=== PATIENT | male | born 1945 | race Caucasian/White ===

== ENCOUNTER → 2016-07-15 | Outpatient (CLI) | payer MEDICARE, OTHER ==
[~2016-07-15] MED LIST: ASCO500T9 PO; ATEN-36 PO; CYCL-375; DOXY100C2; HYDR4TAB84; IOHEXOL 300 MG/ML 100ml INJECTION ONE; LORA1TAB3; NITR0.4T; NORMAL SALINE 100 ML ONE; OMEP1CAP2 PO; ONDA8TAB12 SL; OPIU10TI PO; PROM25TA7; SALINE FLUSH 10ml SYRINGE ONE
--- NOTE | 2016-07-15 14:21 | DI ---
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 Coronal and sagittal two-dimensional reformats. Automated Exposure Control and Iterative Reconstruction dose reducing techniques were utilized. Contrast: Omnipaque 300 89 mL Findings: Chest: New groundglass opacity in the left upper lobe some atelectasis in the lingula. This measures up to 3 cm in diameter on axial image #25. There is also some new consolidation with fine nodules in the left lower lobe with a small left pleural effusion. Right lung remains clear. No pneumothorax. The central airways are patent. No axillary or mediastinal adenopathy. Prior CABG. Heart and great vessels are stable. No pericardial effusion. Abdomen/pelvis: The liver is normal. Gallbladder is surgically absent. The spleen, pancreas and adrenal glands are normal. Kidneys are normal. No abdominal or pelvic adenopathy. Left lower quadrant colostomy. 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 The size and extent of this rim-enhancing multiloculated collection is essentially identical to the comparison. Distal colectomy. No evidence of a small bowel obstruction. Bone windows show multiple compression fractures including T11, T12, L1, L2, L3 and L4 superior endplates. Impression: 1. 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 2. Multiple thoracolumbar compression fractures, several of which appeared subacute on the prior MRI study although the T11, L2 and L4 compression fractures could be new. 3. New pneumonia or aspiration in the left lung. 4. No definite evidence of metastatic disease in the chest, abdomen or pelvis. .
== END ==
LOC: IMA 11:08
PROVIDERS: ATTEND Internal Medicine Hematology & Oncology
DX: C18.4 Malignant neoplasm of transverse colon (principal); C18.7 Malignant neoplasm of sigmoid colon; K65.1 Peritoneal abscess; M48.55XA Collapsed vertebra, not elsewhere classified, thoracolumbar region, initial encounter for fracture; R91.8 Other nonspecific abnormal finding of lung field
CPT/HCPCS: 71260; 74177; J7050; Q9967

== ENCOUNTER 2016-08-23 17:40 | Emergency (ER) | payer MEDICARE, OTHER ==
[~2016-08-23] VITALS: Ht 175.3 cm; Wt 68.1 kg
[2016-08-23 17:40] VITALS: Ht 175.3 cm; Wt 68.1 kg
[~2016-08-23 17:40] MED LIST changes: -IOHEXOL 300 MG/ML 100ml INJECTION ONE; -NITR0.4T; +NITR0.4T PO; -NORMAL SALINE 100 ML ONE; -SALINE FLUSH 10ml SYRINGE ONE
--- OUTSIDE RECORDS SUMMARY | 2016-08-23 17:46 | XMS REPORT | Continuity of Care Document ---
Author Author [facility] Organization [facility] Address Unknown Phone Unavailable Support Name Relationship Address Phone BRADY PHAM Caregiver [facility] [address] [place] [address] KAYLEE SOLO MD Caregiver [address] [place] [address] [place] [phone] LOREE COLUNGA Next Of Kin [address] [place] [address] Insurance Providers Payer Name Policy Number Subscriber Name Relationship Medicare [id number] Jonh Colunga 19 Self Blue Cross Other [id number] Jonh Colunga Self Advance Directives Directive Response Recorded Date/Time Advanced Directives Type None 10/18/13 10:54am Resuscitation Documents on File No 10/18/13 10:54am Problems Medical Problems Problem Onset Date Status Diarrhea Unknown Active C-DIFFICILE COLITIS Unknown Active Diarrhea Unknown Active mild dehydration Unknown Active Medications Medication Dose Route Sig Days/Qty Instructions Order Date Discontinued Date Status Pantoprazole Sodium 40 Mg PO DAILY 08/05/12 10/16/12 Discontinued Atenolol 25 Mg PO DAILY 08/05/12 Active Lipase/Protease/Amylase 3 Each PO THREE TIMES A DAY 08/05/12 Discontinued Famotidine 20 Mg PO DAILY 10/16/12 04/24/13 Discontinued Metronidazole 500 Mg PO DAILY 11/12/12 04/24/13 Discontinued [Equate Acid Machining Department Supervisor] 1 Tab DAILY 08/10/13 Active Vancomycin Hcl 250 Mg PO EVERY SIX HOURS 40 Qty 08/10/13 10/13/13 Discontinued Colestipol Hcl 500 Gm PO 10/23/13 Active [Opium Tincture 10 Mg/Ml] 10/23/13 Active Social History Social History Problem Response Recorded Date/Time Smoking Status Former smoker 10/18/2013 10:30am Chewing Tobacco Status No 10/13/2013 7:12pm Hx Substance Use No 10/23/2013 10:19am Hx Alcohol Use No 10/23/2013 10:19am Has the pt used tobacco in the last 12 months No 10/18/2013 10:30am Query Response Start Date Stop Date Smoking Status Former smoker Hospital Discharge Instructions No hospital discharge instructions. Plan of Care No plan of care. Functional Status Query Response Date Recorded Physical Hygiene Self October 23, 2013 10:19am Disabilities None October 23, 2013 10:19am Devices Used Glasses October 23, 2013 10:19am Dressing Self October 23, 2013 10:19am Ambulation Self October 13, 2013 7:12pm Diet Self October 23, 2013 10:19am Mental Status Alert October 13, 2013 10:06pm Disabilities None October 23, 2013 10:19am Devices Used Glasses October 23, 2013 10:19am Physical Hygiene Self October 23, 2013 10:19am Dressing Self October 23, 2013 10:19am Ambulation Self October 13, 2013 7:12pm Diet Self October 23, 2013 10:19am Allergies, Adverse Reactions, Alerts Allergen Type Severity Reaction Status Last Updated Codeine Adverse Reaction Unknown NAUSEA Active 10/23/13 Immunizations Name Given Type Hx Influenza Vaccination Y 01/17 Historical Hx Pneumococcal Vaccination Y JAN 2012 Historical Hx Influenza Vaccination Y 01/17 Historical Vital Signs Acute Vital Signs Vital Response Date/Time Temperature (Fahrenheit) 96.4 deg F (96.8 - 99.1) Temperature (Calculated Celsius) 35.83750 degrees C (36.0 - 37.3) Pulse Rate (adult) 75 bpm (60 - 100) Respiratory Rate 20 breaths/min (10 - 20) O2 Sat by Pulse Oximetry 99 % (90 - 100) Blood Pressure 111/58 mm Hg Height 6 ft 0 in Weight 132 lb Body Mass Index 17.0 kg/m^2 Results Test Source Date Result Interp. Ref. Range Comments Alanine Aminotransferase (ALT/SGPT) October 23, 2013 11:02am 29 U/L N 21- 72 Albumin October 23, 2013 11:02am 4.1 G/DL N 3.5-5.0 Albumin/Globulin Ratio October 23, 2013 11:02am 1.0 RATIO L 1.1-2.2 Alkaline Phosphatase October 23, 2013 11:02am 124 U/L N 38-126 Amylase Level August 10, 2013 2:00pm 133 U/L H 30-110 Anion Gap October 23, 2013 11:02am 13 MEQ/L N 5-15 Aspartate Amino Transf (AST/SGOT) October 23, 2013 11:02am 23 U/L N 17-59 BUN/Creatinine Ratio October 23, 2013 11:02am 24 RATIO N 6-26 Band Neutrophils # October 18, 2013 10:43am 0.2 T/MM3 - COMMENT DRAW NOW Band Neutrophils % October 18, 2013 10:43am 4.0 % N 0-6 COMMENT DRAW NOW Basophils # (Auto) October 23, 2013 11:02am 0.0 T/MM3 N 0-0.2 Basophils (%) (Auto) October 23, 2013 11:02am 0.4 % N 0-2 Blood Urea Nitrogen October 23, 2013 11:02am 44.0 MG/DL H 9-20 Calcium Level October 23, 2013 11:02am 9.7 MG/DL N 8.4-10.2 Calculated Osmolality October 23, 2013 11:02am 265 MOSM/KG N 261-280 Carbon Dioxide Level October 23, 2013 11:02am 26 MEQ/L N 22-30 Chloride Level October 23, 2013 11:02am 92 MEQ/L L 98-107 Creatinine October 23, 2013 11:02am 1.8 MG/DL H 0.8-1.5 Eosinophils # (Auto) October 23, 2013 11:02am 0.1 T/MM3 N 0-0.5 Eosinophils (%) (Auto) October 23, 2013 11:02am 1.0 % N 0-4 Erythrocyte Sedimentation Rate February 22, 2013 2:30pm 64 MM/HR H 0-15 Globulin October 23, 2013 11:02am 4.1 G/DL H 2.4-3.6 Glucose Level October 23, 2013 11:02am 111 MG/DL H 75-110 Hematocrit October 23, 2013 11:02am 38.5 % L 41-53 Hemoglobin October 23, 2013 11:02am 13.3 GM/DL L 13.5-17.5 Lipase October 23, 2013 11:02am 63 U/L N 23-300 Lymphocytes # (Auto) October 23, 2013 11:02am 1.5 T/MM3 N 1-4.8 Lymphocytes # (Manual) October 18, 2013 10:43am 2.7 T/MM3 N 1-4.8 COMMENT DRAW NOW Lymphocytes % (Manual) October 18, 2013 10:43am 47.0 % H 23-45 COMMENT DRAW NOW Lymphocytes (%) (Auto) October 23, 2013 11:02am 21.5 % L 23-45 Magnesium Level August 06, 2012 4:20am 1.6 MG/DL N 1.6-2.3 Mean Corpuscular Hemoglobin October 23, 2013 11:02am 30.4 UUG N 26-34 Mean Corpuscular Hemoglobin Concent October 23, 2013 11:02am 34.5 GM/DL N 31-37 Mean Corpuscular Volume October 23, 2013 11:02am 88.1 UM3 N 80-100 Mean Platelet Volume October 23, 2013 11:02am 8.2 UM3 L 9.4-12.4 Monocytes # (Auto) October 23, 2013 11:02am 0.7 T/MM3 N 0-0.8 Monocytes (%) (Auto) October 23, 2013 11:02am 10.2 % H 0-9.0 Neutrophils # (Auto) October 23, 2013 11:02am 4.6 T/MM3 N 1.8-7.7 Neutrophils # (Manual) October 18, 2013 10:43am 2.8 T/MM3 N 1.8-7.7 COMMENT DRAW NOW Neutrophils % (Manual) October 18, 2013 10:43am 49.0 % N 33-66 COMMENT DRAW NOW Neutrophils (%) (Auto) October 23, 2013 11:02am 66.6 % H 33-66 Platelet Count October 23, 2013 11:02am 235 T/MM3 N 130-400 Potassium Level October 23, 2013 11:02am 4.8 MEQ/L N 3.6-5 Prealbumin August 05, 2012 2:20pm 16.1 MG/DL L 17.6-36.0 COMMENT may use blood in lab RDW Standard Deviation October 23, 2013 11:02am 42.4 FL N 36.9-50.2 Red Blood Count October 23, 2013 11:02am 4.37 M/MM3 L 4.50-5.90 Sodium Level October 23, 2013 11:02am 131 MEQ/L L 134-144 Stool Occult Blood May 05, 2013 12:23pm Negative - Stool for White Cells October 13, 2013 7:23pm Positive - Has specimen been collected/obtained? Y Thyroid Stimulating Hormone (TSH) August 05, 2012 2:20pm 0.87 MIU/L N 0.47- 4.68 COMMENT may use blood in lab Total Bilirubin October 23, 2013 11:02am 0.70 MG/DL N 0.20-1.30 Total Protein October 23, 2013 11:02am 8.2 G/DL N 6.3-8.2 Urine Bacteria August 10, 2013 2:00pm Trace H - Has specimen been collected/obtained? Y Urine Bilirubin August 10, 2013 2:00pm 1+ H - Has specimen been collected/ obtained? Y Urine Blood August 10, 2013 2:00pm Negative - Has specimen been collected/obtained? Y Urine Collection Type August 10, 2013 2:00pm Cleancatch-midstream - Has specimen been collected/obtained? Y Urine Color August 10, 2013 2:00pm Sulma - Has specimen been collected/ obtained? Y Urine Culture Indicated August 10, 2013 2:00pm Cult not indicated - Has specimen been collected/obtained? Y Urine Fine Granular Casts May 05, 2013 12:20pm 3-5 /LPF - Has specimen been collected/obtained? Y Urine Glucose (UA) August 10, 2013 2:00pm Negative - Has specimen been collected/obtained? Y Urine Hyaline Casts May 05, 2013 12:20pm 5-10 /LPF - Has specimen been collected/obtained? Y Urine Ketones August 10, 2013 2:00pm 1+ H - Has specimen been collected/ obtained? Y Urine Leukocyte Esterase August 10, 2013 2:00pm Negative - Has specimen been collected/obtained? Y Urine Mucus May 05, 2013 12:20pm Present - Has specimen been collected/obtained? Y Urine Nitrite August 10, 2013 2:00pm Negative - Has specimen been collected/obtained? Y Urine Protein August 10, 2013 2:00pm 2+ H - Has specimen been collected/ obtained? Y Urine RBC August 10, 2013 2:00pm 3-5 /HPF H - Has specimen been collected/ obtained? Y Urine Specific [place] August 10, 2013 2:00pm >=1.030 H - Has specimen been collected/obtained? Y Urine Turbidity August 10, 2013 2:00pm Clear - Has specimen been collected/obtained? Y Urine Urobilinogen August 10, 2013 2:00pm 0.2 EU/DL - Has specimen been collected/obtained? Y Urine WBC August 10, 2013 2:00pm 0-1 /HPF - Has specimen been collected/ obtained? Y Urine pH August 10, 2013 2:00pm 6.0 - Has specimen been collected/ obtained? Y Vitamin B12 Level August 05, 2012 2:20pm 192 PG/ML L 239-931 COMMENT may use blood in lab White Blood Count October 23, 2013 11:02am 6.9 T/MM3 N 4.5-11.0 Chemistry Specimen Hemolysis October 23, 2013 11:02am < 15 0-25 0-25: No Hemolysis.26-70: Slight Hemolysis - can falsely elevate K and Urine Protein. 71-285: Moderate Hemolysis - can falsely elevate K, Troponin I, CA 19-9, PTH, CSF GLucose, and Urine Protein, and can falsely decrease Phenytoin. 286-999: Gross Hemolysis - can falsely elevate K, Troponin I, CA 19-9, PTH, CSF Glucose, and Urine Protine, and can falsely decrease Phenytoin. Recommend specimen recollection. Urinalysis Comment October 16, 2012 9:23pm Microscopic not ind. - Has specimen been collected/obtained? Y Lab Scanned Report September 29, 2013 8:51pm LAB TEST FORM REQUEST [id number] - Turbidity October 23, 2013 11:02am < 20 0-20 Glomerular Filtration Rate Calc October 23, 2013 11:02am 38 - Immature Granulocyte # (Auto) October 23, 2013 11:02am 0.02 T/MM3 N 0.00- 0.03 Immature Granulocyte % (Auto) October 23, 2013 11:02am 0.3 % N 0.0-0.5 Icterus Index October 23, 2013 11:02am < 2 0-7 C. difficile Toxin B Gene (PCR) October 13, 2013 7:23pm Negative - If Toxin A is clinically indicated, treat accordingly. Stool Culture Stool October 13, 2013 7:23pm Giardia Antigen (KAN) Stool May 05, 2013 12:23pm Procedures Procedure Status Date Provider(s) THER/PROPH/DIAG INJ IV PUSH completed 08/10/13 HYDRATE IV INFUSION ADD-ON completed 08/10/13 HYDRATION IV INFUSION INIT completed 10/13/13 Encounters Encounter Location Date/Time Departed Emergency Room [facility] 10/23/13 9:46am Registered Clinic [facility] 10/18/13 10:21am Departed Emergency Room [facility] 10/13/13 6:45pm Departed Emergency Room [facility] 08/10/13 1:17pm Recent Diagnosis
--- OUTSIDE RECORDS SUMMARY | 2016-08-23 17:47 | XMS REPORT ---
Author Author BRUCE LOPEZ [facility] Address Unknown Phone Unavailable Care Team Providers Care Retail Stock Clerk Name Role Phone SUITER, Dr. WILSON Primary Care Physician Unavailable Allergies Allergy Description Allergy Type CODEINE Drug allergy (disorder) Procedures Procedure Type Procedure Description Date Physicians No codified procedures found for this patient. Results No Procedures Performed Observation Test Name Observation Test Result Observation Test Units Observation Test Date Observation Test Time No result observations. History of Immunizations Immunization Date no immunization entries Plan of Care Item Text No plan of care items. Procedure Date/Time/Initials Critical? Status No plan of care procedures. Medication List Medication Dose Units Frequency Start Date/Time Status none Problem List Problem Entered Date Resolved Date No known problems
--- OUTSIDE RECORDS SUMMARY | 2016-08-23 17:47 | XMS REPORT | Continuity of Care Document ---
Author Author Zhang [facility] Organization [facility] Address Unknown Phone Unavailable Support Name Relationship Address Phone KAYLEE SOLO MD Caregiver [address] [place] [address] [place] [address] [phone] LOREE COLUNGA Next Of Kin [address] [place] [address] Insurance Providers Payer Name Policy Number Subscriber Name Relationship Medicare [id number] Jonh Colunga Self Blue Cross Other [id number] Jonh Colunga Self Advance Directives Directive Response [...] PO DAILY 11/12/12 04/24/13 Discontinued [Equate Acid Child Caregiver Private Home] 1 Tab DAILY 08/10/13 Active Vancomycin Hcl 250 Mg PO EVERY SIX HOURS 40 Qty 08/10/13 10/13/13 Discontinued Social History Social History Problem Response Recorded Date/Time Smoking Status Former smoker 10/18/2013 10:30am Chewing Tobacco Status No 10/13/2013 7:12pm Hx Substance Use No 10/13/2013 7:12pm Hx Alcohol Use No 10/13/2013 7:12pm Has the pt used tobacco in the last 12 months No 10/18/2013 10:30am Query Response Start Date Stop Date Smoking Status Former smoker Hospital Discharge Instructions No hospital discharge instructions. Plan of Care No plan of care. Functional Status Query Response Date Recorded Physical Hygiene Self October 13, 2013 7:12pm Ambulation Self October 13, 2013 7:12pm Mental Status Alert October 13, 2013 10:06pm Physical Hygiene Self October 13, 2013 7:12pm Ambulation Self October 13, 2013 7:12pm Allergies, Adverse Reactions, Alerts Allergen Type Severity Reaction Status Last Updated Codeine Adverse Reaction Unknown NAUSEA Active 10/13/13 Immunizations Name Given Type Hx Influenza Vaccination Y 01/17 Historical Hx Pneumococcal Vaccination Y JAN 2012 Historical Hx Influenza Vaccination Y 01/17 Historical Vital Signs Acute Vital Signs Vital Response Date/Time Temperature (Fahrenheit) 97.1 deg F (96.8 - 99.1) Temperature (Calculated Celsius) 36.63048 degrees C (36.0 - 37.3) Temperature Source Temporal Pulse Rate (adult) 67 bpm (60 - 100) Respiratory Rate 16 breaths/min (10 - 20) O2 Sat by Pulse Oximetry 99 % (90 - 100) Blood Pressure 120/72 mm Hg Blood Pressure Source Automatic Cuff Results Test Source Date Result Interp. Ref. Range Comments Lymphocytes # (Manual) October 18, 2013 10:43am 2.7 T/MM3 N 1-4.8 COMMENT DRAW NOW Neutrophils # (Manual) October 18, 2013 10:43am 2.8 T/MM3 N 1.8-7.7 COMMENT DRAW NOW Band Neutrophils # October 18, 2013 10:43am 0.2 T/MM3 - COMMENT DRAW NOW Lymphocytes % (Manual) October 18, 2013 10:43am 47.0 % H 23-45 COMMENT DRAW NOW Band Neutrophils % October 18, 2013 10:43am 4.0 % N 0-6 COMMENT DRAW NOW Neutrophils % (Manual) October 18, 2013 10:43am 49.0 % N 33-66 COMMENT DRAW NOW Alanine Aminotransferase (ALT/SGPT) October 18, 2013 10:43am 21 U/L N 21- 72 COMMENT DRAW NOW Albumin October 18, 2013 10:43am 4.1 G/DL N 3.5-5.0 COMMENT DRAW NOW Albumin/Globulin Ratio October 18, 2013 10:43am 0.9 RATIO L 1.1-2.2 COMMENT DRAW NOW Alkaline Phosphatase October 18, 2013 10:43am 106 U/L N 38-126 COMMENT DRAW NOW Amylase Level August 10, 2013 2:00pm 133 U/L H 30-110 Anion Gap October 18, 2013 10:43am 15 MEQ/L N 5-15 COMMENT DRAW NOW Aspartate Amino Transf (AST/SGOT) October 18, 2013 10:43am 21 U/L N 17-59 COMMENT DRAW NOW BUN/Creatinine Ratio October 18, 2013 10:43am 18 RATIO N 6-26 COMMENT DRAW NOW Basophils # (Auto) October 13, 2013 7:18pm 0.1 T/MM3 N 0-0.2 Basophils (%) (Auto) October 13, 2013 7:18pm 0.6 % N 0-2 Blood Urea Nitrogen October 18, 2013 10:43am 28.0 MG/DL H 9-20 COMMENT DRAW NOW C. difficile Toxin B Gene (PCR) October 13, 2013 7:23pm Negative - If Toxin A is clinically indicated, treat accordingly. Calcium Level October 18, 2013 10:43am 10.0 MG/DL N 8.4-10.2 COMMENT DRAW NOW Calculated Osmolality October 18, 2013 10:43am 274 MOSM/KG N 261-280 COMMENT DRAW NOW Carbon Dioxide Level October 18, 2013 10:43am 22 MEQ/L N 22-30 COMMENT DRAW NOW Chemistry Specimen Hemolysis October 18, 2013 10:43am 22 N 0-25 0-25: No Hemolysis.26-70: Slight Hemolysis - can falsely elevate K and Urine Protein. 71-285: Moderate Hemolysis - can falsely elevate K, Troponin I, CA 19-9, PTH, CSF GLucose, and Urine Protein, and can falsely decrease Phenytoin. 286-999: Gross Hemolysis - can falsely elevate K, Troponin I, CA 19-9, PTH, CSF Glucose, and Urine Protine, and can falsely decrease Phenytoin. Recommend specimen recollection. Chloride Level October 18, 2013 10:43am 102 MEQ/L N 98-107 COMMENT DRAW NOW Creatinine October 18, 2013 10:43am 1.6 MG/DL H 0.8-1.5 COMMENT DRAW NOW Eosinophils # (Auto) October 13, 2013 7:18pm 0.2 T/MM3 N 0-0.5 Eosinophils (%) (Auto) October 13, 2013 7:18pm 2.5 % N 0-4 Erythrocyte Sedimentation Rate February 22, 2013 2:30pm 64 MM/HR H 0-15 Globulin October 18, 2013 10:43am 4.4 G/DL H 2.4-3.6 COMMENT DRAW NOW Glomerular Filtration Rate Calc October 18, 2013 10:43am 43 - COMMENT DRAW NOW Glucose Level October 18, 2013 10:43am 92 MG/DL N 75-110 COMMENT DRAW NOW Hematocrit October 18, 2013 10:43am 39.3 % L 41-53 COMMENT DRAW NOW Hemoglobin October 18, 2013 10:43am 13.1 GM/DL L 13.5-17.5 COMMENT DRAW NOW Icterus Index October 18, 2013 10:43am < 2 0-7 COMMENT DRAW NOW Immature Granulocyte # (Auto) October 13, 2013 7:18pm 0.02 T/MM3 N 0.00- 0.03 Immature Granulocyte % (Auto) October 13, 2013 7:18pm 0.2 % N 0.0-0.5 Lab Scanned Report September 29, 2013 8:51pm LAB TEST FORM REQUEST [id number] - Lipase October 13, 2013 7:18pm 65 U/L N 23-300 Lymphocytes # (Auto) October 13, 2013 7:18pm 2.3 T/MM3 N 1-4.8 Lymphocytes (%) (Auto) October 13, 2013 7:18pm 26.9 % N 23-45 Magnesium Level August 06, 2012 4:20am 1.6 MG/DL N 1.6-2.3 Mean Corpuscular Hemoglobin October 18, 2013 10:43am 29.8 UUG N 26-34 COMMENT DRAW NOW Mean Corpuscular Hemoglobin Concent October 18, 2013 10:43am 33.3 GM/DL N 31-37 COMMENT DRAW NOW Mean Corpuscular Volume October 18, 2013 10:43am 89.5 UM3 N 80-100 COMMENT DRAW NOW Mean Platelet Volume October 18, 2013 10:43am 8.2 UM3 L 9.4-12.4 COMMENT DRAW NOW Monocytes # (Auto) October 13, 2013 7:18pm 1.1 T/MM3 H 0-0.8 Monocytes (%) (Auto) October 13, 2013 7:18pm 12.6 % H 0-9.0 Neutrophils # (Auto) October 13, 2013 7:18pm 4.9 T/MM3 N 1.8-7.7 Neutrophils (%) (Auto) October 13, 2013 7:18pm 57.2 % N 33-66 Platelet Count October 18, 2013 10:43am 289 T/MM3 N 130-400 COMMENT DRAW NOW Potassium Level October 18, 2013 10:43am 4.4 MEQ/L N 3.6-5 COMMENT DRAW NOW Prealbumin August 05, 2012 2:20pm 16.1 MG/DL L 17.6-36.0 COMMENT may use blood in lab RDW Standard Deviation October 18, 2013 10:43am 45.0 FL N 36.9-50.2 COMMENT DRAW NOW Red Blood Count October 18, 2013 10:43am 4.39 M/MM3 L 4.50-5.90 COMMENT DRAW NOW Sodium Level October 18, 2013 10:43am 139 MEQ/L N 134-144 COMMENT DRAW NOW Stool Occult Blood May 05, 2013 12:23pm Negative - Stool for White Cells October 13, 2013 7:23pm Positive - Has specimen been collected/obtained? Y Thyroid Stimulating Hormone (TSH) August 05, 2012 2:20pm 0.87 MIU/L N 0.47- 4.68 COMMENT may use blood in lab Total Bilirubin October 18, 2013 10:43am 0.60 MG/DL N 0.20-1.30 COMMENT DRAW NOW Total Protein October 18, 2013 10:43am 8.5 G/DL H 6.3-8.2 COMMENT DRAW NOW Turbidity October 18, 2013 10:43am < 20 0-20 COMMENT DRAW NOW Urinalysis Comment October 16, 2012 9:23pm Microscopic not ind. - Has specimen been collected/obtained? Y Urine Bacteria August 10, 2013 2:00pm Trace [...] specimen been collected/ obtained? Y Urine Specific [place] August 10, 2013 2:00pm >=1.030 H - [...] blood in lab White Blood Count October 18, 2013 10:43am 5.8 T/MM3 N 4.5-11.0 COMMENT DRAW NOW Stool Culture Stool October 13, 2013 7:23pm Giardia Antigen (KAN) Stool May 05, 2013 12:23pm Procedures Procedure Status Date Provider(s) THER/PROPH/DIAG INJ IV PUSH completed 08/10/13 HYDRATE IV INFUSION ADD-ON completed 08/10/13 HYDRATION IV INFUSION INIT completed 10/13/13 Encounters Encounter Location Date/Time Registered Clinic [facility] 10/18/13 10:21am Departed Emergency Room [facility] 10/13/13 6:45pm Departed Emergency Room [facility] 08/10/13 1:17pm
--- OUTSIDE RECORDS SUMMARY | 2016-08-23 17:47 | XMS REPORT ---
Author Author DANYEL PANIAGUA [facility] Address Unknown Phone Unavailable Care Team Providers Care Police Booking Officer Name Role Phone SUITER, Dr. WILSON Primary Care Physician Unavailable Allergies Allergy Description Allergy Type CODEINE Drug allergy (disorder) Procedures Procedure Type Procedure Description Date Physicians No codified procedures found for this patient. Results CLOTEST (HELICOBACTER) Observation Test Name Observation Test Result Observation Test Units Observation Test Date Observation Test Time CLOTEST (HELICOBACTE NEGATIVE 01/26/2013 10:09 PATHOLOGY ORDER Observation Test Name Observation Test Result Observation Test Units Observation Test Date Observation Test Time Results Transcriptions Result Description Result Date Result Time ENDOSCOPY PRE-PROCEDURE H&P 01/25/13 12: 31 ENDOSCOPY REPORT 01/25/13 12:31 ENDOSCOPY REPORT 01/25/13 12:31 ENDOSCOPY LETTER 01/25/13 12:31 ENDOSCOPY DISCHARGE NOTE 01/25/13 12:31 ENDOSCOPY LETTER 01/26/13 14:31 ENDOSCOPY LETTER 01/27/13 12:31 History of Immunizations Immunization Date no immunization entries Plan of Care Item Text No plan of care items. Procedure Date/Time/Initials Critical? Status No plan of care procedures. Medication List Medication Dose Units Frequency Start Date/Time Status none Problem List Problem Entered Date Resolved Date No known problems
--- OUTSIDE RECORDS SUMMARY | 2016-08-23 17:47 | XMS REPORT | Referral Summary ---
Author Author [facility] Organization [facility] Address Unknown Phone Unavailable Care Team Providers Care Supply Chain Generalist Name Role Phone SamariaNaomi Primary Care Physician [phone] Encounter [facility] [id number] Date(s): 05/06/16 - 05/09/16 [facility] [address] [place] [address] Discharge Disposition: 01-Home or Self Care Attending Physician: Blanca Corona MD Admitting Physician: Cynthia Riggs MD Vital Signs Most recent to 1 oldest [Reference Range]: Temperature Oral 36.2 degC [35.8-37.3 degC] (05/09/16 8:57 AM) Peripheral Pulse 108 bpm Rate [60-100 bpm] *HI* (05/09/16 8:57 AM) Heart Rate Monitored 76 bpm [60-100 bpm] (05/09/16 6:00 AM) Respiratory Rate 16 br/min [14-20 br/min] (05/09/16 8:57 AM) Blood Pressure 138/78 mmHg [90-140/60-90 mmHg] (05/09/16 8:57 AM) SpO2 100 % (05/09/16 8:57 AM) Remote Telemetry Ongoing (05/09/16 8:00 AM) Problem List Condition Effective Dates Status Health Status Informant Acute Active pain(Confirmed) At risk of pressure Active sore(Confirmed) Fluid Active imbalance(Confirmed) 1 Impaired skin Active integrity(Confirmed) 2 Rectal 2016 Active cancer(Confirmed) Tissue perfusion Active alteration(Confirmed )3 1Problem added automatically by system based on initiation of Fluid Volume Imbalance Plan of Care 2Problem added automatically by system based on initiation of Impaired Skin Integrity Plan of Care 3Problem added automatically by system based on initiation of Tissue Perfusion Cerebral Plan of Care Allergies, Adverse Reactions, Alerts Substance Reaction Severity Status codeine Active Medications atenolol 25 mg, Oral, Daily, 0 Refill(s) Start Date: 05/06/16 Status: Ordered cyclobenzaprine 10 mg oral tablet 10 mg 1 tabs, Oral, TID, Muscle Spasm, 0 Refill(s) Start Date: 05/09/16 Status: Ordered doxycycline 100 mg, Oral, BID, for chemo rash, 0 Refill(s) Start Date: 05/06/16 Status: Ordered HYDROmorphone 8 mg, Oral, q6hr, Pain Severe (7-10), 0 Refill(s) Start Date: 05/06/16 Status: Ordered Imodium A-D 2 mg, Oral, Once, Diarrhea/Loose Stools, 0 Refill(s) Start Date: 05/06/16 Status: Ordered magnesium oxide 400 mg, Oral, BID, 0 Refill(s) Start Date: 05/06/16 Status: Ordered opium 10% (equivalent to morphine 10 mg/mL) (Opium Tincture) oral tincture 0.6 mL, Oral, BID, 0 Refill(s) Start Date: 05/06/16 Status: Ordered Zegerid 20 mg, Oral, Daily, 0 Refill(s) Start Date: 05/06/16 Status: Ordered Zofran 8 mg, Oral, BID, Nausea, 0 Refill(s) Start Date: 05/06/16 Status: Ordered Results Hematology Most recent to 1 oldest [Reference Range]: WBC [4.8-10.8 4.8 10*3/uL 10*3/uL] (05/09/16 4:17 AM) RBC [4.60-6.20] 2.52 *LOW* (05/09/16 4:17 AM) Hgb [14.0-18.0 8.3 gm/dL gm/dL] *LOW* (05/09/16 4:17 AM) Hct [42.0-52.0 %] 26.0 % *LOW* (05/09/16 4:17 AM) MCV [82.0-99.0 fL] 103.2 fL *HI* (05/09/16 4:17 AM) MCH [27.0-32.0 pg] 32.9 pg *HI* (05/09/16 4:17 AM) MCHC [32.0-36.0 31.9 gm/dL gm/dL] *LOW* (05/09/16 4:17 AM) RDW [11.5-14.5 %] 15.1 % *HI* (05/09/16 4:17 AM) Platelet [150-400 220 10*3/uL 10*3/uL] (05/09/16 4:17 AM) MPV [9.4-12.3 fL] 8.3 fL *LOW* (05/09/16 4:17 AM) Immature 0.4 % Granulocytes (05/09/16:17 AM) [0.0-1.0 %] Neutrophils [51-75 51 % %] (05/09/16 4:17 AM) Lymphocytes [20-46 25 % %] (05/09/16:17 AM) Monocytes [4-11 %] 19 % *HI* (05/09/16 4:17 AM) Eosinophils [0-4 %] 3 % (05/09/16:17 AM) Basophils [0-2 %] 1 % (05/09/16 4:17 AM) Neutro Absolute 2.44 [1.90-7.00] (05/09/16 4:17 AM) Lymph Absolute 1.21 [0.80-3.30] (05/09/16 4:17 AM) [place] Absolute 0.89 [0.30-1.00] (05/09/16 4:17 AM) Eos Absolute 0.16 [0.00-0.50] (05/09/16 4:17 AM) Baso Absolute 0.06 [0.00-0.20] (05/09/16 4:17 AM) Nucleated RBC 0.0 /100 WBC Automated [0 /100 (05/09/16 4:17 AM) WBC] Chemistry Most recent to 1 oldest [Reference Range]: Sodium Lvl [136-144 137 mEq/L mEq/L] (05/09/16 4:17 AM) Potassium Lvl 4.7 mEq/L [3.6-5.1 mEq/L] (05/09/16 4:17 AM) Chloride [99-109 108 mEq/L mEq/L] (05/09/16 4:17 AM) CO2 [22-32 mEq/L] 26 mEq/L (05/09/16 4:17 AM) AGAP [3-20] 3 (05/09/16 4:17 AM) BUN [4-20 mg/dL] 25 mg/dL *HI* (05/09/16 4:17 AM) Glucose Lvl [70-100 100 mg/dL mg/dL] (05/09/16 4:17 AM) Creatinine Lvl 2.03 mg/dL [0.64-1.27 mg/dL] *HI* (05/09/16 4:17 AM) eGFR [>60] 33 1 *ABN* (05/09/16 4:17 AM) Calcium Lvl 8.6 mg/dL [8.6-10.0 mg/dL] (05/09/16 4:17 AM) Albumin Lvl [3.5-4.8 2.3 gm/dL gm/dL] *LOW* (05/09/16 4:17 AM) Magnesium Lvl 1.6 mg/dL [1.8-2.5 mg/dL] *LOW* (05/09/16 4:17 AM) Uric Acid [4.8-8.7 10.0 mg/dL mg/dL] *HI* (05/06/16 2:02 PM) Phosphorus [2.4-4.7 2.7 mg/dL 2 mg/dL] (05/09/16 4:17 AM) Calcium Ionized 1.30 mmol/L [1.19-1.41 mmol/L] (05/09/16 4:17 AM) Total CK [49-397 42 U/L U/L] *LOW* (05/06/16 2:02 PM) BNP [0-99 pg/mL] 41 pg/mL (05/06/16 2:02 PM) Homocyst Tot 22.6 mcmol/L [5.5-16.2 mcmol/L] *HI* (05/08/16 3:13 PM) Vitamin B12 Lvl 273 pg/mL [213-816 pg/mL] (05/07/16 4:01 AM) Folate Lvl [7.0-31.4 15.7 ng/mL ng/mL] (05/07/16 4:01 AM) 1Result Comment: Multiply eGFR results by 1.21 for race. 2Result Comment: High dosages of liposomal Amphotericin B (AmBisome) therapy or other drug preparations that use a liposomal envelope to facilitate drug delivery may cause falsely elevated results for phosphorus. Urinalysis Most recent to 1 oldest [Reference Range]: UA Color Yellow (05/06/16 3:03 PM) UA Appear Sl Cloudy (05/06/16 3:03 PM) UA pH [5.0-8.0] 5.0 (05/06/16 3:03 PM) UA Leuk Est Negative [Negative] (05/06/16 3:03 PM) UA Nitrite Negative [Negative] (05/06/16 3:03 PM) UA Protein Negative [Negative] (05/06/16 3:03 PM) UA Glucose Negative [Negative] (05/06/16 3:03 PM) UA Ketones Negative [Negative] (05/06/16 3:03 PM) UA Urobilinogen Negative [<1.0] (05/06/16 3:03 PM) UA Bili [Negative] Negative (05/06/16 3:03 PM) UA Blood [Negative] Pos 1+ *ABN* (05/06/16 3:03 PM) UA Spec Grav 1.020 [1.003-1.030] (05/06/16 3:03 PM) Type Not Specified (05/06/16 3:03 PM) UA WBC [0-4] 0-2 (05/06/16 3:03 PM) UA RBC [0-2] 2-5 (05/06/16 3:03 PM) Epithelial Cells 0-2 (05/06/16 3:03 PM) UA Bacteria Rare (05/06/16 3:03 PM) UA Hyal Cast [0-3 >12 [LPF] [LPF]] *ABN* (05/06/16 3:03 PM) UA Mucous Present (05/06/16 3:03 PM) Immunizations No data available for this section Procedures Procedure Date Related Diagnosis Body Site Creation of ileostomy1 09/20/15 Exploratory laparotomy2 09/20/15 Biopsy Bone Marrow3 03/22/15 Procedure with Anesthesia4 03/22/15 Coronary artery bypass graft 1EXPLORATORY LAPAROTOMY, EXTENSIVE ADHESIOLYSIS, TAKEDOWN OF PERFORATED ILEOANAL J-POUCH WITH CREATION OF END ILEOSTOMY. 2PERFORMED FOR ISCHIORECTAL ABSCESS SECONDARY TO A RECURRENT MALIGNANCY INVOLVING PRIOR ILEORECTAL ANASTOMOSIS WITH ASSOCIATED PERFORATION. 3auto-populated from documented surgical case 4auto-populated from documented surgical case Social History Social History Type Response Smoking Status Former smoker Assessment and Plan No data available for this section
--- OUTSIDE RECORDS SUMMARY | 2016-08-23 17:47 | XMS REPORT | Referral Summary ---
Author Author [facility] Organization [facility] Address Unknown Phone Unavailable Care Team Providers Care Fisher Name Role Phone SamariaNaomi Primary Care Physician [phone] Encounter [facility] [id number] Date(s): 03/06/16 - 03/06/16 [facility] [address] [place] [address] [place] [id number] Discharge Diagnosis: Rectal bleeding Discharge Disposition: 01-Home or Self Care Attending Physician: Huber Pinto MD Admitting Physician: Huber Pinto MD Vital Signs Most recent to 1 oldest [Reference Range]: Temperature Tympanic 36.8 degC [36.6-38.1 degC] (03/06/16 8:09 AM) Peripheral Pulse 97 bpm Rate [60-100 bpm] (03/06/16 8:09 AM) Blood Pressure 122/60 mmHg [90-140/60-90 mmHg] (03/06/16 8:09 AM) SpO2 99 % (03/06/16 8:09 AM) Problem List Condition Effective Dates Status Health Status Informant At risk of pressure Active sore(Confirmed) Impaired skin Active integrity(Confirmed) 1 Rectal 2016 Active cancer(Confirmed) 1Problem added automatically by system based on initiation of Impaired Skin Integrity Plan of Care Allergies, Adverse Reactions, Alerts Substance Reaction Severity Status codeine Active Medications acetaminophen 325 mg oral tablet 650 mg 2 tabs, Oral, q4hr, Other (See Comment), 0 Refill(s) Start Date: 11/09/15 Status: Ordered atenolol 25 mg oral tablet 25 mg 1 tabs, Oral, Daily, 0 Refill(s) Start Date: 11/07/15 Status: Ordered calcium carbonate 500 mg (200 mg elemental calcium) oral tablet, chewable 500 mg 1 tabs, Oral, TID, 0 Refill(s) Start Date: 11/09/15 Status: Ordered ergocalciferol 50,000 intl units (1.25 mg) oral capsule 50,000 Intl_Units 1 caps, Oral, qWeek, 0 Refill(s) Start Date: 11/09/15 Status: Ordered Lomotil See Instructions, TAKES NEEDED FOR DIARREA, 0 Refill(s) Start Date: 03/06/16 Status: Ordered magnesium oxide 400 mg (241.3 mg elemental magnesium) oral tablet 800 mg 2 tabs, Oral, BID, 0 Refill(s) Start Date: 11/09/15 Status: Ordered Percocet 7.5/325 oral tablet 2 tabs, Oral, q6hr, Pain Moderate (4-6), 1-2 tabs, 0 Refill(s) Start Date: 11/07/15 Status: Ordered Vitamin C 500 mg, Oral, BID, 0 Refill(s) Start Date: 11/07/15 Status: Ordered Zegerid OTC 1 caps, Oral, Daily, 0 Refill(s) Start Date: 11/07/15 Status: Ordered Zinc 140 mg, Oral, Daily, 0 Refill(s) Start Date: 11/07/15 Status: Ordered Zofran ODT 8 mg oral tablet, disintegrating 8 mg 1 tabs, Oral, q6hr, Nausea, 0 Refill(s) Start Date: 03/06/16 Status: Ordered Results No data available for this section Immunizations No data available for this section Procedures Procedure Date Related Diagnosis Body Site Creation of ileostomy1 09/20/15 Exploratory laparotomy2 09/20/15 Biopsy Bone Marrow3 03/22/15 Procedure with Anesthesia4 03/22/15 1EXPLORATORY LAPAROTOMY, EXTENSIVE ADHESIOLYSIS, TAKEDOWN OF PERFORATED ILEOANAL J-POUCH WITH CREATION OF END ILEOSTOMY. 2PERFORMED FOR ISCHIORECTAL ABSCESS SECONDARY TO A RECURRENT MALIGNANCY INVOLVING PRIOR ILEORECTAL ANASTOMOSIS WITH ASSOCIATED PERFORATION. 3auto-populated from documented surgical case 4auto-populated from documented surgical case Social History Social History Type Response Smoking Status Former smoker Assessment and Plan Extracted from: Title: Ambulatory Patient Education Author: Huber Pinto MD Date: Family Medicine Gastrointestinal Bleeding Gastrointestinal (GI) bleeding means there is bleeding somewhere along the digestive tract, between the mouth and anus. CAUSES There are many different problems that can cause GI bleeding. Possible causes include: Esophagitis. This is inflammation, irritation, or swelling of the esophagus. Hemorrhoids.These are veins that are full of blood (engorged) in the rectum. They cause pain, inflammation, and may bleed. Anal fissures.These are areas of painful tearing which may bleed. They are often caused by passing hard stool. Diverticulosis.These are pouches that form on the colon over time, with age, and may bleed significantly. Diverticulitis.This is inflammation in areas with diverticulosis. It can cause pain, fever, and bloody stools, although bleeding is rare. Polyps and cancer. Colon cancer often starts out as precancerous polyps. Gastritis and ulcers.Bleeding from the upper gastrointestinal tract ( near the stomach) may travel through the intestines and produce black, sometimes tarry, often bad smelling stools. In certain cases, if the bleeding is fast enough, the stools may not be black, but red. This condition may be life -threatening. SYMPTOMS Vomiting bright red blood or material that looks like coffee grounds. Bloody, black, or tarry stools. DIAGNOSIS Your caregiver may diagnose your condition by taking your history and performing a physical exam. More tests may be needed, including: X-rays and other imaging tests. Esophagogastroduodenoscopy (EGD). This test uses a flexible, lighted tube to look at your esophagus, stomach, and small intestine. Colonoscopy. This test uses a flexible, lighted tube to look at your colon. TREATMENT Treatment depends on the cause of your bleeding. For bleeding from the esophagus, stomach, small intestine, or colon, the caregiver doing your EGD or colonoscopy may be able to stop the bleeding as part of the procedure. Inflammation or infection of the colon can be treated with medicines. Many rectal problems can be treated with creams, suppositories, or warm baths. Surgery is sometimes needed. Blood transfusions are sometimes needed if you have lost a lot of blood. If bleeding is slow, you may be allowed to go home. If there is a lot of bleeding, you will need to stay in the hospital for observation. HOME CARE INSTRUCTIONS Take any medicines exactly as prescribed. Keep your stools soft by eating foods that are high in fiber. These foods include whole grains, legumes, fruits, and vegetables. Prunes (1 to 3 a day) work well for many people. Drink enough fluids to keep your urine clear or pale yellow. SEEK IMMEDIATE MEDICAL CARE IF: Your bleeding increases. You feel lightheaded, weak, or you faint. You have severe cramps in your back or abdomen. You pass large blood clots in your stool. Your problems are getting worse. MAKE SURE YOU: Understand these instructions. Will watch your condition. Will get help right away if you are not doing well or get worse. This information is not intended to replace advice given to you by your health care provider. Make sure you discuss any questions you have with your health care provider. Document Released: 03/21/2001 Document Revised: 03/10/2013 Document Reviewed: [employer] Patient Education 2016 [employer] No follow up information was provided. Extracted from: Title: Office Visit Note Author: Huber Pinto MD Date: 03/06/16 Assessment/Plan 1.Rectal bleeding Ordered: Office Visit Level 3 Est 26445 Plan: I did review the patient's CT scan that was obtained yesterdayof his chest abdomen and pelvis. Fortunately there is no evidence for metastatic diseaseinvolving the chest, abdomen or pelvis. Postoperative changes were notedwithin the bowel and there was a persistent complex fluid collection noted anterior to the sacrumsuggesting of an ingested a possible abscess. This fluid collection however has been present forseveral months and the patienthas been doing quite well from a clinical standpoint. I therefore feel that it unlikely that this fluid collection is truly that of an abscess. Would recommend that we continue with current care. I informed the patient that I'm not too concerned with this intermittent rectal bleeding. He did have cancer present that his priorileorectal anastomosisin the currently is undergoing chemotherapy. I informed patient however that if his rectal bleeding began to increase in natureor if he began to develop increasing abdominal/rectal painthat he should repeat present to the office at that time for further evaluation. Patient was to continue with current wound carein regards to the wound involving his right buttocks.
--- OUTSIDE RECORDS SUMMARY | 2016-08-23 17:47 | XMS REPORT | Continuity of Care Document ---
Author Author [facility] Organization [facility] Address Unknown Phone Unavailable Support Name Relationship Address Phone LOREE COLUNGA Next Of Kin [address] [place] [address] Unavailable Insurance Providers Payer Name Policy Number Subscriber Name Relationship [employer] Other [id number] Jonh Colunga 19 Self Medicare [id number] Jonh Colunga 19 Self Problems No Known Problems or Medical conditions. Family History History Response Recorded Date/Time HX of Orthopedic Surgeries Y R ANKLE AND HEEL FX 1992 PER H&P 11/13/12 9:15am Hx Abdominal Surgery Y LAP ABHI 2001,HEMICOLECTOMY 2002,TOTAL COLECTOMY, ILEOSTOMY REVERSAL 201111/13/12 9:15am HX Cerebrovascular Accident N 11/12/12 2:36pm Hx Seizures N 11/12/12 2:36pm Hx Angina N 11/12/12 2:36pm Hx Congestive Heart Failure N 11/12/12 2:36pm Hx Heart Attack Y CABG 2002 PER H&P 11/13/12 9:15am Hx Hypertension Y TAKES ATENOLOL PER H&P 11/13/12 9:15am Hx Chronic Obstructive Pulmonary Disease (COPD) N 11/12/12 2:36pm Hx Diabetes N 11/12/12 2:36pm Hx Clotting Problems N 11/12/12 2:36pm Hx Cancer Y colon ca 1995 2002, pre-cancerous 2012,SKIN 11/13/12 9:15am Hx MRSA N 11/12/12 2:36pm HX of Cardiac Surgeries Y CABG 200211/13/12 9:15am HX of Reproductive Surgeries N 11/12/12 2:36pm HX of Endocrine Surgeries N 11/12/12 2:36pm HX of Throat Surgery N 11/12/12 2:36pm HX of Neurological Surgeries N 11/12/12 2:36pm HX of Genitourinary Surgeries N 11/12/12 2:36pm Cardiac CAD CO 08/05/12 3:32pm Respiratory pneumonia 08/05/12 3:32pm Social History History Response Recorded Date/Time Smoking Status Former smoker 11/13/12 9:15am Chewing Tobacco Status N 11/12/12 2:36pm Hx Substance Use Y 11/12/12 2:36pm Hx Alcohol Use N 11/12/12 2:36pm Has the pt used tobacco in the last 12 months N 11/13/12 9:15am Allergies, Adverse Reactions, Alerts Allergen Type Severity Reaction Last Updated codeine Adverse Reaction Unknown NAUSEA 10/16/12 Medications Medication Dose Units Route Sig Qty Days Metronidazole (Flagyl) 500 Mg PO DAILY Famotidine (Pepcid) 20 Mg PO DAILY Atenolol 25 Mg PO DAILY Lipase/Protease/Amylase (Creon Dr 12,000 Units Capsule) 3 Each PO TID Pantoprazole Sodium 40 Mg PO DAILY Immunizations Name Given Type Hx Influenza Vaccination Y JAN 2012 H Hx Pneumococcal Vaccination Y JAN 2012 H Response Recorded Date/Time Status not known Unknown Results Test Date Result Interp. Ref. Range Amylase Level August 06, 2012 4:20am 122 U/L DH 30-110 C. difficile Toxin B Gene (PCR) October 16, 2012 8:55pm Positive H - Lipase October 16, 2012 9:00pm 41 U/L N 23-300 Magnesium Level August 06, 2012 4:20am 1.6 MG/DL N 1.6-2.3 Prealbumin August 05, 2012 2:20pm 16.1 MG/DL L 17.6-36.0 Stool for White Cells August 05, 2012 2:15pm Positive - Thyroid Stimulating Hormone (TSH) August 05, 2012 2:20pm 0.87 MIU/L N 0.47- 4.68 Urinalysis Comment October 16, 2012 9:23pm Microscopic not ind. - Urine Bilirubin October 16, 2012 9:23pm Negative - Urine Blood October 16, 2012 9:23pm Negative - Urine Collection Type October 16, 2012 9:23pm Voided-not cc-midstr - Urine Color October 16, 2012 9:23pm Yellow - Urine Glucose (UA) October 16, 2012 9:23pm Negative - Urine Ketones October 16, 2012 9:23pm Negative - Urine Leukocyte Esterase October 16, 2012 9:23pm Negative - Urine Nitrite October 16, 2012 9:23pm Negative - Urine Protein October 16, 2012 9:23pm Negative - Urine Specific [place] October 16, 2012 9:23pm 1.015 - Urine Turbidity October 16, 2012 9:23pm Clear - Urine Urobilinogen October 16, 2012 9:23pm Normal EU/DL - Urine pH October 16, 2012 9:23pm 9.0 H - Vitamin B12 Level August 05, 2012 2:20pm 192 PG/ML L [id number] Procedures Procedure Code Date THER/PROPH/DIAG IV INF INIT 42216 10/16/12 HYDRATE IV INFUSION ADD-ON 24248 10/16/12 TX/PRO/DX INJ NEW DRUG ADDON 21582 10/16/12 Stool Culture 10/16/12 Ova and Parasites 08/05/12 Encounters Encounter Location Date/Time Departed Emergency Room [facility] 10/16/12 7:50pm Discharged Inpatient [facility] 08/05/12 3:46pm
--- OUTSIDE RECORDS SUMMARY | 2016-08-23 17:47 | XMS REPORT | Continuity of Care Document ---
Author Author [facility] Organization [facility] Address Unknown Phone Unavailable Support Name Relationship Address Phone KAYLEE SLOO MD Caregiver [address] [place] [address] [address] [place] [phone] LOREE COLUNGA Next Of Kin [address] [place] [address] CP Insurance Providers Payer Name Policy Number Subscriber Name Relationship Medicare [id number] Jonh Colunga Self Blue Cross Other [id number] Jonh Colunga Self Advance Directives Directive Response [...] 500 Mg PO DAILY 11/12/12 04/24/13 Discontinued Vancomycin Hcl 250 Mg PO EVERY SIX HOURS 40 Qty 08/10/13 10/13/13 Discontinued Colestipol Hcl 500 Gm PO 10/23/13 04/08/14 Discontinued Opium Tincture 0.6 Ml PO TWICE A DAY 06/03/14 Active Ranitidine HCl 1 Tab PO DAILY 06/03/14 Active Social History Social History Problem Response Recorded Date/Time Chewing Tobacco Status No 10/13/2013 7:12pm Hx Substance Use No 06/03/2014 2:47pm Hx Alcohol Use No 06/03/2014 2:47pm Has the pt used tobacco in the last 12 months No 06/17/2014 2:16pm Tobacco Usage none 08/16/2013 7:55am Query Response Start Date Stop Date Smoking Status Former smoker Hospital Discharge Instructions No hospital discharge instructions. Plan of Care No plan of care. Functional Status Query Response Date Recorded Physical Hygiene Self October 23, 2013 10:19am Ambulation Self October 13, 2013 7:12pm Mental Status Alert October 13, 2013 10:06pm Physical Hygiene Self October 23, 2013 10:19am Ambulation Self October 13, 2013 7:12pm Allergies, Adverse Reactions, Alerts Allergen Type Severity Reaction Status Last Updated Codeine Adverse Reaction Unknown NAUSEA Active 10/23/13 Immunizations Name Given Type Hx Influenza Vaccination Y FALL 2013 Historical Hx Pneumococcal Vaccination Y JAN 2012 Historical Hx Influenza Vaccination Y FALL 2013 Historical Vital Signs Acute Vital Signs Vital Response Date/Time Temperature (Fahrenheit) 97.7 deg F (96.8 - 99.1) Temperature (Calculated Celsius) 36.32896 degrees C (36.0 - 37.3) Pulse Rate (adult) 72 bpm (60 - 100) Respiratory Rate 16 breaths/min (10 - 20) O2 Sat by Pulse Oximetry 98 % (90 - 100) Oxygen Delivery Method Room Air Blood Pressure 116/67 mm Hg Blood Pressure Source Automatic Cuff Height 6 ft 0 in Weight 120 lb Body Mass Index 16.0 kg/m^2 Results Test Source Date Result Interp. Ref. Range Comments Alanine Aminotransferase (ALT/SGPT) June 16, 2014 10:02am 19 U/L L 21- 72 Albumin June 16, 2014 10:02am 3.4 G/DL L 3.5-5.0 Albumin/Globulin Ratio June 16, 2014 10:02am 0.9 RATIO L 1.1-2.2 Alkaline Phosphatase June 16, 2014 10:02am 77 U/L N 38-126 Amylase Level August 10, 2013 2:00pm 133 U/L H 30-110 Anion Gap June 16, 2014 10:02am 15 MEQ/L N 5-15 Aspartate Amino Transf (AST/SGOT) June 16, 2014 10:02am 21 U/L N 17-59 BUN/Creatinine Ratio June 16, 2014 10:02am 14 RATIO N 6-26 Band Neutrophils # October 18, 2013 10:43am 0.2 T/MM3 - COMMENT DRAW NOW Band Neutrophils % October 18, 2013 10:43am 4.0 % N 0-6 COMMENT DRAW NOW Basophils # (Auto) June 16, 2014 10:02am 0.1 T/MM3 N 0-0.2 Basophils (%) (Auto) June 16, 2014 10:02am 0.9 % N 0-2 Blood Urea Nitrogen June 16, 2014 10:02am 27.0 MG/DL H 9-20 C. difficile Toxin B Gene (PCR) October 13, 2013 7:23pm Negative - If Toxin A is clinically indicated, treat accordingly. Calcium Level June 16, 2014 10:02am 9.1 MG/DL N 8.4-10.2 Calculated Osmolality June 16, 2014 10:02am 277 MOSM/KG N 261-280 Carbon Dioxide Level June 16, 2014 10:02am 28 MEQ/L N 22-30 Chemistry Specimen Hemolysis June 16, 2014 10:02am < 15 0-25 0-25: No Hemolysis.26-70: Slight [...] decrease Phenytoin. Recommend specimen recollection. Chloride Level June 16, 2014 10:02am 97 MEQ/L L 98-107 Creatinine June 16, 2014 10:02am 1.9 MG/DL H 0.8-1.5 Eosinophils # (Auto) June 16, 2014 10:02am 0.1 T/MM3 N 0-0.5 Eosinophils (%) (Auto) June 16, 2014 10:02am 2.0 % N 0-4 Erythrocyte Sedimentation Rate February 22, 2013 2:30pm 64 MM/HR H 0-15 Globulin June 16, 2014 10:02am 3.9 G/DL H 2.4-3.6 Glomerular Filtration Rate Calc June 16, 2014 10:02am 36 - Glucose Level June 16, 2014 10:02am 144 MG/DL H 75-110 Hematocrit June 16, 2014 10:02am 27.8 % L 41-53 Hemoglobin June 16, 2014 10:02am 8.9 GM/DL L 13.5-17.5 Icterus Index June 16, 2014 10:02am < 2 0-7 Immature Granulocyte # (Auto) June 16, 2014 10:02am 0.02 T/MM3 N 0.00- 0.03 Immature Granulocyte % (Auto) June 16, 2014 10:02am 0.3 % N 0.0-0.5 Lab Scanned Report September 29, 2013 8:51pm LAB TEST FORM REQUEST [id number] - Lipase October 23, 2013 11:02am 63 U/L N 23-300 Lymphocytes # (Auto) June 16, 2014 10:02am 1.4 T/MM3 N 1-4.8 Lymphocytes # (Manual) October 18, 2013 10:43am 2.7 T/MM3 N 1-4.8 COMMENT DRAW NOW Lymphocytes % (Manual) October 18, 2013 10:43am 47.0 % H 23-45 COMMENT DRAW NOW Lymphocytes (%) (Auto) June 16, 2014 10:02am 21.4 % L 23-45 Magnesium Level August 06, 2012 4:20am 1.6 MG/DL N 1.6-2.3 Mean Corpuscular Hemoglobin June 16, 2014 10:02am 30.6 UUG N 26-34 Mean Corpuscular Hemoglobin Concent June 16, 2014 10:02am 32.0 GM/DL N 31-37 Mean Corpuscular Volume June 16, 2014 10:02am 95.5 UM3 N 80-100 Mean Platelet Volume June 16, 2014 10:02am 8.0 UM3 L 9.4-12.4 Monocytes # (Auto) June 16, 2014 10:02am 0.7 T/MM3 N 0-0.8 Monocytes (%) (Auto) June 16, 2014 10:02am 11.5 % H 0-9.0 Neutrophils # (Auto) June 16, 2014 10:02am 4.1 T/MM3 N 1.8-7.7 Neutrophils # (Manual) October 18, 2013 10:43am 2.8 T/MM3 N 1.8-7.7 COMMENT DRAW NOW Neutrophils % (Manual) October 18, 2013 10:43am 49.0 % N 33-66 COMMENT DRAW NOW Neutrophils (%) (Auto) June 16, 2014 10:02am 63.9 % N 33-66 Platelet Count June 16, 2014 10:02am 400 T/MM3 N 130-400 Potassium Level June 16, 2014 10:02am 4.2 MEQ/L N 3.6-5 Prealbumin August 05, 2012 2:20pm 16.1 MG/DL L 17.6-36.0 COMMENT may use blood in lab RDW Standard Deviation June 16, 2014 10:02am 45.9 FL N 36.9-50.2 Red Blood Count June 16, 2014 10:02am 2.91 M/MM3 L 4.50-5.90 Sodium Level June 16, 2014 10:02am 140 MEQ/L N 134-144 Stool Occult Blood May 05, 2013 12:23pm Negative - Stool for White Cells October 13, 2013 7:23pm Positive - Has specimen been collected/obtained? Y Thyroid Stimulating Hormone (TSH) August 05, 2012 2:20pm 0.87 MIU/L N 0.47- 4.68 COMMENT may use blood in lab Total Bilirubin June 16, 2014 10:02am 0.70 MG/DL N 0.20-1.30 Total Protein June 16, 2014 10:02am 7.3 G/DL N 6.3-8.2 Turbidity June 16, 2014 10:02am < 20 0-20 Urinalysis Comment October 16, 2012 9:23pm Microscopic [...] specimen been collected/ obtained? Y Urine Specific [place] August 10, 2013 2:00pm >=1.030 H - [...] use blood in lab White Blood Count June 16, 2014 10:02am 6.4 T/MM3 N 4.5-11.0 Stool Culture Stool October 13, 2013 7:23pm Giardia Antigen (KAN) Stool May 05, 2013 12:23pm Name: JONH COLUNGA Unit #: [id number] : 1945 Sex: M Loc / Svc: [facility] DOS: 06/07/14 Signed Report #: [id number] DIAGNOSTIC IMAGING REPORT TYPE OF EXAM: PORTACATH W FLUORO W 1V CXR Dictated By: SPRING PORTER MD Indication: ITS.REASON: POWER PORT INSERTION PORTACATH W FLUORO W 1V CXR: Comparison: Compared to the prior study dated 10/16/2012 Findings: Heart size is normal. Postsurgical changes median sternotomy. Interval placement of right chest port with the tip overlying the lower SVC. Lungs are clear. No consolidation opacities or pleural effusions. No pneumothorax. Impression: No acute cardiopulmonary abnormalities. Placement of right-sided chest port with the tip overlying the lower SVC. . Procedures Procedure Status Date Provider(s) ROUTINE VENIPUNCTURE completed 06/07/14 INSERT TUNNELED CV CATH completed 06/07/14 HUMZA HUNT MD FLUOROGUIDE FOR VEIN DEVICE completed 06/07/14 COMPREHEN METABOLIC PANEL completed 06/07/14 COMPLETE CBC W/AUTO DIFF WBC completed 06/07/14240687"PORT, INDWELLING (IMPLANTABLE)" completed 06/07/14157969"INJECTION, CEFAZOLIN SODIUM, 500 MG" completed 06/07/14854925"INJECTION, HEPARIN SODIUM, (HEPARIN LOCK FLUSH), PER completed 003"INJECTION, MIDAZOLAM HYDROCHLORIDE, PER 1 MG" completed 06/07/14942779"INJECTION, PHENYLEPHRINE HCL, UP TO 1 ML" completed 06/07/14 PROPOFOL INJ 500 MG/50ML completed 06/07/14203817"INJECTION, FENTANYL CITRATE, 0.1 MG" completed 06/07/14 Encounters Encounter Location Date/Time Registered [facility] 06/17/14 1:15pm Registered [facility] 06/16/14 10:00am Discharged [facility] 11/29/13 10:23am
--- OUTSIDE RECORDS SUMMARY | 2016-08-23 17:47 | XMS REPORT | Continuity of Care Document ---
Author Author [facility] Organization [facility] Address Unknown Phone Unavailable Support Name Relationship Address Phone LOREE COLUNGA Next Of Kin [address] [place] [address] Unavailable Insurance Providers Payer Name Policy Number Subscriber Name Relationship Blue Cross Other [id number] Jonh Colunga 19 Self Medicare [id number] Jonh Colunga 19 Self Problems No Known Problems or Medical conditions. Family History History Response Recorded Date/Time HX of Orthopedic Surgeries Y R ANKLE AND HEEL FX 1992 PER H&P 11/12/12 2:36pm Hx Abdominal Surgery Y LAP ABHI 2001,HEMICOLECTOMY 2002,TOTAL COLECTOMY, ILEOSTOMY REVERSAL 201111/12/12 2:36pm HX Cerebrovascular Accident N 11/12/12 2:36pm Hx Seizures N 11/12/12 2:36pm Hx Angina N 11/12/12 2:36pm Hx Congestive Heart Failure N 11/12/12 2:36pm Hx Heart Attack Y CABG 2002 PER H&P 11/12/12 2:36pm Hx Hypertension Y TAKES ATENOLOL PER H&P 11/12/12 2:36pm Hx Chronic Obstructive Pulmonary Disease (COPD) N 11/12/12 2:36pm Hx Diabetes N 11/12/12 2:36pm Hx Clotting Problems N 11/12/12 2:36pm Hx Cancer Y colon ca 1995 2002, pre-cancerous 2012,SKIN 11/12/12 2:36pm Hx MRSA N 11/12/12 2:36pm HX of Cardiac Surgeries Y CABG 200211/12/12 2:36pm HX of Reproductive Surgeries N 11/12/12 2:36pm HX of Endocrine Surgeries N 11/12/12 2:36pm HX of Throat Surgery N 11/12/12 2:36pm HX of Neurological Surgeries N 11/12/12 2:36pm HX of Genitourinary Surgeries N 11/12/12 2:36pm Cardiac CAD SD 08/05/12 3:32pm Respiratory pneumonia 08/05/12 3:32pm Social History History Response Recorded Date/Time Smoking Status Former smoker 11/12/12 2:36pm Chewing Tobacco Status N 11/12/12 2:36pm Hx Substance Use Y 11/12/12 2:36pm Hx Alcohol Use N 11/12/12 2:36pm Has the pt used tobacco in the last 12 months N 11/12/12 2:36pm Allergies, Adverse Reactions, Alerts Allergen Type Severity [...] Results Test Date Result Interp. Ref. Range Alanine Aminotransferase (ALT/SGPT) October 16, 2012 9:00pm 23 U/L N 21-72 Albumin October 16, 2012 9:00pm 4.3 G/DL N 3.5-5.0 Albumin/Globulin Ratio October 16, 2012 9:00pm 1.1 RATIO N 1.1-2.2 Alkaline Phosphatase October 16, 2012 9:00pm 78 U/L N 38-126 Amylase Level August 06, 2012 4:20am 122 U/L DH 30-110 Anion Gap October 16, 2012 9:00pm 17 MEQ/L H 5-15 Aspartate Amino Transf (AST/SGOT) October 16, 2012 9:00pm 24 U/L N 17-59 BUN/Creatinine Ratio October 16, 2012 9:00pm 16 RATIO N 6-26 Basophils # (Auto) October 16, 2012 9:00pm 0.0 T/MM3 N 0-0.2 Basophils (%) (Auto) October 16, 2012 9:00pm 0.4 % N 0-2 Blood Urea Nitrogen October 16, 2012 9:00pm 19.0 MG/DL N 9-20 Calcium Level October 16, 2012 9:00pm 9.9 MG/DL N 8.4-10.2 Calculated Osmolality October 16, 2012 9:00pm 282 MOSM/KG H 261-280 Carbon Dioxide Level October 16, 2012 9:00pm 29 MEQ/L N 22-30 Chloride Level October 16, 2012 9:00pm 99 MEQ/L N 98-107 Creatinine October 16, 2012 9:00pm 1.2 MG/DL N 0.8-1.5 Eosinophils # (Auto) October 16, 2012 9:00pm 0.1 T/MM3 N 0-0.5 Eosinophils (%) (Auto) October 16, 2012 9:00pm 1.5 % N 0-4 Globulin October 16, 2012 9:00pm 4.0 G/DL H 2.4-3.6 Glucose Level October 16, 2012 9:00pm 116 MG/DL H 75-110 Hematocrit October 16, 2012 9:00pm 35.7 % L 41-53 Hemoglobin October 16, 2012 9:00pm 11.7 GM/DL L 13.5-17.5 Lipase October 16, 2012 9:00pm 41 U/L N 23-300 Lymphocytes # (Auto) October 16, 2012 9:00pm 1.3 T/MM3 N 1-4.8 Lymphocytes (%) (Auto) October 16, 2012 9:00pm 13.6 % L 23-45 Magnesium Level August 06, 2012 4:20am 1.6 MG/DL N 1.6-2.3 Mean Corpuscular Hemoglobin October 16, 2012 9:00pm 30.4 UUG N 26-34 Mean Corpuscular Hemoglobin Concent October 16, 2012 9:00pm 32.8 GM/DL N 31- 37 Mean Corpuscular Volume October 16, 2012 9:00pm 92.7 UM3 N 80-100 Mean Platelet Volume October 16, 2012 9:00pm 8.4 UM3 L 9.4-12.4 Monocytes # (Auto) October 16, 2012 9:00pm 0.8 T/MM3 N 0-0.8 Monocytes (%) (Auto) October 16, 2012 9:00pm 8.1 % N 0-9.0 Neutrophils # (Auto) October 16, 2012 9:00pm 7.1 T/MM3 N 1.8-7.7 Neutrophils (%) (Auto) October 16, 2012 9:00pm 76.3 % H 33-66 Platelet Count October 16, 2012 9:00pm 259 T/MM3 N 130-400 Potassium Level October 16, 2012 9:00pm 4.1 MEQ/L N 3.6-5 Prealbumin August 05, 2012 2:20pm 16.1 MG/DL L 17.6-36.0 RDW Standard Deviation October 16, 2012 9:00pm 46.9 FL N 36.9-50.2 Red Blood Count October 16, 2012 9:00pm 3.85 M/MM3 L 4.50-5.90 Sodium Level October 16, 2012 9:00pm 145 MEQ/L H 134-144 Stool for White Cells August 05, 2012 2:15pm Positive - Thyroid Stimulating Hormone (TSH) August 05, 2012 2:20pm 0.87 MIU/L N 0.47- 4.68 Total Bilirubin October 16, 2012 9:00pm 1.00 MG/DL N 0.20-1.30 Total Protein October 16, 2012 9:00pm 8.3 G/DL H 6.3-8.2 Urine Bilirubin October 16, 2012 9:23pm Negative [...] 16, 2012 9:23pm Negative - Urine Specific [place] October 16, 2012 9:23pm 1.015 - Urine Turbidity October 16, 2012 9:23pm Clear - Urine Urobilinogen October 16, 2012 9:23pm Normal EU/DL - Urine pH October 16, 2012 9:23pm 9.0 H - Vitamin B12 Level August 05, 2012 2:20pm 192 PG/ML L 239-931 White Blood Count October 16, 2012 9:00pm 9.3 T/MM3 N 4.5-11.0 Urinalysis Comment October 16, 2012 9:23pm Microscopic not ind. - Glomerular Filtration Rate Calc October 16, 2012 9:00pm 61 - Immature Granulocyte # (Auto) October 16, 2012 9:00pm 0.01 T/MM3 N 0.00-0.03 Immature Granulocyte % (Auto) October 16, 2012 9:00pm 0.1 % N 0.0-0.5 C. difficile Toxin B Gene (PCR) October 16, 2012 8:55pm Positive H - Procedures Procedure Code Date THER/PROPH/DIAG IV INF INIT 99276 10/16/12 HYDRATE IV INFUSION ADD-ON 81476 10/16/12 TX/PRO/DX INJ NEW DRUG ADDON 04655 10/16/12 Stool Culture 10/16/12 Ova and Parasites 08/05/12 Encounters Encounter Location Date/Time Departed Emergency Room [facility] 10/16/12 7:50pm Discharged Inpatient [facility] 08/05/12 3:46pm
--- OUTSIDE RECORDS SUMMARY | 2016-08-23 17:47 | XMS REPORT | Continuity of Care Document ---
Author Author [facility] Organization [facility] Address Unknown Phone Unavailable Support Name Relationship Address Phone BRADY PHAM Caregiver [facility] [address] [place] [address] KAYLEE SOLO MD Caregiver [address] [place] [address] [place] [phone] LOREE COLUNGA Next Of Kin [address] [place] [address] Insurance Providers Payer Name Policy Number Subscriber Name Relationship Medicare [id number] Jonh Colunga 19 Self Blue Cross Other [id number] Jonh Colunga 19 Self Problems Medical Problems Problem Onset Date Status [...] PO DAILY 11/12/12 04/24/13 Discontinued [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 Plan of Care No plan of care. Functional Status Query Response Date Recorded Physical Hygiene Self October 13, 2013 7:12pm Dressing Self October 13, 2013 7:12pm Ambulation Self October 13, 2013 7:12pm Diet Self October 13, 2013 7:12pm Mental Status Alert October 13, 2013 10:06pm Physical Hygiene Self October 13, 2013 7:12pm Dressing Self October 13, 2013 7:12pm Ambulation Self October 13, 2013 7:12pm Diet Self October 13, 2013 7:12pm Allergies, Adverse Reactions, Alerts Allergen Type Severity Reaction Status Last Updated Codeine Adverse Reaction Unknown NAUSEA Active 10/13/13 Immunizations Name Given Type Hx Influenza Vaccination Y 01/17 Historical Hx Pneumococcal Vaccination Y JAN 2012 Historical Hx Influenza Vaccination Y 01/17 Historical Vital Signs Acute Vital Signs Vital Response Date/Time Temperature (Fahrenheit) 98.9 deg F (96.8 - 99.1) Temperature (Calculated Celsius) 37.17199 degrees C (36.0 - 37.3) Pulse Rate (adult) 86 bpm (60 - 100) Respiratory Rate 16 breaths/min (10 - 20) O2 Sat by Pulse Oximetry 98 % (90 - 100) Blood Pressure 90/58 mm Hg Height 6 ft 0 in Weight 128 lb Body Mass Index 17.0 kg/m^2 Results Test Source Date Result Interp. Ref. Range Comments Alanine Aminotransferase (ALT/SGPT) October 13, 2013 7:18pm 30 U/L N 21-72 Albumin October 13, 2013 7:18pm 4.1 G/DL N 3.5-5.0 Albumin/Globulin Ratio October 13, 2013 7:18pm 1.0 RATIO L 1.1-2.2 Alkaline Phosphatase October 13, 2013 7:18pm 92 U/L N 38-126 Amylase Level August 10, 2013 2:00pm 133 U/L H 30-110 Anion Gap October 13, 2013 7:18pm 14 MEQ/L N 5-15 Aspartate Amino Transf (AST/SGOT) October 13, 2013 7:18pm 21 U/L N 17-59 BUN/Creatinine Ratio October 13, 2013 7:18pm 17 RATIO N 6-26 Basophils # (Auto) October 13, 2013 7:18pm 0.1 T/MM3 N 0-0.2 Basophils (%) (Auto) October 13, 2013 7:18pm 0.6 % N 0-2 Blood Urea Nitrogen October 13, 2013 7:18pm 25.0 MG/DL H 9-20 Calcium Level October 13, 2013 7:18pm 9.6 MG/DL N 8.4-10.2 Calculated Osmolality October 13, 2013 7:18pm 271 MOSM/KG N 261-280 Carbon Dioxide Level October 13, 2013 7:18pm 25 MEQ/L N 22-30 Chloride Level October 13, 2013 7:18pm 99 MEQ/L N 98-107 Creatinine October 13, 2013 7:18pm 1.5 MG/DL N 0.8-1.5 Eosinophils # (Auto) October 13, 2013 7:18pm 0.2 T/MM3 N 0-0.5 Eosinophils (%) (Auto) October 13, 2013 7:18pm 2.5 % N 0-4 Erythrocyte Sedimentation Rate February 22, 2013 2:30pm 64 MM/HR H 0-15 Globulin October 13, 2013 7:18pm 4.1 G/DL H 2.4-3.6 Glucose Level October 13, 2013 7:18pm 114 MG/DL H 75-110 Hematocrit October 13, 2013 7:18pm 37.5 % L 41-53 Hemoglobin October 13, 2013 7:18pm 12.5 GM/DL L 13.5-17.5 Lipase October 13, 2013 7:18pm 65 U/L N 23-300 Lymphocytes # (Auto) October 13, 2013 7:18pm 2.3 T/MM3 N 1-4.8 Lymphocytes (%) (Auto) October 13, 2013 7:18pm 26.9 % N 23-45 Magnesium Level August 06, 2012 4:20am 1.6 MG/DL N 1.6-2.3 Mean Corpuscular Hemoglobin October 13, 2013 7:18pm 30.3 UUG N 26-34 Mean Corpuscular Hemoglobin Concent October 13, 2013 7:18pm 33.3 GM/DL N 31 -37 Mean Corpuscular Volume October 13, 2013 7:18pm 91.0 UM3 N 80-100 Mean Platelet Volume October 13, 2013 7:18pm 8.3 UM3 L 9.4-12.4 Monocytes # (Auto) October 13, 2013 7:18pm 1.1 T/MM3 H 0-0.8 Monocytes (%) (Auto) October 13, 2013 7:18pm 12.6 % H 0-9.0 Neutrophils # (Auto) October 13, 2013 7:18pm 4.9 T/MM3 N 1.8-7.7 Neutrophils (%) (Auto) October 13, 2013 7:18pm 57.2 % N 33-66 Platelet Count October 13, 2013 7:18pm 310 T/MM3 N 130-400 Potassium Level October 13, 2013 7:18pm 4.3 MEQ/L N 3.6-5 Prealbumin August 05, 2012 2:20pm 16.1 MG/DL L 17.6-36.0 COMMENT may use blood in lab RDW Standard Deviation October 13, 2013 7:18pm 45.5 FL N 36.9-50.2 Red Blood Count October 13, 2013 7:18pm 4.12 M/MM3 L 4.50-5.90 Sodium Level October 13, 2013 7:18pm 138 MEQ/L N 134-144 Stool Occult Blood May 05, 2013 12:23pm Negative - Stool for White Cells October 13, 2013 7:23pm Positive - Has specimen been collected/obtained? Y Thyroid Stimulating Hormone (TSH) August 05, 2012 2:20pm 0.87 MIU/L N 0.47- 4.68 COMMENT may use blood in lab Total Bilirubin October 13, 2013 7:18pm 0.60 MG/DL N 0.20-1.30 Total Protein October 13, 2013 7:18pm 8.2 G/DL N 6.3-8.2 Urine Bacteria August [...] specimen been collected/ obtained? Y Urine Specific [place] August 10, 2013 2:00pm >=1.030 H - [...] blood in lab White Blood Count October 13, 2013 7:18pm 8.6 T/MM3 N 4.5-11.0 Chemistry Specimen Hemolysis October 13, 2013 7:18pm < 15 0-25 0-25: No Hemolysis.26-70: Slight [...] 29, 2013 8:51pm LAB TEST FORM REQUEST [id number] - Turbidity October 13, 2013 7:18pm < 20 0-20 Glomerular Filtration Rate Calc October 13, 2013 7:18pm 47 - Immature Granulocyte # (Auto) October 13, 2013 7:18pm 0.02 T/MM3 N 0.00- 0.03 Immature Granulocyte % (Auto) October 13, 2013 7:18pm 0.2 % N 0.0-0.5 Icterus Index October 13, 2013 7:18pm < 2 0-7 C. difficile Toxin B Gene (PCR) October 13, 2013 7:23pm Negative - If Toxin A is clinically indicated, treat accordingly. Stool Culture Stool August 10, 2013 2:20pm Giardia Antigen (KAN) Stool May 05, 2013 12:23pm Procedures Procedure Status Date Provider(s) THER/PROPH/DIAG INJ IV PUSH completed 08/10/13 HYDRATE IV INFUSION ADD-ON completed 08/10/13 Encounters Encounter Location Date/Time Departed Emergency Room [facility] 10/13/13 6:45pm Departed Emergency Room [facility] 08/10/13 1:17pm Recent Diagnosis
--- OUTSIDE RECORDS SUMMARY | 2016-08-23 17:48 | XMS REPORT | Continuity of Care Document ---
Author Author [facility] Organization [facility] Address Unknown Phone Unavailable Support Name Relationship Address Phone HUMZA HUNT MD Caregiver [facility] [address] [facility] [address] [place] [phone] KAYLEE SOLO MD Caregiver [address] [place] [address] [address] [place] [phone] LOREE COLUNGA Next Of Kin [address] [place] [address] CP Insurance Providers Payer Name Policy Number Subscriber Name Relationship Medicare [id number] Jonh Colunga 19 Self Blue Cross Other [id number] Jonh Colunga Self Advance Directives Directive Response Recorded Date/Time Advanced Directives Type None 10/18/13 10:54am Ordered Resuscitation Status Full Code 06/06/14 1:11pm Resuscitation Documents on File No 10/18/13 10:54am [...] tobacco in the last 12 months No 06/03/2014 2:47pm Tobacco Usage none 08/16/2013 7:55am Query Response [...] F (96.8 - 99.1) Temperature (Calculated Celsius) 36.05313 degrees C (36.0 - 37.3) Temperature Source Temporal Pulse Rate (adult) 94 bpm (60 - 100) Respiratory Rate 16 breaths/min (10 - 20) O2 Sat by Pulse Oximetry 95 % (90 - 100) Oxygen Delivery Method Room Air Blood Pressure 114/68 mm Hg Blood Pressure Source Automatic Cuff Height 6 ft 0 in Weight 125 lb Body Mass Index 16.0 kg/m^2 Results Test Source Date Result Interp. Ref. Range Comments Alanine Aminotransferase (ALT/SGPT) June 07, 2014 7:55am 27 U/L N 21- 72 Albumin June 07, 2014 7:55am 3.3 G/DL L 3.5-5.0 Albumin/Globulin Ratio June 07, 2014 7:55am 0.9 RATIO L 1.1-2.2 Alkaline Phosphatase June 07, 2014 7:55am 88 U/L N 38-126 Amylase Level August 10, 2013 2:00pm 133 U/L H 30-110 Anion Gap June 07, 2014 7:55am 13 MEQ/L N 5-15 Aspartate Amino Transf (AST/SGOT) June 07, 2014 7:55am 18 U/L N 17-59 BUN/Creatinine Ratio June 07, 2014 7:55am 15 RATIO N 6-26 Band Neutrophils # October 18, 2013 10:43am 0.2 T/MM3 - COMMENT DRAW NOW Band Neutrophils % October 18, 2013 10:43am 4.0 % N 0-6 COMMENT DRAW NOW Basophils # (Auto) June 07, 2014 7:55am 0.1 T/MM3 N 0-0.2 Basophils (%) (Auto) June 07, 2014 7:55am 0.8 % N 0-2 Blood Urea Nitrogen June 07, 2014 7:55am 21.0 MG/DL H 9-20 C. difficile Toxin B Gene (PCR) October 13, 2013 7:23pm Negative - If Toxin A is clinically indicated, treat accordingly. Calcium Level June 07, 2014 7:55am 9.0 MG/DL N 8.4-10.2 Calculated Osmolality June 07, 2014 7:55am 280 MOSM/KG N 261-280 Carbon Dioxide Level June 07, 2014 7:55am 27 MEQ/L N 22-30 Chemistry Specimen Hemolysis June 07, 2014 7:55am < 15 0-25 0-25: No Hemolysis.26-70: Slight [...] Phenytoin. Recommend specimen recollection. Chloride Level June 07, 2014 7:55am 104 MEQ/L N 98-107 Creatinine June 07, 2014 7:55am 1.4 MG/DL N 0.8-1.5 Eosinophils # (Auto) June 07, 2014 7:55am 0.1 T/MM3 N 0-0.5 Eosinophils (%) (Auto) June 07, 2014 7:55am 2.1 % N 0-4 Erythrocyte Sedimentation Rate February 22, 2013 2:30pm 64 MM/HR H 0-15 Globulin June 07, 2014 7:55am 3.7 G/DL H 2.4-3.6 Glomerular Filtration Rate Calc June 07, 2014 7:55am 51 - Glucose Level June 07, 2014 7:55am 106 MG/DL N 75-110 Hematocrit June 07, 2014 7:55am 28.6 % L 41-53 Hemoglobin June 07, 2014 7:55am 9.1 GM/DL L 13.5-17.5 Icterus Index June 07, 2014 7:55am < 2 0-7 Immature Granulocyte # (Auto) June 07, 2014 7:55am 0.01 T/MM3 N 0.00- 0.03 Immature Granulocyte % (Auto) June 07, 2014 7:55am 0.2 % N 0.0-0.5 Lab Scanned Report September 29, 2013 8:51pm LAB TEST FORM REQUEST [id number] - Lipase October 23, 2013 11:02am 63 U/L N 23-300 Lymphocytes # (Auto) June 07, 2014 7:55am 1.3 T/MM3 N 1-4.8 Lymphocytes # (Manual) October 18, 2013 10:43am 2.7 T/MM3 N 1-4.8 COMMENT DRAW NOW Lymphocytes % (Manual) October 18, 2013 10:43am 47.0 % H 23-45 COMMENT DRAW NOW Lymphocytes (%) (Auto) June 07, 2014 7:55am 21.2 % L 23-45 Magnesium Level August 06, 2012 4:20am 1.6 MG/DL N 1.6-2.3 Mean Corpuscular Hemoglobin June 07, 2014 7:55am 30.7 UUG N 26-34 Mean Corpuscular Hemoglobin Concent June 07, 2014 7:55am 31.8 GM/DL N 31-37 Mean Corpuscular Volume June 07, 2014 7:55am 96.6 UM3 N 80-100 Mean Platelet Volume June 07, 2014 7:55am 7.7 UM3 L 9.4-12.4 Monocytes # (Auto) June 07, 2014 7:55am 0.9 T/MM3 H 0-0.8 Monocytes (%) (Auto) June 07, 2014 7:55am 13.6 % H 0-9.0 Neutrophils # (Auto) June 07, 2014 7:55am 3.9 T/MM3 N 1.8-7.7 Neutrophils # (Manual) October 18, 2013 10:43am 2.8 T/MM3 N 1.8-7.7 COMMENT DRAW NOW Neutrophils % (Manual) October 18, 2013 10:43am 49.0 % N 33-66 COMMENT DRAW NOW Neutrophils (%) (Auto) June 07, 2014 7:55am 62.1 % N 33-66 Platelet Count June 07, 2014 7:55am 322 T/MM3 N 130-400 Potassium Level June 07, 2014 7:55am 3.9 MEQ/L N 3.6-5 Prealbumin August 05, 2012 2:20pm 16.1 MG/DL L 17.6-36.0 COMMENT may use blood in lab RDW Standard Deviation June 07, 2014 7:55am 48.7 FL N 36.9-50.2 Red Blood Count June 07, 2014 7:55am 2.96 M/MM3 L 4.50-5.90 Sodium Level June 07, 2014 7:55am 144 MEQ/L N 134-144 Stool Occult Blood May 05, 2013 12:23pm Negative - Stool for White Cells October 13, 2013 7:23pm Positive - Has specimen been collected/obtained? Y Thyroid Stimulating Hormone (TSH) August 05, 2012 2:20pm 0.87 MIU/L N 0.47- 4.68 COMMENT may use blood in lab Total Bilirubin June 07, 2014 7:55am 0.50 MG/DL N 0.20-1.30 Total Protein June 07, 2014 7:55am 7.0 G/DL N 6.3-8.2 Turbidity June 07, 2014 7:55am < 20 0-20 Urinalysis Comment October 16, [...] specimen been collected/ obtained? Y Urine Specific [place] August 10, 2013 2:00pm >=1.030 H - [...] blood in lab White Blood Count June 07, 2014 7:55am 6.3 T/MM3 N 4.5-11.0 Stool Culture Stool October 13, 2013 7:23pm Giardia Antigen (KAN) Stool May 05, 2013 12:23pm Name: JONH COLUNGA Unit #: [id number] : 1945 Sex: M Loc / Svc: [place] DOS: 06/07/14 Signed Report #: [id number] DIAGNOSTIC IMAGING REPORT TYPE OF EXAM: PORTACATH [...] SVC. . Procedures Procedure Status Date Provider(s) Insertion of vascular catheter completed 06/07/14 HUMZA HUNT MD Encounters Encounter Location Date/Time Registered [facility] 05/13/14 9:00am Discharged [facility] 11/29/13 10:23am
--- OUTSIDE RECORDS SUMMARY | 2016-08-23 17:48 | XMS REPORT | Continuity of Care Document ---
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 Ref. Range Comments Alanine Aminotransferase (ALT/SGPT) March 23, 2014 8:53am 35 U/L N 21 -72 Albumin March 23, 2014 8:53am 4.0 G/DL N 3.5-5.0 Albumin/Globulin Ratio March 23, 2014 8:53am 1.0 RATIO L 1.1-2.2 Alkaline Phosphatase March 23, 2014 8:53am 96 U/L N 38-126 Amylase Level August 10, 2013 2:00pm 133 U/L H 30-110 Anion Gap March 23, 2014 8:53am 19 MEQ/L H 5-15 Aspartate Amino Transf (AST/SGOT) March 23, 2014 8:53am 31 U/L N 17- 59 BUN/Creatinine Ratio March 23, 2014 8:53am 16 RATIO N 6-26 Band Neutrophils # October 18, 2013 10:43am 0.2 T/MM3 - COMMENT DRAW NOW Band Neutrophils % October 18, 2013 10:43am 4.0 % N 0-6 COMMENT DRAW NOW Basophils # (Auto) March 23, 2014 8:53am 0.1 T/MM3 N 0-0.2 Basophils (%) (Auto) March 23, 2014 8:53am 1.0 % N 0-2 Blood Urea Nitrogen March 23, 2014 8:53am 22.0 MG/DL H 9-20 C. difficile Toxin B Gene (PCR) October 13, 2013 7:23pm Negative - If Toxin A is clinically indicated, treat accordingly. Calcium Level March 23, 2014 8:53am 9.8 MG/DL N 8.4-10.2 Calculated Osmolality March 23, 2014 8:53am 278 MOSM/KG N 261-280 Carbon Dioxide Level March 23, 2014 8:53am 30 MEQ/L N 22-30 Chemistry Specimen Hemolysis March 23, 2014 8:53am 24 N 0-25 0-25: No Hemolysis.26-70: Slight Hemolysis [...] decrease Phenytoin. Recommend specimen recollection. Chloride Level March 23, 2014 8:53am 93 MEQ/L L 98-107 Creatinine March 23, 2014 8:53am 1.4 MG/DL N 0.8-1.5 Eosinophils # (Auto) March 23, 2014 8:53am 0.1 T/MM3 N 0-0.5 Eosinophils (%) (Auto) March 23, 2014 8:53am 1.3 % N 0-4 Erythrocyte Sedimentation Rate February 22, 2013 2:30pm 64 MM/HR H 0-15 Globulin March 23, 2014 8:53am 4.2 G/DL H 2.4-3.6 Glomerular Filtration Rate Calc March 23, 2014 8:53am 51 - Glucose Level March 23, 2014 8:53am 134 MG/DL H 75-110 Hematocrit March 23, 2014 8:53am 35.4 % L 41-53 Hemoglobin March 23, 2014 8:53am 11.6 GM/DL L 13.5-17.5 Icterus Index March 23, 2014 8:53am < 2 0-7 Immature Granulocyte # (Auto) March 23, 2014 8:53am 0.01 T/MM3 N 0.00 -0.03 Immature Granulocyte % (Auto) March 23, 2014 8:53am 0.2 % N 0.0-0.5 Lab Scanned Report September 29, 2013 8:51pm LAB TEST FORM REQUEST [id number] - Lipase October 23, 2013 11:02am 63 U/L N 23-300 Lymphocytes # (Auto) March 23, 2014 8:53am 1.6 T/MM3 N 1-4.8 Lymphocytes # (Manual) October 18, 2013 10:43am 2.7 T/MM3 N 1-4.8 COMMENT DRAW NOW Lymphocytes % (Manual) October 18, 2013 10:43am 47.0 % H 23-45 COMMENT DRAW NOW Lymphocytes (%) (Auto) March 23, 2014 8:53am 26.8 % N 23-45 Magnesium Level August 06, 2012 4:20am 1.6 MG/DL N 1.6-2.3 Mean Corpuscular Hemoglobin March 23, 2014 8:53am 30.8 UUG N 26-34 Mean Corpuscular Hemoglobin Concent March 23, 2014 8:53am 32.8 GM/DL N 31-37 Mean Corpuscular Volume March 23, 2014 8:53am 93.9 UM3 N 80-100 Mean Platelet Volume March 23, 2014 8:53am 8.2 UM3 L 9.4-12.4 Monocytes # (Auto) March 23, 2014 8:53am 0.8 T/MM3 N 0-0.8 Monocytes (%) (Auto) March 23, 2014 8:53am 13.6 % H 0-9.0 Neutrophils # (Auto) March 23, 2014 8:53am 3.5 T/MM3 N 1.8-7.7 Neutrophils # (Manual) October 18, 2013 10:43am 2.8 T/MM3 N 1.8-7.7 COMMENT DRAW NOW Neutrophils % (Manual) October 18, 2013 10:43am 49.0 % N 33-66 COMMENT DRAW NOW Neutrophils (%) (Auto) March 23, 2014 8:53am 57.1 % N 33-66 Platelet Count March 23, 2014 8:53am 274 T/MM3 N 130-400 Potassium Level March 23, 2014 8:53am 4.5 MEQ/L N 3.6-5 Prealbumin August 05, 2012 2:20pm 16.1 MG/DL L 17.6-36.0 COMMENT may use blood in lab RDW Standard Deviation March 23, 2014 8:53am 42.2 FL N 36.9-50.2 Red Blood Count March 23, 2014 8:53am 3.77 M/MM3 L 4.50-5.90 Sodium Level March 23, 2014 8:53am 142 MEQ/L N 134-144 Stool Occult Blood May 05, 2013 12:23pm Negative - Stool for White Cells October 13, 2013 7:23pm Positive - Has specimen been collected/obtained? Y Thyroid Stimulating Hormone (TSH) August 05, 2012 2:20pm 0.87 MIU/L N 0.47- 4.68 COMMENT may use blood in lab Total Bilirubin March 23, 2014 8:53am 0.70 MG/DL N 0.20-1.30 Total Protein March 23, 2014 8:53am 8.2 G/DL N 6.3-8.2 Turbidity March 23, 2014 8:53am < 20 0-20 Urinalysis Comment October 16, [...] specimen been collected/ obtained? Y Urine Specific [place] August 10, 2013 2:00pm >=1.030 H - [...] use blood in lab White Blood Count March 23, 2014 8:53am 6.1 T/MM3 N 4.5-11.0 Stool Culture Stool October 13, 2013 7:23pm Giardia Antigen (KAN) Stool May 05, 2013 12:23pm Procedures No known history of procedures. Encounters Encounter Location Date/Time Discharged [facility] 03/23/14 8:30am
--- OUTSIDE RECORDS SUMMARY | 2016-08-23 17:48 | XMS REPORT | Referral Summary ---
Author Author [facility] Organization [facility] Address Unknown Phone Unavailable Care Team Providers Care Product Development Carpenter Name Role Phone SamariaNaomi Primary Care Physician [phone] Encounter [facility] [id number] Date(s): 05/01/16 - 05/01/16 [facility] [address] [place] [address] [place] [phone]- Discharge Diagnosis: Rectal bleeding Discharge Disposition: 01-Home or Self Care Attending Physician: Huber Pinto MD Admitting Physician: Huber Pinto MD Referring Physician: Dallas Valdovinos MD Vital Signs Most recent to 1 oldest [Reference Range]: Temperature Tympanic 35.9 degC [36.6-38.1 degC] *LOW* (05/01/16 2:37 PM) Peripheral Pulse 75 bpm Rate [60-100 bpm] (05/01/16 2:37 PM) Respiratory Rate 18 br/min [14-20 br/min] (05/01/16 2:37 PM) Blood Pressure 122/68 mmHg [90-140/60-90 mmHg] (05/01/16 2:37 PM) SpO2 97 % (05/01/16 2:37 PM) Problem List Condition Effective Dates Status Health [...] 0 Refill(s) Start Date: 11/09/15 Status: Ordered cyclobenzaprine 10 mg oral tablet 10 mg 1 tabs, Oral, TID, as needed for spasm, # 30 tabs, 0 Refill(s) Start Date: 05/01/16 Status: Ordered doxycycline hyclate 100 mg oral capsule 100 mg 1 caps, Oral, BID, # 20 caps, 0 Refill(s) Start Date: 05/01/16 Status: Ordered ergocalciferol 50,000 intl units (1.25 mg) oral capsule 50,000 Intl_Units 1 caps, Oral, qWeek, 0 Refill(s) Start Date: 11/09/15 Status: Ordered HYDROmorphone 4 mg oral tablet 4 mg 1 tabs, Oral, q4hr, as needed for pain, 0 Refill(s) Start Date: 05/01/16 Status: Ordered Lomotil See Instructions, TAKES NEEDED FOR DIARREA, 0 Refill(s) Start Date: 03/06/16 Status: Ordered magnesium oxide 400 mg (241.3 mg elemental magnesium) oral tablet 800 mg 2 tabs, Oral, BID, 0 Refill(s) Start Date: 11/09/15 Status: Ordered Vitamin C 500 mg, Oral, [...] Released: 03/21/2001 Document Revised: 03/10/2013 Document Reviewed: [employer] Patient Education 2016 [employer] No follow up information was provided. Extracted from: Title: Office Visit Note Author: Huber Pinto MD Date: 05/01/16 Assessment/Plan 1.Rectal bleeding Ordered: Office Visit Level 4 Est 46526 Plan:Rectal exam under anesthesia, possible limitedflexible sigmoidoscopy/ anoscopy. I did review the patient's chartand see that his hemoglobin has dropped about 2 g over the last week. His hemoglobin was11.3 on April 23 and onApril 30 his hemoglobin was 9.3. Reviewed prior operative note and pathology report from hisprior surgery on September 20, 2015. I have attempted to perform a rectal examination in the office was unsuccessful as result of severe pain. I had recommended repeating rectal examination today in the office. Patient requested that this not be performed and that I"sedate him"if possible. Given his degree of pain,history for prior recurrent rectal cancer,and recent development of rectal bleedingit was my recommendation that tomorrow we proceed with rectal examination under anesthesia ,possible anoscopy, possible limited flexible sigmoidoscopypatient and family understood and agreed proposed plan..
--- OUTSIDE RECORDS SUMMARY | 2016-08-23 17:48 | XMS REPORT | Continuity of Care Document ---
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 01/29/2013 Harper Gardner MD 275.2 DIS MAGNESIUM METABOLISM 01/29/2013 Harper Gardner MD 276.51 DEHYDRATION 01/29/2013 Harper Gardner MD 285.29 ANEMIA OF OTHER CHRONIC DISEASE 01/29/2013 Harper Gardner MD 401.9 HYPERTENSION NOS 01/29/2013 Harper Gardner MD 577.1 CHRONIC PANCREATITIS 01/29/2013 Harper Gardner MD 579.0 CELIAC DISEASE 01/29/2013 Harper Gardner MD 783.21 LOSS OF WEIGHT 01/29/2013 Harper Gardner MD 787.91 DIARRHEA 01/29/2013 Harper Gardner MD V10.05 HX OF COLONIC MALIGNANCY 01/29/2013 Harper Gardner MD V15.82 HISTORY OF TOBACCO USE 01/29/2013 Harper Gardner MD A Isabel V45.72 ACQRD ABSENCE INTESTINE - LARGE/SMALL 01/29/2013 Harper Gardner MD V85.0 BODY MASS INDEX LESS THAN 19, ADULT 07/13/2013 Bartolome Garzon MD 787.91 DIARRHEA Procedures Code Description Performed By Performed On 45.16 ESOPHAGOGASTRODUODENOSCOPY [EGD] W/CLOSED BIOPSY Bartolome Garzon MD 04/01/2013 88.74 DX ULTRASOUND-DIGESTIVE Bartolome Garzon MD 04/01/2013 45.16 ESOPHAGOGASTRODUODENOSCOPY [EGD] W/CLOSED BIOPSY Bartolome Garzon MD 06/09/2013 Results Test Result Range CBC W/DIFF - 01/29/13 19:57 BASOPHIL # 0.1 k/cumm 0.0-0.2 BASOPHIL % 1 % 0-1 EOSINOPHIL # 0.2 k/cumm 0.1-0.5 EOSINOPHIL % 3 % 2-4 GRANULOCYTE # 3.5 k/cumm 2.0-9.0 GRANULOCYTE % 53 % 50-75 LYMPHOCYTE # 2.2 k/cumm 1.0-4.0 LYMPHOCYTE % 32 % 20-30 MEAN CELL HGB 32.0 pg 27.0-33.0 MEAN CELL HGB CONCENTRATION 34.8 g/dL 32.0-37.0 MEAN CELL VOLUME 91.9 fl 80.0-100.0 MONOCYTE # 0.8 k/cumm 0.1-1.0 MONOCYTE % 11 % 4-6 RED BLOOD CELL 3.72 m/cumm 4.00-6.00 RED CELL DISTRIBUTION WIDTH 12.7 % 11.0- 15.6 WHITE BLOOD CELL 6.7 k/cumm 5.0-10.0 HEMOGLOBIN 11.9 gm/dL 14.0-18.0 HEMATOCRIT 34.2 % 40.0-54.0 PLATELET COUNT 180 k/cumm 150-400 SED RATE - 01/29/13 19:57 SED RATE 53 mm/hr 0-7 FOLIC ACID, RBC - 01/29/13 19:57 FOLIC ACID, RBC 771 ng/mL 280-791 FOLATE, HCT 34.3 % PROTHROMBIN TIME WITH INR - 01/29/13 19:57 INTERNATIONAL NORMAL RATIO 1.2 0.9-1.1 PROTHROMBIN TIME 13.0 sec 9.3-12.2 PARTIAL THROMBOPLASTIN TIME - 01/29/13 19:57 PARTIAL THROMBOPLASTIN TIME 31 sec 24-36 METABOLIC PANEL, COMPREHN - 01/29/13 19:57 POTASSIUM 4.2 mmol/L 3.5-5.3 EST GFR (MDRD) 59 mL/min > 59 ANION GAP 10 mmol/L 5-15 GLUCOSE 86 mg/dL 70-99 CALCIUM 9.4 mg/dL 8.5-10.1 BLOOD UREA NITROGEN 21 mg/dL 7-20 CREATININE 1.3 mg/dL 0.8-1.3 SODIUM 139 mmol/L 135-148 CHLORIDE 104 mmol/L 98-110 AST/SGOT 32 Units/L 10-37 ALT/SGPT 53 Units/L < 66 CARBON DIOXIDE 25 mmol/L 21-32 TOTAL PROTEIN 7.8 gm/dL 6.4-8.2 ALBUMIN 3.4 gm/dL 3.4-5.0 BILI TOTAL 1.1 mg/dL 0.0-1.0 ALKALINE PHOSPHATASE TOTAL 101 Units/L 50 -136 LIPID PANEL - 01/29/13 19:57 CHOLESTEROL/HDL RATIO 3.8 < 5.0 LDL CHOLESTEROL 95 mg/dL < 100 VLDL CHOLESTEROL 24 mg/dL < 30 TRIGLYCERIDES 119 mg/dL < 150 CHOLESTEROL 161 mg/dL < 200 HDL CHOLESTEROL 42 mg/dL > 39 PHOSPHORUS - 01/29/13 19:57 PHOSPHORUS 3.0 mg/dL 2.5-4.9 MAGNESIUM - 01/29/13 19:57 MAGNESIUM 1.7 mg/dL 1.8-2.4 AMYLASE - 01/29/13 19:57 AMYLASE 223 Units/L 25-115 LIPASE - 01/29/13 19:57 LIPASE 192 Units/L 73-393 IRON W/ BINDING CAPACITY - 01/29/13 19:57 IRON SATURATION 13 % SAT 11-46 IRON BINDING CAPACITY, TOTAL 296 mcg/dL 250-450 IRON 38 mcg/dL 35-150 FERRITIN - 01/29/13 19:57 FERRITIN 75 ng/mL 26-388 VITAMIN B12 - 01/29/13 19:57 VITAMIN B12 202 pg/mL 211-911 THYROID STIM HORMONE (TSH) - 01/29/13 19:57 THYROID STIM HORMONE (TSH) 0.98 uIU/mL 0.34-4.82 PREALBUMIN - 01/29/13 19:57 PREALBUMIN 25 mg/dL 20-40 TRANSGLUTAMINASE AB IGG - 01/29/13 19:57 TRANSGLUTAMINASE AB IGG <2 U/mL 0-5 C REACTIVE PROTEIN - 01/29/13 19:57 C REACTIVE PROTEIN 19.4 mg/L < 8.0 BILI CONJUGATED - 01/29/13 19:57 BILI CONJUGATED 0.2 mg/dL 0.0-0.3 AB HIV 1 2 - 01/29/13 19:57 AB HIV 1 2 NEGATIVE NEGATIVE CAMPYLOBACTER ANTIGEN - 01/29/13 20:55 Uncategorized STOOL LEUKOCYTES - 01/29/13 20:55 Uncategorized CLOSTRIDIUM DIFFICILE DNA - 01/29/13 20:55 Uncategorized GIARDIA STAIN - 01/29/13 20:55 Uncategorized OVA AND PARASITES - 01/29/13 20:55 Uncategorized PANCREATIC ELASTASE,FECAL - 01/29/13 20:55 PANCREATIC ELASTASE,FECAL 72 ug/g >200 METABOLIC PANEL, [facility] - 01/30/13 04:44 POTASSIUM 3.8 mmol/L 3.5-5.3 EST GFR (MDRD) 59 mL/min > 59 ANION GAP 10 mmol/L 5-15 GLUCOSE 107 mg/dL 70-99 CALCIUM 8.7 mg/dL 8.5-10.1 BLOOD UREA NITROGEN 19 mg/dL 7-20 CREATININE 1.3 mg/dL 0.8-1.3 SODIUM 141 mmol/L 135-148 CHLORIDE 106 mmol/L 98-110 AST/SGOT 24 Units/L 10-37 ALT/SGPT 45 Units/L < 66 CARBON DIOXIDE 25 mmol/L 21-32 TOTAL PROTEIN 6.4 gm/dL 6.4-8.2 ALBUMIN 3.0 gm/dL 3.4-5.0 BILI TOTAL 0.8 mg/dL 0.0-1.0 ALKALINE PHOSPHATASE TOTAL 83 Units/L 50- 136 CBC W/DIFF - 01/30/13 04:44 BASOPHIL # 0.1 k/cumm 0.0-0.2 BASOPHIL % 1 % 0-1 EOSINOPHIL # 0.2 k/cumm 0.1-0.5 EOSINOPHIL % 4 % 2-4 GRANULOCYTE # 2.9 k/cumm 2.0-9.0 GRANULOCYTE % 50 % 50-75 LYMPHOCYTE # 1.8 k/cumm 1.0-4.0 LYMPHOCYTE % 32 % 20-30 MEAN CELL HGB 30.9 pg 27.0-33.0 MEAN CELL HGB CONCENTRATION 33.5 g/dL 32.0-37.0 MEAN CELL VOLUME 92.3 fl 80.0-100.0 MONOCYTE # 0.7 k/cumm 0.1-1.0 MONOCYTE % 13 % 4-6 RED BLOOD CELL 3.49 m/cumm 4.00-6.00 RED CELL DISTRIBUTION WIDTH 12.9 % 11.0- 15.6 WHITE BLOOD CELL 5.7 k/cumm 5.0-10.0 HEMOGLOBIN 10.8 gm/dL 14.0-18.0 HEMATOCRIT 32.2 % 40.0-54.0 PLATELET COUNT 171 k/cumm 150-400 IMMUNOGLOB QUANT G,A,M - 01/30/13 14:24 IMMUNOGLOBULIN A 413 mg/dL 70-400 IMMUNOGLOBULIN G 1250 mg/dL 700-1600 IMMUNOGLOBULIN M 41 mg/dL 40-230 CBC W/DIFF - 01/31/13 06:27 BASOPHIL # 0.0 k/cumm 0.0-0.2 BASOPHIL % 1 % 0-1 EOSINOPHIL # 0.1 k/cumm 0.1-0.5 EOSINOPHIL % 3 % 2-4 GRANULOCYTE # 2.2 k/cumm 2.0-9.0 GRANULOCYTE % 50 % 50-75 LYMPHOCYTE # 1.5 k/cumm 1.0-4.0 LYMPHOCYTE % 35 % 20-30 MEAN CELL HGB 31.3 pg 27.0-33.0 MEAN CELL HGB CONCENTRATION 33.7 g/dL 32.0-37.0 MEAN CELL VOLUME 93.1 fl 80.0-100.0 MONOCYTE # 0.5 k/cumm 0.1-1.0 MONOCYTE % 11 % 4-6 RED BLOOD CELL 3.35 m/cumm 4.00-6.00 RED CELL DISTRIBUTION WIDTH 13.1 % 11.0- 15.6 WHITE BLOOD CELL 4.3 k/cumm 5.0-10.0 HEMOGLOBIN 10.5 gm/dL 14.0-18.0 HEMATOCRIT 31.2 % 40.0-54.0 PLATELET COUNT 182 k/cumm 150-400 RENAL FUNCTION PANEL - 01/31/13 06:27 POTASSIUM 4.1 mmol/L 3.5-5.3 EST GFR (MDRD) > 60 mL/min > 59 ANION GAP 9 mmol/L 5-15 GLUCOSE 104 mg/dL 70-99 CALCIUM 8.7 mg/dL 8.5-10.1 BLOOD UREA NITROGEN 14 mg/dL 7-20 CREATININE 1.0 mg/dL 0.8-1.3 SODIUM 141 mmol/L 135-148 CHLORIDE 108 mmol/L 98-110 CARBON DIOXIDE 24 mmol/L 21-32 ALBUMIN 2.9 gm/dL 3.4-5.0 PHOSPHORUS 2.9 mg/dL 2.5-4.9 MAGNESIUM - 01/31/13 06:27 MAGNESIUM 2.4 mg/dL 1.8-2.4 CBC W/MANUAL DIFF - 02/01/13 06:12 MEAN CELL HGB 31.1 pg 27.0-33.0 MEAN CELL HGB CONCENTRATION 33.3 g/dL 32.0-37.0 MEAN CELL VOLUME 93.2 fl 80.0-100.0 RED BLOOD CELL 3.38 m/cumm 4.00-6.00 RED CELL DISTRIBUTION WIDTH 13.2 % 11.0- 15.6 WHITE BLOOD CELL 4.7 k/cumm 5.0-10.0 HEMOGLOBIN 10.5 gm/dL 14.0-18.0 HEMATOCRIT 31.5 % 40.0-54.0 PLATELET COUNT 170 k/cumm 150-400 MANUAL DIFF(O) - 02/01/13 06:12 EOSINOPHIL # 0.1 k/cumm 0.1-0.5 EOSINOPHIL % 3 % 2-4 GRANULOCYTE # 3.0 k/cumm 2.0-9.0 LYMPHOCYTE # 1.3 k/cumm 1.0-4.0 LYMPHOCYTE % 28 % 20-30 DIFFERENTIAL MANUAL MONOCYTE # 0.3 k/cumm 0.1-1.0 MONOCYTE % 6 % 4-6 RBC MORPH NOTED SEGMENTED NEUTROPHIL % 63 % 50-70 RENAL FUNCTION PANEL - 02/01/13 06:12 POTASSIUM 4.4 mmol/L 3.5-5.3 EST GFR (MDRD) > 60 mL/min > 59 ANION GAP 12 mmol/L 5-15 GLUCOSE 97 mg/dL 70-99 CALCIUM 9.1 mg/dL 8.5-10.1 BLOOD UREA NITROGEN 9 mg/dL 7-20 CREATININE 0.9 mg/dL 0.8-1.3 SODIUM 145 mmol/L 135-148 CHLORIDE 109 mmol/L 98-110 CARBON DIOXIDE 24 mmol/L 21-32 ALBUMIN 2.8 gm/dL 3.4-5.0 PHOSPHORUS 2.7 mg/dL 2.5-4.9 MAGNESIUM - 02/01/13 06:12 MAGNESIUM 2.1 mg/dL 1.8-2.4 CBC W/MANUAL DIFF - 02/02/13 04:42 MEAN CELL HGB 31.2 pg 27.0-33.0 MEAN CELL HGB CONCENTRATION 33.3 g/dL 32.0-37.0 MEAN CELL VOLUME 93.5 fl 80.0-100.0 RED BLOOD CELL 3.24 m/cumm 4.00-6.00 RED CELL DISTRIBUTION WIDTH 13.0 % 11.0- 15.6 WHITE BLOOD CELL 4.3 k/cumm 5.0-10.0 HEMOGLOBIN 10.1 gm/dL 14.0-18.0 HEMATOCRIT 30.3 % 40.0-54.0 PLATELET COUNT 147 k/cumm 150-400 MANUAL DIFF(O) - 02/02/13 04:42 EOSINOPHIL # 0.3 k/cumm 0.1-0.5 EOSINOPHIL % 8 % 2-4 GRANULOCYTE # 2.0 k/cumm 2.0-9.0 LYMPHOCYTE # 1.7 k/cumm 1.0-4.0 LYMPHOCYTE % 39 % 20-30 DIFFERENTIAL MANUAL MONOCYTE # 0.3 k/cumm 0.1-1.0 MONOCYTE % 7 % 4-6 RBC MORPH NOTED SEGMENTED NEUTROPHIL % 46 % 50-70 RENAL FUNCTION PANEL - 02/02/13 04:42 POTASSIUM 4.8 mmol/L 3.5-5.3 EST GFR (MDRD) > 60 mL/min > 59 ANION GAP 9 mmol/L 5-15 GLUCOSE 102 mg/dL 70-99 CALCIUM 8.5 mg/dL 8.5-10.1 BLOOD UREA NITROGEN 14 mg/dL 7-20 CREATININE 1.2 mg/dL 0.8-1.3 SODIUM 144 mmol/L 135-148 CHLORIDE 109 mmol/L 98-110 CARBON DIOXIDE 26 mmol/L 21-32 ALBUMIN 2.6 gm/dL 3.4-5.0 PHOSPHORUS 3.4 mg/dL 2.5-4.9 MAGNESIUM - 02/02/13 04:42 MAGNESIUM 1.9 mg/dL 1.8-2.4 HEMOGLOBIN - 03/25/13 10:29 MEAN CELL VOLUME 92.8 fl 80.0-100.0 HEMOGLOBIN 12.3 gm/dL 14.0-18.0 METABOLIC PANEL, BASIC - 04/01/13 15:00 POTASSIUM 4.5 mmol/L 3.5-5.3 EST GFR (MDRD) 59 mL/min > 59 ANION GAP 6 mmol/L 5-15 GLUCOSE 90 mg/dL 70-99 CALCIUM 9.5 mg/dL 8.5-10.1 BLOOD UREA NITROGEN 13 mg/dL 7-20 CREATININE 1.3 mg/dL 0.8-1.3 SODIUM 143 mmol/L 135-148 CHLORIDE 107 mmol/L 98-110 CARBON DIOXIDE 30 mmol/L 21-32 GRAM STAIN - 04/01/13 17:25 Uncategorized Encounters ACCT No. Visit Date/Time Discharge Status Pt. Type Provider Facility Loc./Unit Complaint [id number] 10/05/2013 09:18:00 2013 09:18:00 DIS Outpatient Victor M OROURKE, [facility] W.RAC [id number] 07/13/2013 07:30:00 2013 07:30:00 DIS Outpatient Ryann OROURKE, [facility] [id number] 06/09/2013 09:05:00 2013 13:23:00 DIS Outpatient Ryann OROURKE, [facility] W.END [id number] 04/01/2013 14:02:00 2012 19:10:00 DIS Outpatient Ryann OROURKE, [facility] W.END [id number] 03/25/2013 09:31:00 2012 09:31:00 DIS Outpatient Ryann OROURKE, [facility] W.POA [id number] 01/29/2013 16:35:00 2012 19:30:00 DIS Inpatient Kendra OROURKE, [facility] W.3TS
--- OUTSIDE RECORDS SUMMARY | 2016-08-23 17:54 | XMS REPORT | Continuity of Care Document ---
Author Author [facility] Organization [facility] Address Unknown Phone Unavailable Support Name Relationship Address Phone LOREE COLUNGA Next Of Kin [address] [place] [address] Unavailable Insurance Providers Payer Name Policy Number Subscriber Name Relationship Blue Cross Other [id number] Jonh Colunga 19 Self Medicare [id number] Jonh Colunga 19 Self Problems No Known [...] Genitourinary Surgeries N 11/12/12 2:36pm Cardiac CAD [place] 08/05/12 3:32pm Respiratory pneumonia 08/05/12 3:32pm Social [...] 16, 2012 9:23pm Negative - Urine Specific [place] October 16, 2012 9:23pm 1.015 - Urine Turbidity October 16, 2012 9:23pm Clear - Urine Urobilinogen October 16, 2012 9:23pm Normal EU/DL - Urine pH October 16, 2012 9:23pm 9.0 H - Vitamin B12 Level August 05, 2012 2:20pm 192 PG/ML L 239931 Procedures Procedure Code Date THER/PROPH/DIAG IV INF INIT 05653 10/16/12 HYDRATE IV INFUSION ADD-ON 16170 10/16/12 TX/PRO/DX INJ NEW DRUG ADDON 09285 10/16/12 Stool Culture 10/16/12 Ova and Parasites 08/05/12 Encounters Encounter Location Date/Time Departed Emergency Room [facility] 10/16/12 7:50pm Discharged Inpatient [facility] 08/05/12 3:46pm
--- OUTSIDE RECORDS SUMMARY | 2016-08-23 17:54 | XMS REPORT ---
Author Author BRUCE LOPEZ [facility] Address Unknown Phone Unavailable Care Team Providers Care Employee Benefits Manager Name Role Phone SUITER, Dr. WILSON Primary [...]
--- OUTSIDE RECORDS SUMMARY | 2016-08-23 17:54 | XMS REPORT | Continuity of Care Document ---
Author Author Zhang [facility] Organization [facility] Address Unknown Phone Unavailable Support Name Relationship Address Phone KAYLEE SOLO MD Caregiver [address] [place] [address] [address] [place] [phone] LOREE COLUNGA Next Of Kin [address] [place] [address] CP Insurance Providers Payer Name Policy Number Subscriber Name Relationship Medicare [id number] Jonh Colunga Self Blue Cross Other [id number] Jonh Colunga Self Advance Directives Directive Response [...] F (96.8 - 99.1) Temperature (Calculated Celsius) 36.15977 degrees C (36.0 - 37.3) Pulse Rate [...] 29, 2013 8:51pm LAB TEST FORM REQUEST [id number] - Lipase October 23, 2013 11:02am 63 [...] specimen been collected/ obtained? Y Urine Specific [place] August 10, 2013 2:00pm >=1.030 H - [...] 2013 12:23pm Name: JONH COLUNGA Unit #: [id number] : 1945 Sex: M Loc / Svc: [facility] DOS: 06/07/14 Signed Report #: [id number] DIAGNOSTIC IMAGING REPORT TYPE OF EXAM: PORTACATH [...] 06/07/14 COMPLETE CBC W/AUTO DIFF WBC completed 06/07/14945389"PORT, INDWELLING (IMPLANTABLE)" completed 06/07/14644916"INJECTION, CEFAZOLIN SODIUM, 500 MG" completed 06/07/14343505"INJECTION, HEPARIN SODIUM, (HEPARIN LOCK FLUSH), PER completed 003"INJECTION, MIDAZOLAM HYDROCHLORIDE, PER 1 MG" completed 06/07/14329843"INJECTION, PHENYLEPHRINE HCL, UP TO 1 ML" completed 06/07/14 PROPOFOL INJ 500 MG/50ML completed 06/07/14672899"INJECTION, FENTANYL CITRATE, 0.1 MG" completed 06/07/14 Encounters Encounter Location Date/Time Registered [facility] 06/17/14 1:15pm Registered [facility] 06/16/14 10:00am Discharged [facility] 11/29/13 10:23am
--- OUTSIDE RECORDS SUMMARY | 2016-08-23 17:54 | XMS REPORT ---
Author Author DANYEL PANIAGUA [facility] Address Unknown Phone Unavailable Care Team Providers Care Tool And Gauge Inspector Name Role Phone SUITER, Dr. WILSON Primary [...]
--- OUTSIDE RECORDS SUMMARY | 2016-08-23 17:54 | XMS REPORT | Continuity of Care Document ---
Author Author Zhang [facility] Organization [facility] Address Unknown Phone Unavailable Support Name Relationship Address Phone KAYLEE SOLO MD Caregiver [address] [place] [address] [place] [address] [phone] LOREE COLUNGA Next Of Kin [address] [place] [address] Insurance Providers Payer Name Policy Number Subscriber Name Relationship Medicare [id number] Jonh Colunga Self Blue Cross Other [id number] Jonh Colunga Self Advance Directives Directive Response [...] PO DAILY 11/12/12 04/24/13 Discontinued [Equate Acid Platform Attendant] 1 Tab DAILY 08/10/13 Active Vancomycin Hcl [...] F (96.8 - 99.1) Temperature (Calculated Celsius) 36.97892 degrees C (36.0 - 37.3) Temperature Source [...] 29, 2013 8:51pm LAB TEST FORM REQUEST [id number] - Lipase October 13, 2013 7:18pm 65 [...] been collected/ obtained? Y Urine Specific [place] August 10, 2013 2:00pm >=1.030 H - [...] 10/13/13 Encounters Encounter Location Date/Time Registered Clinic [facility] 10/18/13 10:21am Departed Emergency Room [facility] 10/13/13 6:45pm Departed Emergency Room [facility] 08/10/13 1:17pm
--- OUTSIDE RECORDS SUMMARY | 2016-08-23 17:54 | XMS REPORT | Continuity of Care Document ---
Author Author [facility] Organization [facility] Address Unknown Phone Unavailable Support Name Relationship Address Phone LOREE COLUNGA Next Of Kin [address] [place] [address] Unavailable Insurance Providers Payer Name Policy Number Subscriber Name Relationship Blue Cross Other [id number] Jonh Colunga 19 Self Medicare [id number] Jonh Colunga 19 Self Problems No Known [...] Genitourinary Surgeries N 11/12/12 2:36pm Cardiac CAD [place] 08/05/12 3:32pm Respiratory pneumonia 08/05/12 3:32pm Social [...] 16, 2012 9:23pm Negative - Urine Specific [place] October 16, 2012 9:23pm 1.015 - Urine [...] Procedure Code Date THER/PROPH/DIAG IV INF INIT 12101 10/16/12 HYDRATE IV INFUSION ADD-ON 86713 10/16/12 TX/PRO/DX INJ NEW DRUG ADDON 85573 10/16/12 Stool Culture 10/16/12 Ova and Parasites 08/05/12 Encounters Encounter Location Date/Time Departed Emergency Room [facility] 10/16/12 7:50pm Discharged Inpatient [facility] 08/05/12 3:46pm
--- OUTSIDE RECORDS SUMMARY | 2016-08-23 17:54 | XMS REPORT | Continuity of Care Document ---
Author Author [facility] Organization [facility] Address Unknown Phone Unavailable Support Name Relationship Address Phone BRADY PHAM Caregiver [facility] [address] [address] KAYLEE SOLO MD Caregiver [address] [place] [address] [place] [phone] LOREE COLUNGA Next Of Kin [address] [place] [address] Insurance Providers Payer Name Policy Number Subscriber Name Relationship Medicare [id number] Jonh Colunga 19 Self Blue Cross Other [id number] Jonh Colunga 19 Self Problems Medical Problems [...] PO DAILY 11/12/12 04/24/13 Discontinued [Equate Acid Emergency Communications Operator] 1 Tab DAILY 08/10/13 Active Vancomycin [...] F (96.8 - 99.1) Temperature (Calculated Celsius) 37.64840 degrees C (36.0 - 37.3) Pulse Rate [...] specimen been collected/ obtained? Y Urine Specific [place] August 10, 2013 2:00pm >=1.030 H - [...] 29, 2013 8:51pm LAB TEST FORM REQUEST [id number] - Turbidity October 13, 2013 7:18pm < [...] Encounters Encounter Location Date/Time Departed Emergency Room [facility] 10/13/13 6:45pm Departed Emergency Room [facility] 08/10/13 1:17pm Recent Diagnosis
--- OUTSIDE RECORDS SUMMARY | 2016-08-23 17:54 | XMS REPORT | Continuity of Care Document ---
Author Author [facility] Organization [facility] Address Unknown Phone Unavailable Support Name Relationship Address Phone BRADY PHAM Caregiver [facility] [address] [place] [address] KAYLEE SOLO MD Caregiver [address] [place] [address] [place] [phone] LOREE COLUNGA Next Of Kin [address] [place] [address] Insurance Providers Payer Name Policy Number Subscriber Name Relationship Medicare [id number] Jonh Colunga 19 Self Blue Cross Other [id number] Jonh Colunga Self Advance Directives Directive Response [...] PO DAILY 11/12/12 04/24/13 Discontinued [Equate Acid Security Checker] 1 Tab DAILY 08/10/13 Active Vancomycin Hcl [...] F (96.8 - 99.1) Temperature (Calculated Celsius) 35.32529 degrees C (36.0 - 37.3) Pulse Rate [...] specimen been collected/ obtained? Y Urine Specific [place] August 10, 2013 2:00pm >=1.030 H - [...] 29, 2013 8:51pm LAB TEST FORM REQUEST [id number] - Turbidity October 23, 2013 11:02am < [...] Encounters Encounter Location Date/Time Departed Emergency Room [facility] 10/23/13 9:46am Registered Clinic [facility] 10/18/13 10:21am Departed Emergency Room [facility] 10/13/13 6:45pm Departed Emergency Room [facility] 08/10/13 1:17pm Recent Diagnosis
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
--- OUTSIDE RECORDS SUMMARY | 2016-08-23 17:55 | XMS REPORT | Continuity of Care Document ---
Author Author [facility] Organization [facility] Address Unknown Phone Unavailable Allergies Active Description [...] Gardner MD 401.9 HYPERTENSION NOS 01/29/2013 Harper Gradner MD 577.1 CHRONIC PANCREATITIS 01/29/2013 Harper Gardner MD 579.0 CELIAC DISEASE 01/29/2013 Harper Gardner MD 783.21 LOSS OF WEIGHT 01/29/2013 Harper Gardner MD 787.91 DIARRHEA 01/29/2013 Harper Gardner MD V10.05 HX OF COLONIC MALIGNANCY 01/29/2013 Harper Gardner MD V15.82 HISTORY OF TOBACCO USE 01/29/2013 Harper Gardner MD A Isabel V45.72 ACQRD ABSENCE INTESTINE - LARGE/SMALL 01/29/2013 aHrper Gardner MD V85.0 BODY MASS INDEX LESS [...] Status Pt. Type Provider Facility Loc./Unit Complaint [id number] 10/05/2013 09:18:00 2013 09:18:00 DIS Outpatient Victor M OROURKE, [facility] W.RAC [id number] 07/13/2013 07:30:00 2013 07:30:00 DIS Outpatient Ryann OROURKE, [facility] [id number] 06/09/2013 09:05:00 2013 13:23:00 DIS Outpatient Ryann OROURKE, [facility] W.END [id number] 04/01/2013 14:02:00 2012 19:10:00 DIS Outpatient Ryann OROURKE, [facility] W.END [id number] 03/25/2013 09:31:00 2012 09:31:00 DIS Outpatient Ryann OROURKE, [facility] W.POA [id number] 01/29/2013 16:35:00 2012 19:30:00 DIS Inpatient Kendra OROURKE, [facility] W.3TS
--- OUTSIDE RECORDS SUMMARY | 2016-08-23 17:55 | XMS REPORT | Continuity of Care Document ---
Author Author [facility] Organization [facility] Address Unknown Phone Unavailable Support Name Relationship Address Phone HUMZA HUNT MD Caregiver [facility] [address] [facility] JOVANA RAYMUNDO [address] [place] [phone] KAYLEE SOLO MD Caregiver [address] [place] [address] [address] [place] [phone] LOREE COLUNGA Next Of Kin [address] [place] [address] CP Insurance Providers Payer Name Policy Number Subscriber Name Relationship Medicare [id number] Jonh Colunga 19 Self Blue Cross Other [id number] Jonh Colunga Self Advance Directives Directive Response [...] F (96.8 - 99.1) Temperature (Calculated Celsius) 36.02465 degrees C (36.0 - 37.3) Temperature Source [...] 29, 2013 8:51pm LAB TEST FORM REQUEST [id number] - Lipase October 23, 2013 11:02am 63 [...] specimen been collected/ obtained? Y Urine Specific [place] August 10, 2013 2:00pm >=1.030 H - [...] 2013 12:23pm Name: JONH COLUNGA Unit #: [id number] : 1945 Sex: M Loc / Svc: [facility] DOS: 06/07/14 Signed Report #: [id number] DIAGNOSTIC IMAGING REPORT TYPE OF EXAM: PORTACATH [...] HUNT MD Encounters Encounter Location Date/Time Registered [facility] 05/13/14 9:00am Discharged [facility] 11/29/13 10:23am
--- OUTSIDE RECORDS SUMMARY | 2016-08-23 17:56 | XMS REPORT | Continuity of Care Document ---
Author Author Zhang [facility] Organization [facility] Address Unknown Phone Unavailable Support Name Relationship Address Phone KAYLEE SOLO MD Caregiver [address] [place] [address] [place] [address] [phone] LOREE COLUNGA Next Of Kin [address] [place] [address] CP Insurance Providers Payer Name Policy Number Subscriber Name Relationship Medicare [id number] Jonh Colunga 19 Self Blue Cross Other [id number] Jonh Colunga Self Advance Directives Directive Response [...] PO DAILY 11/12/12 04/24/13 Discontinued [Equate Acid Field Manager] 1 Tab DAILY 08/10/13 Active Vancomycin Hcl [...] F (96.8 - 99.1) Temperature (Calculated Celsius) 36.66788 degrees C (36.0 - 37.3) Temperature Source [...] 29, 2013 8:51pm LAB TEST FORM REQUEST [id number] - Lipase October 23, 2013 11:02am 63 [...] specimen been collected/ obtained? Y Urine Specific [place] August 10, 2013 2:00pm >=1.030 H [...] of procedures. Encounters Encounter Location Date/Time Discharged [facility] 03/23/14 8:30am
[2016-08-23 18:02] LABS: BASOPHILS % (AUTO) 0.5 % (0-2); EOSINOPHILS # (AUTO) 0.3 T/MM3 (0-0.5); EOSINOPHILS % (AUTO) 4.8 % (0-4); HCT - HEMATOCRIT 33.6 % (41-53); HGB - HEMOGLOBIN 10.5 GM/DL (13.5-17.5); IMMATURE GRANULOCYTE # (AUTO) 0.02 T/MM3 (0.00-0.03); IMMATURE GRANULOCYTE % (AUTO) 0.3 % (0.0-0.5); LYMPHOCYTES # (AUTO) 1.8 T/MM3 (1-4.8); LYMPHOCYTES % (AUTO) 28.4 % (23-45); MEAN CORPUSCULAR HGB 31.7 UUG (26-34); MEAN CORPUSCULAR HGB CONC(MCHC 31.3 GM/DL (31-37); MEAN CORPUSCULAR VOLUME 101.5 UM3 (80-100); MEAN PLATELET VOLUME 8.6 UM3 (9.4-12.4); MONOCYTES % (AUTO) 15.2 % (0-9.0); NEUTROPHILS #(AUTO)-ABSOLUTE 3.2 T/MM3 (1.8-7.7); NEUTROPHILS % (AUTO) 50.8 % (33-66); RED BLOOD COUNT 3.31 M/MM3 (4.50-5.90); WBC - WHITE BLOOD COUNT 6.2 T/MM3 (4.5-11.0)
[2016-08-23 18:11] LABS: ANION GAP 13 MEQ/L (5-15); BUN/CREATININE RATIO 15 RATIO (6-26); CHLORIDE 103 MEQ/L (98-107); CO2 - CARBON DIOXIDE 23 MEQ/L (22-30); GLOMERULAR FILTRATION RATE 43; GLUCOSE 155 MG/DL (75-110); POTASSIUM 4.9 MEQ/L (3.6-5); SODIUM 139 MEQ/L (134-144)
[2016-08-23 18:18] LABS: CREATININE 1.6 MG/DL (0.8-1.5)
--- NOTE | 2016-08-23 18:30 | NUR ---
UPDATE PATIENT REMAINS CHEST PAIN FREE AT THIS TIME.
--- NOTE | 2016-08-23 19:00 | NUR ---
IMAGING PT TO IMAGING AT THIS TIME. NO SIGN OF DISTRESS.
--- NOTE | 2016-08-23 19:00 | NUR ---
ACTIVITY PATIENT AMBULATORY TO RESTROOM, TOLERATES ACTIVITY WELL.
--- NOTE | 2016-08-23 19:06 | NUR ---
IMAGING PT RETURN FROM IMAGING AT THIS TIME.
[2016-08-23] MEDS ORDERED: MULT-1243 PO (19:30)
[2016-08-23] MEDS ORDERED: CHOL200026 PO (19:30)
[2016-08-23] MEDS ORDERED: CALC3.8S NAS (19:30)
[2016-08-23] MEDS ORDERED: CHEMOTHERAPY IV (19:30)
[2016-08-23] MEDS ORDERED: GABA-338 PO (19:32)
[2016-08-23] MEDS ORDERED: HYDR8TAB27 PO (19:32)
[2016-08-23] MEDS ORDERED: DULO20CA18 PO (19:32)
--- NOTE | 2016-08-23 20:03 | NUR ---
LAB LAB AT BEDSIDE FOR REPEAT TROPONIN DRAW
--- NOTE | 2016-08-23 20:43 | NUR ---
PROVIDER N NOLD TELEVISION DIRECTOR AT BEDSIDE
[2016-08-23 20:55] VITALS: BP 110/53; PULSE 62; RESP 16; TEMP 98.5; O2SAT 96
--- NOTE | 2016-08-25 12:19 | DI ---
Indication: ITS.REASON: CHEST PAIN PROCEDURE: CHEST 1 VIEW: Encounter: Initial Comparison: Chest CT dated July 15, 2016 FINDINGS: Small areas of opacity in the left midlung which is mostly linear probably representing atelectasis. The lungs are otherwise clear. There is no abnormal airspace opacity, pleural effusion or pneumothorax identified. The heart size, pulmonary vasculature and mediastinum are within normal limits. No significant skeletal abnormality is seen. IMPRESSION: No acute cardiopulmonary abnormality. .
== END 2016-08-23 20:55 | disposition home or self-care (01) ==
LOC: ED 17:40
DX: R07.89 Other chest pain (principal); R06.02 Shortness of breath; R68.84 Jaw pain; I25.10 Atherosclerotic heart disease of native coronary artery without angina pectoris; Z95.1 Presence of aortocoronary bypass graft; Z87.891 Personal history of nicotine dependence
CPT/HCPCS: 36415; 80048; 84484; 85025; 93005

== ENCOUNTER 2016-08-28 07:47 | Inpatient (IN) | payer MEDICARE, OTHER ==
[~2016-08-28] VITALS: Ht 175.3 cm; Wt 65.3 kg
[~2016-08-28 07:47] MED LIST changes: -ASCO500T9 PO; +CALC3.8S NAS; +CHEMOTHERAPY IV; +CHOL200026 PO; -CYCL-375; -DOXY100C2; +DULO20CA18 PO; +GABA-338 PO; -HYDR4TAB84; +HYDR8TAB27 PO; -LORA1TAB3; +MULT-1243 PO; -PROM25TA7
--- OUTSIDE RECORDS SUMMARY | 2016-08-28 07:51 | XMS REPORT | Continuity of Care Document ---
Author Author [facility] Organization [facility] Address Unknown Phone Unavailable Support Name Relationship Address Phone BRADY PHAM Caregiver [facility] [address] [place] [address] KAYLEE SOLO MD Caregiver [address] [place] [address] [place] [phone] LOREE COLUNGA Next Of Kin [address] [place] [address] Insurance Providers Payer Name Policy Number Subscriber Name Relationship Medicare [id number] Jonh Colunga 19 Self Blue Cross Other [id number] Jonh Colunga Self Advance Directives Directive Response [...] PO DAILY 11/12/12 04/24/13 Discontinued [Equate Acid Parcel Post Officer] 1 Tab DAILY 08/10/13 Active Vancomycin Hcl [...] F (96.8 - 99.1) Temperature (Calculated Celsius) 35.18195 degrees C (36.0 - 37.3) Pulse Rate [...] specimen been collected/ obtained? Y Urine Specific [place] August 10, 2013 2:00pm >=1.030 H - [...] 29, 2013 8:51pm LAB TEST FORM REQUEST [id number] - Turbidity October 23, 2013 11:02am < [...] Encounters Encounter Location Date/Time Departed Emergency Room [facility] 10/23/13 9:46am Registered Clinic [facility] 10/18/13 10:21am Departed Emergency Room [facility] 10/13/13 6:45pm Departed Emergency Room [facility] 08/10/13 1:17pm Recent Diagnosis
--- OUTSIDE RECORDS SUMMARY | 2016-08-28 07:51 | XMS REPORT | Continuity of Care Document ---
Author Author [facility] Organization [facility] Address Unknown Phone Unavailable Support Name Relationship Address Phone LOREE COLUNGA Next Of Kin [address] [place] [address] Unavailable Insurance Providers Payer Name Policy Number Subscriber Name Relationship Blue Cross Other [id number] Jonh Colunga 18 Self Medicare [id number] Jonh Colunga 19 Self Problems No Known [...] Genitourinary Surgeries N 11/12/12 2:36pm Cardiac CAD [place] 08/05/12 3:32pm Respiratory pneumonia 08/05/12 3:32pm Social [...] 16, 2012 9:23pm Negative - Urine Specific [place] October 16, 2012 9:23pm 1.015 - Urine [...] Procedure Code Date THER/PROPH/DIAG IV INF INIT 94740 10/16/12 HYDRATE IV INFUSION ADD-ON 47244 10/16/12 TX/PRO/DX INJ NEW DRUG ADDON 56976 10/16/12 Stool Culture 10/16/12 Ova and Parasites 08/05/12 Encounters Encounter Location Date/Time Departed Emergency Room [facility] 10/16/12 7:50pm Discharged Inpatient [facility] 08/05/12 3:46pm
--- OUTSIDE RECORDS SUMMARY | 2016-08-28 07:51 | XMS REPORT ---
Author Author DANYEL PANIAGUA [facility] Address Unknown Phone Unavailable Care Team Providers Care Jewelry Mold Maker Name Role Phone SUITER, Dr. WILSON Primary [...]
--- OUTSIDE RECORDS SUMMARY | 2016-08-28 07:51 | XMS REPORT | Continuity of Care Document ---
Author Author [facility] Organization [facility] Address Unknown Phone Unavailable Support Name Relationship Address Phone LOREE COLUNGA Next Of Kin [address] [place] [address] Unavailable Insurance Providers Payer Name Policy Number Subscriber Name Relationship Blue Cross Other [id number] Jonh Colunga 19 Self Medicare [id number] Jonh Colunga 19 Self Problems No Known [...] 16, 2012 9:23pm Negative - Urine Specific [place] October 16, 2012 9:23pm 1.015 - Urine Turbidity October 16, 2012 9:23pm Clear - Urine Urobilinogen October 16, 2012 9:23pm Normal EU/DL - Urine pH October 16, 2012 9:23pm 9.0 H - Vitamin B12 Level August 05, 2012 2:20pm 192 PG/ML L 239931 Procedures Procedure Code Date THER/PROPH/DIAG IV INF INIT 08846 10/16/12 HYDRATE IV INFUSION ADD-ON 78917 10/16/12 TX/PRO/DX INJ NEW DRUG ADDON 41418 10/16/12 Stool Culture 10/16/12 Ova and Parasites 08/05/12 Encounters Encounter Location Date/Time Departed Emergency Room [facility] 10/16/12 7:50pm Discharged Inpatient [facility] 08/05/12 3:46pm
--- OUTSIDE RECORDS SUMMARY | 2016-08-28 07:51 | XMS REPORT ---
Author Author BRUCE LOPEZ [facility] Address Unknown Phone Unavailable Care Team Providers Care Machine Container Washer Name Role Phone SUITER, Dr. WILSON Primary [...]
--- OUTSIDE RECORDS SUMMARY | 2016-08-28 07:51 | XMS REPORT | Continuity of Care Document ---
Author Author Zhang [facility] Organization [facility] Address Unknown Phone Unavailable Support Name Relationship Address Phone KAYLEE SOLO MD Caregiver [address] [place] [address] [address] [place] [phone] LOREE COLUNGA Next Of Kin [address] [place] [address] CP Insurance Providers Payer Name Policy Number Subscriber Name Relationship Medicare [id number] Jonh Colunga Self Blue Cross Other [id number] Jnoh Colunga Self Advance Directives Directive Response Recorded [...] F (96.8 - 99.1) Temperature (Calculated Celsius) 36.62923 degrees C (36.0 - 37.3) Pulse Rate [...] 29, 2013 8:51pm LAB TEST FORM REQUEST [id number] - Lipase October 23, 2013 11:02am 63 [...] specimen been collected/ obtained? Y Urine Specific [place] August 10, 2013 2:00pm >=1.030 H - [...] (KAN) Stool May 05, 2013 12:23pm Name: OJNH COLUNGA Unit #: [id number] : 1945 Sex: M Loc / Svc: [facility] DOS: 06/07/14 Signed Report #: [id number] DIAGNOSTIC IMAGING REPORT TYPE OF EXAM: PORTACATH [...] 06/07/14 COMPLETE CBC W/AUTO DIFF WBC completed 06/07/14209367"PORT, INDWELLING (IMPLANTABLE)" completed 06/07/14814339"INJECTION, CEFAZOLIN SODIUM, 500 MG" completed 06/07/14396601"INJECTION, HEPARIN SODIUM, (HEPARIN LOCK FLUSH), PER completed 003"INJECTION, MIDAZOLAM HYDROCHLORIDE, PER 1 MG" completed 06/07/14013741"INJECTION, PHENYLEPHRINE HCL, UP TO 1 ML" completed 06/07/14 PROPOFOL INJ 500 MG/50ML completed 06/07/14803321"INJECTION, FENTANYL CITRATE, 0.1 MG" completed 06/07/14 Encounters Encounter Location Date/Time Registered [facility] 06/17/14 1:15pm Registered [facility] 06/16/14 10:00am Discharged [facility] 11/29/13 10:23am
--- OUTSIDE RECORDS SUMMARY | 2016-08-28 07:52 | XMS REPORT | Continuity of Care Document ---
Author Author [facility] Organization [facility] Address Unknown Phone Unavailable Support Name Relationship Address Phone BRADY PHAM Caregiver [facility] [address] [place] [address] KAYLEE SOLO MD Caregiver [address] [place] [address] [place] [phone] LOREE COLUNGA Next Of Kin [address] [place] [address] Insurance Providers Payer Name Policy Number Subscriber Name Relationship Medicare [id number] Jonh Colunga 18 Self Blue Cross Other [id number] Jonh Colunga 18 Self Problems Medical Problems [...] PO DAILY 11/12/12 04/24/13 Discontinued [Equate Acid Injection Molding Operator] 1 Tab DAILY 08/10/13 Active Vancomycin [...] F (96.8 - 99.1) Temperature (Calculated Celsius) 37.50757 degrees C (36.0 - 37.3) Pulse Rate [...] specimen been collected/ obtained? Y Urine Specific [place] August 10, 2013 2:00pm >=1.030 H - [...] 29, 2013 8:51pm LAB TEST FORM REQUEST [id number] - Turbidity October 13, 2013 7:18pm < [...]
--- OUTSIDE RECORDS SUMMARY | 2016-08-28 07:52 | XMS REPORT | Continuity of Care Document ---
Author Author Zhang [facility] Organization [facility] Address Unknown Phone Unavailable Support Name Relationship Address Phone KAYLEE SOLO MD Caregiver [address] [place] [address] [place] [address] [phone] LOREE COLUNGA Next Of Kin [address] [place] [address] Insurance Providers Payer Name Policy Number Subscriber Name Relationship Medicare [id number] Jonh Colunga Self Blue Cross Other [id number] Jonh Colunga Self Advance Directives Directive Response [...] PO DAILY 11/12/12 04/24/13 Discontinued [Equate Acid Claims Specialist] 1 Tab DAILY 08/10/13 Active Vancomycin Hcl [...] F (96.8 - 99.1) Temperature (Calculated Celsius) 36.36533 degrees C (36.0 - 37.3) Temperature Source [...] 29, 2013 8:51pm LAB TEST FORM REQUEST [id number] - Lipase October 13, 2013 7:18pm 65 [...] specimen been collected/ obtained? Y Urine Specific [place] August 10, 2013 2:00pm >=1.030 H - [...] 10/13/13 Encounters Encounter Location Date/Time Registered Clinic [facility] 10/18/13 10:21am Departed Emergency Room [facility] 10/13/13 6:45pm Departed Emergency Room [facility] 08/10/13 1:17pm
--- OUTSIDE RECORDS SUMMARY | 2016-08-28 07:52 | XMS REPORT | Continuity of Care Document ---
Author Author [facility] Organization [facility] Address Unknown Phone Unavailable Allergies Active Description [...] PANCREATIC ELASTASE,FECAL 72 ug/g >200 METABOLIC PANEL, [facility] - 01/30/13 04:44 POTASSIUM 3.8 mmol/L 3.5-5.3 [...] Status Pt. Type Provider Facility Loc./Unit Complaint [id number] 10/05/2013 09:18:00 2013 09:18:00 DIS Outpatient Victor M OROURKE, W.RAC [id number] 07/13/2013 07:30:00 2013 07:30:00 DIS Outpatient Ryann OROURKE, [facility] [id number] 06/09/2013 09:05:00 2013 13:23:00 DIS Outpatient Ryann OROURKE, [facility] W.END [id number] 04/01/2013 14:02:00 2012 19:10:00 DIS Outpatient Ryann OROURKE, [facility] W.END [id number] 03/25/2013 09:31:00 2012 09:31:00 DIS Outpatient Ryann OROURKE, [facility] W.POA [id number] 01/29/2013 16:35:00 2012 19:30:00 DIS Inpatient Kendra OROURKE, [facility] W.3TS
--- OUTSIDE RECORDS SUMMARY | 2016-08-28 07:53 | XMS REPORT | Continuity of Care Document ---
Author Author Zhang [facility] Organization [facility] Address Unknown Phone Unavailable Support Name Relationship Address Phone KAYLEE SOLO MD Caregiver [address] [place] [address] [place] [address] [phone] LOREE COLUNGA Next Of Kin [address] [place] [address] CP Insurance Providers Payer Name Policy Number Subscriber Name Relationship Medicare [id number] Jonh Colunga 19 Self Blue Cross Other [id number] Jonh Colunga Self Advance Directives Directive Response [...] PO DAILY 11/12/12 04/24/13 Discontinued [Equate Acid Engraver Block] 1 Tab DAILY 08/10/13 Active Vancomycin Hcl [...] F (96.8 - 99.1) Temperature (Calculated Celsius) 36.99126 degrees C (36.0 - 37.3) Temperature Source [...] 29, 2013 8:51pm LAB TEST FORM REQUEST [id number] - Lipase October 23, 2013 11:02am 63 [...] specimen been collected/ obtained? Y Urine Specific [place] August 10, 2013 2:00pm >=1.030 H - [...] of procedures. Encounters Encounter Location Date/Time Discharged [facility] 03/23/14 8:30am
--- OUTSIDE RECORDS SUMMARY | 2016-08-28 07:53 | XMS REPORT | Continuity of Care Document ---
Author Author [facility] Organization [facility] Address Unknown Phone Unavailable Support Name Relationship Address Phone HUMZA HUNT MD Caregiver [facility] [address] [facility] JOVANA RAYMUNDO [address] [place] [phone] KAYLEE SOLO MD Caregiver [address] [place] [address] [address] [place] [phone] LOREE COLUNGA Next Of Kin [address] [place] [address] CP Insurance Providers Payer Name Policy Number Subscriber Name Relationship Medicare [id number] Jonh Colunga 19 Self Blue Cross Other [id number] Jonh Colunga Self Advance Directives Directive Response [...] F (96.8 - 99.1) Temperature (Calculated Celsius) 36.82829 degrees C (36.0 - 37.3) Temperature Source [...] 29, 2013 8:51pm LAB TEST FORM REQUEST [id number] - Lipase October 23, 2013 11:02am 63 [...] specimen been collected/ obtained? Y Urine Specific [place] August 10, 2013 2:00pm >=1.030 H - [...] 2013 12:23pm Name: JONH COLUNGA Unit #: [id number] : 1945 Sex: M Loc / Svc: [facility] DOS: 06/07/14 Signed Report #: [id number] DIAGNOSTIC IMAGING REPORT TYPE OF EXAM: PORTACATH [...] HUNT MD Encounters Encounter Location Date/Time Registered [facility] 05/13/14 9:00am Discharged [facility] 11/29/13 10:23am
[2016-08-28] MEDS ORDERED: NORMAL SALINE 1,000 ML IV ONE (08:01)
--- OUTSIDE RECORDS SUMMARY | 2016-08-28 08:07 | XMS REPORT | Continuity of Care Document ---
Author Author [facility] Organization [facility] Address Unknown Phone Unavailable Support Name Relationship Address Phone LOREE COLUNGA Next Of Kin [address] [place] [address] Unavailable Insurance Providers Payer Name Policy Number Subscriber Name Relationship Blue Cross Other [id number] Jonh Colunga 19 Self Medicare [id number] Jonh Colunga 19 Self Problems No Known [...] Genitourinary Surgeries N 11/12/12 2:36pm Cardiac CAD [place] 08/05/12 3:32pm Respiratory pneumonia 08/05/12 3:32pm Social [...] 16, 2012 9:23pm Negative - Urine Specific [place] October 16, 2012 9:23pm 1.015 - Urine Turbidity October 16, 2012 9:23pm Clear - Urine Urobilinogen October 16, 2012 9:23pm Normal EU/DL - Urine pH October 16, 2012 9:23pm 9.0 H - Vitamin B12 Level August 05, 2012 2:20pm 192 PG/ML L 239931 Procedures Procedure Code Date THER/PROPH/DIAG IV INF INIT 99185 10/16/12 HYDRATE IV INFUSION ADD-ON 02028 10/16/12 TX/PRO/DX INJ NEW DRUG ADDON 59299 10/16/12 Stool Culture 10/16/12 Ova and Parasites 08/05/12 Encounters Encounter Location Date/Time Departed Emergency Room [facility] 10/16/12 7:50pm Discharged [facility] 08/05/12 3:46pm
--- OUTSIDE RECORDS SUMMARY | 2016-08-28 08:07 | XMS REPORT | Continuity of Care Document ---
Author Author Zhang [facility] Organization [facility] Address Unknown Phone Unavailable Support Name Relationship Address Phone KAYLEE SOLO MD Caregiver [address] [place] [address] [place] [phone] LOREE COLUNGA Next Of Kin [address] [place] [id number] Insurance Providers Payer Name Policy Number Subscriber Name Relationship Medicare [id number] Jonh Colunga Self Blue Cross Other [id number] Jonh Colunga Self Advance Directives Directive Response [...] PO DAILY 11/12/12 04/24/13 Discontinued [Equate Acid Marine Equipment Engineer] 1 Tab DAILY 08/10/13 Active Vancomycin Hcl [...] F (96.8 - 99.1) Temperature (Calculated Celsius) 36.22312 degrees C (36.0 - 37.3) Temperature Source [...] 29, 2013 8:51pm LAB TEST FORM REQUEST [id number] - Lipase October 13, 2013 7:18pm 65 [...] specimen been collected/ obtained? Y Urine Specific [place] August 10, 2013 2:00pm >=1.030 H - [...] 10/13/13 Encounters Encounter Location Date/Time Registered Clinic [facility] 10/18/13 10:21am Departed Emergency Room [facility] 10/13/13 6:45pm Departed Emergency Room [facility] 08/10/13 1:17pm
--- OUTSIDE RECORDS SUMMARY | 2016-08-28 08:07 | XMS REPORT | Continuity of Care Document ---
Author Author Zhang [facility] Organization [facility] Address Unknown Phone Unavailable Support Name Relationship Address Phone KAYLEE SOLO MD Caregiver [address] [place] [address] [address] [place] [phone] LOREE COLUNGA Next Of Kin [address] [place] [address] CP Insurance Providers Payer Name Policy Number Subscriber Name Relationship Medicare [id number] Jonh Colunga Self Blue Cross Other [id number] Jonh Colunga Self Advance Directives Directive Response [...] F (96.8 - 99.1) Temperature (Calculated Celsius) 36.71939 degrees C (36.0 - 37.3) Pulse Rate [...] 29, 2013 8:51pm LAB TEST FORM REQUEST [id number] - Lipase October 23, 2013 11:02am 64 [...] specimen been collected/ obtained? Y Urine Specific [place] August 10, 2013 2:00pm >=1.030 H - [...] 2013 12:23pm Name: JONH COLUNGA Unit #: [id number] : 1945 Sex: M Loc / Svc: [facility] DOS: 06/07/14 Signed Report #: [id number] DIAGNOSTIC IMAGING REPORT TYPE OF EXAM: PORTACATH [...] 06/07/14 COMPLETE CBC W/AUTO DIFF WBC completed 06/07/14345168"PORT, INDWELLING (IMPLANTABLE)" completed 06/07/14462339"INJECTION, CEFAZOLIN SODIUM, 500 MG" completed 06/07/14345326"INJECTION, HEPARIN SODIUM, (HEPARIN LOCK FLUSH), PER completed 003"INJECTION, MIDAZOLAM HYDROCHLORIDE, PER 1 MG" completed 06/07/14599130"INJECTION, PHENYLEPHRINE HCL, UP TO 1 ML" completed 06/07/14 PROPOFOL INJ 500 MG/50ML completed 06/07/14422710"INJECTION, FENTANYL CITRATE, 0.1 MG" completed 06/07/14 Encounters Encounter Location Date/Time Registered [facility] 06/17/14 1:15pm Registered [facility] 06/16/14 10:00am Discharged [facility] 11/29/13 10:23am
--- OUTSIDE RECORDS SUMMARY | 2016-08-28 08:07 | XMS REPORT ---
Author Author BRUCE LOPEZ [facility] Address Unknown Phone Unavailable Care Team Providers Care Freight Hustler Name Role Phone SUITER, Dr. WILSON Primary [...]
--- OUTSIDE RECORDS SUMMARY | 2016-08-28 08:07 | XMS REPORT | Continuity of Care Document ---
Author Author [facility] Organization [facility] Address Unknown Phone Unavailable Support Name Relationship Address Phone LOREE COLUNGA Next Of Kin [address] [place] [address] Unavailable Insurance Providers Payer Name Policy Number Subscriber Name Relationship Blue Cross Other [id number] Jonh Colunga 19 Self Medicare [id number] Jonh Colunga 19 Self Problems No Known [...] Genitourinary Surgeries N 11/12/12 2:36pm Cardiac CAD [place] 08/05/12 3:32pm Respiratory pneumonia 08/05/12 3:32pm Social [...] 16, 2012 9:23pm Negative - Urine Specific [place] October 16, 2012 9:23pm 1.015 - Urine [...] Procedure Code Date THER/PROPH/DIAG IV INF INIT 93806 10/16/12 HYDRATE IV INFUSION ADD-ON 31206 10/16/12 TX/PRO/DX INJ NEW DRUG ADDON 65626 10/16/12 Stool Culture 10/16/12 Ova and Parasites 08/05/12 Encounters Encounter Location Date/Time Departed Emergency Room [facility] 10/16/12 7:50pm Discharged Inpatient [facility] 08/05/12 3:46pm
--- OUTSIDE RECORDS SUMMARY | 2016-08-28 08:07 | XMS REPORT ---
Author Author DANYEL PANIAGUA [facility] Address Unknown Phone Unavailable Care Team Providers Care Computer Information Systems Professor Name Role Phone SUITER, Dr. WILSON Primary [...]
--- OUTSIDE RECORDS SUMMARY | 2016-08-28 08:07 | XMS REPORT | Continuity of Care Document ---
Author Author [facility] Organization [facility] Address Unknown Phone Unavailable Support Name Relationship Address Phone BRADY PHAM Caregiver [facility] [address] [place] [address] KAYLEE SOLO MD Caregiver [address] [place] [address] [place] [phone] LOREE COLUNGA Next Of Kin [address] [place] [address] Insurance Providers Payer Name Policy Number Subscriber Name Relationship Medicare [id number] Jonh Colunga 19 Self Blue Cross Other [id number] Jonh Colunga Self Advance Directives Directive Response [...] PO DAILY 11/12/12 04/24/13 Discontinued [Equate Acid Tooling Specialist] 1 Tab DAILY 08/10/13 Active Vancomycin [...] F (96.8 - 99.1) Temperature (Calculated Celsius) 35.55900 degrees C (36.0 - 37.3) Pulse Rate [...] specimen been collected/ obtained? Y Urine Specific [place] August 10, 2013 2:00pm >=1.030 H - [...] 29, 2013 8:51pm LAB TEST FORM REQUEST [id number] - Turbidity October 23, 2013 11:02am < [...] Encounters Encounter Location Date/Time Departed Emergency Room [facility] 10/23/13 9:46am Registered Clinic [facility] 10/18/13 10:21am Departed Emergency Room [facility] 10/13/13 6:45pm Departed Emergency Room [facility] 08/10/13 1:17pm Recent Diagnosis
--- OUTSIDE RECORDS SUMMARY | 2016-08-28 08:07 | XMS REPORT | Continuity of Care Document ---
Author Author [facility] Organization [facility] Address Unknown Phone Unavailable Support Name Relationship Address Phone BRADY PHAM Caregiver [facility] [address] [place] [address] KAYLEE SOLO MD Caregiver [address] [place] [address] [place] [phone] LOREE COLUNGA Next Of Kin [address] [place] [address] Insurance Providers Payer Name Policy Number Subscriber Name Relationship Medicare [id number] Jonh Colunga 19 Self Blue Cross Other [id number] Jonh Colunga 19 Self Problems Medical Problems [...] PO DAILY 11/12/12 04/24/13 Discontinued [Equate Acid Electromechanical Technologist] 1 Tab DAILY 08/10/13 Active Vancomycin Hcl [...] F (96.8 - 99.1) Temperature (Calculated Celsius) 37.69866 degrees C (36.0 - 37.3) Pulse Rate [...] specimen been collected/ obtained? Y Urine Specific [place] August 10, 2013 2:00pm >=1.030 H - [...] 29, 2013 8:51pm LAB TEST FORM REQUEST [id number] - Turbidity October 13, 2013 7:18pm < [...] Encounters Encounter Location Date/Time Departed Emergency Room [facility] 10/13/13 6:45pm Departed Emergency Room [facility] 08/10/13 1:17pm Recent Diagnosis
--- OUTSIDE RECORDS SUMMARY | 2016-08-28 08:08 | XMS REPORT | Continuity of Care Document ---
Author Author [facility] Organization [facility] Address Unknown Phone Unavailable Allergies Active [...] PANCREATIC ELASTASE,FECAL 72 ug/g >200 METABOLIC PANEL, [facility] - 01/30/13 04:44 POTASSIUM 3.8 [...] Status Pt. Type Provider Facility Loc./Unit Complaint [id number] 10/05/2013 09:18:00 2013 09:18:00 DIS Outpatient Victor M OROURKE, [facility] W.RAC [id number] 07/13/2013 07:30:00 2013 07:30:00 DIS Outpatient Ryann OROURKE, [facility] [id number] 06/09/2013 09:05:00 2013 13:23:00 DIS Outpatient Ryann OROURKE, [facility] W.END [id number] 04/01/2013 14:02:00 2012 19:10:00 DIS Outpatient Ryann OROURKE, [facility] W.END [id number] 03/25/2013 09:31:00 2012 09:31:00 DIS Outpatient Ryann OROURKE, [facility] W.POA [id number] 01/29/2013 16:35:00 2012 19:30:00 DIS Inpatient Kendra OROURKE, [facility] W.3TS
--- OUTSIDE RECORDS SUMMARY | 2016-08-28 08:08 | XMS REPORT | Continuity of Care Document ---
Author Author Zhang [facility] Organization [facility] Address Unknown Phone Unavailable Support Name Relationship Address Phone KAYLEE SOLO MD Caregiver [address] [place] [address] [place] [phone] LOREE COLUNGA Next Of Kin [address] [place] [id number] CP Insurance Providers Payer Name Policy Number Subscriber Name Relationship Medicare [id number] Jonh Colunga 19 Self Blue Cross Other [id number] Jonh Colunga Self Advance Directives Directive Response [...] PO DAILY 11/12/12 04/24/13 Discontinued [Equate Acid Medical Office Technologist] 1 Tab DAILY 08/10/13 Active Vancomycin [...] F (96.8 - 99.1) Temperature (Calculated Celsius) 36.00143 degrees C (36.0 - 37.3) Temperature Source [...] 29, 2013 8:51pm LAB TEST FORM REQUEST [id number] - Lipase October 23, 2013 11:02am 64 [...] specimen been collected/ obtained? Y Urine Specific [place] August 10, 2013 2:00pm >=1.030 H - [...] of procedures. Encounters Encounter Location Date/Time Discharged [facility] 03/23/14 8:30am
--- OUTSIDE RECORDS SUMMARY | 2016-08-28 08:08 | XMS REPORT | Continuity of Care Document ---
Author Author [facility] Organization [facility] Address Unknown Phone Unavailable Support Name Relationship Address Phone HUMZA HUNT MD Caregiver [facility] [address] [facility] JOVANA RAYMUNDO [address] [place] [phone] KAYLEE SOLO MD Caregiver [address] [place] [address] [address] [place] [phone] LOREE COLUNGA Next Of Kin [address] [place] [address] CP Insurance Providers Payer Name Policy Number Subscriber Name Relationship Medicare [id number] Jonh Colunga 19 Self Blue Cross Other [id number] Jonh Colunga Self Advance Directives Directive Response [...] F (96.8 - 99.1) Temperature (Calculated Celsius) 36.83777 degrees C (36.0 - 37.3) Temperature Source [...] 29, 2013 8:51pm LAB TEST FORM REQUEST [id number] - Lipase October 23, 2013 11:02am 64 [...] specimen been collected/ obtained? Y Urine Specific [place] August 10, 2013 2:00pm >=1.030 H - [...] 2013 12:23pm Name: JONH COLUNGA Unit #: [id number] : 1945 Sex: M Loc / Svc: [facility] DOS: 06/07/14 Signed Report #: [id number] DIAGNOSTIC IMAGING REPORT TYPE OF EXAM: PORTACATH [...] HUNT MD Encounters Encounter Location Date/Time Registered [facility] 05/13/14 9:00am Discharged [facility] 11/29/13 10:23am
--- NOTE | 2016-08-28 08:11 | ERPDOC ---
Departure Disposition Decision Date: August 28, 2016 Disposition Decision Time: 09:55 Disposition: 02 TO [facility] Impression Impression Impression: Primary Impression: SBO (small bowel obstruction) Additional Impressions: ARF (acute renal failure) Acute renal failure type: unspecified Qualified Codes: N17.9 - Acute kidney failure, unspecified Hyperkalemia Severity: Severe Condition: Improved Seen By: Physician only Referrals: KAYLEE SOLO MD (Family) Problems/Meds/Labs Reviewed?: Yes Medications reviewed and manag: Yes Follow up care ordered?: Yes Mental Status: Alert, Oriented HPI - Abdominal Pain General Chief Complaint: Nausea,Vomiting,Diarrhea Stated Complaint: VOMITTING, DEHYDRATED Time Seen by Provider: 08:01 Source: patient History/Exam Limitations: no limitations HPI - Abdominal Pain Initial Comments 71yo man presents to the ER today with 12-18 hrs of N/V. Pt is being treated for colo-rectal CA and post-op wound; is currently undergoing chemo. Started vomiting yesterday afternoon; has been vomiting q2hrs+. Overnight, vomiting went from clear to bilious. They have been using zofran without much relief. Pt has not had much ileostomy output overnight. He feels weak and dehydrated. Occurred At: home Onset: Rapid, Constant Duration: 12-24 hrs Quality: aching, burning (Stomach) Location: periumbilical Radiation: no radiation Activities at Onset: none Modifying Factors: IMPROVES WITH: analgesics Associated Symptoms: nausea/vomiting, weakness Hx of Similar Symptoms: No Allergies: Coded Allergies: codeine (Verified Adverse Reaction, Unknown, NAUSEA, 08/23/16) Past History Patient Surgical History 06/2002 heart cath then 5 vessel CABG 1995 left/sigmoid colectomy for colon cancer in [place]. 2002 right hemicolectomy for a separate colon cancer Dr. Regla Best 10/2011 total colectomy with ileoractal anastomosis, diverting loop ileostomy for precancerous tumors unable to be resected endoscopically, Dr. Fadi Laguna [facility] [place] 10/27-2012 delayed primary closure of postop midline wound infection, Dr. Laguna 11/2011EGD found 2 duodenal ulcers, esophagitis, antral gastritis, . Flexible proctoscoy/ileoscopy found anastomotic stricture with anastomotic ulcer at 12 cm from anal verge. 02/03/2012 Ileostomy reversal with segemental small bowel resection Dr. Laguna at [facility] 06/07/2014 placement of Port A Cath, Dr. Paula 1992 ORIF right heel/ankle fracture in [place] 2001 Lap [facility] in [place], [place]. 2003 placement or Port-A -Cath with removal in 2008. 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 Paula 04-01-2013 Push endoscopy and endoscopic ultrasound for abd bloating, diarrhea and pancreatitis, no pathologic diagnosis, no pancreatitis, Dr. Garzon. 06/09 2013 EGD with biospy showed focal intestinal metaplasia, small hiatal hernia, Dr. Garzon. Past Medical History Metabolic: cancer, hypercholesterolemia ENMT: other Cardiac: CAD, RI Hx Echocardiogram: No Respiratory: pneumonia GI: GERD, other, pancreatitis, ulcers Male: renal insufficiency Musculoskeletal: back pain, osteoarthritis Hematologic: anemia Infectious: other Surgical History General: EGD, colonoscopy, exploratory laparotomy, gallbladder, other, tonsils Cardiac: cardiac bypass, cardiac cath Joint: other Family History Family PMH: FOUND: other Vaccines Hx Influenza Vaccination: Yes (FALL 2015) Hx Pneumococcal Vaccination: Yes (2011, BOOSTER IN 2015) Social History Does patient use chewing tobac: No # of Packs/Tins per Day: 1 # of Years: 32 Second Hand Exposure: No Substance Use Type: does not use Substance last used: unknown Alcohol Intake: none Last Drink: unknown Sexuality: female partner Review of Systems Constitutional Constitutional: dizziness (With standing), weakness GI Upper Abdomen: nausea, pain, vomiting Lower Abdomen: pain Integumentary Skin: color change, rash, sores All other Systems All Other Systems: Reviewed and Negative Physical Exam General General Nourishment: well nourished, well developed, appears stated age, no acute distress, adult, cachectic General Body Habitus: well groomed Vitals and Pain First Documented Vital Signs Date Time Temp Pulse Resp B/P Pulse Ox O2 Delivery O2 Flow Rate FiO2 08/28/16 07:50 98.7 91 16 138/72 95 Room Air Weight: Kilograms: 64.300 Height (feet): 5 Height (inches): 9.00 Triage Pain Scale: RN VS reviewed by Provider: Yes Normal Exams: Head: Normocephalic w/o trauma Eyes: Pupils are PERRLA w/ EOMI, No scleral icterus, irritation ENMT: No facial trauma, nasal exudates, pharyngeal erythema Neck: Full range of motion, without adenopathy, JVD Lymphatic: No lymphadenopathy Musculoskeletal: No tenderness, or deformity noted Integumentary: No rashes, hives, or bruising noted Neurologic: Patient is alert, and oriented Psychiatric: Patient exhibits, appropriate attention Respiratory (brief) Respiratory: FOUND: clear all duron, equal bilaterally, symmetrical, NOT FOUND : rales, wheezes Cardiovascular (brief) Cardiac: FOUND: regular rate, regular rhythm, NOT FOUND: click, gallop, murmur , pedal edema, peripheral edema, rub Capillary Refill: <2 sec Pulses: all distal extremities, equal, strong Abdomen (brief) Abdominal Brief: FOUND: bowel normo active x4, soft, NOT FOUND: distended, hepatosplenomegaly, pulsatile mass, tender Differential Diagnoses Considering: Bowel Obstruction, Dehydration, Food Poisoning, Gastroenteritis, Hyponatremia, Hypokalemia, Hypoglycemia, Ingestion/Overdose, Pneumonia, Renal Colic, UTI, Sigmoid Volvulus, Cecal Volvulus Progress Results/Orders Orders Procedure Category Date Status Time Cbc W/Auto LAB 08/28/16 Complete Diff-Reflex Manual 08:01 Cmp - Comprehensive LAB 08/28/16 Complete Metabolic 08:01 Lipase LAB 08/28/16 Complete 08:01 Ua, Dip Wreflex LAB 08/28/16 Logged Microsc & Entry Engineer 08:01 Kub W/Upright RAD 08/28/16 Resulted 08:01 Iv Lock (Ed Only) EDM 08/28/16 Transmitted 08:01 Normal Saline (Normal PHA 08/28/16 Complete Saline Iv) 08:01 Ondansetron Inj PHA 08/28/16 Complete (Zofran) 08:15 Magnesium LAB 08/28/16 Complete 08:06 Phosphorus LAB 08/28/16 Complete 08:06 C-Reactive Protein - LAB 08/28/16 Complete CRP 08:07 Place In Facility: ED ADM 08/28/16 Transmitted Npo: Nothing By Mouth DIET 08/28/16 Transmitted Lunch Ondansetron Inj PHA 08/28/16 Transmitted (Zofran) 10:00 1/2 Ns (Floor Use) PHA 08/28/16 Transmitted 10:00 Lab Results Laboratory Tests Test 08/28/16 08:44 White Blood Count 11.2T/MM3 Red Blood Count 4.09M/MM3 Hemoglobin 12.7GM/DL Hematocrit 40.9% Mean Corpuscular Volume 100.0UM3 Mean Corpuscular Hemoglobin 31.1UUG Mean Corpuscular Hemoglobin Concent 31.1GM/DL RDW Standard Deviation 55.5FL Platelet Count 299T/MM3 Mean Platelet Volume 8.6UM3 Immature Granulocyte % (Auto) 0.2% Neutrophils (%) (Auto) 85.6% Lymphocytes (%) (Auto) 6.7% Monocytes (%) (Auto) 7.4% Eosinophils (%) (Auto) 0.0% Basophils (%) (Auto) 0.1% Absolute Immature Granulocyte (auto 0.02T/MM3 Absolute Neutrophils (auto) 9.6T/MM3 Absolute Lymphocytes (auto) 0.8T/MM3 Absolute Monocytes (auto) 0.8T/MM3 Absolute Eosinophils (auto) 0.0T/MM3 Absolute Basophils (auto) 0.0T/MM3 Neutrophils % (Manual) 81.0% Band Neutrophils % 6.0% Lymphocytes % (Manual) 6.0% Monocytes % (Manual) 7.0% Absolute Neutrophils (Manual) 9.1T/MM3 Band Neutrophils # 0.7T/MM3 Lymphocytes # (Manual) 0.7T/MM3 Monocytes # (Manual) 0.8T/MM3 Anisocytosis 1+ Red Cell Morphology Comment Abnormal Turbidity < 20 Sodium Level 142MEQ/L Potassium Level 5.7MEQ/L Chloride Level 91MEQ/L Carbon Dioxide Level 34MEQ/L Anion Gap 17MEQ/L Blood Urea Nitrogen 56.0MG/DL Creatinine 3.1MG/DL Glomerular Filtration Rate Calc 20 BUN/Creatinine Ratio 18RATIO Glucose Level 177MG/DL Calculated Osmolality 293MOSM/KG Calcium Level 9.7MG/DL Phosphorus Level 4.0MG/DL Magnesium Level 2.0MG/DL Total Bilirubin 1.30MG/DL Icterus Index < 2 Aspartate Amino Transf (AST/SGOT) 40U/L Alanine Aminotransferase (ALT/SGPT) 41U/L Alkaline Phosphatase 180U/L C-Reactive Protein 33.6MG/L Total Protein 8.1G/DL Albumin 4.6G/DL Globulin 3.5G/DL Albumin/Globulin Ratio 1.3RATIO Lipase 97U/L Chemistry Specimen Hemolysis 16 Medications Current ED Medications Sodium Chloride (Normal Saline IV) 1,000 ml @ 1,000 mls/hr Q1H ONCE IV Last administered on 08/28/16 08:22; Start 08/28/16 at 08:01; Stop 08/28/16 at 09:00 ; Status DC Ondansetron HCl (Zofran) 4 mg O ONCE IV Last administered on 08/28/16 08:23; Start 08/28/16 at 08:15; Stop 08/28/16 at 08:16; Status DC Progress Progress Pt with likely SBO and ARF. Hospitalist will admit for treatment. Consult/PCP Consult/PCP #1: Physician Contacted: Dr. Valdovinos Time Called: 09:42 Time of first response: 09:48 Type of discussion: Phone Consult/PCP Discussion Details Recommends admission to control N/V and for ARF. Consult/PCP #2: Physician Contacted: Dr. Dempsey Time Called: 09:49 Time of first response: 09:55 Type of discussion: Admit Discussion/PCP Discussion Details Will admit for NPO and ARF. Xray Xray : Xray: KUB Upright Interpretation: Abnormal (1. Dilated small bowel raising concern for small bowel obstruction. 2. Left lung pneumonia or aspiration.) SILVIA RAVI DO August 28, 2016 08:10
[2016-08-28] MEDS ORDERED: ONDANSETRON 4mg/2ml INJECTION IV ONE (08:15)
--- NOTE | 2016-08-28 08:15 | NUR ---
PORT PORT ACCESSED. UNABLE TO DRAW BLOOD FROM PORT. PORT FLUSHES EASILY
[2016-08-28 09:02] LABS: HCT - HEMATOCRIT 40.9 % (41-53); HGB - HEMOGLOBIN 12.7 GM/DL (13.5-17.5); MEAN CORPUSCULAR HGB 31.1 UUG (26-34); MEAN CORPUSCULAR HGB CONC(MCHC 31.1 GM/DL (31-37); MEAN PLATELET VOLUME 8.6 UM3 (9.4-12.4); RED BLOOD COUNT 4.09 M/MM3 (4.50-5.90); WBC - WHITE BLOOD COUNT 11.2 T/MM3 (4.5-11.0)
--- NOTE | 2016-08-28 09:04 | NUR ---
RADIOLOGY PT TO RADIOLOGY PER CART
[2016-08-28 09:16] LABS: ALBUMIN 4.6 G/DL (3.5-5.0); ALBUMIN/GLOBULIN RATIO 1.3 RATIO (1.1-2.2); ALKALINE PHOSPHATASE 180 U/L (38-126); ALT (SGPT) 41 U/L (21-72); ANION GAP 17 MEQ/L (5-15); AST (SGOT) 40 U/L (17-59); BUN/CREATININE RATIO 18 RATIO (6-26); CALCIUM 9.7 MG/DL (8.4-10.2); CHLORIDE 91 MEQ/L (98-107); CO2 - CARBON DIOXIDE 34 MEQ/L (22-30); CREATININE 3.1 MG/DL (0.8-1.5); GLOMERULAR FILTRATION RATE 20; GLUCOSE 177 MG/DL (75-110); POTASSIUM 5.7 MEQ/L (3.6-5); SODIUM 142 MEQ/L (134-144); TOTAL PROTEIN 8.1 G/DL (6.3-8.2)
[2016-08-28] MEDS ORDERED: DOXY100C2 PO (09:22)
[2016-08-28 09:25] LABS: BAND NEUTROPHILS # 0.7 T/MM3; LYMPHOCYTES # (MANUAL) 0.7 T/MM3 (1-4.8); MONOCYTES # (MANUAL) 0.8 T/MM3 (0-0.8); NEUTROPHILS #(MANUAL)-ABSOLUTE 9.1 T/MM3 (1.8-7.7); TOTAL CELLS COUNTED 100 %
[2016-08-28 09:26] LABS: ANISOCYTOSIS 1+
--- NOTE | 2016-08-28 09:29 | NUR ---
STATUS PT SAYS HE IS FEELING BETTER AND NAUSEA IS IMPROVED. PT DOES HAVE SOME SLIGHT HEARTBURN
[2016-08-28 09:30] LABS: C-REACTIVE PROTEIN 33.6 MG/L (0-9); LIPASE 97 U/L (23-300)
--- NOTE | 2016-08-28 09:33 | DI ---
Indication: ITS.REASON: Abd pain N/V/D PROCEDURE: KUB W/UPRIGHT: Encounter: Initial Comparison: October 09, 2015 Findings: Airspace consolidation in the left midlung. No free air identified. There are dilated small bowel loops in the left abdomen measuring up to 5.8 cm in diameter. There is some colonic gas present. Left lower quadrant ostomy. Surgical clips in the upper quadrants of the abdomen. Degenerative change and scoliosis in the spine. Impression: 1. Dilated small bowel raising concern for small bowel obstruction. 2. Left lung pneumonia or aspiration. .
[2016-08-28 09:35] LABS: BASOPHILS % (AUTO) 0.1 % (0-2); IMMATURE GRANULOCYTE # (AUTO) 0.02 T/MM3 (0.00-0.03); IMMATURE GRANULOCYTE % (AUTO) 0.2 % (0.0-0.5); LYMPHOCYTES # (AUTO) 0.8 T/MM3 (1-4.8); LYMPHOCYTES % (AUTO) 6.7 % (23-45); MONOCYTES # (AUTO) 0.8 T/MM3 (0-0.8); MONOCYTES % (AUTO) 7.4 % (0-9.0); NEUTROPHILS #(AUTO)-ABSOLUTE 9.6 T/MM3 (1.8-7.7); NEUTROPHILS % (AUTO) 85.6 % (33-66)
[2016-08-28] MEDS ORDERED: ONDANSETRON 4mg/2ml INJECTION IV PRN (10:00)
--- OUTSIDE RECORDS SUMMARY | 2016-08-28 10:13 | XMS REPORT | Continuity of Care Document ---
Author Author [facility] Organization [facility] Address Unknown Phone Unavailable Support Name Relationship Address Phone BRADY PHAM Caregiver [facility] [address] [place] [address] KAYLEE SOLO MD Caregiver [address] [place] [address] [place] [phone] LOREE COLUNGA Next Of Kin [address] [place] [address] Insurance Providers Payer Name Policy Number Subscriber Name Relationship Medicare [id number] Jonh Colunga 19 Self Blue Cross Other [id number] Jonh Colunga Self Advance Directives Directive Response [...] PO DAILY 11/12/12 04/24/13 Discontinued [Equate Acid Battery Checker] 1 Tab DAILY 08/10/13 Active Vancomycin [...] F (96.8 - 99.1) Temperature (Calculated Celsius) 35.59233 degrees C (36.0 - 37.3) Pulse Rate [...] specimen been collected/ obtained? Y Urine Specific [place] August 10, 2013 2:00pm >=1.030 H - [...] 29, 2013 8:51pm LAB TEST FORM REQUEST [id number] - Turbidity October 23, 2013 11:02am < [...] Encounters Encounter Location Date/Time Departed Emergency Room [facility] 10/23/13 9:46am Registered Clinic [facility] 10/18/13 10:21am Departed Emergency Room [facility] 10/13/13 6:45pm Departed Emergency Room [facility] 08/10/13 1:17pm Recent Diagnosis
--- OUTSIDE RECORDS SUMMARY | 2016-08-28 10:13 | XMS REPORT ---
Author Author BRUCE LOPEZ [facility] Address Unknown Phone Unavailable Care Team Providers Care Adoption Agent Name Role Phone SUITER, Dr. WILSON Primary [...]
--- OUTSIDE RECORDS SUMMARY | 2016-08-28 10:13 | XMS REPORT ---
Author Author DANYEL PANIAGUA [facility] Address Unknown Phone Unavailable Care Team Providers Care Gaming Floor Supervisor Name Role Phone SUITER, Dr. WILSON Primary [...]
--- OUTSIDE RECORDS SUMMARY | 2016-08-28 10:14 | XMS REPORT | Continuity of Care Document ---
Author Author Zhang [facility] Organization [facility] Address Unknown Phone Unavailable Support Name Relationship Address Phone KAYLEE SOLO MD Caregiver [address] [place] [address] [address] [place] [phone] LOREE COLUNGA Next Of Kin [address] [place] [address] CP Insurance Providers Payer Name Policy Number Subscriber Name Relationship Medicare [id number] Jonh Colunga Self Blue Cross Other [id number] Jonh Colunga Self Advance Directives Directive Response [...] F (96.8 - 99.1) Temperature (Calculated Celsius) 36.70959 degrees C (36.0 - 37.3) Pulse Rate [...] 29, 2013 8:51pm LAB TEST FORM REQUEST [id number] - Lipase October 23, 2013 11:02am 63 [...] specimen been collected/ obtained? Y Urine Specific [place] August 10, 2013 2:00pm >=1.030 H - [...] 2013 12:23pm Name: JONH COLUNGA Unit #: [id number] : 1945 Sex: M Loc / Svc: [facility] DOS: 06/07/14 Signed Report #: [id number] DIAGNOSTIC IMAGING REPORT TYPE OF EXAM: PORTACATH [...] 06/07/14 COMPLETE CBC W/AUTO DIFF WBC completed 06/07/14257466"PORT, INDWELLING (IMPLANTABLE)" completed 06/07/14713542"INJECTION, CEFAZOLIN SODIUM, 500 MG" completed 06/07/14391215"INJECTION, HEPARIN SODIUM, (HEPARIN LOCK FLUSH), PER completed 003"INJECTION, MIDAZOLAM HYDROCHLORIDE, PER 1 MG" completed 06/07/14806138"INJECTION, PHENYLEPHRINE HCL, UP TO 1 ML" completed 06/07/14 PROPOFOL INJ 500 MG/50ML completed 06/07/14514031"INJECTION, FENTANYL CITRATE, 0.1 MG" completed 06/07/14 Encounters Encounter Location Date/Time Registered [facility] 06/17/14 1:15pm Registered [facility] 06/16/14 10:00am Discharged [facility] 11/29/13 10:23am
--- OUTSIDE RECORDS SUMMARY | 2016-08-28 10:14 | XMS REPORT | Continuity of Care Document ---
Author Author [facility] Organization [facility] Address Unknown Phone Unavailable Support Name Relationship Address Phone LOREE COLUNGA Next Of Kin [address] [place] [address] Unavailable Insurance Providers Payer Name Policy Number Subscriber Name Relationship Blue Cross Other [id number] Jonh Colunga 19 Self Medicare [id number] Jonh Colunga 19 Self Problems No Known [...] Genitourinary Surgeries N 11/12/12 2:36pm Cardiac CAD [place] 08/05/12 3:32pm Respiratory pneumonia 08/05/12 3:32pm Social [...] 16, 2012 9:23pm Negative - Urine Specific [place] October 16, 2012 9:23pm 1.015 - Urine Turbidity October 16, 2012 9:23pm Clear - Urine Urobilinogen October 16, 2012 9:23pm Normal EU/DL - Urine pH October 16, 2012 9:23pm 9.0 H - Vitamin B12 Level August 05, 2012 2:20pm 192 PG/ML L 239931 Procedures Procedure Code Date THER/PROPH/DIAG IV INF INIT 49766 10/16/12 HYDRATE IV INFUSION ADD-ON 27808 10/16/12 TX/PRO/DX INJ NEW DRUG ADDON 86833 10/16/12 Stool Culture 10/16/12 Ova and Parasites 08/05/12 Encounters Encounter Location Date/Time Departed Emergency Room [facility] 10/16/12 7:50pm Discharged Inpatient [facility] 08/05/12 3:46pm
--- OUTSIDE RECORDS SUMMARY | 2016-08-28 10:14 | XMS REPORT | Continuity of Care Document ---
Author Author Zhang [facility] Organization [facility] Address Unknown Phone Unavailable Support Name Relationship Address Phone KAYLEE SOLO MD Caregiver [address] [place] [address] [place] [address] [phone] LOREE COLUNGA Next Of Kin [address] [place] [address] Insurance Providers Payer Name Policy Number Subscriber Name Relationship Medicare [id number] Jonh Colunga Self [employer] Other [id number] Jonh Colunga Self Advance Directives Directive Response [...] PO DAILY 11/12/12 04/24/13 Discontinued [Equate Acid Farm Facility Manager] 1 Tab DAILY 08/10/13 Active Vancomycin [...] F (96.8 - 99.1) Temperature (Calculated Celsius) 36.52624 degrees C (36.0 - 37.3) Temperature Source [...] 29, 2013 8:51pm LAB TEST FORM REQUEST [id number] - Lipase October 13, 2013 7:18pm 65 [...] been collected/ obtained? Y Urine Specific [place] August 10, 2013 2:00pm >=1.030 H - [...] 10/13/13 Encounters Encounter Location Date/Time Registered Clinic [facility] 10/18/13 10:21am Departed Emergency Room [facility] 10/13/13 6:45pm Departed Emergency Room [facility] 08/10/13 1:17pm
--- OUTSIDE RECORDS SUMMARY | 2016-08-28 10:14 | XMS REPORT | Continuity of Care Document ---
Author Author [facility] Organization [facility] Address Unknown Phone Unavailable Support Name Relationship Address Phone BRADY PHAM Caregiver [facility] [address] [address] KAYLEE SOLO MD Caregiver [address] [place] [address] [place] [phone] LOREE COLUNGA Next Of Kin [address] [place] [address] Insurance Providers Payer Name Policy Number Subscriber Name Relationship Medicare [id number] Jonh Colunga 19 Self Blue Cross Other [id number] Jonh Colunga 19 Self Problems Medical Problems [...] PO DAILY 11/12/12 04/24/13 Discontinued [Equate Acid Manager Immunology] 1 Tab DAILY 08/10/13 Active Vancomycin Hcl [...] F (96.8 - 99.1) Temperature (Calculated Celsius) 37.18317 degrees C (36.0 - 37.3) Pulse Rate [...] specimen been collected/ obtained? Y Urine Specific [place] August 10, 2013 2:00pm >=1.030 H - [...] 29, 2013 8:51pm LAB TEST FORM REQUEST [id number] - Turbidity October 13, 2013 7:18pm < [...] Encounters Encounter Location Date/Time Departed Emergency Room [facility] 10/13/13 6:45pm Departed Emergency Room [facility] 08/10/13 1:17pm Recent Diagnosis
--- OUTSIDE RECORDS SUMMARY | 2016-08-28 10:14 | XMS REPORT | Continuity of Care Document ---
Author Author [facility] Organization [facility] Address Unknown Phone Unavailable Support Name Relationship Address Phone LOREE COLUNGA Next Of Kin [address] [place] [address] Unavailable Insurance Providers Payer Name Policy Number Subscriber Name Relationship Blue Cross Other [id number] Jonh Colunga 19 Self Medicare [id number] Jonh Colunga 19 Self Problems No Known [...] Genitourinary Surgeries N 11/12/12 2:36pm Cardiac CAD [place] 08/05/12 3:32pm Respiratory pneumonia 08/05/12 3:32pm Social [...] 16, 2012 9:23pm Negative - Urine Specific [place] October 16, 2012 9:23pm 1.015 - Urine [...] Procedure Code Date THER/PROPH/DIAG IV INF INIT 14370 10/16/12 HYDRATE IV INFUSION ADD-ON 84974 10/16/12 TX/PRO/DX INJ NEW DRUG ADDON 82140 10/16/12 Stool Culture 10/16/12 Ova and Parasites 08/05/12 Encounters Encounter Location Date/Time Departed Emergency Room [facility] 10/16/12 7:50pm Discharged Inpatient [facility] 08/05/12 3:46pm
--- NOTE | 2016-08-28 10:15 | NUR ---
STATUS PT VOMITING SMALL AMOUNTS OF BILE LIKE SUBSTANCE. PT GIVEN COOL CLOTH AND REPORTS IT FEELS BETTER
--- OUTSIDE RECORDS SUMMARY | 2016-08-28 10:15 | XMS REPORT | Continuity of Care Document ---
Author Author [facility] Organization [facility] Address Unknown Phone Unavailable Support Name Relationship Address Phone HUMZA HUNT MD Caregiver [facility] [address] JOVANA RAYMUNDO [address] [place] [phone] KAYLEE SOLO MD Caregiver [address] [place] [address] [address] [place] [phone] LOREE COLUNGA Next Of Kin [address] [place] [address] CP Insurance Providers Payer Name Policy Number Subscriber Name Relationship Medicare [id number] Jonh Colunga 19 Self Blue Cross Other [id number] Jonh Colunga Self Advance Directives Directive Response [...] F (96.8 - 99.1) Temperature (Calculated Celsius) 36.12957 degrees C (36.0 - 37.3) Temperature Source [...] 29, 2013 8:51pm LAB TEST FORM REQUEST [id number] - Lipase October 23, 2013 11:02am 63 [...] specimen been collected/ obtained? Y Urine Specific [place] August 10, 2013 2:00pm >=1.030 H - [...] 2013 12:23pm Name: JONH COLUNGA Unit #: [id number] : 1945 Sex: M Loc / Svc: [facility] DOS: 06/07/14 Signed Report #: [id number] DIAGNOSTIC IMAGING REPORT TYPE OF EXAM: PORTACATH [...] HUNT MD Encounters Encounter Location Date/Time Registered [facility] 05/13/14 9:00am Discharged [facility] 11/29/13 10:23am
--- OUTSIDE RECORDS SUMMARY | 2016-08-28 10:15 | XMS REPORT | Continuity of Care Document ---
Author Author Zhang [facility] Organization [facility] Address Unknown Phone Unavailable Support Name Relationship Address Phone KAYLEE SOLO MD Caregiver [address] [place] [address] [place] [address] [phone] LOREE COLUNGA Next Of Kin [address] [place] [address] CP Insurance Providers Payer Name Policy Number Subscriber Name Relationship Medicare [id number] Jonh Colunga 19 Self Blue Cross Other [id number] Jonh Colunga Self Advance Directives Directive Response [...] PO DAILY 11/12/12 04/24/13 Discontinued [Equate Acid Scorer Helper] 1 Tab DAILY 08/10/13 Active Vancomycin Hcl [...] F (96.8 - 99.1) Temperature (Calculated Celsius) 36.89455 degrees C (36.0 - 37.3) Temperature Source [...] 29, 2013 8:51pm LAB TEST FORM REQUEST [id number] - Lipase October 23, 2013 11:02am 64 [...] specimen been collected/ obtained? Y Urine Specific [place] August 10, 2013 2:00pm >=1.030 H - [...] of procedures. Encounters Encounter Location Date/Time Discharged [facility] 03/23/14 8:30am
--- OUTSIDE RECORDS SUMMARY | 2016-08-28 10:15 | XMS REPORT | Continuity of Care Document ---
Author Author [facility] Organization [facility] Address Unknown Phone Unavailable Allergies Active [...] PANCREATIC ELASTASE,FECAL 72 ug/g >200 METABOLIC PANEL, [facility] - 01/30/13 04:44 POTASSIUM 3.8 [...] Status Pt. Type Provider Facility Loc./Unit Complaint [id number] 10/05/2013 09:18:00 2013 09:18:00 DIS Outpatient Victor M OROURKE, [facility] W.RAC [id number] 07/13/2013 07:30:00 2013 07:30:00 DIS Outpatient Ryann OROURKE, [facility] [id number] 06/09/2013 09:05:00 2013 13:23:00 DIS Outpatient Ryann OROURKE, [facility] W.END [id number] 04/01/2013 14:02:00 2012 19:10:00 DIS Outpatient Ryann OROURKE, [facility] W.END [id number] 03/25/2013 09:31:00 2012 09:31:00 DIS Outpatient Ryann OROURKE, [facility] W.POA [id number] 01/29/2013 16:35:00 2012 19:30:00 DIS Inpatient Kendra OROURKE, [facility] W.3TS
--- NOTE | 2016-08-28 10:33 | NUR ---
REPORT REPORT TO ADRIANO HOWE
--- NOTE | 2016-08-28 10:41 | NUR ---
PROVIDER T RIBEIRO GAME DESIGN INSTRUCTOR IN ROOM TO EVALUATE PT
--- NOTE | 2016-08-28 10:50 | NUR ---
ADMISSION PATIENT ADMITTED TO ROOM 113 AT THIS TIME VIA CART AND ER STAFF. PATIENT ABLE TO WALK TO SURGICAL UNIT BED WITH ASSIST X2. FAMILY AT BEDSIDE. ADELIA-CATH ACCESSED AND RUNNING NS CURRENTLY. NAUSEA/VOMITING PRESENT ON ADMISSION. BED IN THE LOWEST POSITION, CALL LIGHT WITHIN REACH, SIDE RAILS UPX2, AND BED ALARM ON. WILL CONTINUE TO MONITOR.
--- NOTE | 2016-08-28 10:50 | NUR ---
TRANSFER PT TO ROOM 113 PER CART
[2016-08-28] MEDS: 1/2 NS 1,000 ML IV SCH ×4 (11:02→19:45)
[2016-08-28 11:03] VITALS: Ht 175.3 cm; Wt 65.3 kg
[2016-08-28 11:10] VITALS: BP 149/77; PULSE 80; RESP 16; TEMP 98.3; O2SAT 94
[2016-08-28 11:45] VITALS: PULSE 80; RESP 16
--- NOTE | 2016-08-28 11:46 | DI ---
Indication: ITS.REASON: DIXIE PROCEDURE: US RENAL: Encounter: Initial Comparison: CT abdomen dated July 15, 2016 Technique: Grayscale and color Doppler sonographic imaging of both kidneys was performed. FINDINGS: Both kidneys are present with normal cortical thickness and echogenicity. No evidence for collecting system dilatation, contour deforming mass, nephrolithiasis, or abnormal perinephric fluid collection. The right kidney measures 9.4 cm in length, and the left kidney measures 9.5 cm in length. Noted is heterogeneous echotexture in the liver with multiple hyperechoic foci seen scattered throughout the parenchyma. This is an apparent change from the homogeneous attenuation of the liver on the recent CT comparison. IMPRESSION: 1. Normal appearance of the kidneys. 2. New heterogeneity of the liver could be due to hepatic edema or inflammation. Recommend correlation with liver function tests. Atypical fatty infiltration could also cause this appearance. Rapid development of metastatic disease would be considered less likely. .
[2016-08-28] MEDS: PANTOPRAZOLE 40mg INJECTION IV SCH ×2 (11:50→20:11)
[2016-08-28] MEDS: CEFTRIAXONE 1 G in NORMAL SALINE 100 ML IV SCH (12:46)
--- NOTE | 2016-08-28 12:56 | HPPDOC ---
LORRI RIBEIRO APRN 08/28/16 1000: HPI - Adult Date DATE: 08/28/16 TIME: 09:59 General Chief Complaint: nausea/vomiting History of Present Illness Kamari is a 71 year old gentleman who developed nausea and vomiting at 5 PM on with associated lower bowel performance. Patient has a history of colorectal cancer with tumor resection and colostomy placement September [address] Pinto. He had a rectal tumor/fistula excised and has had trouble with wound healing to this site. A couple of days ago patient developed a new area on his bottom that refers to as an abscess. Dr. Pinto saw patient yesterday had biopsied this wound. A new dressing was applied yesterday and the site had been packed, it was supposed to be repacked today. didn't do that today. Patient has been receiving chemotherapy weekly on Wednesdays for 8 months under the care of Dr. Cottrell. The last two months he reports receiving a "human factors specialist dose." Denies any fevers. Denies cough. Has been feeling some "heartburn" off and on the last few days and coincidentally was seen in the ER 08/23 for these symptoms. Had negative troponins that visit. Does routinely take Zegerid daily. Today, came to the ER for the n/v and decreased bowel movements. Labwork was obtained showing an elevated white count of 11.2 with 81% neutrophils and 6% bands. BUN elevated at 56 with creatinine of 3.1 (patient's baseline 1.3-1.5), potassium elevated at 5.7 in mildly hemolyzed specimen. KUB obtained showing small bowel obstruction with left lung pneumonia versus aspiration. Patient was admitted acutely to the hospitalist service under the care of Dr. Trotter for small bowel obstruction, acute kidney injury, community-acquired pneumonia. Expected length of stay greater than 2 midnights. Past Medical History Past Medical History Patient's Medical History: (1) Ischiorectal abscess (2) Pressure ulcer of coccygeal region, stage 3 (3) CAD (coronary artery disease) Onset Date: ~ 06/2002 Permanent Comment: Heart cath then 5 vessel CABG Last Edited By: Jody Fountain on Sep 12, 2015 19:12 (4) Hypertension (5) Chronic kidney disease (CKD) (6) History of colon cancer Onset Date: ~ 1995 Permanent Comment: left colon 1995; right colon 2002, then precancerous tumors in 2011 at which time near total colectomy was done with temporary loop ileostomy which was reversed 4 months later, and subsequent post midline wound infection followed by delayed primary closure. Last Edited By: Jody Fountain on Sep 12, 2015 19:12 (7) GERD (gastroesophageal reflux disease) (8) Anemia of chronic disease Permanent Comment: Sees Dr. Valdovinos Last Edited By: Jody Fountain on Sep 18:54 Surgical History Patient's Surgical History: 06/2002 heart cath then 5 vessel CABG 1995 left/sigmoid colectomy for colon cancer in [place]. 2002 right hemicolectomy for a separate colon cancer Dr. Regla Best 10/2011 total colectomy with ileoractal anastomosis, diverting loop ileostomy for precancerous tumors unable to be resected endoscopically, Dr. Fadi Laguna [facility] in [place] delayed primary closure of postop midline wound infection, Dr. Laguna 11/2011EGD found 2 duodenal ulcers, esophagitis, antral gastritis, . Flexible proctoscoy/ileoscopy found anastomotic stricture with anastomotic ulcer at 12 cm from anal verge. 02/03/2012 Ileostomy reversal with segemental small bowel resection Dr. Laguna at [facility] 06/07/2014 placement of Port A Cath, Dr. Paula 1992 ORIF right heel/ankle fracture in [place] 2001 [facility] in [place], [place]. 2003 placement or Port-A -Cath with removal in 2008. 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 Paula 04-01-2013 Push endoscopy and endoscopic ultrasound for abd bloating, diarrhea and pancreatitis, no pathologic diagnosis, no pancreatitis, Dr. Garzon. 06/09 2013 EGD with biospy showed focal intestinal metaplasia, small hiatal hernia, Dr. Garzon. Current Medications Home Meds Reported Medications Doxycycline Hyclate (Doxycycline Hyclate) 100 Mg Capsule, 100 MG PO BID 08/28/16 Duloxetine HCl (Duloxetine HCl) 20 Mg Capsule.dr 20 MG PO BID 08/23/16 Gabapentin (Gabapentin) 300 Mg Capsule, 300 MG PO TID 08/23/16 Hydromorphone HCl (Hydromorphone HCl) 8 Mg Tablet, 8 MG PO PRN Y for PAIN 08/23/16 [Chemotherapy] No Conflict Check, 1 DOSE IV WEEKLY 08/23/16 Multivits-Min/FA/Lycopene/Lut (Centrum Silver Tablet) 1 Each Tablet, 1 TAB PO DAILY 08/23/16 Cholecalciferol (Vitamin D3) (Vitamin D-3) 2,000 Unit Capsule, 2000 UNIT PO DAILY 08/23/16 Calcitonin,[place],Synthetic (Calcitonin-[place]) 3.7 Ml Lugoff.pump, 1 SPRAY SISI DAILY Y for PRN ORDERS 08/23/16 Opium Tincture (Opium Tincture) 10 Mg/1 Ml Tincture, 0.6 ML PO BID 05/27/16 Nitroglycerin (Nitrostat) 0.4 Mg Tablet, 0.4 MG PO Q5MIN Y for CHEST PAIN 05/27/16 Omeprazole/Sodium Bicarbonate (Zegerid 20 mg Capsule) 1 Each Capsule, 20 MG PO ACB 11/06/15 Ondansetron (Ondansetron Odt) 8 Mg Tab.rapdis, 8 MG SL TID Y for NAUSEA 11/06/15 Atenolol (Atenolol) 25 Mg Tablet, 25 MG PO DAILY 08/05/12 Allergies: Coded Allergies: codeine (Verified Adverse Reaction, Unknown, NAUSEA, 08/28/16) Family History Family History: Paternal GF and Aunt with colon cancer Father Drowned Social History Smoking Status: Former smoker Does patient use chewing tobac: No # of Packs/Tins per Day: 1 # of Years: 32 Second Hand Exposure: No Substance Use Type: does not use Substance last used: unknown Alcohol Intake: none Last Drink: unknown Marital Status: Sexuality: female partner Household Members: spouse Current Occupational Status: employed Current Occupation: [employer] Review of Systems Constitutional: REPORTS: appetite decrease, weakness, DENIES: fever Cardiovascular DENIES: chest pain Pulmonary Respiratory: DENIES: cough GI Upper Abdomen: heartburn/indigestion, nausea, vomiting, DENIES: pain Lower Abdomen: constipation, DENIES: pain Musculoskeletal General: weakness Integumentary Skin: infections, other (chronic buttock wound, cracking of skin secondary to chemo) Neurological General: DENIES: headache Psychiatric Psychiatric: depression All Other Systems All Other Systems: Reviewed (remainder of 10-point ROS Neg.) Physical Exam General General Nourishment: thin General Body Habitus: well groomed Vital Signs Vital Signs Date Time Temp Pulse Resp B/P Pulse Ox O2 Delivery O2 Flow Rate FiO2 08/28/16 07:50 98.7 91 16 138/72 95 Room Air Height (Feet): 5 Height (Inches): 9.00 Eyes Brief: NOT FOUND: scleral icterus ENMT Brief: FOUND: hearing intact, mucosa moist Neck Brief: NOT FOUND: thyromegaly Respiratory Brief: FOUND: rales (left lower lobe) Cardiovascular (brief) Cardiac Brief: FOUND: regular rate, regular rhythm Abdomen Palpation: FOUND: soft, NOT FOUND: tender Auscultation: FOUND: hypoactive Comments colostomy with small amt liquid stool Musculoskeletal (brief) Musculoskeletal Brief: FOUND: extremities move equally Integumentary (brief) Integumentary Brief: FOUND: dry, other (hands red and fissured), warm Neurologic (brief) Neurological Brief: FOUND: cranial 2-12 intact Neurologic RN Documented GCS Eye Opening: Verbal: Motor: Total: Psychiatric (brief) FOUND: alert, attentive, normal affect, oriented Laboratory Laboratory Tests Test 08/28/16 08:44 White Blood Count 11.2T/MM3 Red Blood Count 4.09M/MM3 Hemoglobin 12.7GM/DL Hematocrit 40.9% Mean Corpuscular Volume 100.0UM3 Mean Corpuscular Hemoglobin 31.1UUG Mean Corpuscular Hemoglobin Concent 31.1GM/DL RDW Standard Deviation 55.5FL Platelet Count 299T/MM3 Mean Platelet Volume 8.6UM3 Immature Granulocyte % (Auto) 0.2% Neutrophils (%) (Auto) 85.6% Lymphocytes (%) (Auto) 6.7% Monocytes (%) (Auto) 7.4% Eosinophils (%) (Auto) 0.0% Basophils (%) (Auto) 0.1% Absolute Immature Granulocyte (auto 0.02T/MM3 Absolute Neutrophils (auto) 9.6T/MM3 Absolute Lymphocytes (auto) 0.8T/MM3 Absolute Monocytes (auto) 0.8T/MM3 Absolute Eosinophils (auto) 0.0T/MM3 Absolute Basophils (auto) 0.0T/MM3 Neutrophils % (Manual) 81.0% Band Neutrophils % 6.0% Lymphocytes % (Manual) 6.0% Monocytes % (Manual) 7.0% Absolute Neutrophils (Manual) 9.1T/MM3 Band Neutrophils # 0.7T/MM3 Lymphocytes # (Manual) 0.7T/MM3 Monocytes # (Manual) 0.8T/MM3 Anisocytosis 1+ Red Cell Morphology Comment Abnormal Turbidity < 20 Sodium Level 142MEQ/L Potassium Level 5.7MEQ/L Chloride Level 91MEQ/L Carbon Dioxide Level 34MEQ/L Anion Gap 17MEQ/L Blood Urea Nitrogen 56.0MG/DL Creatinine 3.1MG/DL Glomerular Filtration Rate Calc 20 BUN/Creatinine Ratio 18RATIO Glucose Level 177MG/DL Calculated Osmolality 293MOSM/KG Calcium Level 9.7MG/DL Phosphorus Level 4.0MG/DL Magnesium Level 2.0MG/DL Total Bilirubin 1.30MG/DL Icterus Index < 2 Aspartate Amino Transf (AST/SGOT) 40U/L Alanine Aminotransferase (ALT/SGPT) 41U/L Alkaline Phosphatase 180U/L C-Reactive Protein 33.6MG/L Total Protein 8.1G/DL Albumin 4.6G/DL Globulin 3.5G/DL Albumin/Globulin Ratio 1.3RATIO Lipase 97U/L Chemistry Specimen Hemolysis 16 Sepsis Diagnostic Criteria Sepsis Confirmed/Suspected Infection: Yes Severe Sepsis Creatinine >2.0mg/dL Assessment & Plan Problems: (1) DIXIE (acute kidney injury) Status: Acute (2) History of colon resection Status: Chronic (3) Hypertension Status: Chronic (4) CAD (coronary artery disease) Onset Date: ~ 06/2002 Status: Chronic (5) Chronic anemia Status: Chronic (6) GERD (gastroesophageal reflux disease) Status: Chronic (7) Anemia of chronic disease Status: Chronic (8) HTN (hypertension) Status: Chronic (9) Pressure ulcer of coccygeal region, stage 3 Status: Chronic (10) Chronic kidney disease (CKD) Status: Chronic Qualifiers: Chronic kidney disease stage: stage 3 (moderate) Qualified Codes: N18.3 - Chronic kidney disease, stage 3 (moderate) (11) History of colon cancer Onset Date: ~ 1995 Status: Chronic Plan/Intensity of Service Admit inpatient under care of Sergo for SBO and pneumonia Start Rocephin 1 gm IV daily for pneumonia-community acquired. Leukocytosis and DIXIE Creat up to 3.1. Karol Cottrell for nephrology in the past, but baseline Creat 1.3- 1.5. Initiate IVF for DIXIE 1/2 ns @ 125 cc/hr NPO for bowel rest Wound team to see patient for continuity of care in evaluation and treatment of chronic and acute wounds to buttocks. Gold can also be consulted to help with management as he did biopsy wound yesterday in clinic. Patient is having some heartburn-chronic GERD and CAD. Troponin to be checked on admit. 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 Start Protonix 40 mg IV daily for symptoms. Patient normally takes Zegerid daily. Care to return to [facility] upon time of discharge. DVT Prophylaxis: SCD'S Code Status Full Code, unverified Hospital Course Summary Disclaimer The hospital course summary below is not to be considered part of the above Progress Note. BRAULIO TROTTER MD 08/28/16 1534: Past Medical History Current Medications Home Meds Reported Medications Doxycycline Hyclate (Doxycycline Hyclate) 100 Mg Capsule, 100 MG PO BID 08/28/16 Duloxetine HCl (Duloxetine HCl) 20 Mg Capsule.dr, 20 MG PO BID 08/23/16 Gabapentin (Gabapentin) 300 Mg Capsule, 300 MG PO TID 08/23/16 Hydromorphone HCl (Hydromorphone HCl) 8 Mg Tablet, 8 MG PO PRN Y for PAIN 08/23/16 [Chemotherapy] No Conflict Check, 1 DOSE IV WEEKLY 08/23/16 Multivits-Min/FA/Lycopene/Lut (Centrum Silver Tablet) 1 Each Tablet, 1 TAB PO DAILY 08/23/16 Cholecalciferol (Vitamin D3) (Vitamin D-3) 2,000 Unit Capsule, 2000 UNIT PO DAILY 08/23/16 Calcitonin,[place],Synthetic (Calcitonin-[place]) 3.7 Ml Lugoff.pump, 1 SPRAY SISI DAILY Y for PRN ORDERS 08/23/16 Opium Tincture (Opium Tincture) 10 Mg/1 Ml Tincture, 0.6 ML PO BID 05/27/16 Nitroglycerin (Nitrostat) 0.4 Mg Tablet, 0.4 MG PO Q5MIN Y for CHEST PAIN 05/27/16 Omeprazole/Sodium Bicarbonate (Zegerid 20 mg Capsule) 1 Each Capsule, 20 MG PO ACB 11/06/15 Ondansetron (Ondansetron Odt) 8 Mg Tab.rapdis, 8 MG SL TID Y for NAUSEA 11/06/15 Atenolol (Atenolol) 25 Mg Tablet, 25 MG PO DAILY 08/05/12 Allergies: Coded Allergies: codeine (Verified Adverse Reaction, Unknown, NAUSEA, 08/28/16) Assessment & Plan Problems: (1) SBO (small bowel obstruction) Status: Acute (2) DIXIE (acute kidney injury) Status: Acute Assessment & Plan: Secondary to fluid loss from emesis due to SBO. (3) Hyperkalemia Status: Acute Assessment & Plan: POA (4) Pneumonia Status: Acute (5) History of colon resection Status: Chronic (6) CAD (coronary artery disease) Onset Date: ~ 06/2002 Status: Chronic (7) Hypertension Status: Chronic (8) HTN (hypertension) Status: Chronic (9) Chronic anemia Status: Chronic (10) GERD (gastroesophageal reflux disease) Status: Chronic (11) Anemia of chronic disease Status: Chronic (12) Pressure ulcer of coccygeal region, stage 3 Status: Chronic (13) Chronic kidney disease (CKD) Status: Chronic Qualifiers: Chronic kidney disease stage: stage 3 (moderate) Qualified Codes: N18.3 - Chronic kidney disease, stage 3 (moderate) (14) History of colon cancer Onset Date: ~ 1995 Status: Chronic Plan/Intensity of Service Have independently interviewed and examined pt. Chart reviewed. Case discussed with ED physician and my TURNAROUND ENGINEER. Care plan developed with my supervision; agree with above. CC: N/V HPI: Returned from [facility] yesterday evening. Started to have more heartburn. Then developed significant nausea with vomiting. Reports was up all night throwing up. Has ostomy-stool output decreased. Would feel full to ab and have episodes of ab cramps and bloating. No f/c, but had sweats with emesis. Urine output decreased. Breathing stable without SOA, cough or congestion. No pain with breathing. Not noticing chest pressure, pain, or fullness. Feeling more weak-get dizzy if stands up to quickly. Presents to ED where KUB showing SBO. Creatinine with significant increase over baseline. Lungs: decreased, clear. No crackles, wheezes or distress CV: regular rate and rhythm Ab: soft NT/ND BS decreased. No rebound or guarding. EXT: no edema MSE: awake alert appropriate. Plan: Inpatient admission for treatment of SBO and subsequent DIXIE-Anticipate greater than 2 midnights of care needed. NPO for bowel rest due to SBO - discussed with pt about potential need for NG decompression should nausea become intractable. IVF for hydration. Zofran prn nausea. Low dose MS prn pain. Wound team eval. Rocephin for infiltrate coverage noted on KUB. Hinds due to DIXIE. Renal US due to DIXIE. Hold oral meds as NPO for SBO. SCD for DVT prevention. Recheck BMP this afternoon due to hyperkalemia. Monitor lab. LORRI RIBEIRO APRN August 28, 2016 10:00 BRAULIO TROTTER MD August 28, 2016 15:34
[2016-08-28] MEDS ORDERED: MORPHINE SULFATE 2 MG SYRINGE IV PRN (15:00)
[2016-08-28 15:40] VITALS: BP 129/69; PULSE 87; RESP 16; TEMP 98.4; O2SAT 95
[2016-08-28 16:27] LABS: ANION GAP 13 MEQ/L (5-15); BUN/CREATININE RATIO 21 RATIO (6-26); CALCIUM 8.9 MG/DL (8.4-10.2); CHLORIDE 97 MEQ/L (98-107); CO2 - CARBON DIOXIDE 30 MEQ/L (22-30); CREATININE 2.7 MG/DL (0.8-1.5); GLOMERULAR FILTRATION RATE 23; GLUCOSE 131 MG/DL (75-110); POTASSIUM 4.9 MEQ/L (3.6-5); SODIUM 140 MEQ/L (134-144)
--- NOTE | 2016-08-28 17:53 | NUR ---
SUMMARY PT A&OX3. VS STABLE ON RA. PT HAS BEEN SLEEPING ON AND OFF THIS AFTERNOON. PT DENIES PAIN AND DENIES NAUSEA. PT USED URINAL AT BEDSIDE AND REFUSED FULTON CATHETER INSERTION. SEE PROVIDER NOTIFICATION. SIDE RAILS UP X2, CALL LIGHT W/IN REACH, BED ALARM ON, BED IN LOWEST POSITION.
[2016-08-28 20:30] VITALS: PULSE 87; RESP 16
[2016-08-28 23:40] VITALS: BP 147/75; PULSE 90; RESP 16; TEMP 97.3; O2SAT 96
[2016-08-29] MEDS: 1/2 NS 1,000 ML IV SCH ×3 (02:50→19:49)
[2016-08-29 05:25] LABS: ANION GAP 11 MEQ/L (5-15); BASOPHILS % (AUTO) 0.3 % (0-2); BUN/CREATININE RATIO 23 RATIO (6-26); CALCIUM 8.9 MG/DL (8.4-10.2); CHLORIDE 100 MEQ/L (98-107); CO2 - CARBON DIOXIDE 27 MEQ/L (22-30); CREATININE 2.3 MG/DL (0.8-1.5); EOSINOPHILS # (AUTO) 0.1 T/MM3 (0-0.5); EOSINOPHILS % (AUTO) 1.4 % (0-4); GLOMERULAR FILTRATION RATE 28; GLUCOSE 88 MG/DL (75-110); HCT - HEMATOCRIT 31.6 % (41-53); HGB - HEMOGLOBIN 9.7 GM/DL (13.5-17.5); IMMATURE GRANULOCYTE # (AUTO) 0.01 T/MM3 (0.00-0.03); IMMATURE GRANULOCYTE % (AUTO) 0.1 % (0.0-0.5); LYMPHOCYTES # (AUTO) 1.4 T/MM3 (1-4.8); LYMPHOCYTES % (AUTO) 19.3 % (23-45); MEAN CORPUSCULAR HGB 31.2 UUG (26-34); MEAN CORPUSCULAR HGB CONC(MCHC 30.7 GM/DL (31-37); MEAN CORPUSCULAR VOLUME 101.6 UM3 (80-100); MEAN PLATELET VOLUME 8.8 UM3 (9.4-12.4); MONOCYTES # (AUTO) 0.9 T/MM3 (0-0.8); MONOCYTES % (AUTO) 12.9 % (0-9.0); NEUTROPHILS #(AUTO)-ABSOLUTE 4.6 T/MM3 (1.8-7.7); POTASSIUM 4.3 MEQ/L (3.6-5); RED BLOOD COUNT 3.11 M/MM3 (4.50-5.90); SODIUM 138 MEQ/L (134-144)
--- NOTE | 2016-08-29 05:57 | NUR ---
SHIFT SUMMARY PT IS ALERT AND ORIENTED X3,VITAL SIGNS ARE STABLE ON ROOM AIR. DENIES C/P,N/V AND SOA. PT IS UP ADLIB IN ROOM TO AND FROM BATHROOM, CALLS WHEN NEEDING ASSISTANCE. PT HAS HAD A TREMENDOUS AMOUNT OF BM OUT OF COLOSTOMY THROUGHOUT THIS SHIFT. ADEQUATE URINE OUTPUT WELL. PT HAS DENIED NEED FOR PRN PAIN MEDICATION. PT IS STILL NPO AT THIS TIME. WILL CONTINUE TO MONITOR.
[2016-08-29 07:11] VITALS: BP 124/64; PULSE 71; RESP 16; TEMP 97.3; O2SAT 99
[2016-08-29 07:12] VITALS: PULSE 90; RESP 16
--- NOTE | 2016-08-29 07:59 | DI ---
Indication: ITS.REASON: F/U SBO PROCEDURE: KUB W/UPRIGHT: Encounter: Initial Comparison: August 28, 2016 Findings: Continued dilated small bowel left abdomen with differential air-fluid levels present in a couple different locations. There is minimal colonic gas present. No gross free air identified. There may be some colonic gas, although it is difficult to distinguish between small and large bowel in this patient. Impression: Continued small bowel dilatation with findings suspicious for a small bowel obstruction. .
[2016-08-29 08:49] LABS: BLOOD, URINE TRACE-INTACT (NEGATIVE); COLOR,URINE YELLOW (YELLOW); LEUKOCYTE ESTERASE ,URINE NEGATIVE (NEGATIVE); NITRITE,URINE NEGATIVE (NEGATIVE); UROBILINOGEN,URINE 0.2 EU/DL (NORMAL)
[2016-08-29] MEDS: PANTOPRAZOLE 40mg INJECTION IV SCH ×2 (08:50→21:33)
[2016-08-29] MEDS: CEFTRIAXONE 1 G in NORMAL SALINE 100 ML IV SCH (08:52)
--- NOTE | 2016-08-29 09:06 | NUR ---
LEONID CM IN TO VISIT PATIENT, HE IS A&O. FEMALE IS PRESENT AT THE BEDSIDE. PATIENT PLANS TO DISCHARGE HOME, DENIES NEEDS AT THIS TIME. CM CONTACT INFORMATION PROVIDED. LACE SCORE IS 10, NO FURTHER FOLLOW UP IS NEEDED AT THIS TIME. Addendum: 08/29/16 at 0907 by QUENTIN BRYSON RN Amended: Links added.
--- NOTE | 2016-08-29 11:18 | PNPDOC ---
DB MARTINES V DIE CASTING MACHINE SETTER 08/29/16 1107: Subjective Date DATE: 08/29/16 TIME: 11:00 Subjective Kamari is seen today in follow up for SBO. He is not having any pain or nausea this morning and he is having stool in his ostomy. He does complain of having right great toe pain that has intermittently is red and tender for several months. BP 124/64 and he remains afebrile. Objective Vital Signs Vital signs Vital Signs Date Time Temp Pulse Resp B/P Pulse Ox O2 Delivery O2 Flow Rate FiO2 08/29/16 07:12 90 16 08/29/16 07:11 97.3 124/64 99 Room Air Height (Feet): 5 Height (Inches): 9.00 Weight (Kilograms): 64.000 General General Appearance: Alert, Orientated x 3, Cooperative, No Acute Distress Eyes (Brief) Eyes: FOUND: EOMI ENMT (Brief) ENMT: FOUND: mucosa moist, normal dentition, NOT FOUND: pharnyx erythema Neck (Brief) Neck: FOUND: midline, NOT FOUND: adenopathy, carotid bruits, tracheal deviation Respiratory (Brief) Respiratory: FOUND: clear all duron, equal bilaterally, NOT FOUND: wheezes Cardiovascular (Brief) Cardiac: FOUND: regular rate, regular rhythm, NOT FOUND: murmur, pedal edema Capillary Refill: <2 sec Abdomen (Brief) Abdominal: FOUND: soft, NOT FOUND: BS normo active x4 (hypoactive), distended, tender Comments Ostomy with stool presence Lymphatic (Brief) Lymphatic: NOT FOUND: adenopathy Musculoskeletal (Brief) Musculoskeletal: NOT FOUND: tenderness Integumentary (Brief) Integumentary: FOUND: dry, pink, warm Neurologic (Brief) Neurological: FOUND: cranial 2-12 intact Psychiatric (Brief) Psychiatric: FOUND: alert, attentive, normal affect, oriented Laboratory Laboratory Laboratory Tests 08/28/16 08:44 08/28/16 15:54 08/29/16 04:22 Laboratory Tests 08/28/16 08:44 08/29/16 04:22 Sepsis Diagnostic Criteria Sepsis Confirmed/Suspected Infection: Yes Severe Sepsis Creatinine >2.0mg/dL Assessment & Plan Problems: (1) SBO (small bowel obstruction) Status: Acute (2) DIXIE (acute kidney injury) Status: Acute Assessment & Plan: Secondary to fluid loss from emesis due to SBO. (3) Hyperkalemia Status: Resolved Assessment & Plan: POA (4) Pneumonia Status: Acute (5) History of colon resection Status: Chronic (6) CAD (coronary artery disease) Onset Date: ~ 06/2002 Status: Chronic (7) Hypertension Status: Chronic (8) HTN (hypertension) Status: Chronic (9) Chronic anemia Status: Chronic (10) GERD (gastroesophageal reflux disease) Status: Chronic (11) Anemia of chronic disease Status: Chronic (12) Pressure ulcer of coccygeal region, stage 3 Status: Chronic (13) Chronic kidney disease (CKD) Status: Chronic Qualifiers: Chronic kidney disease stage: stage 3 (moderate) Qualified Codes: N18.3 - Chronic kidney disease, stage 3 (moderate) (14) History of colon cancer Onset Date: ~ 1995 Status: Chronic (15) Toe pain, right Status: Acute Assessment & Plan: Right great toe Plan/Intensity of Service 08/29/16 Concern for Gout given right great toe, Will obtain Uric acid level now. No abdominal pain currently. Passing stool via Ostomy. Family discussed IV nutrition given concern for BMI 20. Will consider starting TPN tomorrow 08/30 if renal function continues to improve. Kindergarten Teacher today decreased to 2.3. Renal sonogram normal appearance of kidney with some hepatic edema that may be chronic or related fatty liver. Continue with 1/2 NS for ongoing hydration Wound consultation for chronic coccygeal pressure ulcer. Encourage ambulation 4 times a day to maintain strength. Recheck CBC and BMP tomorrow morning to follow blood counts, renal function and electrolytes. 20 minutes spent at bedside discussing labs, radiology and plan of care with patient and family. Will discuss further plan of care with Dr Trotter Code Status Full Code, unverified Hospital Course Summary Disclaimer The hospital course summary below is not to be considered part of the above Progress Note. Hospital Course Summary 08/29/16 Concern for Gout given right great toe, Will obtain Uric acid level now. No abdominal pain currently. Passing stool via Ostomy. Family discussed IV nutrition given concern for BMI 20. Will consider starting TPN tomorrow 08/30 if renal function continues to improve. Kindergarten Teacher today decreased to 2.3. Renal sonogram normal appearance of kidney with some hepatic edema that may be chronic or related fatty liver. Continue with 1/2 NS for ongoing hydration Wound consultation for chronic coccygeal pressure ulcer. Encourage ambulation 4 times a day to maintain strength. 20 minutes spent at bedside discussing labs, radiology and plan of care with patient and family. Recheck CBC and BMP tomorrow morning to follow blood counts, renal function and electrolytes. Will discuss further plan of care with BRAULIO Pratt MD 08/29/16 1337: Assessment & Plan Problems: (1) SBO (small bowel obstruction) Status: Acute (2) DIXIE (acute kidney injury) Status: Acute Assessment & Plan: Secondary to fluid loss from emesis due to SBO. (3) Hyperkalemia Status: Resolved Assessment & Plan: POA (4) Pneumonia Status: Acute (5) History of colon resection Status: Chronic (6) CAD (coronary artery disease) Onset Date: ~ 06/2002 Status: Chronic (7) Hypertension Status: Chronic (8) Chronic anemia Status: Chronic (9) GERD (gastroesophageal reflux disease) Status: Chronic (10) Anemia of chronic disease Status: Chronic (11) Pressure ulcer of coccygeal region, stage 3 Status: Chronic (12) Chronic kidney disease (CKD) Status: Chronic Qualifiers: Chronic kidney disease stage: stage 3 (moderate) Qualified Codes: N18.3 - Chronic kidney disease, stage 3 (moderate) (13) History of colon cancer Onset Date: ~ 1995 Status: Chronic (14) Toe pain, right Status: Acute Assessment & Plan: Right great toe Plan/Intensity of Service Have independently interviewed and examined pt. Chart reviewed. Case discussed with my DIE CASTING MACHINE SETTER. Care plan developed with my supervision; agree with above. Doing well other than right great toe pain-pain to tip of toe. Hurts to touch and move. Has been passing stool out ostomy. Denies nausea or ab pain. Starting to feel more hungry. Breathing doing well-no SOA, cough or congestion. No chest pressure or pain. Lungs; Clear bilaterally CV: regular AB: soft flat nt/nd BS present EXT: no edema to LE. Erythema at tip of right great toe. MSE: awake alert appropriate. Plan: Continue with IVF. Check Vit B12 and iron/ferritin due to anemia. Will increased output from ostomy and no nausea, will advance to clear liquids. Did advise caution with oral intake-pt to watch for nausea, pain, cramps, or bloating with oral intake. May restart Atenolol, Neurontin, and Cymbalta. Encourage ambulation. Recheck lab in am. Time spent with patient care 25 minutes. DVT Prophylaxis: SCD'S DB MARTINES APRN August 29, 2016 11:07 BRAULIO TROTTER MD August 29, 2016 13:37
[2016-08-29] MEDS: GABAPENTIN 300 MG CAPSULE PO SCH ×2 (14:57→21:27)
[2016-08-29 16:20] VITALS: BP 126/69; PULSE 74; RESP 18; TEMP 97.5; O2SAT 99
--- NOTE | 2016-08-29 18:20 | NUR ---
SHIFT PT HAS BEEN PLEASANT AND COOPERATIVE ALL SHIFT. PT IS A&OX3, UP WITH NO ASSIST, LOW FALL. PT DENIES PAIN, N/V AND SOA. PT IS ON ROOM AIR. PT HAS AMBULATED IN [place] MULTIPLE TIMES THIS SHIFT. PT HAS HAD FAMILY AT BEDSIDE. PT HAS BEEN NPO MOST OF SHIFT BUT WAS CHANGED TO CLEAR LIQUID FOR LUNCH AND IS TOLERATING WELL. NO OTHER CHANGES SINCE PREVIOUS SHIFT.
--- NOTE | 2016-08-29 18:22 | NUR ---
MOVED ROOMS PT WAS IN ROOM 123, MOVED TO 107 DUE TO ANTS IN THE ROOM.
[2016-08-29] MEDS: DULOXETINE 20 MG CAPSULE PO SCH (21:27)
[2016-08-30] VITALS (11 sets, daily range): BP systolic 105–157; BP diastolic 60–90; PULSE 45–80; RESP 14–18; TEMP 96.4–97.8; O2SAT 64–100
[2016-08-30] MEDS: 1/2 NS 1,000 ML IV SCH ×4 (04:07→21:28)
--- NOTE | 2016-08-30 04:24 | NUR ---
Chart Check 24 hour chart check completed
--- NOTE | 2016-08-30 05:44 | NUR ---
SUMMARY RESTED THROUGH MOST OF THE NIGHT WITH EYES CLOSED. NO COMPLAINTS OF PAIN OR NAUSEA. PATIENT IS UP AD BENNETT. HAVING LIQUID GREEN STOOLS VIA COLOSTOMY. WILL COLLECT SPECIMEN TO SEND TO LAB. WILL CONTINUE TO MONITOR.
[2016-08-30 05:50] LABS: BASOPHILS % (AUTO) 0.3 % (0-2); EOSINOPHILS # (AUTO) 0.1 T/MM3 (0-0.5); EOSINOPHILS % (AUTO) 1.9 % (0-4); HCT - HEMATOCRIT 27.7 % (41-53); HGB - HEMOGLOBIN 8.8 GM/DL (13.5-17.5); IMMATURE GRANULOCYTE # (AUTO) 0.02 T/MM3 (0.00-0.03); IMMATURE GRANULOCYTE % (AUTO) 0.3 % (0.0-0.5); LYMPHOCYTES # (AUTO) 1.1 T/MM3 (1-4.8); LYMPHOCYTES % (AUTO) 19.4 % (23-45); MEAN CORPUSCULAR HGB CONC(MCHC 31.8 GM/DL (31-37); MEAN CORPUSCULAR VOLUME 97.5 UM3 (80-100); MEAN PLATELET VOLUME 8.7 UM3 (9.4-12.4); MONOCYTES # (AUTO) 0.7 T/MM3 (0-0.8); NEUTROPHILS #(AUTO)-ABSOLUTE 3.8 T/MM3 (1.8-7.7); NEUTROPHILS % (AUTO) 66.1 % (33-66); RED BLOOD COUNT 2.84 M/MM3 (4.50-5.90); WBC - WHITE BLOOD COUNT 5.8 T/MM3 (4.5-11.0)
[2016-08-30 06:07] LABS: IRON 37 UG/DL (49-181)
[2016-08-30 06:09] LABS: ANION GAP 10 MEQ/L (5-15); BUN/CREATININE RATIO 22 RATIO (6-26); CALCIUM 8.8 MG/DL (8.4-10.2); CHLORIDE 104 MEQ/L (98-107); CO2 - CARBON DIOXIDE 25 MEQ/L (22-30); CREATININE 1.5 MG/DL (0.8-1.5); GLOMERULAR FILTRATION RATE 46; GLUCOSE 71 MG/DL (75-110); POTASSIUM 4.3 MEQ/L (3.6-5); SODIUM 139 MEQ/L (134-144)
[2016-08-30 06:16] LABS: IRON % SAT (TRANSF %SAT)(CALC) 15 % (13-59); TOTAL IRON BINDING CAPACITY 247 UG/DL (261-497)
[2016-08-30 06:56] LABS: VITAMIN B12 - BATCH 192 PG/ML (239-931)
[2016-08-30 08:32] LABS: C. DIFFICILE TOXIN B NEGATIVE (NEGATIVE)
[2016-08-30] MEDS: DULOXETINE 20 MG CAPSULE PO SCH (08:36)
[2016-08-30] MEDS: GABAPENTIN 300 MG CAPSULE PO SCH ×3 (09:04→21:00)
[2016-08-30] MEDS: PANTOPRAZOLE 40mg INJECTION IV SCH ×2 (09:04→21:00)
[2016-08-30] MEDS: CEFTRIAXONE 1 G in NORMAL SALINE 100 ML IV SCH (09:04)
[2016-08-30] MEDS: ATENOLOL 25 MG TABLET PO SCH (09:04)
[2016-08-30] MEDS ORDERED: COLCHICINE 0.6 MG TABLET PO ONE (09:45)
--- NOTE | 2016-08-30 10:11 | PNPDOC ---
DB MARTINES V VENKAT 08/30/16 1007: Subjective Date DATE: 08/30/16 TIME: 10:03 Subjective Kamari is seen up in the [place] ambulation this morning with his daughter. He states he is feeling good today. No abdominal pain or nausea. Continues to pass stool through ostomy without difficulty. Reports continued pain in right great toe and also noticed right heel pain during the night. Ambulated 4 times in the halls yesterday. Tolerated liquid diet well without difficulty. Objective Vital Signs Vital signs Vital Signs Date Time Temp Pulse Resp B/P Pulse Ox O2 Delivery O2 Flow Rate FiO2 08/30/16 07:46 97.4 77 16 146/74 99 Room Air Height (Feet): 5 Height (Inches): 9.00 Weight (Kilograms): 64.400 General General Appearance: Alert, Orientated x 3, Cooperative, No Acute Distress Eyes (Brief) Eyes: FOUND: EOMI ENMT (Brief) ENMT: FOUND: mucosa moist, normal dentition, NOT FOUND: pharnyx erythema Neck (Brief) Neck: FOUND: midline, NOT FOUND: adenopathy, carotid bruits, tracheal deviation Respiratory (Brief) Respiratory: FOUND: clear all duron, equal bilaterally, NOT FOUND: wheezes Cardiovascular (Brief) Cardiac: FOUND: regular rate, regular rhythm, NOT FOUND: murmur, pedal edema Capillary Refill: <2 sec Abdomen (Brief) Abdominal: FOUND: BS normo active x4, soft, NOT FOUND: distended, tender Lymphatic (Brief) Lymphatic: NOT FOUND: adenopathy Musculoskeletal (Brief) Musculoskeletal: FOUND: tenderness (Right great toe) Integumentary (Brief) Integumentary: FOUND: dry, pink, warm Neurologic (Brief) Neurological: FOUND: cranial 2-12 intact Psychiatric (Brief) Psychiatric: FOUND: alert, attentive, normal affect, oriented Laboratory Laboratory Laboratory Tests 08/28/16 15:54 08/29/16 04:22 08/30/16 04:27 Laboratory Tests 08/29/16 04:22 08/30/16 04:27 Sepsis Diagnostic Criteria Sepsis Confirmed/Suspected Infection: Yes Severe Sepsis Creatinine >2.0mg/dL Assessment & Plan Problems: (1) SBO (small bowel obstruction) Status: Acute (2) DIXIE (acute kidney injury) Status: Acute Assessment & Plan: Secondary to fluid loss from emesis due to SBO. (3) Hyperkalemia Status: Resolved Assessment & Plan: POA (4) Pneumonia Status: Acute (5) History of colon resection Status: Chronic (6) CAD (coronary artery disease) Onset Date: ~ 06/2002 Status: Chronic (7) Hypertension Status: Chronic (8) Chronic anemia Status: Chronic (9) GERD (gastroesophageal reflux disease) Status: Chronic (10) Anemia of chronic disease Status: Chronic (11) Pressure ulcer of coccygeal region, stage 3 Status: Chronic (12) Chronic kidney disease (CKD) Status: Chronic Qualifiers: Chronic kidney disease stage: stage 3 (moderate) Qualified Codes: N18.3 - Chronic kidney disease, stage 3 (moderate) (13) History of colon cancer Onset Date: ~ 1995 Status: Chronic (14) Toe pain, right Status: Acute Assessment & Plan: Right great toe Plan/Intensity of Service 08/30 Creatinine continues to improve. Today he is down at baseline 1.5. Stool for C. difficile was negative. Iron studies are low. Will consult pharmacy for IV iron, and give daily, vitamin B12 IM injections. In light of toe pain and mildly elevated uric acid. Will try one-time dose of cold was seen today. Silver Aquacel to wound and cover with Mepilex every other day to buttock wound as per wound team Will advance diet as tolerated. Overall making good gains. Will discuss further orders and plan of care with attending, Dr. Trotter Code Status Full Code, unverified Hospital Course Summary Disclaimer The hospital course summary below is not to be considered part of the above Progress Note. Hospital Course Summary 08/29/16 Concern for Gout given right great toe, Will obtain Uric acid level now. No abdominal pain currently. Passing stool via Ostomy. Family discussed IV nutrition given concern for BMI 20. Will consider starting TPN tomorrow 08/30 if renal function continues to improve. Tube Depatcher today decreased to 2.3. Renal sonogram normal appearance of kidney with some hepatic edema that may be chronic or related fatty liver. Continue with 1/2 NS for ongoing hydration Wound consultation for chronic coccygeal pressure ulcer. Encourage ambulation 4 times a day to maintain strength. 20 minutes spent at bedside discussing labs, radiology and plan of care with patient and family. Recheck CBC and BMP tomorrow morning to follow blood counts, renal function and electrolytes. Will discuss further plan of care with Dr Trotter 08/30 Creatinine continues to improve. Today he is down at baseline 1.5. Stool for C. difficile was negative. Iron studies are low. Will consult pharmacy for IV iron, and give daily, vitamin B12 IM injections. In light of toe pain and mildly elevated uric acid. Will try one-time dose of cold was seen today. Silver Aquacel to wound and cover with Mepilex every other day to buttock wound as per wound team Will advance diet as tolerated. Overall making good gains. Will discuss further orders and plan of care with attending, BRAULIO Aguirre MD 08/30/16 1522: Assessment & Plan Plan/Intensity of Service Have independently interviewed and examined pt. Chart reviewed. Case discussed with my WATER RESOURCE CONSULTANT. Care plan developed with my supervision; agree with above. Doing great today. No ab pain or nausea. Tolerating oral intake. Stools output increasing. Urinating well. Breathing well. No chest pain. Not unsteady when up and ambulating. No f/c. Big toe not hurting. Lungs: Clear bilaterally CV: regular AB: soft nt/nd +BS MSE: awake alert appropriate Lab: Iron and B12 levels low Assessment as above with: B12 deficiency. Plan: Start Vit B12 1000mcg IM daily. IV iron replacement. Diet advanced. Encourage ambulation. Recheck lab in am. Likely discharge to home tomorrow if continues to do well. DB MARTINES APRN August 30, 2016 10:07 BRAULIO TROTTER MD August 30, 2016 15:22
[2016-08-30] MEDS ORDERED: IRON DEXTRAN 100mg/2ml INJECTION IV ONE (10:15)
--- NOTE | 2016-08-30 10:41 | PDWOUND ---
Wound Documentation Wound Management Wound : Location Modifier: Right, Upper, Posterior Wound Location: Buttocks Wound Dressing Frequency: two times per week Wound Duration: one week Wound Dressing Status: FOUND: Moist Wound Drainage Amount: Moderate Wound Drainage Description: Serosanguineous Wound Drainage Odor: None/Absent Wound General Appearance: FOUND Blackened, FOUND Draining Wound Bed: slough Periwound Description: Bright Red, indurated Wound Length (cm): 1.2 Wound Width (cm): 1.2 Wound Depth (cm): 0.7 Exposed: partial Wound Cleanser: wound cleanser Wound Primary Dressing Type: Aquacel AG, Mepilex Comments Pt know to the wound clinic and was seen on the and had an abcess drained and cultured. This wound is very painful at this time assessment time. Gave instructions to staff to change every other day. And upon dismissal wound drsg should be changed every other day. GUILLE ASIF RN August 30, 2016 10:35
--- NOTE | 2016-08-30 10:43 | PDWOUND ---
Wound Documentation Wound Management Wound : Location Modifier: Right, Lower, Posterior Wound Location: Buttocks Wound Type: Other (Previous wound) Wound Dressing Frequency: two times per week Wound Duration: one week Wound Dressing Status: FOUND: Moist Wound Drainage Amount: Moderate Wound Drainage Description: Serosanguineous Wound Drainage Odor: None/Absent Wound General Appearance: FOUND Draining, FOUND Unapproximated Wound Bed: gran pink Periwound Description: Blanched/Dull, Bright Red, indurated Wound Length (cm): 3.6 Wound Width (cm): 1.6 Wound Depth (cm): 0.5 Exposed: partial Wound Cleanser: wound cleanser Wound Primary Dressing Type: Aquacel AG, Mepilex Comments Pt has had this wound previously and was healed at one time. GUILLE ASIF RN August 30, 2016 10:43
[2016-08-30] MEDS: CYANOCOBALAMIN (B-12) 1000mcg/ml INJECTION IM SCH (11:03)
--- NOTE | 2016-08-30 11:10 | NUR ---
CM CM IN TO VISIT WITH PT. CM UPDATED WHITEBOARD AND PROVIDED CONTACT INFORMATION. PT DENIES HOME NEEDS AND IS AWARE TO CALL CM SHOULD NEEDS ARISE.
[2016-08-30] MEDS ORDERED: NORMAL SALINE IV ONE (14:00)
[2016-08-30] MEDS ORDERED: IRON DEXTRAN IV ONE (14:00)
--- NOTE | 2016-08-30 15:26 | NUR ---
IV IRON CONSULT: Dx: Chronic Anemia: Will give TDI (Total Dose Infusion) over 4 hours. Actual body weight = 64.4 kg Hgb Level = 8.8 g/dL Calculated Dosing weight = > actual body weight, used actual body weight 65 kg Total dose needed: 1,700 mg (34 mL) Will give test dose of 25mg IV push over 30 seconds. Watch VS q 15 minutes x 1 hr. (watching for anaphylaxis, respiratory distress, hives.) If no reaction will give full dose in NS 500ml TRA 125ml/hr. Watch VS q 1 hr during infusion. Thank you, Melanie Leonardo, [facility]
--- NOTE | 2016-08-30 18:19 | NUR ---
END OF SHIFT REPORT PATIENT A/OX3. ROOM AIR. VITAL SIGNS STABLE. AFEBRILE. PT UP STANDBY ASSIST. DENIES N/V, CHEST PAIN, AND SOA. NO PRNS HAVE BEEN GIVEN DURING THE SHIFT. ADEQUATE URINARY OUTPUT AND ADEQUATE OUTPUT FROM COLOSTOMY. NEGATIVE C.DIFF SAMPLE. PORT FLUSHES/ASPIRATES BRISKLY. DRESSINGS ON BUTTOCK CLEAN, DRY, INTACT. DRESSINGS TO BE CHANGED ON FRIDAY PER ORDERS. PT HAS AMBULATED TWICE DURING THE SHIFT. WILL CONTINUE TO MONITOR.
[2016-08-31 00:39] VITALS: BP 122/65; PULSE 64; RESP 16; TEMP 98; O2SAT 97
--- NOTE | 2016-08-31 05:15 | NUR ---
SHIFT SUMMARY PATIENT IS ALERT AND ORIENTED X3 THIS SHIFT. VITAL SIGNS ARE STABLE ON ROOM AIR. PATIENT IS UP AT [facility]. PATIENT HAS DENIED ANY PAIN, SHORTNESS OF AIR, NAUSEA, AND VOMITING THIS SHIFT. PATIENT REFUSED GABAPENTIN DURING SHIFT REPORT, STATING THAT THESE MEDICATIONS MAKE HIM VERY "JITTERY" AND THAT HE DID NOT THINK THAT IT WOULD HURT TO TAKE IT. PATIENT AMBULATED ONCE IN THE HALLS THIS SHIFT, OTHERWISE PATIENT SLEPT MOST OF THE NIGHT. WILL CONTINUE TO MONITOR.
[2016-08-31] MEDS: 1/2 NS 1,000 ML IV SCH (05:50)
[2016-08-31 07:40] VITALS: BP 130/66; PULSE 50; RESP 16; TEMP 98.3; O2SAT 96
[2016-08-31] MEDS: GABAPENTIN 300 MG CAPSULE PO SCH (07:52)
[2016-08-31 07:58] VITALS: PULSE 50; RESP 16
[2016-08-31] MEDS: PANTOPRAZOLE 40mg INJECTION IV SCH (09:20)
[2016-08-31] MEDS: CYANOCOBALAMIN (B-12) 1000mcg/ml INJECTION IM SCH (09:21)
[2016-08-31] MEDS: ATENOLOL 25 MG TABLET PO SCH (09:21)
[2016-08-31] MEDS: CEFTRIAXONE 1 G in NORMAL SALINE 100 ML IV SCH (09:21)
[2016-08-31 09:25] VITALS: PULSE 76
[2016-08-31 10:36] LABS: BASOPHILS % (AUTO) 0.5 % (0-2); EOSINOPHILS # (AUTO) 0.1 T/MM3 (0-0.5); EOSINOPHILS % (AUTO) 1.2 % (0-4); HCT - HEMATOCRIT 32.2 % (41-53); IMMATURE GRANULOCYTE # (AUTO) 0.01 T/MM3 (0.00-0.03); IMMATURE GRANULOCYTE % (AUTO) 0.2 % (0.0-0.5); LYMPHOCYTES # (AUTO) 1.4 T/MM3 (1-4.8); LYMPHOCYTES % (AUTO) 23.4 % (23-45); MEAN CORPUSCULAR HGB 30.9 UUG (26-34); MEAN CORPUSCULAR HGB CONC(MCHC 31.1 GM/DL (31-37); MEAN CORPUSCULAR VOLUME 99.4 UM3 (80-100); MEAN PLATELET VOLUME 8.2 UM3 (9.4-12.4); MONOCYTES # (AUTO) 0.6 T/MM3 (0-0.8); MONOCYTES % (AUTO) 10.1 % (0-9.0); NEUTROPHILS #(AUTO)-ABSOLUTE 3.9 T/MM3 (1.8-7.7); NEUTROPHILS % (AUTO) 64.6 % (33-66); RED BLOOD COUNT 3.24 M/MM3 (4.50-5.90)
[2016-08-31 10:46] LABS: ANION GAP 12 MEQ/L (5-15); BUN/CREATININE RATIO 13 RATIO (6-26); CALCIUM 9.2 MG/DL (8.4-10.2); CHLORIDE 108 MEQ/L (98-107); CO2 - CARBON DIOXIDE 23 MEQ/L (22-30); CREATININE 1.4 MG/DL (0.8-1.5); GLOMERULAR FILTRATION RATE 50; GLUCOSE 130 MG/DL (75-110); POTASSIUM 3.7 MEQ/L (3.6-5); SODIUM 143 MEQ/L (134-144)
--- NOTE | 2016-08-31 12:45 | PNPDOC ---
Subjective Date DATE: 08/31/16 TIME: 12:35 Subjective F/U: SBO, DIXIE Doing great today. Eating well without nausea or ab pain. Stool output through ostomy normal. No ab cramping or bloating. Urinating well. Breathing well-no SOA , cough or congestion. Not having chest pain or pressure. Ambulating well in halls without any limitation. No f/c. Toe pain resolved. Objective Vital Signs Vital signs Vital Signs Date Time Temp Pulse Resp B/P Pulse Ox O2 Delivery O2 Flow Rate FiO2 08/31/16 09:25 76 08/31/16 07:58 16 08/31/16 07:40 98.3 130/66 96 Room Air Height (Feet): 5 Height (Inches): 9.00 Weight (Kilograms): 65.300 General General Appearance: Alert, Orientated x 3, Well Nourished, Well Developed, Cooperative, No Acute Distress, Looks Stated Age Eyes (Brief) Eyes: FOUND: EOMI, PERRL, NOT FOUND: scleral icterus ENMT (Brief) ENMT: FOUND: hearing intact, mucosa moist Neck (Brief) Neck: FOUND: midline, NOT FOUND: nuchal rigidity, spasm Respiratory (Brief) Respiratory: FOUND: clear all duron, equal bilaterally, NOT FOUND: rales, wheezes Cardiovascular (Brief) Cardiac: FOUND: regular rate, regular rhythm, NOT FOUND: pedal edema Abdomen (Brief) Abdominal: FOUND: BS normo active x4, soft, NOT FOUND: distended, tender Extremities (Brief) Extremity : Side: Bilateral Extremity: leg Extremity Finding: NOT FOUND: edema Musculoskeletal (Brief) Musculoskeletal: FOUND: extremities move equally, NOT FOUND: deformity, loss of motion, spasm Integumentary (Brief) Integumentary: FOUND: dry, warm Neurologic (Brief) Neurological: FOUND: cranial 2-12 intact, motor (Intact ) Psychiatric (Brief) Psychiatric: FOUND: alert, attentive, normal affect, oriented Laboratory Laboratory Laboratory Tests 08/30/16 04:27 08/31/16 10:27 Laboratory Tests 08/30/16 04:27 08/31/16 10:27 Sepsis Diagnostic Criteria Sepsis Confirmed/Suspected Infection: Yes Severe Sepsis Creatinine >2.0mg/dL Assessment & Plan Problems: (1) SBO (small bowel obstruction) Status: Resolved (2) DIXIE (acute kidney injury) Status: Resolved Assessment & Plan: Secondary to fluid loss from emesis due to SBO. (3) Hyperkalemia Status: Resolved Assessment & Plan: POA (4) Pneumonia Status: Resolved (5) History of colon resection Status: Chronic (6) CAD (coronary artery disease) Onset Date: ~ 06/2002 Status: Chronic (7) Hypertension Status: Chronic (8) GERD (gastroesophageal reflux disease) Status: Chronic (9) Anemia of chronic disease Status: Chronic (10) Pressure ulcer of coccygeal region, stage 3 Status: Chronic Assessment & Plan: POA (11) Chronic kidney disease (CKD) Status: Chronic Qualifiers: Chronic kidney disease stage: stage 3 (moderate) Qualified Codes: N18.3 - Chronic kidney disease, stage 3 (moderate) (12) History of colon cancer Onset Date: ~ 1995 Status: Chronic (13) Toe pain, right Status: Resolved Assessment & Plan: Right great toe - likely gout. (14) B12 deficiency Status: Acute (15) Iron deficiency Status: Acute Plan/Intensity of Service Will d/c to home - medically stable. Start Levaquin 500mg po daily for wound coverage. Discussed with Dr Pinto who concurs. F/U in wound clinic with Dr Pinto in 1-2 weeks Continue wound care as instructed by Dr Pinto. Oral iron/vit C and B12. F/U with Dr Mera in 1 week See orders for details. Case discussed with CM. Time spent with pt care and discharge greater than 30 minutes. DVT Prophylaxis: SCD'S Code Status Full Code, unverified Hospital Course Summary Disclaimer The hospital course summary below is not to be considered part of the above Progress Note. Hospital Course Summary 08/29/16 Concern for Gout given right great toe, Will obtain Uric acid level now. No abdominal pain currently. Passing stool via Ostomy. Family discussed IV nutrition given concern for BMI 20. Will consider starting TPN tomorrow 08/30 if renal function continues to improve. Audiovisual Aids Technician today decreased to 2.3. Renal sonogram normal appearance of kidney with some hepatic edema that may be chronic or related fatty liver. Continue with 1/2 NS for ongoing hydration Wound consultation for chronic coccygeal pressure ulcer. Encourage ambulation 4 times a day to maintain strength. 20 minutes spent at bedside discussing labs, radiology and plan of care with patient and family. Recheck CBC and BMP tomorrow morning to follow blood counts, renal function and electrolytes. Will discuss further plan of care with Dr Trotter 08/30 Creatinine continues to improve. Today he is down at baseline 1.5. Stool for C. difficile was negative. Iron studies are low. Will consult pharmacy for IV iron, and give daily, vitamin B12 IM injections. In light of toe pain and mildly elevated uric acid. Will try one-time dose of cold was seen today. Silver Aquacel to wound and cover with Mepilex every other day to buttock wound as per wound team Will advance diet as tolerated. Overall making good gains. Will discuss further orders and plan of care with attending, Dr. Trotter 08/31 Doing great today. Eating well without nausea or ab pain. Stool output through ostomy normal. No ab cramping or bloating. Urinating well. Breathing well-no SOA , cough or congestion. Not having chest pain or pressure. Ambulating well in halls without any limitation. No f/c. Toe pain resolved. Will d/c to home - medically stable. Start Levaquin 500mg po daily for wound coverage. Discussed with Dr Pinto who concurs. F/U in wound clinic with Dr Pinto in 1-2 weeks Continue wound care as instructed by Dr Pinto. Oral iron/vit C and B12. F/U with Dr Mera in 1 week See orders for details. BRAULIO TROTTER MD August 31, 2016 12:38
[2016-08-31] MEDS ORDERED: FERR-70 PO (12:50)
[2016-08-31] MEDS ORDERED: CYAN10009 PO (12:50)
[2016-08-31] MEDS ORDERED: LEVO500T88 PO (12:50)
[2016-08-31] MEDS ORDERED: ASCO500T9 PO (12:50)
--- NOTE | 2016-08-31 13:59 | NUR ---
DISCHARGE DISCHARGE INSTRUCTIONS REVIEWED WITH PT. PTS DAUGHTER PRESENT AT THIS TIME. PORT DEACCESSED, PT TOLERATED WELL. PTS QUESTIONS ANSWERED AT THIS TIME. PERSONAL BELONGINGS RETURNED TO PT AT THIS TIME. PT TRANSPORTED TO FRONT DOOR OF HOSPITAL VIA WHEELCHAIR ACCOMPANIED BY JOSE HIDALGO. PT DAUGHTER TRANSPORTED PT HOME. PT IN NO ACUTE DISTRESS AT TIME OF DEPARTURE.
--- NOTE | 2016-08-31 18:58 | DSF ---
ADMISSION DIAGNOSIS Small bowel obstruction. DISCHARGE DIAGNOSIS Small bowel obstruction--resolved. ASSOCIATED CONDITIONS AND COMPLICATIONS 1. Acute kidney injury (present on admission)--resolved. 2. Hyperkalemia (present on admission)--resolved. 3. Pneumonia--clinically resolved. 4. Coronary artery disease. 5. Hypertension. 6. Chronic anemia. 7. GERD. 8. Stage III chronic kidney disease. 9. Pressure ulcer of coccygeal area--stage III--present on admission. 10. Vitamin B12 deficiency. 11. Iron deficiency. 12. History of colon cancer. PROCEDURES IV iron provided 08/30/2016. CONSULTS Wound team. CLINICAL RESUME Mr. Johnson is a 71-year-old gentleman who presents to [facility] Emergency Room secondary to nausea and vomiting. He developed nausea and vomiting at 5 o'clock p.m. on August 27. Associated with this was loss of lower bowel performance. He does have history of colorectal cancer with tumor resection and ostomy placement by Dr. Pinto in September 2015. He has also had rectal tumor/fistula excised and had troubles with wound healing at this site. A couple days ago, patient did develop a new area on his bottom that his refers to as an abscess. He was seen by Dr. Pinto on 08/27/2016 and wound was opened and drained. New dressing was applied yesterday, and the site has been packed. He has been receiving chemotherapy weekly on Wednesdays for the last eight months under the care of Dr. Valdovinos. For the last two months he reports he received a "presser cotton ginning dose". He has not had fevers. Denies cough. He does note some heartburn off and on over the past few days--was seen in the emergency room on 08/23/2016 for these symptoms. At that time his troponins were negative. He does routinely take Zegerid. Today he presents to the emergency room secondary to nausea and vomiting and also decreased bowel movements. Lab work was obtained. White count is 11.2 with 81% neutrophils and 6% bands. BUN is quite elevated at 56 with creatinine 3.1 (baseline 1.3-1.5). Potassium is elevated at 5.7. KUB revealed evidence of small bowel obstruction. There is also some potential left lung pneumonia versus atelectasis. In light of his symptoms, hospitalist service was notified and patient was subsequently placed in inpatient admission status at [facility] under the care of Dr. Trotter for further evaluation and treatment. Anticipated length of stay was thought to be greater than two midnights. For complete details of the H&P refer to the medical record. LABORATORY White blood count is 11.2, with hemoglobin 12.7, hematocrit 40.9, MCV 100.0, and platelets 299,000. 85.6% neutrophils are noted. Serum sodium is 142, potassium 5.7, chloride 91, CO2 34, BUN 56, with creatinine 3.1, GFR 20, and blood glucose 117. Uric acid is elevated at 9.0. Phosphorus is 4.0, with magnesium 2.0. Transaminases are unremarkable. Troponin I is 0.012. C-reactive protein is 33.6. Iron is decreased at 37 with total iron binding capacity decreased to 247. Ferritin is pending. Vitamin B12 level is low at 192. Lipase is normal at 97. UA reveals low specific gravity at 1.010 with trace blood. Stool for toxin B gene is negative. HOSPITAL COURSE The patient was placed in inpatient admission status at [facility] under the care of Dr. Trotter. We did start Rocephin 1 gram IV daily for empiric antimicrobial coverage of pulmonary pathogens. He was made n.p.o. for bowel rest in light of his bowel obstruction. IV fluids of half-normal saline were initiated at 125 mL an hour for hydration. We did have wound team see patient for continuity of care as he has recently been seen by Dr. Pinto. Protonix was initiated for GI protection. SCDs were initiated for DVT prevention. Lab was monitored. Overall his hospital course was one of gradual improvement. By hospital day #1, we did see his white count normalize to 7.0. Creatinine also showed interval improvement down to 2.3. His potassium had normalized. IV fluids were continued. In light of his anemia, we did check iron levels, which were low. He received IV iron during the hospitalization. His vitamin B12 level was found to be low. We started IM vitamin B12 replacement. He did develop some great toe pain which we thought may have been gout. Uric acid level was elevated. Once his creatinine normalized, he did receive a one-time dose of Colchicine, which helped improve his symptoms. Bowel function did return. His nausea and vomiting defervesced. We were able to advance diet gradually and this was met with good success. By time of discharge, he was really feeling quite well. He was able to tolerate regular foods without abdominal pain, nausea, or vomiting. Bowel function was at baseline. He is having good bowel output through his ostomy. He was urinating without any difficulty whatsoever. Creatinine had improved to 1.4. Potassium was normal at 3.7. Vitals were stable and he was afebrile. He was ambulating well in the halls without limitation. 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 Sensitivities were to Rocephin (which he was on during the hospitalization) and also to Levaquin. In discussion with Dr. Pinto, we will continue on Levaquin for another 10-day course to facilitate wound healing. He will continue with wound care as recommended and instructed by Dr. Pinto at his visit prior to this admission. NARRATIVE DISCLAIMER: Above narrative is a brief summary of the patient's hospitalization. For complete details of the hospital course, refer to the medical record. DISCHARGE CONDITION Stable/good. DIET Low sodium. ACTIVITIES As tolerated. MEDICATIONS 1. Levaquin 500 mg p.o. daily x10 days. 2. Ferrous sulfate 325 mg with breakfast. 3. Vitamin C 500 mg with breakfast--take with iron. 4. B12 1000 mcg daily. 5. Atenolol 25 mg daily. 6. Calcitonin one spray alternating nostrils p.r.n. 7. Vitamin D3 2000 units daily. 8. Doxycycline 100 mg b.i.d. 9. Duloxetine 20 mg b.i.d. 10. Neurontin 300 mg t.i.d. 11. Hydromorphone 8 mg p.r.n. pain. 12. Centrum Silver daily. 13. Nitroglycerin 0.4 mg p.r.n. chest pain. 14. Zegerid 20 mg a.c. breakfast. 15. Zofran ODT 8 mg t.i.d. p.r.n. nausea. 16. Opium tincture 0.6 mL b.i.d. 17. Chemotherapy weekly per Dr. Valdovinos. FOLLOWUP 1. Patient will follow with Dr. Mera in one week--recommend recheck B12 and iron levels at appropriate interval to assure improvement with oral replacement. 2. Patient will follow with Dr. Pinto in one to two weeks for reevaluation of his wound. 3. Patient will follow with Dr. Valdovinos for oncological care. INSTRUCTIONS TO PATIENT Patient was instructed on his diagnosis and treatments provided. He was encouraged to be adherent with medications. I encouraged him to continue with antibiotic therapy and complete course. He was encouraged to continue the wound care as advised by Dr. Pinto. He will watch for temperatures greater than 100.4. He will watch for worsening respiratory status, cough, congestion, or abdominal pain. Should these or other problems or need occur, he could be in contact with his providers. If symptoms become quite dire, he can present to emergency room for acute evaluation. He voiced understanding of the above. Time spent with discharge greater than 30 minutes. CHARLEY
[2016-09-02] MEDS ORDERED: LEVO500T63 (08:47)
== END 2016-08-31 14:00 | disposition home or self-care (01) | DRG 388 ==
LOC: ED 07:47 → EDHOLD 09:57 → SRG 10:52
PROVIDERS: ADMIT Hospitalist; ATTEND Hospitalist
DX: K56.60 Unspecified intestinal obstruction (principal); L89.153 Pressure ulcer of sacral region, stage 3; N17.9 Acute kidney failure, unspecified; E87.5 Hyperkalemia; I12.9 Hypertensive chronic kidney disease with stage 1 through stage 4 chronic kidney disease, or unspecified chronic kidney disease; N18.3 Chronic kidney disease, stage 3 (moderate); I25.10 Atherosclerotic heart disease of native coronary artery without angina pectoris; D63.8 Anemia in other chronic diseases classified elsewhere; M79.674 Pain in right toe(s); E53.8 Deficiency of other specified B group vitamins; E61.1 Iron deficiency; K21.9 Gastro-esophageal reflux disease without esophagitis; Z85.038 Personal history of other malignant neoplasm of large intestine
CPT/HCPCS: 36415; 80048; 80053; 81003; 82607; 82728; 83540; 83550; 83690; 83735; 84100; 84484; 84550; 85025; 86140; 87493; 96361; 96374

== ENCOUNTER 2016-12-25 10:30 | Observation (INO) ==
[2016-12-25] MEDS ORDERED: NS 1,000 ML IV ONE (10:51)
[2016-12-25] MEDS ORDERED: DEXTROSE 50% SYRINGE 50ml (1 AMP) IVP ONE ×2 (10:51→13:30)
[2016-12-25] MEDS ORDERED: CALCIUM GLUCONATE 1,000mg/10ml INJECTION IVP ONE (10:52)
[2016-12-25] MEDS ORDERED: INSULIN REGULAR, HUMAN 100 UNIT/ML INJECTION IVP ONE (10:52)
--- NOTE | 2016-12-25 10:53 | Emergency Department Report ---
General Adult HPI - General Chief complaint: Recheck/Abnormal Lab/Rx Stated complaint: High postassium level Time Seen by Provider: 12/25/16 10:53 Source: patient Mode of arrival: ambulatory Limitations: no limitations - History of Present Illness HPI narrative: Patient is a 71-year-old male presents emergency department for evaluation of abnormal labs. Patient cancer patient Dr. Valdovinos's office, patient had normal laboratories drawn today was found to have potassium as high as 6.3. Patient was sent to the ER for evaluation, no complaints - Related Data Home Medications Medication Instructions Recorded Confirmed Atenolol 25 mg PO DAILY #0 08/05/12 01/07/17 Omeprazole/Sodium Bicarbonate 20 mg PO DAILY PRN #0 11/06/15 01/07/17 [Zegerid 20 mg Capsule] Ondansetron [Ondansetron Odt] 8 mg SL TID PRN #0 11/06/15 01/07/17 Nitroglycerin [Nitrostat] 0.4 mg PO Q5MIN PRN #0 05/27/16 01/06/17 Hydromorphone HCl 8 mg PO Q4H PRN #0 08/23/16 01/07/17 Multivit-Min/FA/Lycopen/Lutein 1 tab PO DAILY #0 08/23/16 01/07/17 [Centrum Silver Tablet] Ascorbic Acid [Vitamin C] 500 mg PO WB 12/25/16 01/07/17 Atorvastatin Calcium 40 mg PO HS 12/25/16 01/07/17 Cyanocobalamin (Vitamin B-12) 1,000 mcg PO DAILY 12/25/16 01/07/17 [Vitamin B-12] FentaNYL PATCH [Duragesic Patch] 1 patch TD Q72H 12/25/16 01/07/17 Pregabalin Cap [Lyrica] 100 mg PO DAILY 12/25/16 01/07/17 Cholecalciferol (Vitamin D3) 1 tab PO DAILY 01/07/17 01/07/17 [Vitamin D3] Esomeprazole [NEXIUM 20 mg Capsule] 20 mg PO DAILY 01/07/17 01/07/17 Previous Rx's Medication Instructions Recorded Aspirin *EC* [Ecotrin] 81 mg PO DAILY #30 tab 01/08/17 Clopidogrel [Plavix] 75 mg PO DAILY #30 tab 01/08/17 Allergies Allergy/AdvReac Type Severity Reaction Status Date / Time codeine AdvReac Unknown NAUSEA Verified 01/07/17 09:12 Review of Systems Constitutional: Denies: fever, chills Eyes: Denies: eye discharge ENT: Denies: throat pain, dental pain Cardiovascular: Denies: chest pain, palpitations, dyspnea on exertion Respiratory: Denies: cough, dyspnea, wheezes Gastrointestinal: Denies: abdominal pain, nausea, vomiting Genitourinary: Denies: dysuria, frequency Neurological: Denies: headache, weakness Psychiatric: Denies: anxiety, depression [facility] Patient Stated Medical History Hearing Loss Yes Myocardial Infarction Yes Other Musculoskeletal Yes Chemotherapy Yes: CURRENTLY DOING - Social History Smoking status: Former smoker Physical Exam - General General appearance: alert, in no apparent distress - Eye Eye exam: Present: normal appearance, PERRL - ENT ENT exam: Present: normal oropharynx, mucous membranes moist - Neck Neck exam: Present: full ROM, trachea midline. Absent: tenderness - Chest Chest inspection: Present: symmetric chest wall rise. Absent: tenderness, rash - Respiratory Respiratory exam: Present: normal lung sounds bilaterally. Absent: respiratory distress, wheezes, stridor - Cardiovascular Cardiovascular exam: Present: regular rate, normal rhythm, normal heart sounds - Abdominal Exam Abdominal exam: Present: soft, normal bowel sounds. Absent: distention, tenderness - Back Exam Back exam: Present: normal inspection, full ROM. Absent: tenderness - Skin Skin exam: Present: warm, dry - Neurological Exam Neurological exam: Present: alert, oriented X3 - Psychiatric Psychiatric exam: Present: normal affect, normal mood Course Vital Signs Temperature 98.2 F 12/25/16 10:40 Pulse Rate 68 12/25/16 10:40 Respiratory Rate 20 12/25/16 10:40 Blood Pressure 140/67 H 12/25/16 10:40 Pulse Oximetry 100 12/25/16 10:40 Temperature 97.2 F 12/26/16 14:50 Pulse Rate 83 12/26/16 14:50 Respiratory Rate 16 12/26/16 14:50 Blood Pressure 107/59 12/26/16 14:50 Pulse Oximetry 100 12/26/16 14:50 Medical Decision Making - Differential Diagnosis hyperkalemia - Medical Records Medical records reviewed: Yes: I reviewed the patient's medical records. - Lab Data Lab results reviewed: Yes: I reviewed the patient's lab results. Result diagrams: 12/26/16 12:03 12/26/16 12:03 Lab Results 12/25/16 12/25/16 Range/Units 12:33 13:08 Turbidity < 20 (0-20) Sodium 140 (134-144) MEQ/L Potassium 5.5 H (3.6-5) MEQ/L Chloride 108 H (98-107) MEQ/L Carbon Dioxide 24 (22-30) MEQ/L Anion Gap 8 (5-15) MEQ/L BUN 27.0 H (9-20) MG/DL Creatinine 1.7 H D (0.8-1.5) MG/DL GFR Calculation 40 BUN/Creatinine Ratio 16 (6-26) RATIO Glucose 69 L (75-110) MG/DL Calculated Osmolality 272 (261-280) MOSM/KG Calcium 9.0 (8.4-10.2) MG/DL Magnesium 1.7 (1.6-2.3) MG/DL Icterus Index < 2 (0-7) Specimen Hemolysis < 15 (0-25) Ur Collection Type Urine, clean catch Urine Color Yellow (YELLOW) Urine Clarity Clear Urine pH 6.5 (5.0-8.0) Ur Specific [place] <=1.005 L (1.015-1.025) Urine Protein Negative (NEGATIVE) Urine Glucose (UA) Negative (NEGATIVE) Urine Ketones Negative (NEGATIVE) Urine Occult Blood Trace-intact (NEGATIVE) Urine Nitrate Negative (NEGATIVE) Urine Bilirubin Negative (NEGATIVE) Urine Urobilinogen 0.2 (NORMAL) EU/DL Ur Leukocyte Esterase Negative (NEGATIVE) Urinalysis Comment Microscopic not ind. - EKG Data EKG #1 EKG attestation: Yes: I reviewed and interpreted this EKG. EKG shows normal: sinus rhythm Rate: normal Rhythm: NSR [place]/QRS: normal Interpretation: no acute changes Disposition Clinical Impression: Hyperkalemia Disposition: 02 To [facility] Acute Care Condition: Improved - Seen By: physician
[2016-12-25] MEDS ORDERED: SODIUM POLYSTYRENE SULFONATE 15 GM/60 ML BOTTLE PO ONE (11:12)
--- OUTSIDE RECORDS SUMMARY | 2016-12-25 11:12 | External Medical Summary ---
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 Active status Problem Essential (primary) hypertension I10 Active Problem Hyperlipidemia, unspecified E78.5 Active Problem Coronary atherosclerosis of [place] I25.10 Active coronary artery Assessment Coronary atherosclerosis of [place] I25.10 Active coronary artery Assessment Essential (primary) hypertension I10 Active Problem 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 Active status Problem Old myocardial infarction I25.2 Active Medications Medication Code System Code Instructions Start End Date Status Dosage Date Zinc [facility] 07701-730 50 MG Orally 1 tablet 8-30 Once a day Vitamin C [facility] 34398-388 500 MG Orally 1 tablet 09 bid Slow-Mag [facility] 99948-746 535 (64 Mg) MG 1 tablet 7-60 Orally Twice a day Atenolol [facility] 35837-755 25 MG Orally 1 tablet 7-01 Once a day Prilosec OTC [facility] 36384-335 20 MG Orally 1 tablet 05 Once a day Nitrostat [facility] 26790-205 0.4 MG 1 tablet 8-13 Sublingual prn under the chest pain tongue and allow to dissolve as needed Procedures Procedure Coding System Code Date Office Visit, Est Pt., Level 3 CPT-4 23207 Dec 21, 2015 ELECTROCARDIOGRAM, COMPLETE CPT-4 83187 Dec 21, 2015 Vital Signs Date/Time: Dec 21, 2015 BMI 19.39 Index Weight 143 lbs Height 6 ft in Cardiac Monitoring Heart Rate 72 /min Oximetry 99% % Blood Pressure Diastolic 70 sitting 124 mm Hg Blood Pressure Systolic sitting 130 mm Hg Results No Known Results Summary Purpose [employer] Submission
--- OUTSIDE RECORDS SUMMARY | 2016-12-25 11:12 | External Medical Summary ---
:1945 Author Organization [employer] Care Team Providers Name Role Phone Eric Mccarty Provider Role Unavailable Allergies No Known Allergies Problems Problem Type Condition ICD-9 Code Onset Dates Condition Status Problem Hypertension 401.9 Active Problem Dyslipidemia 272.4 Active Problem Coronary Artery Disease 414.01 Active Problem S/P CABG V45.81 Active Problem Old myocardial infarction 412 Active Medications Medication Code System Code Instructions Start Date End Date Status Dosage Nitrostat [facility] 99445-772 0.4 MG Sublingual 1 tablet 8-13 prn chest pain under the tongue and allow to dissolve as needed Atenolol [facility] 74897-425 25 MG Orally Once 1 tablet 7-01 a day Results No Known Results Summary Purpose Medical Referral [employer] ([facility]) Submission
--- NOTE | 2016-12-25 15:44 | History & Physical Report ---
<Obdulia Hardin - Last Filed: 12/25/16 15:40> History of Present Illness Date: 12/25/16 Chief complaint: Elevated potassium HPI: Mr. Johnson is a pleasant 71-year-old male with stage IV colon cancer and chronic kidney disease stage III. He gets weekly infusions of 5-FU, which he has been getting for the last year or so. His oncologist is Dr. Valdovinos. His last infusion was about 7 days ago. He states that typically after 5-FU. He feels very weak and fatigued, and doesn't feel like eating or drinking anything. He notes that his oral intake had decreased for at least a couple days. He also states that he has had increased stool output. A few days ago from his colostomy. Both he and his admit to occasional confusion, which has been ongoing for quite a while. He has had sinus drainage and a bit of a cough, but denies any fevers or chills. He denies any falling near syncope or syncopal events. He had some nausea earlier this morning, but that has resolved. He denies any abdominal pain or cramping. No vomiting. He denies any urinary symptoms. He has right foot pain and paresthesias, and was recently diagnosed with peripheral artery disease and is undergoing a workup by Dr. Villegas. Kamari had his lab checked on 12/24/16, and his potassium had increased to 5.4, and creatinine was up to 1.8. His baseline is about 1.2 or 1.3. The next morning, he went in for his infusion as planned, but labs were worse. Creatinine had increased to 2.0 and potassium was 6.3. His infusion was canceled , and he presented to the emergency department. He received calcium gluconate, insulin and dextrose as well as a liter of fluids. He also received Kayexalate 15 g. EKG did not show peaked T waves or conduction abnormalities. On recheck, his potassium improved to 5.5 and creatinine was down to 1.7. Given his acute kidney injury and hyperkalemia, he was admitted to observation status for further treatment. Review of Systems Comprehensive ROS: completed and no additional positive findings except those as stated - Constitutional Constitutional: Present: as per HPI - EENMT Eyes: Present: blurry vision (occasionally with chemotherapy) Nose: Present: as per HPI Mouth/Throat: Present: as per HPI - Cardiovascular Cardiovascular: Absent: chest pain Vascular: Present: see HPI - Respiratory Respiratory: Present: cough - Gastrointestinal Gastrointestinal: Present: as per HPI - Musculoskeletal Musculoskeletal: Present: as per HPI - Neurological Neurological: Present: as per HPI - Endocrine Endocrine: Present: as per HPI - Allergic/Immunologic Allergic/Immunologic: Present: seasonal rhinorrhea [facility] Stage IV colon cancer. Coronary artery disease. Chronic kidney disease stage III. Hypertension GERD Anemia of chronic disease Surgical History: 1992 ORIF right heel/ankle fracture in [place]. 1995 left /sigmoid colectomy for colon cancer in [place]. 2001 Lap [facility]agan in [place], [place]. 2002 placement or Port-A -Cath with removal in 2008. 06/2002 heart cath then 5 vessel CABG. 2002 right hemicolectomy for a separate colon cancer Dr. Regla Best. 10/2011 total colectomy with ileoractal anastomosis, diverting loop ileostomy for precancerous tumors unable to be resected endoscopically, Dr. Fadi Laguna [facility] in [place]. 11/2011 EGD found 2 duodenal ulcers, esophagitis, antral gastritis. Flexible proctoscoy/ileoscopy found anastomotic stricture with anastomotic ulcer at 12 cm from anal verge. 2011 Ileostomy reversal with segemental small bowel resection Dr. Laguna at [facility]. 10/27/12 delayed primary closure of postop midline wound infection , Dr. Laguna. 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 Paula. 04/01/13 Push endoscopy and endoscopic ultrasound for abd bloating, diarrhea and pancreatitis, no pathologic diagnosis, no pancreatitis, Dr. Garzon. 06/09. No yesterday early Friday and I felt usually at least one bowel inferior to give a consistent every week D with biospy showed focal intestinal metaplasia, small hiatal. hernia, Dr. Garzon. 06/07/2014 placement of Port A Cath, Dr. Paula Family History: Paternal grandfather and aunt with colon cancer Father - drowned - Social History Smoking status: Former smoker packs per day: 1 Packs-years: 32 Substance use type: does not use Alcohol intake frequency: does not drink Household members: spouse Current occupational status: retired Medications Home Medications Medication Instructions Recorded Confirmed Type Atenolol 25 mg PO DAILY #0 08/05/12 12/25/16 History Omeprazole/Sodium Bicarbonate 20 mg PO DAILY PRN #0 11/06/15 12/25/16 History [Zegerid 20 mg Capsule] Ondansetron [Ondansetron Odt] 8 mg SL TID PRN #0 11/06/15 12/25/16 History Nitroglycerin [Nitrostat] 0.4 mg PO Q5MIN PRN #0 05/27/16 12/25/16 History Hydromorphone HCl 8 mg PO Q4H PRN #0 08/23/16 12/25/16 History Multivit-Min/FA/Lycopen/Lutein 1 tab PO DAILY #0 08/23/16 12/25/16 History [Centrum Silver Tablet] Ascorbic Acid [Vitamin C] 500 mg PO WB 12/25/16 12/25/16 History Atorvastatin Calcium [Atorvastatin 40 mg PO HS 12/25/16 12/25/16 History Calcium] Cyanocobalamin (Vitamin B-12) 1,000 mcg PO DAILY 12/25/16 12/25/16 History [Vitamin B-12] Ergocalciferol (Vitamin D2) 50,000 unit PO WEEKLY 12/25/16 12/25/16 History [Vitamin D2] FentaNYL PATCH [Duragesic Patch] 1 patch TD Q72H 12/25/16 12/25/16 History Pregabalin Cap [Lyrica] 100 mg PO DAILY 12/25/16 12/25/16 History Allergies Allergy/AdvReac Type Severity Reaction Status Date / Time codeine AdvReac Unknown NAUSEA Verified 12/25/16 10:57 Exam Vital Signs: Temperature 96.2 F L 12/25/16 15:17 Pulse Rate 78 12/25/16 15:17 Respiratory Rate 16 12/25/16 15:17 Blood Pressure 136/63 12/25/16 15:17 Pulse Oximetry 99 12/25/16 15:17 Telemetry Rhythm: Sinus Rhythm - Constitutional Present: no acute distress, well nourished, well developed - Routine HEENT Exam Head: Present: normocephalic Eye: Present: PERRL. Absent: conjunctival icterus, scleral injection ENT: Present: mucous membranes moist - Routine Neck Exam Present: supple - Routine Respiratory Exam Present: CTA bilaterally - Routine Cardiovascular Exam Present: RRR, S1, S2, murmur (2/6 systolic) - Routine Abdominal Exam Present: soft, normoactive bowel sounds (slightly hyperactive), non distended, non tender - Routine Extremities Exam Present: edema (trace b/l) - Routine Back/Spine/Pelvis Exam Back/Spine: Absent: CVA tenderness - Routine Skin Exam Present: intact, dry, pallor, warm - Routine Neurological Exam Present: alert, oriented X3, CN II-XII intact, normal speech - Routine Psychiatric Exam Present: normal affect, normal thought process, cooperative Results - Labs CBC & Chem 7: 12/25/16 13:08 Assessment and Plan (1) Hyperkalemia Current visit: Yes Status: Acute Resuscitation Status: Full Code Assessment and Plan: ASSESSMENT Hyperkalemia (peak 6.3) DIXIE (cr 2.0; baseline 1.2-1.3) Stage IV colon cancer. Coronary artery disease. Chronic kidney disease stage III. Hypertension. GERD. Anemia of chronic disease. PLAN Admit to observation status, monitor rhythm on telemetry. Hyperkalemia - received IVF bolus, insulin, dextrose, and Kayexelate in the ED with good response. Continue with NS at 80 mL/hr. Repeat BMP in am. DIXIE - increase of 0.5 from baseline. IVF. Meds reviewed - not on any nephrotoxic agents. Resume home medications, including antihypertensives and pain meds. Zofran PRN N/V. Advanced directives - , Mary Anne, is DPOA. Code status: Full code. PCP: Dr. Mera. Discussed lab results and treatment plan with Dr. Garber, and with Dr. Roro Cottrell's office. Sepsis Assessment - Evaluation Sepsis screening result: No Definite Risk Hospital Course Summary Disclaimer: The visit summary below is not to be considered part of the above Progress Note. Hospital Course: 12/25/16 ASSESSMENT Hyperkalemia (peak 6.3) DIXIE (cr 2.0; baseline 1.2-1.3) Stage IV colon cancer. Coronary artery disease. Chronic kidney disease stage III. Hypertension. GERD. Anemia of chronic disease. PLAN Admit to observation status, monitor rhythm on telemetry. Hyperkalemia - received IVF bolus, insulin, dextrose, and Kayexelate in the ED with good response. Continue with NS at 80 mL/hr. Repeat BMP in am. DIXIE - increase of 0.5 from baseline. IVF. Meds reviewed - not on any nephrotoxic agents. Resume home medications, including antihypertensives and pain meds. Zofran PRN N/V. Advanced directives - , Mary Anne, is DPOA. Code status: Full code. PCP: Dr. Mera. Discussed lab results and treatment plan with Dr. Garber, and with Dr. Roro Cottrell's office. <Kishor Garber - Last Filed: 12/25/16 18:31> History of Present Illness Date: 12/25/16 [facility] Patient Stated Medical History Hearing Loss Yes Coronary Artery Disease Yes Heart Murmur Yes Hypertension Yes Myocardial Infarction Yes Anemia Yes: HX Osteoarthritis Yes Other Musculoskeletal Yes Clostridium Difficile Yes: HX Blood Transfusions Yes: HX Chemotherapy Yes: CURRENTLY DOING Exam Vital Signs: Temperature 96.2 F L 12/25/16 15:17 Pulse Rate 74 12/25/16 16:59 Respiratory Rate 16 12/25/16 15:17 Blood Pressure 136/63 12/25/16 15:17 Pulse Oximetry 99 12/25/16 15:17 Height/Weight/BMI: Height 5 ft 10 in Weight 73.4 kg Body Mass Index 23.2 Results - Labs CBC & Chem 7: 12/25/16 13:08 Assessment and Plan (1) Hyperkalemia Current visit: Yes Status: Acute Assessment and Plan: Above pt was seen and examined with Obdulia in the ED. Pt is 71 YO and has had several episodes like this after he has chemo - he will loose his appetite gets dehydrated and then will have elevated K. Does not report muscle fatigue or syncope. EKG - TN borderline high at 210 msec, otherwise normal. NC/AT - decreased temporal muscle mass Neck - supple Chest clear RRR Abd - soft NT/ND Has a colostomy - no increased output Ext - no edema. Labs - reviewed. A/P 1) Hyperkalemia, improved was as high as 6.3 received Calcium gluconate, Insulin + D 50. - Hydrate observe overnight - Recheck K at 22:00. Check also CPK level at 22:00 - Telemetry 2) H.O Colon cancer CODE STATUS - FULL CODE. - Time spent with patient 25 - 35 minutes Hospital Course Summary Disclaimer: The visit summary below is not to be considered part of the above Progress Note. Addendum entered and electronically signed by Obdulia Hardin, VP [employer] 12/25/16 16: 37: Please add PAD to medical history.
[2016-12-25] MEDS ORDERED: OMEPRAZOLE 20 MG CAPSULE PO PRN (16:23)
[2016-12-25] MEDS ORDERED: ONDANSETRON ODT 4 MG TABLET PO PRN (16:23)
[2016-12-25] MEDS ORDERED: NITROGLYCERIN 0.4 MG SUBLINGUAL TABLET SL PRN (16:23)
[2016-12-25] MEDS ORDERED: ONDANSETRON 4 MG/2 ML INJECTION IVP PRN (16:33)
[2016-12-25] MEDS: NS 1,000 ML IV SCH (16:58)
[2016-12-25] MEDS: HYDROMORPHONE 2 MG TABLET PO PRN (19:34)
[2016-12-25] MEDS ORDERED: ATORVASTATIN 40 MG TABLET PO SCH (21:00)
[2016-12-25] MEDS ORDERED: SODIUM POLYSTYRENE SULFONATE 15 GM/60 ML BOTTLE PO STA (22:25)
[2016-12-26] MEDS: SALINE FLUSH 10ml SYRINGE IVF PRN ×4 (04:01→16:13)
[2016-12-26] MEDS: NS 1,000 ML IV SCH (05:44)
[2016-12-26] MEDS: HYDROMORPHONE 2 MG TABLET PO PRN ×2 (06:09→13:14)
[2016-12-26] MEDS ORDERED: ASCORBIC ACID 500 MG TABLET PO SCH (08:00)
[2016-12-26 08:36] VITALS: BMI 23.1
[2016-12-26] MEDS ORDERED: MULTI-VIT + MINERAL (Opti-gen) TABLET PO SCH (09:00)
[2016-12-26] MEDS ORDERED: SODIUM POLYSTYRENE SULFONATE 15 GM/60 ML BOTTLE PO SCH (09:00)
[2016-12-26] MEDS ORDERED: PREGABALIN 100 MG CAPSULE PO SCH (09:00)
[2016-12-26] MEDS ORDERED: ATENOLOL 25 MG TABLET PO SCH (09:00)
[2016-12-26] MEDS ORDERED: CYANOCOBALAMIN (B-12) 500mcg TABLET PO SCH (09:00)
[2016-12-26 09:03] VITALS: RESP 16
[2016-12-26] MEDS ORDERED: FUROSEMIDE 40 MG/4 ML INJECTION IVP ONE (09:38)
[2016-12-26] MEDS ORDERED: NS 1,000 ML IV SCH (09:45)
[2016-12-26 14:52] VITALS: BP 107/59; PULSE 83; TEMP 97.2; O2SAT 100
--- NOTE | 2016-12-26 15:17 | XRay Report ---
INDICATION: Leukocytosis PROCEDURE: CHEST 2-VIEWS UPRIGHT (PA & LAT) Encounter: Initial COMPARISON: CT chest dated September 23, 2016 and chest x-ray dated August 23, 2016 FINDINGS: Minimal scarring in the lingula. Lungs are otherwise clear. No consolidative pneumonia, pleural effusion or pneumothorax. Prior CABG. Right IJ central venous port catheter. Heart size and mediastinal contours are stable. Impression: Stable appearance of the chest without acute cardiopulmonary disease. .
--- NOTE | 2016-12-26 15:26 | Progress Note ---
Subjective: F/U: Hyperkalemia, DIXIE Doing well this afternoon. Stools increased with Kayexalate, but starting to slow down. Did have increased urine output after Lasix. Not feels bad at all. Breathing well. No chest pain. Eating well-denies ab pain or nausea. Not feeling dizzy or unsteady when up. Objective Vital signs: Temperature 97.2 F 12/26/16 14:50 Pulse Rate 83 12/26/16 14:50 Respiratory Rate 16 12/26/16 14:50 Blood Pressure 107/59 12/26/16 14:50 Pulse Oximetry 100 12/26/16 14:50 Height/Weight/BMI: Height 1.78 m Weight 73.028 kg Body Mass Index 23.1 - Constitutional Present: no acute distress, well nourished, well developed, cooperative - Routine HEENT Exam Head: Present: normocephalic, atraumatic Eye: Present: EOMI, PERRL ENT: Present: mucous membranes moist - Routine Respiratory Exam Present: CTA bilaterally. Absent: rales, respiratory distress, rhonchi, wheezes , crackles - Routine Cardiovascular Exam Present: RRR - Routine Abdominal Exam Present: soft, normoactive bowel sounds, non distended, non tender - Routine Extremities Exam Present: no edema, pulses intact. Absent: cyanosis, clubbing - Routine Skin Exam Present: intact, dry, warm - Routine Neurological Exam Present: alert, oriented X3, CN II-XII intact, moving all extremities, vision grossly intact, hearing grossly intact. Absent: motor deficit - Routine Psychiatric Exam Present: normal affect, normal thought process, cooperative, good insight, good judgment Results - Labs CBC & Chem 7: 12/26/16 12:03 12/26/16 12:03 Assessment and Plan (1) Hyperkalemia Current visit: Yes Status: Acute DVT Prophylaxis: SCD's Resuscitation Status: Full Code Assessment and Plan: ASSESSMENT Hyperkalemia (peak 6.3) DIXIE (cr 2.0; baseline 1.2-1.3) Stage IV colon cancer. Coronary artery disease. Chronic kidney disease stage III. Hypertension. GERD. Anemia of chronic disease. PLAN Potassium with increase overnight, addition doses of Kayexalate given. IVF increased to 125cc/hr this am. IV Lasix given this afternoon. Recheck BMP at noon showed good improvement. Potassium decreased to 4.7 and creatinine decreased to 1.5. Patient does report using a lot of 'Salt substitute' on his foods. Likely this increase of potassium intake in diet is what caused hyperkalemia. Advised to avoid salt substitute; patient voices understanding. As medically improved, will discharge to home. F/U with Dr Mera in 1 week; recommend rechecking BMP at that time. See orders for details. - Time spent with patient discharge greater than 30 minutes Hospital Course Summary Disclaimer: The visit summary below is not to be considered part of the above Progress Note. Hospital Course: 12/25/16 OBS ASSESSMENT Hyperkalemia (peak 6.3) DIXIE (cr 2.0; baseline 1.2-1.3) Stage IV colon cancer. Coronary artery disease. Chronic kidney disease stage III. Hypertension. GERD. Anemia of chronic disease. PLAN Admit to observation status, monitor rhythm on telemetry. Hyperkalemia - received IVF bolus, insulin, dextrose, and Kayexelate in the ED with good response. Continue with NS at 80 mL/hr. Repeat BMP in am. DIXIE - increase of 0.5 from baseline. IVF. Meds reviewed - not on any nephrotoxic agents. Resume home medications, including antihypertensives and pain meds. Zofran PRN N/V. Advanced directives - , Mary Anne, is DPOA. Code status: Full code. PCP: Dr. Mera. Discussed lab results and treatment plan with Dr. Garber, and with Dr. Roro Cottrell's office. 12/26/16 Potassium with increase overnight, addition doses of Kayexalate given. IVF increased to 125cc/hr this am. IV Lasix given this afternoon. Recheck BMP at noon showed good improvement. Potassium decreased to 4.7 and creatinine decreased to 1.5. Patient does report using a lot of 'Salt substitute' on his foods. Likely this increase of potassium intake in diet is what caused hyperkalemia. Advised to avoid salt substitute; patient voices understanding. As medically improved, will discharge to home. F/U with Dr Mera in 1 week; recommend rechecking BMP at that time. See orders for details.
--- NOTE | 2016-12-26 15:36 | Discharge Summary ---
Discharge Information Date of admission: 12/25/16 15:00 Anticipated date of discharge: 12/26/16 Attending Physician: Kishor Garber MD Primary care physician: Jake Mera MD - Discharge Diagnosis (1) Hyperkalemia Status: Acute Discharge Diagnosis: Discharge diagnosis Hyperkalemia (peak 6.3) - POA Associated conditions and complications DIXIE (cr 2.0; baseline 1.2-1.3) Stage IV colon cancer. Coronary artery disease. Chronic kidney disease stage III. Hypertension. GERD. Anemia of chronic disease. - Laboratory Labs: Admit Lab 12/26/16 04:00 WBC 9.7 D Hgb 8.9 L D Hct 28.1 L D MCV 106.8 H Plt Count 196 Neutrophils % (Manual) 85.0 H Band Neutrophils % 3.0 Admit Lab 12/25/16 13:08 Sodium 140 Potassium 5.5 H Chloride 108 H Carbon Dioxide 24 BUN 27.0 H Creatinine 1.7 H D GFR Calculation 40 Glucose 69 L Calculated Osmolality 272 Magnesium 1.7 12/26/16 12:03 12/26/16 12:03 - Radiology Radiology: Date of Exam: PROCEDURE: CHEST 2-VIEWS UPRIGHT (PA & LAT) FINDINGS: Minimal scarring in the lingula. Lungs are otherwise clear. No consolidative pneumonia, pleural effusion or pneumothorax. Prior CABG. Right IJ central venous port catheter. Heart size and mediastinal contours are stable. Impression: Stable appearance of the chest without acute cardiopulmonary disease. History of Present Illness HPI: Mr. Johnson is a pleasant 71-year-old male with stage IV colon cancer and chronic kidney disease stage III. He gets weekly infusions of 5-FU, which he has been getting for the last year or so. His oncologist is Dr. Valdovinos. His last infusion was about 7 days ago. He states that typically after 5-FU. He feels very weak and fatigued, and doesn't feel like eating or drinking anything. He notes that his oral intake had decreased for at least a couple days. He also states that he has had increased stool output. A few days ago from his colostomy. Both he and his admit to occasional confusion, which has been ongoing for quite a while. He has had sinus drainage and a bit of a cough, but denies any fevers or chills. He denies any falling near syncope or syncopal events. He had some nausea earlier this morning, but that has resolved. He denies any abdominal pain or cramping. No vomiting. He denies any urinary symptoms. He has right foot pain and paresthesias, and was recently diagnosed with peripheral artery disease and is undergoing a workup by Dr. Villegas. Kamari had his lab checked on 12/24/16, and his potassium had increased to 5.4, and creatinine was up to 1.8. His baseline is about 1.2 or 1.3. The next morning, he went in for his infusion as planned, but labs were worse. Creatinine had increased to 2.0 and potassium was 6.3. His infusion was canceled , and he presented to the emergency department. He received calcium gluconate, insulin and dextrose as well as a liter of fluids. He also received Kayexalate 15 g. EKG did not show peaked T waves or conduction abnormalities. On recheck, his potassium improved to 5.5 and creatinine was down to 1.7. Given his acute kidney injury and hyperkalemia, he was admitted to observation status for further treatment. For complete details of the H&P refer to that document. Objective Vital signs: Temperature 97.2 F 12/26/16 14:50 Pulse Rate 83 12/26/16 14:50 Respiratory Rate 16 12/26/16 14:50 Blood Pressure 107/59 12/26/16 14:50 Pulse Oximetry 100 12/26/16 14:50 Height/Weight/BMI: Height 1.78 m Weight 73.028 kg Body Mass Index 23.1 Hospital Course This is a general summary of the patient's hospital course. For more details refer to the complete medical record. Hospital course: 12/25/16 OBS ASSESSMENT Hyperkalemia (peak 6.3) DIXIE (cr 2.0; baseline 1.2-1.3) Stage IV colon cancer. Coronary artery disease. Chronic kidney disease stage III. Hypertension. GERD. Anemia of chronic disease. PLAN Admit to observation status, monitor rhythm on telemetry. Hyperkalemia - received IVF bolus, insulin, dextrose, and Kayexelate in the ED with good response. Continue with NS at 80 mL/hr. Repeat BMP in am. DIXIE - increase of 0.5 from baseline. IVF. Meds reviewed - not on any nephrotoxic agents. Resume home medications, including antihypertensives and pain meds. Zofran PRN N/V. Advanced directives - , Mary Anne, is DPOA. Code status: Full code. PCP: Dr. Mera. Discussed lab results and treatment plan with Dr. Garber, and with Dr. Roro Cottrell's office. 12/26/16 Potassium with increase overnight, addition doses of Kayexalate given. IVF increased to 125cc/hr this am. IV Lasix given this afternoon. Recheck BMP at noon showed good improvement. Potassium decreased to 4.7 and creatinine decreased to 1.5. Patient does report using a lot of 'Salt substitute' on his foods. Likely this increase of potassium intake in diet is what caused hyperkalemia. Advised to avoid salt substitute; patient voices understanding. As medically improved, will discharge to home. F/U with Dr Mera in 1 week; recommend rechecking BMP at that time. See orders for details. Time spent with patient: discharge greater than 30 minutes DVT Prophylaxis: SCD's Discharge Plan - Med Rec/Dispo Referrals/Follow Up: Jake Mera MD [Family Provider] - 1 Week (Hospital follow up for hyperkalemia - recommend recheck BMP ) Prescriptions: Continue Atenolol 25 mg PO DAILY #0 Multivit-Min/FA/Lycopen/Lutein [Centrum Silver Tablet] 1 tab PO DAILY #0 Cyanocobalamin (Vitamin B-12) [Vitamin B-12] 1,000 mcg PO DAILY Pregabalin Cap [Lyrica] 100 mg PO DAILY FentaNYL PATCH [Duragesic Patch] 1 patch TD Q72H Ergocalciferol (Vitamin D2) [Vitamin D2] 50,000 unit PO WEEKLY Ondansetron [Ondansetron Odt] 8 mg SL TID PRN #0 PRN Reason: NAUSEA Omeprazole/Sodium Bicarbonate [Zegerid 20 mg Capsule] 20 mg PO DAILY PRN #0 PRN Reason: Prn Orders Nitroglycerin [Nitrostat] 0.4 mg PO Q5MIN PRN #0 PRN Reason: CHEST PAIN Hydromorphone HCl 8 mg PO Q4H PRN #0 PRN Reason: PAIN Ascorbic Acid [Vitamin C] 500 mg PO WB Atorvastatin Calcium 40 mg PO HS Discharge Instructions/Outpatient Orders: Final Provider Discharge Instructions Location: Determined By Patient - Disposition 01 Discharged Home, Self-Care - Attestation Attestation Narrative: 12/26/16 I have independently interviewed and examined patient prior to discharge. See my progress note from today for details. Medically stable for discharge to home.
[2017-01-01] MEDS ORDERED: ERGOCALCIFEROL 50,000 UNIT CAPSULE PO SCH (09:00)
== END 2016-12-26 16:35 | disposition home or self-care (01) ==
LOC: ED 10:30 → MED 10:30
PROVIDERS: ADMIT Internal Medicine; ATTEND Internal Medicine

== ENCOUNTER 2017-02-27 10:12 | Inpatient (IN) ==
[2017-02-27] MEDS ORDERED: ONDANSETRON 4 MG/2 ML INJECTION IVP ONE (10:39)
[2017-02-27] MEDS ORDERED: NS 1,000 ML IV ONE (10:39)
[2017-02-27] MEDS: SALINE FLUSH 10ml SYRINGE IVF PRN ×2 (11:05→13:20)
[2017-02-27] MEDS ORDERED: IODIXANOL 320mg/ml 100ml INJECTION IV ONE (11:21)
[2017-02-27] MEDS ORDERED: NS 100 ML ONE (11:21)
[2017-02-27] MEDS ORDERED: SALINE FLUSH 10ml SYRINGE ONE (11:21)
[2017-02-27] MEDS ORDERED: PIPERACILLIN/TAZOBACTAM 3.375 GM in NS 100 ML IV ONE (12:58)
[2017-02-27] MEDS ORDERED: FAMOTIDINE PB 20 MG/50 ML BAG IV SCH (13:15)
[2017-02-27] MEDS: NS 1,000 ML IV SCH ×2 (13:28→20:51)
--- NOTE | 2017-02-27 13:48 | Emergency Department Report ---
General Adult HPI - General Chief complaint: Medical Emergency Stated complaint: poss obstruction Time Seen by Provider: 02/27/17 10:38 - History of Present Illness HPI narrative: 71-year-old gentleman presents with abdominal distention and vomiting. He has a history of colon cancer, which he has battled intermittently over greater than 20 years. He noticed that his ostomy bag quit draining for 24 hours. This morning he got a small amount of drainage but not much. He has had increased burping and heartburn as well as vomiting bile over the last 2-3 days. No fever or chills. - Related Data Home Medications Medication Instructions Recorded Confirmed Atenolol 25 mg PO DAILY #0 08/05/12 02/27/17 Ondansetron [Ondansetron Odt] 8 mg SL TID PRN #0 11/06/15 02/27/17 Nitroglycerin [Nitrostat] 0.4 mg PO Q5MIN PRN #0 05/27/16 02/27/17 Multivit-Min/FA/Lycopen/Lutein 1 tab PO DAILY #0 08/23/16 02/27/17 [Centrum Silver Tablet] Ascorbic Acid [Vitamin C] 500 mg PO WB 12/25/16 02/27/17 Atorvastatin Calcium 40 mg PO HS 12/25/16 02/27/17 Cyanocobalamin (Vitamin B-12) 1,000 mcg PO DAILY 12/25/16 02/27/17 [Vitamin B-12] FentaNYL PATCH [Duragesic Patch] 1 patch TD Q72H 12/25/16 02/27/17 Pregabalin Cap [Lyrica] 100 mg PO DAILY 12/25/16 02/27/17 Cholecalciferol (Vitamin D3) 1 tab PO DAILY 01/07/17 02/27/17 [Vitamin D3] Esomeprazole [NEXIUM 20 mg Capsule] 20 mg PO DAILY 01/07/17 02/27/17 Previous Rx's Medication Instructions Recorded Aspirin *EC* [Ecotrin] 81 mg PO DAILY #30 tab 01/08/17 Clopidogrel [Plavix] 75 mg PO DAILY #30 tab 01/08/17 Allergies Allergy/AdvReac Type Severity Reaction Status Date / Time codeine AdvReac Unknown NAUSEA Verified 02/27/17 10:31 PFSH Patient Stated Medical History Hearing Loss Yes Coronary Artery Disease Yes Heart Murmur Yes Hypertension Yes Myocardial Infarction Yes Gastroesophageal Reflux Yes Disease Obstructive Bowel Yes Anemia Yes: HX Osteoarthritis Yes Other Musculoskeletal Yes Clostridium Difficile Yes: HX Blood Transfusions Yes: HX Chemotherapy Yes: LAST TX 12/31/16 Clinic Medical History Hyperkalemia (Acute Medical) Surgical History: 1992 ORIF right heel/ankle fracture in [place]. 1995 left /sigmoid colectomy for colon cancer in [place]. 2001 Lap [facility] in [place], [place]. 2002 placement or Port-A -Cath with removal in 2008. 06/2002 heart cath then 5 vessel CABG. 2002 right hemicolectomy for a separate colon cancer Dr. Regla Best. 10/2011 total colectomy with ileoractal anastomosis, diverting loop ileostomy for precancerous tumors unable to be resected endoscopically, Dr. Fadi Laguna [facility] 11/2011 EGD found 2 duodenal ulcers, esophagitis, antral gastritis. Flexible proctoscoy/ileoscopy found anastomotic stricture with anastomotic ulcer at 12 cm from anal verge. 2011 Ileostomy reversal with segemental small bowel resection Dr. Laguna at [facility]. 10/27/12 delayed primary closure of postop midline wound infection , Dr. Laguna. 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 Paula. 04/01/13 Push endoscopy and endoscopic ultrasound for abd bloating, diarrhea and pancreatitis, no pathologic diagnosis, no pancreatitis, Dr. Garzon. 06/09. No yesterday early Friday and I felt usually at least one bowel inferior to give a consistent every week D with biospy showed focal intestinal metaplasia, small hiatal. hernia, Dr. Garzon. 06/07/2014 placement of Port A Cath, Dr. Paula - Social History Smoking status: Former smoker Course Vital Signs Temperature 97.9 F 02/27/17 10:15 Pulse Rate 100 02/27/17 10:15 Respiratory Rate 18 02/27/17 10:15 Blood Pressure 113/69 02/27/17 10:15 Pulse Oximetry 99 02/27/17 10:15 Temperature 97.9 F 02/27/17 10:15 Pulse Rate 91 02/27/17 11:11 Respiratory Rate 18 02/27/17 10:15 Blood Pressure 100/66 02/27/17 11:00 Pulse Oximetry 98 02/27/17 11:11 Medical Decision Making - [facility] Narrative Medical decision making narrative: White count elevated at 16,000, creatinine is 2.0 with potassium of 5.2. CT abdomen and pelvis shows likely complete bowel obstruction. Patient to be admitted with IV fluids, NG tube and consult to Dr. Benson. Zosyn 3.375 mg given IV prior to leaving ED. Patient was given 1 L normal saline while in the emergency department and 150 mL normal saline after that. - Lab Data Result diagrams: 02/27/17 10:59 02/27/17 10:59 Lab Results 02/27/17 02/27/17 Range/Units 10:59 10:59 WBC 16.0 H (4.5-11.0) T/MM3 RBC 3.82 L (4.50-5.90) M/MM3 Hgb 12.3 L (13.5-17.5) GM/DL Hct 39.8 L (41-53) % MCV 104.2 H (80-100) UM3 MCH 32.2 (26-34) UUG MCHC 30.9 L (31-37) GM/DL RDW Std Deviation 62.5 H (36.9-50.2) FL Plt Count 338 (130-400) T/MM3 MPV 8.6 L (9.4-12.4) UM3 Immature Gran % (Auto) Not performed Neut % (Auto) Not performed Lymph % (Auto) Not performed [place] % (Auto) Not performed Eos % (Auto) Not performed Baso % (Auto) Not performed Neut # (Auto) Not performed Lymph # (Auto) Not performed [place] # (Auto) Not performed Eos # (Auto) Not performed Baso # (Auto) Not performed Abs Immat Gran (auto) Not performed Neutrophils % (Manual) 86.0 H (33-66) % Band Neutrophils % 6.0 (0-6) % Lymphocytes % (Manual) 3.0 L (23-45) % Monocytes % (Manual) 5.0 (0-9.0) % Neutrophils # (Manual) 13.8 H (1.8-7.7) T/MM3 Band Neutrophils # 1.0 T/MM3 Lymphocytes # (Manual) 0.5 L (1-4.8) T/MM3 Monocytes # (Manual) 0.8 (0-0.8) T/MM3 Nucleated RBCs 2 Poikilocytosis 1+ Anisocytosis 2+ Macrocytosis 1+ RBC Morph Comment Abnormal Turbidity < 20 (0-20) Sodium 142 (134-144) MEQ/L Potassium 5.2 H (3.6-5) MEQ/L Chloride 112 H (98-107) MEQ/L Carbon Dioxide 17 L (22-30) MEQ/L Anion Gap 13 (5-15) MEQ/L BUN 37.0 H D (9-20) MG/DL Creatinine 2.0 H (0.8-1.5) MG/DL GFR Calculation 33 BUN/Creatinine Ratio 19 (6-26) RATIO Glucose 173 H (75-110) MG/DL Calculated Osmolality 286 H (261-280) MOSM/KG Calcium 9.4 (8.4-10.2) MG/DL Total Bilirubin 1.20 (0.20-1.30) MG/DL Icterus Index < 2 (0-7) AST 35 (17-59) U/L ALT 43 (21-72) U/L Alkaline Phosphatase 134 H (38-126) U/L Troponin I 0.014 (0-0.12) ng/ml B-Natriuretic Peptide 626 H (0-175) pg/mL Total Protein 7.6 (6.3-8.2) G/DL Albumin 4.2 (3.5-5.0) G/DL Globulin 3.4 (2.4-3.6) G/DL Albumin/Globulin Ratio 1.2 (1.1-2.2) RATIO Lipase 34 (23-300) U/L Specimen Hemolysis < 15 (0-25) Disposition Clinical Impression: Hyperkalemia, Small bowel obstruction, Colon cancer Condition: Stable Prescriptions: No Action Atenolol 25 mg PO DAILY #0 Multivit-Min/FA/Lycopen/Lutein [Centrum Silver Tablet] 1 tab PO DAILY #0 Cyanocobalamin (Vitamin B-12) [Vitamin B-12] 1,000 mcg PO DAILY Pregabalin Cap [Lyrica] 100 mg PO DAILY FentaNYL PATCH [Duragesic Patch] 1 patch TD Q72H Cholecalciferol (Vitamin D3) [Vitamin D3] 1 tab PO DAILY Aspirin *EC* [Ecotrin] 81 mg PO DAILY #30 tab Ondansetron [Ondansetron Odt] 8 mg SL TID PRN #0 PRN Reason: NAUSEA Nitroglycerin [Nitrostat] 0.4 mg PO Q5MIN PRN #0 PRN Reason: CHEST PAIN Ascorbic Acid [Vitamin C] 500 mg PO WB Atorvastatin Calcium 40 mg PO HS Esomeprazole [NEXIUM 20 mg Capsule] 20 mg PO DAILY Clopidogrel [Plavix] 75 mg PO DAILY #30 tab Referrals: Jake Mera MD [Family Provider] - Time of Disposition: 13:48 - Seen By: physician
[2017-02-27] MEDS ORDERED: ONDANSETRON 4 MG/2 ML INJECTION IVP PRN ×2 (13:55→14:47)
[2017-02-27 14:05] VITALS: BMI 21.5
[2017-02-27] MEDS: PIPERACILLIN/TAZOBACTAM 3.375 GM in NS 100 ML IV SCH ×2 (14:09→20:52)
--- NOTE | 2017-02-27 14:47 | History & Physical Report ---
History of Present Illness Date: 02/27/17 Chief complaint: nausea, weakness HPI: Kamari Johnson is a 71 y/o male with a hx of stage IV colon cancer. He's underwent bowel resection and creation of ileostomy. He receives weekly infusions of 5-FU plus "some add-ons" per Dr. Valdovinos. He states that on he didn't have much output in his ileostomy. He c/o nausea and vomiting and overall weakness. His symptoms persisted, and even though he tried to drink fluids, they came back up. He's also had heartburn and hiccups. He's had bowel obstructions in the past, and he was worried that he had another one, so presented to [facility] ED on 02/27/17. Other than his GI symptoms, he c/o chronic blurred vision and burning on urination, but the remainder of ROS was neg. In the ED, labs showed leukocytosis (WBC 16); anemia (hgb 12.3); hyperkalemia (K 5.2; elevated BUN (37 & Cr (2.0); elevated AP (134). CT abd/pelvis demonstrated complete or high grade bowel obstruction with transition in the LLQ just proximal or at the ostomy; also showed a large cystic mass extend from the rectal bed to the right pelvic wall adjacent to the gluteus fab and adhered to distended small bowel (this was biopsied in Apr, 2016). He was given 1L of NS , Ativan, and Zofran in the ED. He was also started empirically on Zosyn in light of his leukocytosis and immunocompromised status. Dr. Benson and Dr. Trotter were notified, and the patient was admitted to inpatient status under the hospitalist service. LOS is expected to exceed 2 overnights given his high grade bowel obstruction, complex surgical hx, colon cancer, and dehydration. Review of Systems All systems PM: 10-point ROS was reviewed, no additional remarkable complaints except - Constitutional Constitutional: Present: fatigue. Absent: chills, fever(s) - EENMT Eyes: Present: blurry vision Balance: Absent: vertigo Nose: Absent: obstruction Mouth/Throat: Absent: sore throat, changes in swallowing, painful swallowing - Cardiovascular Cardiovascular: Absent: chest pain, syncope Vascular: Absent: pedal edema - Respiratory Respiratory: Absent: cough, dyspnea, wheezing - Gastrointestinal Gastrointestinal: Present: change in bowel habits, dyspepsia, nausea, vomiting. Absent: abdominal pain, coffee ground emesis, diarrhea, hematemesis, hematochezia, melena - Genitourinary Genitourinary: Present: dysuria - Musculoskeletal Musculoskeletal: Absent: back pain, joint swelling - Integumentary/Breasts Integumentary: Absent: rash, wounds - Neurological Neurological: Present: paresthesias (right foot), weakness. Absent: confusion, dizziness, headache(s) - Psychiatric Psychiatric: Absent: anxiety - Endocrine Endocrine: Absent: palpitations - Hematologic/Lymphatic Hematologic/Lymphatic: Absent: easy bruising [facility] Stage IV colon cancer. Coronary artery disease. Peripheral artery disease. Chronic kidney disease stage III. Hypertension GERD Anemia of chronic disease; hx transfusions History of C. difficile OA Surgical History: 1992 ORIF right heel/ankle fracture in [place]. 1995 left /sigmoid colectomy for colon cancer in [place]. 2001 Lap [facility]agan in [place], [place]. 2002 placement or Port-A -Cath with removal in 2008. 06/2002 heart cath then 5 vessel CABG. 2002 right hemicolectomy for a separate colon cancer Dr. Regla Best. 10/2011 total colectomy with ileoractal anastomosis, diverting loop ileostomy for precancerous tumors unable to be resected endoscopically, Dr. Fadi Laguna [facility] in [place]. 11/2011 EGD found 2 duodenal ulcers, esophagitis, antral gastritis. Flexible proctoscoy/ileoscopy found anastomotic stricture with anastomotic ulcer at 12 cm from anal verge. 2011 Ileostomy reversal with segemental small bowel resection Dr. Laguna at [facility]. 10/27/12 delayed primary closure of postop midline wound infection , Dr. Laguna. 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 Paula. 04/01/13 Push endoscopy and endoscopic ultrasound for abd bloating, diarrhea and pancreatitis, no pathologic diagnosis, no pancreatitis, Dr. Garzon. 06/09/13 EGD with biospy showed focal intestinal metaplasia, small hiatal hernia, Dr. Garzon. 06/07/2014 placement of Port A Cath, Dr. Paula. 09/11/15 Echo shows EF of 55-60%; trace MR , PI, TR. 05/02/16 Flexible sigmoidoscopy with biopsies of rectal lesion . 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 Villegas Family History: Paternal grandfather and aunt with colon cancer Father - drowned - Social History Smoking status: Former smoker Packs per day: 1 Packs-years: 32 Substance use type: does not use Alcohol intake frequency: does not drink Social history: PCP: Dr. Mera Onc: Dr. Valdovinos Medications Home Medications Medication Instructions Recorded Confirmed Type Atenolol 25 mg PO DAILY #0 08/05/12 02/27/17 History Ondansetron [Ondansetron Odt] 8 mg SL TID PRN #0 11/06/15 02/27/17 History Nitroglycerin [Nitrostat] 0.4 mg PO Q5MIN PRN #0 05/27/16 02/27/17 History Multivit-Min/FA/Lycopen/Lutein 1 tab PO DAILY #0 08/23/16 02/27/17 History [Centrum Silver Tablet] Ascorbic Acid [Vitamin C] 500 mg PO WB 12/25/16 02/27/17 History Atorvastatin Calcium 40 mg PO HS 12/25/16 02/27/17 History Cyanocobalamin (Vitamin B-12) 1,000 mcg PO DAILY 12/25/16 02/27/17 History [Vitamin B-12] FentaNYL PATCH [Duragesic Patch] 1 patch TD Q72H 12/25/16 02/27/17 History Pregabalin Cap [Lyrica] 100 mg PO DAILY 12/25/16 02/27/17 History Cholecalciferol (Vitamin D3) 1 tab PO DAILY 01/07/17 02/27/17 History [Vitamin D3] Esomeprazole [NEXIUM 20 mg Capsule] 20 mg PO DAILY 01/07/17 02/27/17 History Allergies Allergy/AdvReac Type Severity Reaction Status Date / Time codeine AdvReac Unknown NAUSEA Verified 02/27/17 10:31 Exam Vital Signs: Temperature 98.4 F 02/27/17 14:14 Pulse Rate 87 02/27/17 14:14 Respiratory Rate 18 02/27/17 14:14 Blood Pressure 133/77 02/27/17 14:14 Pulse Oximetry 99 02/27/17 14:14 Height/Weight/BMI: Height 1.78 m Weight 68.2 kg Body Mass Index 21.5 - Constitutional Present: mild distress, thin - Routine HEENT Exam Head: Present: normocephalic Eye: Present: PERRL. Absent: scleral injection ENT: Present: mucous membranes dry, oropharynx clear. Absent: dentition normal (upper/lower dentures in place) - Routine Neck Exam Present: supple - Routine Respiratory Exam Present: CTA bilaterally - Routine Cardiovascular Exam Present: RRR, S1, S2, murmur (2/6) - Routine Abdominal Exam Present: non tender, distended, ostomy (LLQ). Absent: normoactive bowel sounds (high-pitched) - Routine Extremities Exam Present: no edema. Absent: calf tenderness - Routine Skin Exam Present: intact, dry, pallor, warm - Routine Neurological Exam Present: alert, oriented X3, CN II-XII intact, moving all extremities, normal speech. Absent: motor deficit, facial asymmetry - Routine Psychiatric Exam Present: normal thought process, cooperative. Absent: normal affect (flat affect) Results - Labs CBC & Chem 7: 02/27/17 10:59 02/27/17 10:59 - Imaging and Cardiology CT abdomen/pelvis Status: image reviewed by me Additional comments: CT abd/pelvis demonstrated fluid distention of stomach and small bowel measuring up to 6 cm --> complete or high grade bowel obstruction with transition in the LLQ just proximal or at the ostomy; also showed a large cystic mass extend from the rectal bed to the right pelvic wall adjacent to the gluteus fab and adhered to distended small bowel. Assessment and Plan (1) Small bowel obstruction Current visit: Yes Status: Acute Assessment and Plan: ADMISSION DIAGNOSES Small bowel obstruction Leukocytosis Hyperkalemia DIXIE Dehydration Chronic conditions: Stage IV colon cancer. Coronary artery disease. Peripheral artery disease. Chronic kidney disease stage III. Hypertension GERD Anemia of chronic disease; hx transfusions History of C. difficile OA PLAN Admit, inpatient status, under the hospitalist service. PCP: Dr. Mera Onc: Dr. Valdovinos SBO -Bowel rest, NPO. -Place NGT. -Consult Dr. Benson. -Zosyn Q6h empirically. -Zofran PRN nausea. -PPI for heartburn/reflux symptoms. -Recheck CBC in am to f/u on leukocytosis. -Pt would prefer conservative treatment but is not opposed to sx if it's deemed necessary. -Hold ASA and Plavix in case sx is needed. -High risk for electrolyte abnormalities. Dehydration, DIXIE, hyperkalemia -NS @ 150 mL/hr. -recheck labs in am. Hiccups -consider Thorazine. CAD, HTN, PVD -holding home meds d/t SBO -consider IV metoprolol for elevated BP and/or tachycardia - he takes atenolol 25 mg daily at home Advanced directives - is DPOA -full code ("try one time") [place] 1630 Not feeling well in ab for several days. Appetite decreasing. Feeling more full and bloated. Yesterday output of ostomy decreased. Started having increased nausea with emesis. Not able to keep liquids down. Surprisingly, patient denies ab pain. Does have increase hiccups-very painful when they occur. Urine output with decrease-notes urine looking more dark. Feeling weak and unsteady. Slight cough. No palpitations. Presents to ED for evaluation. CT showing SBO. WBC elevated. Creatinine elevated. Plan: Inpatient admission for treatment of SBO. Discussed with patient about NG decompression due to SBO-pt very reluctant for NG. IVF to resolve dehydration and DIXIE. Zosyn for GI coverage due to leukocytosis. Zofran prn nausea. Thorazine prn hiccups. IV Protonix to decrease stomach acid and help decrease pain with his hiccups. Sx consult. SCD for DVT prevention. Monitor lab. DVT Prophylaxis: SCD's GI Prophylaxis: Protonix Resuscitation Status: Full Code Hospital Course Summary Disclaimer: The visit summary below is not to be considered part of the above Progress Note. Hospital Course: 02/27/17 15:25 ADMISSION DIAGNOSES Small bowel obstruction Leukocytosis Hyperkalemia DIXIE Dehydration Chronic conditions: Stage IV colon cancer. Coronary artery disease. Peripheral artery disease. Chronic kidney disease stage III. Hypertension GERD Anemia of chronic disease; hx transfusions History of C. difficile OA PLAN Admit, inpatient status, under the hospitalist service. PCP: Dr. Mera Onc: Dr. Valdovinos SBO -Bowel rest, NPO. -Place NGT. -Consult Dr. McConeghey. -Zosyn Q6h empirically. -Zofran PRN nausea. -PPI for heartburn/reflux symptoms. -Recheck CBC in am to f/u on leukocytosis. -Pt would prefer conservative treatment but is not opposed to sx if it's deemed necessary. -Hold ASA and Plavix in case sx is needed. -High risk for electrolyte abnormalities. Dehydration, DIXIE, hyperkalemia -NS @ 150 mL/hr. -recheck labs in am. Hiccups -consider Thorazine. CAD, HTN, PVD -holding home meds d/t SBO -consider IV metoprolol for elevated BP and/or tachycardia - he takes atenolol 25 mg daily at home Advanced directives - is DPOA -full code ("try one time")
[2017-02-27] MEDS ORDERED: ChlorproMAZINE INJ 25 MG in NS 50 ML IV PRN (16:08)
[2017-02-27] MEDS: PANTOPRAZOLE 40 MG INJECTION IVP SCH (20:52)
[2017-02-28] MEDS: PIPERACILLIN/TAZOBACTAM 3.375 GM in NS 100 ML IV SCH ×3 (02:55→13:47)
[2017-02-28] MEDS: NS 1,000 ML IV SCH ×4 (03:41→12:27)
[2017-02-28 07:31] VITALS: O2SAT 100
--- NOTE | 2017-02-28 08:40 | CT Scan Report ---
Indication: no output from ostomy, cramping PROCEDURE: CT abdomen pelvis w con: Encounter: Initial Comparison: January 02, 2017 Technique: Axial CT images were performed through the abdomen and pelvis after the administration of intravenous contrast. Coronal and sagittal two-dimensional reformats. Automated Exposure Control and Iterative Reconstruction dose reducing techniques were utilized. Contrast: Visipaque 320 87 mL Findings: Tree-in-bud type opacity in the left lower lobe. The liver is grossly normal. Gallbladder is surgically absent. The spleen, pancreas and adrenal glands are within normal limits. Kidneys are stable. Severely distended fluid-filled stomach and small bowel seen throughout the abdomen extending to the level of the patient's ostomy. Bowel loops are dilated up to 5 cm. There are no definitively decompressed loops appreciated. Interval right common and external iliac artery stenting with a patent lumen. The irregular rim-enhancing presacral fluid collection or mass is stable in size and appearance. Bone windows show no acute findings. Total colectomy. Impression: 1. Acute high-grade or complete small bowel obstruction which appears to be at or near the level of the left lower quadrant ostomy. Surgical consultation is recommended. 2. Overall stable appearance of the right presacral necrotic mass or abscess. This now shows evidence of adhesion to pelvic small bowel loops. 3. Minor infection or inflammation in the left lower lobe. There is a preliminary report by [facility]. .
[2017-02-28] MEDS: PANTOPRAZOLE 40 MG INJECTION IVP SCH ×2 (08:46→20:00)
[2017-02-28] MEDS: MORPHINE SULFATE 2mg INJECTION IVP PRN ×5 (11:38→22:20)
--- NOTE | 2017-02-28 12:25 | Progress Note ---
<Destiny Foster - Last Filed: 02/28/17 12:22> - Date 02/28/17 Subjective: Patient seen in follow up for bowel obstruction. He is lying in bed. States he has had no nausea or vomiting since admission. He has had some pain meds for his chronic back pain and neuropathy but has no complaints of abdominal pain. States from midnight to 6 am he went through 7-8 bags and usually at home he goes through approx 6 a day. From 0600 to 1200 he has been through 1. He feels his belly is soft now and can hear and feel movement in the intestines. He would really like to drink some water. Objective Vital signs: Temperature 96.8 F 02/28/17 07:28 Pulse Rate 88 02/28/17 07:28 Respiratory Rate 12 02/28/17 07:28 Blood Pressure 147/71 H 02/28/17 07:28 Pulse Oximetry 100 02/28/17 07:28 Height/Weight/BMI: Height 1.78 m Weight 63.8 kg Body Mass Index 21.5 - Constitutional Present: no acute distress, thin - Routine HEENT Exam Head: Present: normocephalic - Routine Respiratory Exam Present: CTA bilaterally. Absent: wheezes - Routine Cardiovascular Exam Present: RRR, S1, S2. Absent: murmur - Routine Abdominal Exam Present: soft, normoactive bowel sounds (bowel sounds are "gurgling"), non distended, ostomy. Absent: tenderness - Routine Extremities Exam Present: no edema, normal capillary refill - Routine Skin Exam Present: dry, warm - Routine Neurological Exam Present: alert, oriented X3 - Routine Lymphatic Exam Lymphatic: Absent: adenopathy - Routine Psychiatric Exam Present: normal affect, cooperative Results - Labs CBC & Chem 7: 02/28/17 04:35 02/28/17 04:35 Assessment and Plan (1) Small bowel obstruction Current visit: Yes Status: Acute Assessment and Plan: ADMISSION DIAGNOSES Small bowel obstruction Leukocytosis Hyperkalemia DIXIE Dehydration Chronic conditions: Stage IV colon cancer. Coronary artery disease. Peripheral artery disease. Chronic kidney disease stage III. Hypertension GERD Anemia of chronic disease; hx transfusions History of C. difficile OA PLAN Check gastrographin SB follow through to determine if he can start on clear liquids. Clinically, this looks favorable. Continue IVF's until he can take p.o. Renal function improved today. Dr. Trotter to determine if patient needs to continue Zosyn, johnny given his h/ o c. diff. Leukocytosis has resolved. Hospital Course Summary Disclaimer: The visit summary below is not to be considered part of the above Progress Note. Hospital Course: ADMISSION DIAGNOSES Small bowel obstruction Leukocytosis Hyperkalemia DIXIE Dehydration Chronic conditions: Stage IV colon cancer. Coronary artery disease. Peripheral artery disease. Chronic kidney disease stage III. Hypertension GERD Anemia of chronic disease; hx transfusions History of C. difficile OA 02/27/17 Hospital admission Admit, inpatient status, under the hospitalist service. PCP: Dr. Mera Onc: Dr. Valdovinos SBO -Bowel rest, NPO. -Place NGT. -Consult Dr. Benson. -Zosyn Q6h empirically. -Zofran PRN nausea. -PPI for heartburn/reflux symptoms. -Recheck CBC in am to f/u on leukocytosis. -Pt would prefer conservative treatment but is not opposed to sx if it's deemed necessary. -Hold ASA and Plavix in case sx is needed. -High risk for electrolyte abnormalities. Dehydration, DIXIE, hyperkalemia -NS @ 150 mL/hr. -recheck labs in am. Hiccups -consider Thorazine. CAD, HTN, PVD -holding home meds d/t SBO -consider IV metoprolol for elevated BP and/or tachycardia - he takes atenolol 25 mg daily at home Advanced directives - is DPOA -full code ("try one time") 02/28/17 Check gastrographin SB follow through to determine if he can start on clear liquids. Clinically, this looks favorable. Continue IVF's until he can take p.o. Renal function improved today. Dr. Trotter to determine if patient needs to continue Zosyn, johnny given his h/ o c. diff. Leukocytosis has resolved. <Freddy Trotter - Last Filed: 02/28/17 18:06> - Date 02/28/17 Objective Vital signs: Temperature 97.2 F 02/28/17 16:00 Pulse Rate 100 02/28/17 16:00 Respiratory Rate 16 02/28/17 16:00 Blood Pressure 144/93 H 02/28/17 16:00 Pulse Oximetry 100 02/28/17 16:00 Height/Weight/BMI: Height 1.78 m Weight 63.8 kg Body Mass Index 21.5 Results - Labs CBC & Chem 7: 02/28/17 04:35 02/28/17 04:35 Assessment and Plan (1) Small bowel obstruction Current visit: Yes Status: Acute Assessment and Plan: ADMISSION DIAGNOSES Small bowel obstruction Leukocytosis Hyperkalemia DIXIE Dehydration Chronic conditions: Stage IV colon cancer. Coronary artery disease. Peripheral artery disease. Chronic kidney disease stage III. Hypertension GERD Anemia of chronic disease; hx transfusions History of C. difficile OA Have independently interviewed & examined pt. Chart reviewed. Case discussed with Sx & my PA. Care plan developed with my supervision; agree with above. Feeling MUCH better today. No further episodes of nausea. No ab pain. Reports increase output from ostomy overnight. Less weak and washed out-able to ambulate better. Breathing well. No chest pain. No f/c. Lungs: clear bilaterally CV: regular AB: soft nt/nd BS decreased MSE: awake alert appropriate GEN: looks much more energetic today Plan: SBFT obtained-slow GI transit time, but no blockage. Will advance to clear liquids, advising caution with oral intake. Restart ASA and Plavix due to recent stent placement. Decrease IVF to 100cc/hr. May d/c Zosyn as WBC normalized. Increase activities as patient able. Recheck lab in am. DVT Prophylaxis: SCD's Hospital Course Summary Disclaimer: The visit summary below is not to be considered part of the above Progress Note.
[2017-02-28] MEDS ORDERED: DIATRIZOATE MEGLUMINE/SOD. (66%/10%) 120ml SOLN ONE (12:26)
[2017-02-28] MEDS: 1/2 NS 1,000 ML IV SCH (14:58)
--- NOTE | 2017-02-28 16:38 | XRay Report ---
Indication: bowel obstruction. Eval so patient can take fluids. PROCEDURE: XR small bowel follow through: Encounter: Initial Comparison: CT abdomen and pelvis dated February 27, 2017 Findings: Chemical Operations Specialist radiographs again show dilated small bowel loops throughout the abdomen with a left lower quadrant ostomy. No free air identified. Water-soluble oral contrast was administered followed by serial abdominal radiographs. This shows gradual progression through dilated small bowel reaching the patient's ostomy bag at less than three hours after administration. Small bowel dilatation up to 5.5 cm in the left abdomen. Impression: Despite the dilated appearance of the small bowel the intestinal transit time is normal at less than three hours. .
[2017-02-28] MEDS: CLOPIDOGREL 75 MG TABLET PO SCH (18:53)
[2017-02-28] MEDS: ASPIRIN *EC* 81 MG TABLET PO SCH (18:53)
[2017-03-01] MEDS: 1/2 NS 1,000 ML IV SCH ×2 (00:28→10:58)
[2017-03-01] MEDS: MORPHINE SULFATE 2mg INJECTION IVP PRN (03:01)
[2017-03-01 08:24] VITALS: BP 142/80; PULSE 85; RESP 18; TEMP 97.4
[2017-03-01] MEDS: ASPIRIN *EC* 81 MG TABLET PO SCH (08:26)
[2017-03-01] MEDS: CLOPIDOGREL 75 MG TABLET PO SCH (08:26)
[2017-03-01] MEDS: PANTOPRAZOLE 40 MG INJECTION IVP SCH (08:26)
[2017-03-01] MEDS ORDERED: PREGABALIN 100 MG CAPSULE PO SCH (09:00)
--- NOTE | 2017-03-01 10:55 | Progress Note ---
<Destiny Foster - Last Filed: 03/01/17 10:51> - Date 03/01/17 Subjective: Patient seen sitting up in bed. He states he feels great. He is stronger. He emptied his bag 6 times overnight. He had grape juice and coffee with no problems this am. No abdominal pain. No n/v. Would like to go home today. Objective Vital signs: Temperature 97.4 F 03/01/17 08:00 Pulse Rate 85 03/01/17 08:00 Respiratory Rate 18 03/01/17 08:00 Blood Pressure 142/80 H 03/01/17 08:00 Pulse Oximetry 100 03/01/17 08:00 Height/Weight/BMI: Height 1.78 m Weight 65.5 kg Body Mass Index 21.5 - Constitutional Present: no acute distress, thin - Routine HEENT Exam Head: Present: normocephalic - Routine Respiratory Exam Present: CTA bilaterally. Absent: wheezes - Routine Cardiovascular Exam Present: RRR, no murmur - Routine Abdominal Exam Present: soft, normoactive bowel sounds, non distended. Absent: tenderness - Routine Extremities Exam Present: no edema, normal capillary refill - Routine Skin Exam Present: dry, warm - Routine Neurological Exam Present: alert, oriented X3 - Routine Psychiatric Exam Present: normal affect, cooperative Results - Labs CBC & Chem 7: 03/01/17 04:18 03/01/17 04:18 Assessment and Plan (1) Small bowel obstruction Current visit: Yes Status: Acute Assessment and Plan: ADMISSION DIAGNOSES Small bowel obstruction Leukocytosis -resolved Hyperkalemia - resolved DIXIE - resolved Dehydration - resolved Chronic conditions: Stage IV colon cancer. Coronary artery disease. Peripheral artery disease. Chronic kidney disease stage III. Hypertension GERD Anemia of chronic disease; hx transfusions History of C. difficile OA Plan Advance diet. Continue IVFs for now. Kidney function has improved. Hospital Course Summary Disclaimer: The visit summary below is not to be considered part of the above Progress Note. Hospital Course: ADMISSION DIAGNOSES Small bowel obstruction Leukocytosis Hyperkalemia DIXIE Dehydration Chronic conditions: Stage IV colon cancer. Coronary artery disease. Peripheral artery disease. Chronic kidney disease stage III. Hypertension GERD Anemia of chronic disease; hx transfusions History of C. difficile OA 02/27/17 Hospital admission Admit, inpatient status, under the hospitalist service. PCP: Dr. Mera Onc: Dr. Valdovinos SBO -Bowel rest, NPO. -Place NGT. -Consult Dr. Benson. -Zosyn Q6h empirically. -Zofran PRN nausea. -PPI for heartburn/reflux symptoms. -Recheck CBC in am to f/u on leukocytosis. -Pt would prefer conservative treatment but is not opposed to sx if it's deemed necessary. -Hold ASA and Plavix in case sx is needed. -High risk for electrolyte abnormalities. Dehydration, DIXIE, hyperkalemia -NS @ 150 mL/hr. -recheck labs in am. Hiccups -consider Thorazine. CAD, HTN, PVD -holding home meds d/t SBO -consider IV metoprolol for elevated BP and/or tachycardia - he takes atenolol 25 mg daily at home Advanced directives - is DPOA -full code ("try one time") 02/28/17 Gastrographin SB follow through shows slow transit time but no blockage. Start clear liquids. Renal function improved today. DC Zosyn. Leukocytosis has resolved. 03/01/17 Advance diet cautiously. Continue IVFs for now. Kidney function shows continued improvement. <Freddy Trotter D - Last Filed: 03/01/17 13:34> - Date 03/01/17 Objective Vital signs: Temperature 97.4 F 03/01/17 08:00 Pulse Rate 85 03/01/17 08:00 Respiratory Rate 18 03/01/17 08:00 Blood Pressure 142/80 H 03/01/17 08:00 Pulse Oximetry 100 03/01/17 08:00 Height/Weight/BMI: Height 1.78 m Weight 65.5 kg Body Mass Index 21.5 Results - Labs CBC & Chem 7: 03/01/17 04:18 03/01/17 04:18 Assessment and Plan (1) Small bowel obstruction Current visit: Yes Status: Acute Assessment and Plan: ADMISSION DIAGNOSES Small bowel obstruction Leukocytosis -resolved Hyperkalemia - resolved DIXIE - resolved Dehydration - resolved Chronic conditions: Stage IV colon cancer. Coronary artery disease. Peripheral artery disease. Chronic kidney disease stage III. Hypertension GERD Anemia of chronic disease; hx transfusions History of C. difficile OA Have independently interviewed and examined pt. Chart reviewed. Case discussed with my PA. Care plan developed with my supervision; agree with above. Doing very well today. Taking liquids in without any problems. Diet advanced to regular and tolerated well. No nausea or ab pain. Having good ostomy output. Breathing well. No chest pain. No f/c. Ambulating without difficulty. Feels ready to go home. Lungs: clear CV: regular AB: soft nt/nd MSE: awake alert appropriate Plan: Will discharge to home. Encourage plenty of fluid intake due to his short gut syndrome. May have foods as tolerated-advised to chew food VERY thoroughly. Continue chronic medications. F/U with Dr Mera in 1 week. See orders for details. Time spent with patient care and discharge greater than 30 minutes. Hospital Course Summary Disclaimer: The visit summary below is not to be considered part of the above Progress Note.
--- NOTE | 2017-03-01 13:42 | Discharge Summary ---
Discharge Information Date of admission: 02/27/17 13:44 Anticipated date of discharge: 03/01/17 Attending Physician: Freddy Trotter MD Primary care physician: Jake Mera MD Consults: Physician Consult : Huber Bensno Reason For Exam: SBO - Discharge Diagnosis (1) Small bowel obstruction Status: Acute Discharge diagnosis Small bowel obstruction Associated conditions and complications Leukocytosis -resolved Hyperkalemia - resolved DIXIE - resolved Dehydration - resolved Stage IV colon cancer Coronary artery disease Peripheral artery disease Chronic kidney disease stage III Hypertension GERD Anemia of chronic disease; hx transfusions History of C. difficile OA - Laboratory Labs: Admit Lab 02/27/17 10:59 WBC 16.0 H Hgb 12.3 L Hct 39.8 L MCV 104.2 H Plt Count 338 Neutrophils % (Manual) 86.0 H Band Neutrophils % 6.0 Lymphocytes % (Manual) 3.0 L Monocytes % (Manual) 5.0 Admit Lab 02/27/17 10:59 Sodium 142 Potassium 5.2 H Chloride 112 H Carbon Dioxide 17 L Anion Gap 13 BUN 37.0 H D Creatinine 2.0 H GFR Calculation 33 BUN/Creatinine Ratio 19 Glucose 173 H Calculated Osmolality 286 H Calcium 9.4 Total Bilirubin 1.20 AST 35 ALT 43 Alkaline Phosphatase 134 H Troponin I 0.014 B-Natriuretic Peptide 626 H Total Protein 7.6 Albumin 4.2 Globulin 3.4 Albumin/Globulin Ratio 1.2 Lipase 34 03/01/17 04:18 03/01/17 04:18 - Radiology Radiology: Date of Exam: 02/27/17 PROCEDURE: CT abdomen pelvis w con Findings: Tree-in-bud type opacity in the left lower lobe. The liver is grossly normal. Gallbladder is surgically absent. The spleen, pancreas and adrenal glands are within normal limits. Kidneys are stable. Severely distended fluid- filled stomach and small bowel seen throughout the abdomen extending to the level of the patient's ostomy. Bowel loops are dilated up to 5 cm. There are no definitively decompressed loops appreciated. Interval right common and external iliac artery stenting with a patent lumen. The irregular rim-enhancing presacral fluid collection or mass is stable in size and appearance. Bone windows show no acute findings. Total colectomy. Impression: 1. Acute high-grade or complete small bowel obstruction which appears to be at or near the level of the left lower quadrant ostomy. Surgical consultation is recommended. 2. Overall stable appearance of the right presacral necrotic mass or abscess. This now shows evidence of adhesion to pelvic small bowel loops. 3. Minor infection or inflammation in the left lower lobe. Date of Exam: 02/28/17 PROCEDURE: XR small bowel follow through Findings: Bit Tripoler radiographs again show dilated small bowel loops throughout the abdomen with a left lower quadrant ostomy. No free air identified. Water- soluble oral contrast was administered followed by serial abdominal radiographs. This shows gradual progression through dilated small bowel reaching the patient's ostomy bag at less than three hours after administration. Small bowel dilatation up to 5.5 cm in the left abdomen. Impression: Despite the dilated appearance of the small bowel the intestinal transit time is normal at less than three hours. History of Present Illness HPI: Kamari Johnson is a 71 y/o male with a hx of stage IV colon cancer. He's underwent bowel resection and creation of ileostomy. He receives weekly infusions of 5-FU plus "some add-ons" per Dr. Valdovinos. He states that on he didn't have much output in his ileostomy. He c/o nausea and vomiting and overall weakness. His symptoms persisted, and even though he tried to drink fluids, they came back up. He's also had heartburn and hiccups. He's had bowel obstructions in the past, and he was worried that he had another one, so presented to [facility] [place]/27/[place]. Other than his GI symptoms, he c/o chronic blurred vision and burning on urination, but the remainder of ROS was neg. In the ED, labs showed leukocytosis (WBC 16); anemia (hgb 12.3); hyperkalemia (K 5.2; elevated BUN (37 & Cr (2.0); elevated AP (134). CT abd/pelvis demonstrated complete or high grade bowel obstruction with transition in the LLQ just proximal or at the ostomy; also showed a large cystic mass extend from the rectal bed to the right pelvic wall adjacent to the gluteus fab and adhered to distended small bowel (this was biopsied in Apr, 2016). He was given 1L of NS , Ativan, and Zofran in the ED. He was also started empirically on Zosyn in light of his leukocytosis and immunocompromised status. Dr. Benson and Dr. Trotter were notified, and the patient was admitted to inpatient status under the hospitalist service. LOS is expected to exceed 2 overnights given his high grade bowel obstruction, complex surgical hx, colon cancer, and dehydration. For complete details of the H&P refer to that document. Objective Vital signs: Temperature 97.4 F 03/01/17 08:00 Pulse Rate 85 03/01/17 08:00 Respiratory Rate 18 03/01/17 08:00 Blood Pressure 142/80 H 03/01/17 08:00 Pulse Oximetry 100 03/01/17 08:00 Height/Weight/BMI: Height 1.78 m Weight 65.5 kg Body Mass Index 21.5 Hospital Course This is a general summary of the patient's hospital course. For more details refer to the complete medical record. Hospital course: ADMISSION DIAGNOSES Small bowel obstruction Leukocytosis Hyperkalemia DIXIE Dehydration Stage IV colon cancer. Coronary artery disease. Peripheral artery disease. Chronic kidney disease stage III. Hypertension GERD Anemia of chronic disease; hx transfusions History of C. difficile OA 02/27/17 Hospital admission Admit, inpatient status, under the hospitalist service. PCP: Dr. Mera Onc: Dr. Valdovinos SBO -Bowel rest, NPO. -Place NGT. -Consult Dr. Benson. -Zosyn Q6h empirically. -Zofran PRN nausea. -PPI for heartburn/reflux symptoms. -Recheck CBC in am to f/u on leukocytosis. -Pt would prefer conservative treatment but is not opposed to sx if it's deemed necessary. -Hold ASA and Plavix in case sx is needed. -High risk for electrolyte abnormalities. Dehydration, DIXIE, hyperkalemia -NS @ 150 mL/hr. -recheck labs in am. Hiccups -Thorazine as needed. CAD, HTN, PVD -holding home meds d/t SBO -consider IV metoprolol for elevated BP and/or tachycardia - he takes atenolol 25 mg daily at home Advanced directives - is DPOA -full code ("try one time") 02/28/17 Gastrographin SB follow through shows slow transit time but no blockage. Start clear liquids. Renal function improved today. DC Zosyn. Leukocytosis has resolved. 03/01/17 Advance diet cautiously. Kidney function shows continued improvement. Tolerating oral intake of foods and liquids well. No nausea or ab pain. Ambulating well. Will discharge to home. F/U with Dr Mera in 1 week. See orders for details. DVT Prophylaxis: SCD's Discharge Plan - Discharge Disposition Discharge Date: 03/01/17 Disposition: 01 Discharged Home, Self-Care *Condition: Stable Reason For Visit (Visit label in EMR): SBO - Discharge Medications *Discharge Medications: Continue Atenolol 25 mg PO DAILY #0 Multivit-Min/FA/Lycopen/Lutein [Centrum Silver Tablet] 1 tab PO DAILY #0 Cyanocobalamin (Vitamin B-12) [Vitamin B-12] 1,000 mcg PO DAILY Pregabalin Cap [Lyrica] 100 mg PO DAILY FentaNYL PATCH [Duragesic Patch] 1 patch TD Q72H Cholecalciferol (Vitamin D3) [Vitamin D3] 1 tab PO DAILY Aspirin *EC* [Ecotrin] 81 mg PO DAILY #30 tab Ondansetron [Ondansetron Odt] 8 mg SL TID PRN #0 PRN Reason: NAUSEA Nitroglycerin [Nitrostat] 0.4 mg PO Q5MIN PRN #0 PRN Reason: CHEST PAIN Ascorbic Acid [Vitamin C] 500 mg PO WB Atorvastatin Calcium 40 mg PO HS Esomeprazole [NEXIUM 20 mg Capsule] 20 mg PO DAILY Clopidogrel [Plavix] 75 mg PO DAILY #30 tab - Discharge Packet/Instructions *Diet: As tolerated. Chew food very well. Plenty of fluid intake. *Activity: As tolerated *Pain Management/Treatment: Continue chronic pain medications *Wound Care: n/a *Expected Signs/Symptoms: Normalization of bowel function *Notify Physician if: Increase ab pain or nausea. Decreased ostomy output. *During Business Hours Contact: Dr Mera *After Business Hours Contact: Call [facility] and have Dr Mera or his covering provider paged. *Pending Lab/Results: No Pending Lab - Referrals/Follow Up *Referrals/Follow Up: Jake Mera MD [Family Provider] - 1 Week (Hospital follow up for SBO ) - Patient Handouts - Dismissal Complete Discharge Instructions are:: Complete Attestation Narriative - Attestation Attestation Narrative: 03/01/17 13:47 I have independently interviewed and examined patient prior to discharge. See my progress note from today for details. Medically stable for discharge to home.
[2017-03-01] MEDS: SALINE FLUSH 10ml SYRINGE IVF PRN (14:30)
--- NOTE | 2017-03-01 14:39 | Consultation ---
DATE OF CONSULTATION 02/28/2017 CONSULTING PHYSICIAN Huber Benson MD REQUESTING PHYSICIAN Dr. Trotter REASON FOR CONSULTATION Small bowel obstruction. 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 He began to have trouble two evenings ago. He originally started having heartburn and then developed nausea. He denied any abdominal pain with the episode. He vomited multiple times overnight from midnight to 6:00 a.m. The following morning his convinced him to go to the emergency department about 9:00 a.m. He was admitted to the hospital under the hospitalist service for his bowel obstruction and Surgery was consulted yesterday. He has had a recent episode of a bowel obstruction in December 2016 but it resolved spontaneously. He says that his nausea and vomiting have now resolved. Overnight last night he used seven ileostomy bags between midnight and 6:00 a.m. and he usually only uses six per day. PAST MEDICAL HISTORY 1. Colon cancers x 3 with left colon cancer in 1995 and right colon cancer in 2002. He had precancerous tumors in 2011 which were treated with a total abdominal colectomy with ileorectal anastomosis on 10/14/2011. He then had recurrence at the rectum at his anastomosis which was discovered in September 2015. 2. Coronary artery disease status post CABG x 5 in June 2002. 2. Hypertension. 3. C. difficile colitis - three episodes with most recent in May 2015. 4. Gastroesophageal reflux disease. 5. Anemia of chronic disease - sees Dr. Valdovinos. 6. Gastric ulcer. 7. Pancreatitis - 2011. 8. 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 PAST SURGICAL HISTORY See the patient's detailed surgical history from a scanned clinic note from Dr. Paula on the patient's medical record from 06/07/2014. The patient has had the following additional surgeries: 1. Flexible sigmoidoscopy with biopsies and incision and drainage of right ischiorectal abscess - 09/13/[address] Pinto. 2. Exploratory laparotomy with extensive adhesiolysis, takedown of perforated ileoanal J-pouch with creation of end ileostomy - 09/20/[address] Pinto. 3. Exploration of right ischial wound with excisional debridement of necrotic fascia and bone, partial delayed primary closure, and application of wound VAC - 11/09/[address] Pinto. 4. Flexible sigmoidoscopy with biopsies and chemical cauterization of hypergranulation of the right buttock wound - 05/02/[address] Pinto. 5. Angiogram with balloon angioplasty and stent placement of the right common iliac artery - 01/07/[address] Villegas. ALLERGIES Codeine. MEDICATIONS The patient's medications were reviewed. He is on Plavix. See the EMR. FAMILY HISTORY Paternal grandfather and aunt with colon cancer. His father drowned. SOCIAL HISTORY The patient is a former smoker and quit smoking on 01/12/1996. He denies alcohol or drug use. He is . 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 HEMATOLOGIC: He is taking Plavix. ENDOCRINE: He reports cold intolerance. PHYSICAL EXAMINATION VITAL SIGNS: Temperature 96.8, pulse 75, blood pressure 118/66, respiratory rate 12, oxygen saturation 100% on room air. GENERAL: The patient is awake and alert in no acute distress. HEENT: Sclerae clear. Extraocular muscles intact. NECK: Thin, with a midline trachea. No lymphadenopathy or thyromegaly noted. HEART: Regular rate and rhythm. LUNGS: Clear to auscultation bilaterally. ABDOMEN: Soft, thin, nontender, nondistended. He has an ileostomy in the left lower quadrant which has pink mucosa and some liquid output. EXTREMITIES: No clubbing, cyanosis or edema. NEUROLOGIC: Cranial nerves II-XII are grossly intact. PSYCHIATRIC: Normal mood and affect. LABORATORY DATA White blood cell count 8.5. IMAGING Small bowel follow-through is currently pending and is underway. IMPRESSION 1. Small bowel obstruction likely secondary to adhesions - improving clinically. He has a Gastrografin study pending. 2. Metastatic colon cancer. 3. Daily use of Plavix. PLAN 1. Await small bowel follow-through results. 2. If his transit time is normal, then I think he could be started on a clear liquid diet and have his diet slowly advanced. 3. He would be a poor operative candidate given his extensive abdominal surgeries. He is also on Plavix. 4. I will follow along with you. CHARLEY
--- NOTE | 2017-03-01 15:05 | Progress Note ---
DATE OF VISIT 03/01/2017 REASON FOR VISIT Follow bowel obstruction. SUBJECTIVE Kamari continues to do well. He had significant ileostomy output again overnight. He denies any abdominal pain or bloating. He has ordered a regular lunch and is hoping he can go home today. OBJECTIVE VITAL SIGNS: Afebrile with stable vitals on room air. GENERAL: The patient is awake, alert, in no acute distress. ABDOMEN: Soft, thin, nontender, nondistended. His ileostomy in the left lower quadrant has liquid output. IMPRESSION 1. Small bowel obstruction secondary to adhesions - resolved clinically and radiographically there is normal transit time on small bowel series. 2. Metastatic colon cancer. PLAN 1. His diet has already been advanced by the hospitalist service. 2. If he continues to do well with a regular diet he could be dismissed. [facility]
== END 2017-03-01 14:45 | disposition home or self-care (01) | DRG 389 ==
LOC: ED 10:12 → SRG 13:44
PROVIDERS: ADMIT Hospitalist; ATTEND Hospitalist

== ENCOUNTER 2017-04-15 12:13 | Observation (INO) ==
[2017-04-15] MEDS ORDERED: ONDANSETRON 4 MG/2 ML INJECTION IVP PRN (13:15)
[2017-04-15] MEDS ORDERED: SENNA + DOCUSATE TABLET PO PRN (13:15)
[2017-04-15] MEDS ORDERED: ACETAMINOPHEN 325 MG TABLET PO PRN (13:15)
[2017-04-15] MEDS: NS 1,000 ML IV SCH (14:11)
--- NOTE | 2017-04-15 14:55 | History & Physical Report ---
History of Present Illness Date: 04/15/17 Chief complaint: generalized weakness, dehydration, diarrhea HPI: Kamari Johnson is a pleasant 71-year-old male patient of Dr. Mera's who is been battling stage IV colon cancer. He underwent a bowel resection and creation of ileostomy in 2002 and for the past year and a half, has been receiving weekly infusions of 5-FU per Dr. Valdovinos. He was recently hospitalized on 02/27/17 due to a bowel obstruction and was discharged home on 03/01/17 feeling good. He states that he was doing well for a few weeks and then around 04/03/17 he started having increased liquid stools and reports as many as 10 stools a night. In light of his increased bowel output, he has had progressive generalized weakness and difficulty maintaining hydration requiring additional visits to infusion therapy for IV hydration. Despite the additional IV hydration, he continued to have difficulties and was seen in the ED at [facility] on 04/08 for dehydration and then again on 04/12 for urinary retention. Throughout his acute illness involving decreased appetite, nausea, dry heaves and increased stools, his creatine is noted to have increased from his baseline of 1.5 to 3.2 on 04/08/17. During an ED visit on 04/12/17 for urinary retention, CT chest/abdomen/pelvis with contrast was obtained and revealed stable size of the enhancing necrotic malignant process in the right lower pelvis now with osseous invasion of the tailbone. He was discharged home and instructed to follow up with his PCP as needed. Today, 04/15/17 he again presented to infusion therapy for more IV hydration per Dr. Mera. Due to the progressive nature of his symptoms, Dr. Trotter was consulted and Mr. Johnson was accepted as an observation admission for further evaluation and treatment. He is seen in the infusion therapy room while receiving 1L NS. He states that overall, he feels "ok" but admits to increased fatigue, generalized weakness, decreased appetite, occasional nausea and dry heaves as well as significantly increased stool output. He states that his urinary retention has resolved since his ED visit on 04/12/17. He reports that he has had bouts of loose stools since he began chemotherapy over a year ago, but the number of stools has significantly increased in the past 2 weeks. He denies any known fevers, chills , chest pain, shortness of breath, abdominal pain. He admits to getting lightheaded occasionally with standing but denies any currently. His is present on the exam and contributes to his history. Review of Systems All systems PM: 10-point ROS was reviewed, no additional remarkable complaints except - Constitutional Constitutional: Present: fatigue, weakness. Absent: chills, fever(s), headache( s), night sweats, weight gain, weight loss - EENMT Eyes: Absent: diplopia, loss of vision Ears: Absent: ear pain Balance: Absent: falling to one side Nose: Absent: nosebleeds Mouth/Throat: Absent: sore throat, sores, changes in swallowing - Cardiovascular Cardiovascular: Absent: chest pain, palpitations, syncope, dyspnea on exertion, orthopnea Rhythm: Present: regular rhythm Vascular: Absent: pallor of an extermity, pedal edema - Respiratory Respiratory: Absent: cough, dyspnea, hemoptysis, dyspnea on exertion, wheezing - Gastrointestinal Gastrointestinal: Present: change in bowel habits, diarrhea, nausea. Absent: abdominal pain, hematochezia, melena, vomiting - Genitourinary Genitourinary: Absent: dysuria, flank pain, hematuria - Musculoskeletal Musculoskeletal: Present: muscle weakness. Absent: abnormal gait, deformity - Integumentary/Breasts Integumentary: Present: other (fissuring of finger tips). Absent: rash - Neurological Neurological: Present: sensory deficit (extremities), weakness. Absent: abnormal gait, abnormal speech, confusion, convulsions, dizziness, frequent falls - Psychiatric Psychiatric: Present: anxiety, depression - Endocrine Endocrine: Absent: flushing, palpitations - Hematologic/Lymphatic Hematologic/Lymphatic: Absent: easy bruising - Allergic/Immunologic Allergic/Immunologic: Absent: seasonal rhinorrhea Past Medical History Patient Stated Medical History Stage IV colon cancer. PAD. Chronic kidney disease, stage III - baseline SCr 1.5. Hard of hearing. CAD. Heart murmur. Hypertension. History of AL. History of pneumonia. GERD. History of bowel obstruction - 02/2017. Anemia of chronic disease with prior blood transfusions. Osteoarthritis. Immunosuppression secondary to chemotherapy - last tx. 03/2017. Surgical History: 1992 ORIF right heel/ankle fracture in [place]. 1995 left /sigmoid colectomy for colon cancer in [place]. 2001 Lap Teagan in [place], [place]. 2002 placement or Port-A -Cath with removal in 2008. 06/2002 heart cath then 5 vessel CABG. 2002 right hemicolectomy for a separate colon cancer Dr. Regla Best. 10/2011 total colectomy with ileoractal anastomosis, diverting loop ileostomy for precancerous tumors unable to be resected endoscopically, Dr. Fadi Laguna [facility] in [place]. 11/2011 EGD found 2 duodenal ulcers, esophagitis, antral gastritis. Flexible proctoscoy/ileoscopy found anastomotic stricture with anastomotic ulcer at 12 cm from anal verge. 2011 Ileostomy reversal with segemental small bowel resection Dr. Laguna at [facility]. 10/27/12 delayed primary closure of postop midline wound infection , Dr. Laguna. 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 Paula. 04/01/13 Push endoscopy and endoscopic ultrasound for abd bloating, diarrhea and pancreatitis, no pathologic diagnosis, no pancreatitis, Dr. Garzon. 06/09/13 EGD with biospy showed focal intestinal metaplasia, small hiatal hernia, Dr. Garzon. 06/07/2014 placement of Port A Cath, Dr. Paula. 09/11/15 Echo shows EF of 55-60%; trace MR , PI, TR. 05/02/16 Flexible sigmoidoscopy with biopsies of rectal lesion . 01/07/17 LINE STAKER and stent of right external and right common iliac stent, Dr. Villegas Family History Updates: Paternal grandfather and aunt with colon cancer. Father - drowned. - Social History Smoking status: Former smoker Packs per day: 1 Packs-years: 32 Substance use type: does not use Alcohol intake frequency: does not drink Housing: house Household members: spouse Current occupational status: retired Does patient use chewing tobacco?: No Current residence: Apartment/Private Home Social history: PCP - Dr. Mera. Cardio - Dr. Villegas. Nephro - Dr. Junior Cottrell. Onc - Dr. Valdovinos. Medications Home Medications Medication Instructions Recorded Confirmed Type Ondansetron [Ondansetron Odt] 8 mg SL PRN PRN #0 11/06/15 04/15/17 History Nitroglycerin [Nitrostat] 0.4 mg PO Q5MIN3 PRN #0 05/27/16 04/15/17 History Multivit-Min/FA/Lycopen/Lutein 1 tab PO DAILY #0 08/23/16 04/15/17 History [Centrum Silver Tablet] FentaNYL PATCH [Duragesic Patch] 1 patch TD Q72H PRN 12/25/16 04/15/17 History Pregabalin Cap [Lyrica] 100 mg PO DAILY 12/25/16 04/15/17 History Cholecalciferol (Vitamin D3) 3,000 unit PO DAILY 01/07/17 04/15/17 History [Vitamin D3] Ascorbate Calcium [Vitamin C] 500 mg PO WB 04/08/17 04/15/17 History Atenolol [Tenormin] 25 mg PO DAILY 04/08/17 04/15/17 History Cyanocobalamin (Vitamin B-12) 1,000 mcg PO DAILY 04/08/17 04/15/17 History [Vitamin B-12] Hydromorphone HCl [Hydromorphone 8 mg PO Q3H PRN 04/08/17 04/15/17 History HCl] Pantoprazole Tab [Protonix Tab] 40 mg PO DAILY 04/08/17 04/15/17 History Prochlorperazine Tab [Compazine] 10 mg PO PRN PRN 04/08/17 04/15/17 History Allergies Allergy/AdvReac Type Severity Reaction Status Date / Time atorvastatin AdvReac Unknown Restlessnes Verified 04/15/17 14:00 s codeine AdvReac Unknown NAUSEA Verified 04/15/17 14:00 Exam Vital Signs: Temperature 98.2 F 04/15/17 13:47 Pulse Rate 83 04/15/17 13:47 Respiratory Rate 14 04/15/17 13:47 Blood Pressure 100/65 04/15/17 13:47 Pulse Oximetry 100 04/15/17 13:47 Telemetry Rhythm: Sinus Rhythm Height/Weight/BMI: Height 6 ft Weight 131 lb 13.383 oz Body Mass Index 17.9 Comments: Patient initially seen in infusion therapy and later seen while resting in his bed with his by his bedside in his room. - Constitutional Present: no acute distress, well nourished, well developed, thin, cooperative - Routine HEENT Exam Head: Present: normocephalic, atraumatic Eye: Present: PERRL. Absent: conjunctival icterus ENT: Present: mucous membranes moist - Routine Neck Exam Present: supple, full ROM, trachea midline - Routine Chest/Breast/Axilla Exam Chest wall: Absent: pacemaker - Routine Respiratory Exam Present: CTA bilaterally. Absent: rales, rhonchi, stridor, wheezes, crackles - Routine Cardiovascular Exam Present: RRR, S1, S2 - Routine Abdominal Exam Present: soft, normoactive bowel sounds, non distended, non tender. Absent: guarding - Routine Extremities Exam Present: no edema, full ROM, pulses intact. Absent: calf tenderness - Routine Back/Spine/Pelvis Exam Back/Spine: Present: full ROM. Absent: vertebral tenderness - Routine Skin Exam Present: dry, warm. Absent: jaundice Comments: afebrile - Routine Neurological Exam Present: alert, oriented X3, CN II-XII intact, moving all extremities, normal speech - Routine Psychiatric Exam Present: normal affect, cooperative Assessment and Plan (1) Generalized muscle weakness Current visit: Yes Status: Acute (2) Acute kidney failure, unspecified Current visit: Yes Status: Acute (3) Colon cancer Current visit: No Status: Acute Assessment and Plan: Assessment Generalized weakness and debility. Diarrhea. Dehydration. Acute kidney failure - unspecified. Stage IV colon cancer. Chronic kidney disease, stage III - baseline SCr 1.5. CAD and PAD. Hypertension. GERD. History of bowel obstruction - 02/2017. Anemia of chronic disease with prior blood transfusions. Immunosuppression secondary to chemotherapy - last tx. 03/2017. Plan - 04/15/17 (admission) Admit to observation status under the care of Dr. Trotter and hospitalist service. Review of recent labs revealed marked increase in SCr from 1.5 on 05/02/16 to 3.0 on 04/15/17. Patient received 1L NS in infusion therapy. Will continue NS at 75cc/hr for gentle hydration. Monitor daily weight and urinary output closely. Patient admits to significantly increased number of stools per day. Will obtain GI panal and monitor closely. Encourage oral intake. Zofran as needed for nausea/vomiting. Recent urinary retention on 04/12/17. Bladder scan as indicated and monitor closely for retention. Will monitor closely on telemetry. Continue home medications. Upon discharge, patient's care will be returned to his PCP, Dr. Mera. Patient wishes to be a FULL CODE. DVT Prophylaxis: SCD's Resuscitation Status: Full Code - Time spent with patient Time with patient PN: 70 minutes - Physician Narrative Physician: Freddy Trotter MD Narrative: Date: 04/15/17 Time: 1713 Have independently interviewed and examined patient. Chart reviewed. Case discussed with Dr Mera and my PA. Care plan developed with my supervision; agree with above. Patient made direct admit at the request of Dr Mera secondary to worsening renal status and increase ostomy output. Has been needing IV infusion daily for past week or so. Oral drive has been decreased - with IVF, appetite improves. Does note increased stool output-oral intake food/liquids 'seem to run right through me.' Ab pain/fullness of and on. Nausea at times. Strength and functional abilities decreased. Notes cramps to legs when dehydrated. Breathing stable-not having increased cough or congestion. No palpitations. Lungs: decreased bilaterally CV: regular AB: soft nt/nd EXT: no edema MSE: awake alert appropriate Plan: OBS for hydration. Will check stool panel due to frequent stools to exclude pathogens. Questran prn loose stool. Check Renal US due to elevation of creatinine. Need to monitor for urinary retention-pt feels is emptying bladder well. Monitor electrolytes and renal status. Care to return to Dr Mera at time of discharge from [facility]. Hospital Course Summary Disclaimer: The visit summary below is not to be considered part of the above Progress Note. Hospital Course: Plan - 04/15/17 (admission) Admit to observation status under the care of Dr. Trotter and hospitalist service. Review of recent labs revealed marked increase in SCr from 1.5 on 05/02/16 to 3.0 on 04/15/17. Patient received 1L NS in infusion therapy. Will continue NS at 75cc/hr for gentle hydration. Monitor daily weight and urinary output closely. Patient admits to significantly increased number of stools per day. Will obtain GI panal and monitor closely. Encourage oral intake. Zofran as needed for nausea/vomiting. Recent urinary retention on 04/12/17. Bladder scan as indicated and monitor closely for retention. Will monitor closely on telemetry. Continue home medications. Upon discharge, patient's care will be returned to his PCP, Dr. Mera. Patient wishes to be a FULL CODE.
[2017-04-15] MEDS: HYDROMORPHONE 2 MG TABLET PO PRN ×2 (15:24→22:32)
[2017-04-15] MEDS ORDERED: CHOLESTYRAMINE LIGHT 4 G PACKET PO PRN (16:50)
[2017-04-16] MEDS: NS 1,000 ML IV SCH (04:12)
[2017-04-16] MEDS ORDERED: ASCORBIC ACID 500 MG TABLET PO SCH (08:00)
--- NOTE | 2017-04-16 08:51 | Ultrasound Report ---
Indication: DIXIE PROCEDURE: US renal BI: Encounter: Initial Comparison: None Technique: Grayscale and color Doppler sonographic imaging of both kidneys was performed. FINDINGS: Both kidneys are present with normal cortical thickness and echogenicity. No evidence for collecting system dilatation, contour deforming mass, nephrolithiasis, or abnormal perinephric fluid collection. The right kidney measures 9.3 cm in length, and the left kidney measures 9.3 cm in length. IMPRESSION: Normal renal sonogram. .
[2017-04-16] MEDS ORDERED: ATENOLOL 25 MG TABLET PO SCH (09:00)
[2017-04-16] MEDS ORDERED: PREGABALIN 100 MG CAPSULE PO SCH (09:00)
[2017-04-16] MEDS ORDERED: ASPIRIN *EC* 81 MG TABLET PO SCH (09:00)
[2017-04-16 09:02] VITALS: BP 100/62; PULSE 81; RESP 17; TEMP 97.2; O2SAT 100
[2017-04-16 10:06] VITALS: BMI 18.5
--- NOTE | 2017-04-16 13:13 | Progress Note ---
- Date 04/16/17 Subjective: F/U: Generalized weakness and debility, Diarrhea, Dehydration. Doing okay this afternoon. Eating better (reports always eats better and has less nausea with IVF). Stool output about at baseline. Breathing well. Ambulating well. Urinating well. No f/c. Feels ready to go home. Objective Vital signs: Temperature 97.2 F 04/16/17 08:00 Pulse Rate 81 04/16/17 08:00 Respiratory Rate 17 04/16/17 08:00 Blood Pressure 100/62 04/16/17 08:00 Pulse Oximetry 100 04/16/17 08:00 Height/Weight/BMI: Height 1.83 m Weight 61.9 kg Body Mass Index 18.5 - Constitutional Present: no acute distress, well nourished, well developed, thin, cooperative - Routine HEENT Exam Head: Present: normocephalic, atraumatic Eye: Present: EOMI, PERRL ENT: Present: mucous membranes moist - Routine Respiratory Exam Present: decreased breath sounds. Absent: rales, respiratory distress, rhonchi , stridor, wheezes, crackles - Routine Cardiovascular Exam Present: RRR, no murmur - Routine Abdominal Exam Present: soft, normoactive bowel sounds, non distended, non tender - Routine Extremities Exam Present: no edema, pulses intact. Absent: cyanosis, clubbing - Routine Musculoskeletal Exam Musculoskeletal: Present: no clubbing or cyanosis, normal strength - Routine Skin Exam Present: dry, warm - Routine Neurological Exam Present: alert, oriented X3, CN II-XII intact, moving all extremities, vision grossly intact, hearing grossly intact, normal speech. Absent: motor deficit, altered mental status - Routine Psychiatric Exam Present: normal affect, normal thought process, cooperative, good insight, good judgment Results - Labs CBC & Chem 7: 04/16/17 04:27 04/16/17 04:27 Assessment and Plan (1) Generalized muscle weakness Current visit: Yes Status: Acute (2) Acute kidney failure, unspecified Current visit: Yes Status: Acute (3) Colon cancer Current visit: No Status: Acute Assessment and Plan: Assessment Generalized weakness and debility. Diarrhea - no GI pathogens isolated. Dehydration. Acute kidney injury - unspecified. Stage IV colon cancer. Chronic kidney disease, stage III - baseline SCr 1.5. CAD and PAD. Hypertension. GERD. History of bowel obstruction - 02/2017. Anemia of chronic disease with prior blood transfusions. Immunosuppression secondary to chemotherapy - last tx. 03/2017. Plan Renal ultrasound normal - normal size of kidneys, no hydronephrosis. GI panel negative for pathogens. Nausea improved. Eating well. Ambulating well. Creatinine with decrease to 2.4 this am. Patient feels up to discharge for home. Will discharge to home in stable condition. Does ask about Flomax to help urine flow. Discussed side effects. Will give prescription. Will have Questran available as needed for loose stools. Potentially could be helpful. Did not use during this hospitalization. Encourage oral intake. Will have patient f/u with Dr Mera in about 1 week. May need interval outpatient IVF infusions, depending on how his hydration dose. See orders for detail. Time spent with patient care and discharger greater than 30 minutes. DVT Prophylaxis: SCD's Resuscitation Status: Full Code - Physician Narrative Physician: Freddy Trotter MD Narrative: Date: 04/16/17 Time: 1308 Hospital Course Summary Disclaimer: The visit summary below is not to be considered part of the above Progress Note. Hospital Course: Plan - 04/15/17 (admission) Admit to observation status under the care of Dr. Trotter and hospitalist service. Review of recent labs revealed marked increase in SCr from 1.5 on 05/02/16 to 3.0 on 04/15/17. Patient received 1L NS in infusion therapy. Will continue NS at 75cc/hr for gentle hydration. Monitor daily weight and urinary output closely. Patient admits to significantly increased number of stools per day. Will obtain GI panal and monitor closely. Encourage oral intake. Zofran as needed for nausea/vomiting. Recent urinary retention on 04/12/17. Bladder scan as indicated and monitor closely for retention. Will monitor closely on telemetry. Continue home medications. Upon discharge, patient's care will be returned to his PCP, Dr. Mera. Patient wishes to be a FULL CODE. 04/16/17 Renal ultrasound normal - normal size of kidneys, no hydronephrosis. GI panel negative for pathogens. Nausea improved. Eating well. Ambulating well. Creatinine with decrease to 2.4 this am. Patient feels up to discharge for home. Will discharge to home in stable condition. Does ask about Flomax to help urine flow. Discussed side effects. Will give prescription. Will have Questran available as needed for loose stools. Potentially could be helpful. Did not use during this hospitalization. Encourage oral intake. Will have patient f/u with Dr Mera in about 1 week. May need interval outpatient IVF infusions, depending on how his hydration dose. See orders for detail.
--- NOTE | 2017-04-16 13:32 | Discharge Summary ---
Discharge Information Date of admission: 04/15/17 13:40 Anticipated date of discharge: 04/16/17 Attending Physician: Freddy Trotter MD Primary care physician: Jake Mera MD - Discharge Diagnosis (1) Generalized muscle weakness Status: Acute (2) Acute kidney failure, unspecified Status: Acute (3) Colon cancer Status: Acute Discharge diagnosis Dehydration. Associated conditions and complications Generalized weakness and debility Diarrhea - no GI pathogens isolated. Acute kidney injury - unspecified. Stage IV colon cancer. Chronic kidney disease, stage III - baseline SCr 1.5. CAD and PAD. Hypertension. GERD. History of bowel obstruction - 02/2017. Anemia of chronic disease with prior blood transfusions. Immunosuppression secondary to chemotherapy - last tx. 03/2017. - Procedures Procedures: Date of Exam: 04/16/17 PROCEDURE: US renal BI FINDINGS: Both kidneys are present with normal cortical thickness and echogenicity. No evidence for collecting system dilatation, contour deforming mass, nephrolithiasis, or abnormal perinephric fluid collection. The right kidney measures 9.3 cm in length, and the left kidney measures 9.3 cm in length. IMPRESSION: Normal renal sonogram. - Laboratory Labs: 04/16/17 04:27 04/16/17 04:27 History of Present Illness HPI: Kamari Johnson is a pleasant 71-year-old male patient of Dr. Mera's who is been battling stage IV colon cancer. He underwent a bowel resection and creation of ileostomy in 2002 and for the past year and a half, has been receiving weekly infusions of 5-FU per Dr. Valdovinos. He was recently hospitalized on 02/27/17 due to a bowel obstruction and was discharged home on 03/01/17 feeling good. He states that he was doing well for a few weeks and then around 04/03/17 he started having increased liquid stools and reports as many as 10 stools a night. In light of his increased bowel output, he has had progressive generalized weakness and difficulty maintaining hydration requiring additional visits to infusion therapy for IV hydration. Despite the additional IV hydration, he continued to have difficulties and was seen in the ED at [facility] on 04/08 for dehydration and then again on 04/12 for urinary retention. Throughout his acute illness involving decreased appetite, nausea, dry heaves and increased stools, his creatine is noted to have increased from his baseline of 1.5 to 3.2 on 04/08/17. During an ED visit on 04/12/17 for urinary retention, CT chest/abdomen/pelvis with contrast was obtained and revealed stable size of the enhancing necrotic malignant process in the right lower pelvis now with osseous invasion of the tailbone. He was discharged home and instructed to follow up with his PCP as needed. Today, 04/15/17 he again presented to infusion therapy for more IV hydration per Dr. Mera. Due to the progressive nature of his symptoms, Dr. Trotter was consulted and Mr. Johnson was accepted as an observation admission for further evaluation and treatment. He is seen in the infusion therapy room while receiving 1L NS. He states that overall, he feels "ok" but admits to increased fatigue, generalized weakness, decreased appetite, occasional nausea and dry heaves as well as significantly increased stool output. He states that his urinary retention has resolved since his ED visit on 04/12/17. He reports that he has had bouts of loose stools since he began chemotherapy over a year ago, but the number of stools has significantly increased in the past 2 weeks. He denies any known fevers, chills , chest pain, shortness of breath, abdominal pain. He admits to getting lightheaded occasionally with standing but denies any currently. His is present on the exam and contributes to his history. For complete details of the H&P refer to that document. Objective Vital signs: Temperature 97.2 F 04/16/17 08:00 Pulse Rate 81 04/16/17 08:00 Respiratory Rate 17 04/16/17 08:00 Blood Pressure 100/62 04/16/17 08:00 Pulse Oximetry 100 04/16/17 08:00 Height/Weight/BMI: Height 1.83 m Weight 61.9 kg Body Mass Index 18.5 Hospital Course This is a general summary of the patient's hospital course. For more details refer to the complete medical record. Hospital course: Plan - 04/15/17 (admission) Admit to observation status under the care of Dr. Trotter and hospitalist service. Review of recent labs revealed marked increase in SCr from 1.5 on 05/02/16 to 3.0 on 04/15/17. Patient received 1L NS in infusion therapy. Will continue NS at 75cc/hr for gentle hydration. Monitor daily weight and urinary output closely. Patient admits to significantly increased number of stools per day. Will obtain GI panal and monitor closely. Encourage oral intake. Zofran as needed for nausea/vomiting. Recent urinary retention on 04/12/17. Bladder scan as indicated and monitor closely for retention. Will monitor closely on telemetry. Continue home medications. Upon discharge, patient's care will be returned to his PCP, Dr. Mera. Patient wishes to be a FULL CODE. 04/16/17 Renal ultrasound normal - normal size of kidneys, no hydronephrosis. GI panel negative for pathogens. Nausea improved. Eating well. Ambulating well. Creatinine with decrease to 2.4 this am. Patient feels up to discharge for home. Will discharge to home in stable condition. Does ask about Flomax to help urine flow. Discussed side effects. Will give prescription. Will have Questran available as needed for loose stools. Potentially could be helpful. Did not use during this hospitalization. Encourage oral intake. Will have patient f/u with Dr Mera in about 1 week. May need interval outpatient IVF infusions, depending on how his hydration dose. See orders for detail. Time spent with patient: discharge greater than 30 minutes DVT Prophylaxis: SCD's Discharge Plan - Discharge Disposition Discharge Date: 04/16/17 Disposition: Discharged Home, Self-Care *Condition: Stable Reason For Visit (Visit label in EMR): dehydration and renal insufficiency - Discharge Medications *Discharge Medications: New Tamsulosin [Flomax] 0.4 mg PO HS #30 cap Cholestyramine (with Sugar) [Questran Powder] 4 gm PO Q6HR PRN #1 bottle PRN Reason: Diarrhea Continue Multivit-Min/FA/Lycopen/Lutein [Centrum Silver Tablet] 1 tab PO DAILY #0 Pregabalin Cap [Lyrica] 100 mg PO DAILY FentaNYL PATCH [Duragesic Patch] 1 patch TD Q72H PRN PRN Reason: Pain Cholecalciferol (Vitamin D3) [Vitamin D3] 3,000 unit PO DAILY Aspirin *EC* [Ecotrin] 81 mg PO DAILY #30 tab Hydromorphone HCl 8 mg PO Q3H PRN PRN Reason: Pain Cyanocobalamin (Vitamin B-12) [Vitamin B-12] 1,000 mcg PO DAILY Ascorbate Calcium [Vitamin C] 500 mg PO WB Atenolol [Tenormin] 25 mg PO DAILY Pantoprazole Tab [Protonix Tab] 40 mg PO DAILY Ondansetron [Ondansetron Odt] 8 mg SL PRN PRN #0 PRN Reason: NAUSEA Nitroglycerin [Nitrostat] 0.4 mg PO Q5MIN3 PRN #0 PRN Reason: CHEST PAIN Prochlorperazine Tab [Compazine] 10 mg PO PRN PRN PRN Reason: Nausea - Discharge Packet/Instructions *Diet: Regular *Activity: As tolerated *Pain Management/Treatment: Continue prior pain medications *Wound Care: N/A Additional Instructions: May use Flomax 0.4mg at bedtime to help urinary flow. May use Questran 4 grams orally every 6 hours to help slow stool output. *Expected Signs/Symptoms: Decrease in stool frequency *Notify Physician if: Temp >100.4. Increased nausea or increased stool output. *During Business Hours Contact: Dr Mera *After Business Hours Contact: Call [facility] and have Dr Mera or his covering provider contacted. *Pending Lab/Results: No Pending Lab - Referrals/Follow Up *Referrals/Follow Up: Jake Mera MD [Family Provider] - 1 Week (F/U in about 1 week. May need continued IV infusion in infusion center. ) - Patient Handouts - Dismissal Complete Discharge Instructions are:: Complete Physician Narrative - Narrative Physician: Freddy Trotter MD Attestation Narrative: Date: 04/16/17 Time: [id number] I have independently interviewed and examined patient prior to discharge. See my progress note from today for details. Medically stable for discharge to home.
== END 2017-04-16 15:40 | disposition home or self-care (01) ==
LOC: MED
PROVIDERS: ADMIT Hospitalist; ATTEND Hospitalist

== ENCOUNTER 2017-04-20 00:48 | Observation (INO) ==
[2017-04-20] MEDS ORDERED: SALINE FLUSH 10ml SYRINGE IVF PRN (01:55)
[2017-04-20] MEDS ORDERED: NS 1,000 ML IV ONE (01:56)
--- NOTE | 2017-04-20 01:56 | Emergency Department Report ---
General Adult HPI - General Chief complaint: Fall Stated complaint: fall, dehrydrated Time Seen by Provider: 04/20/17 01:28 Source: patient Mode of arrival: ambulatory Limitations: no limitations - History of Present Illness HPI narrative: 71-year-old male presents to the emergency department with a chief complaint of dehydration and a syncopal episode earlier today. Patient has a history of colon cancer and has chronic diarrhea leading to dehydration and hypomagnesemia on several occasions. Patient states that today is no different. He denies any current pain or discomfort. He does note bumping his forehead on the door frame during his syncopal episode. He denies headache, neck pain, or loss of consciousness. He was at home when the incident occurred. He denies any current pain or discomfort. No other complaints or associated symptoms. Tetanus status is current. He is not anti-coagulated. - Related Data Home Medications Medication Instructions Recorded Confirmed Ondansetron [Ondansetron Odt] 8 mg SL PRN PRN #0 11/06/15 04/15/17 Nitroglycerin [Nitrostat] 0.4 mg PO Q5MIN3 PRN #0 05/27/16 04/15/17 Multivit-Min/FA/Lycopen/Lutein 1 tab PO DAILY #0 08/23/16 04/15/17 [Centrum Silver Tablet] FentaNYL PATCH [Duragesic Patch] 1 patch TD Q72H PRN 12/25/16 04/15/17 Pregabalin Cap [Lyrica] 100 mg PO DAILY 12/25/16 04/15/17 Cholecalciferol (Vitamin D3) 3,000 unit PO DAILY 01/07/17 04/15/17 [Vitamin D3] Ascorbate Calcium [Vitamin C] 500 mg PO WB 04/08/17 04/15/17 Atenolol [Tenormin] 25 mg PO DAILY 04/08/17 04/15/17 Cyanocobalamin (Vitamin B-12) 1,000 mcg PO DAILY 04/08/17 04/15/17 [Vitamin B-12] Hydromorphone HCl 8 mg PO Q3H PRN 04/08/17 04/15/17 Pantoprazole Tab [Protonix Tab] 40 mg PO DAILY 04/08/17 04/15/17 Prochlorperazine Tab [Compazine] 10 mg PO PRN PRN 04/08/17 04/15/17 Previous Rx's Medication Instructions Recorded Aspirin *EC* [Ecotrin] 81 mg PO DAILY #30 tab 01/08/17 Cholestyramine (with Sugar) 4 gm PO Q6HR PRN #1 bottle 04/16/17 [Questran Powder] Tamsulosin [Flomax] 0.4 mg PO HS #30 cap 04/16/17 Allergies Allergy/AdvReac Type Severity Reaction Status Date / Time atorvastatin AdvReac Unknown Restlessnes Verified 04/20/17 01:40 s codeine AdvReac Unknown NAUSEA Verified 04/20/17 01:40 Review of Systems Constitutional: Denies: fever, chills Eyes: Denies: eye pain, vision change ENT: Denies: ear pain, throat pain Cardiovascular: Denies: chest pain, palpitations Respiratory: Denies: cough, dyspnea Gastrointestinal: Reports: diarrhea. Denies: abdominal pain, nausea, vomiting Genitourinary: Denies: urgency, dysuria Musculoskeletal: Denies: back pain, arthralgia Integumentary: Denies: erythema, rash Neurological: Denies: headache, numbness Psychiatric: Denies: anxiety, depression Endocrine: Denies: fatigue, heat or cold intolerance Hematological/Lymphatic: Denies: easy bleeding, easy bruising Allergic/Immunologic: Denies: facial swelling, urticaria PFSH Patient Stated Medical History Hearing Loss Yes Coronary Artery Disease Yes Heart Murmur Yes Hypertension Yes Myocardial Infarction Yes Pneumonia Yes: years ago Gastroesophageal Reflux Yes Disease Obstructive Bowel Yes Anemia Yes: HX Osteoarthritis Yes Other Musculoskeletal Yes Clostridium Difficile Yes: HX Blood Transfusions Yes: HX Chemotherapy Yes: LAST TX 03/2017 Surgical History: 1992 ORIF right heel/ankle fracture in [place]. 1995 left /sigmoid colectomy for colon cancer in [place]. 2001 Lap [facility] in [place], [place]. 2002 placement or Port-A -Cath with removal in 2008. 06/2002 heart cath then 5 vessel CABG. 2002 right hemicolectomy for a separate colon cancer Dr. Regla Best. 10/2011 total colectomy with ileoractal anastomosis, diverting loop ileostomy for precancerous tumors unable to be resected endoscopically, Dr. Fadi Laguna [facility] in [place]. 11/2011 EGD found 2 duodenal ulcers, esophagitis, antral gastritis. Flexible proctoscoy/ileoscopy found anastomotic stricture with anastomotic ulcer at 12 cm from anal verge. 2011 Ileostomy reversal with segemental small bowel resection Dr. Laguna at [facility]. 10/27/12 delayed primary closure of postop midline wound infection , Dr. Laguna. 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 Paula. 04/01/13 Push endoscopy and endoscopic ultrasound for abd bloating, diarrhea and pancreatitis, no pathologic diagnosis, no pancreatitis, Dr. Garzon. 06/09/13 EGD with biospy showed focal intestinal metaplasia, small hiatal hernia, Dr. Garzon. 06/07/2014 placement of Port A Cath, Dr. Paula. 09/11/15 Echo shows EF of 55-60%; trace MR , PI, TR. 05/02/16 Flexible sigmoidoscopy with biopsies of rectal lesion . 01/07/17 [employer] and stent of right external and right common iliac stent, Dr. Villegas Family History: Reviewed and Noncontributory. - Social History Smoking status: Former smoker Substance use type: does not use Alcohol intake frequency: does not drink Does patient use chewing tobacco?: No Current residence: Apartment/Private Home Physical Exam - Limitations Limitations: no limitations - General General appearance: alert, in no apparent distress - Normal Exams: Head:: Normocephalic without trauma Eyes:: Pupils are PERRLA w/ EOMI, No scleral icterus, irritation, or foreign bodies noted ENMT:: No facial trauma, nasal exudates, pharyngeal erythema, or exudates are noted Dental: No fractured, loose, or missing teeth noted Neck:: Full range of motion (no midline tenderness or deformity of the cervical spine.), without adenopathy, JVD, bruits or thyromegaly Chest/Respirations:: Clear all duron, with good airflow, and symmetry bilaterally Cardiovascular:: Regular rate and rhythm, without murmur or gallop, Pulses 2+ all extremities, capillary refill, <2 seconds all extremities Abdomen:: Bowel sounds positive, soft, non-tender, non-distended, no hepatosplenomegaly, masses or bruits noted Lymphatic:: No lymphadenopathy, or lymphedema noted Musculoskeletal:: No tenderness, or deformity noted, good range of motion, all extremities Integumentary:: No rashes, hives, or bruising noted, hair and nails, without abnormality Neurological:: Patient is alert, and oriented, cranial nerves, motor/sensory/ cerebellar, exams w/o gross deficits, to observation Psychiatric:: Patient exhibits, appropriate attention, emotion and affect Course Vital Signs Temperature 96.9 F 04/20/17 01:27 Pulse Rate 102 H 04/20/17 01:27 Respiratory Rate 18 04/20/17 01:27 Blood Pressure 96/61 04/20/17 01:27 Pulse Oximetry 100 04/20/17 01:27 Temperature 96.9 F 04/20/17 01:27 Pulse Rate 102 H 04/20/17 01:27 Respiratory Rate 18 04/20/17 01:27 Blood Pressure 96/61 04/20/17 01:27 Pulse Oximetry 100 04/20/17 01:27 Medical Decision Making - MDM Narrative Medical decision making narrative: Labs / imaging were discussed in detail with the patient and questions are answered patient is given 1 L normal saline intravenously. Patient has no source of infection. Patient's symptoms are secondary to dehydration. Patient is discussed with the hospitalist Dr. Mireles and will be admitted to the service of Dr. Hayden in improved condition. Patient and family are in agreement with the current plan of management. Patient is admitted to the hospital in improved condition. No further orders from accepting or consulting physicians who were in agreement with the current plan of management. - Lab Data Result diagrams: 04/20/17 02:28 04/20/17 02:28 Lab Results 04/20/17 04/20/17 Range/Units 02:28 02:28 WBC 9.0 (4.5-11.0) T/MM3 RBC 3.65 L (4.50-5.90) M/MM3 Hgb 11.8 L (13.5-17.5) GM/DL Hct 35.3 L (41-53) % MCV 96.7 (80-100) UM3 MCH 32.3 (26-34) UUG MCHC 33.4 (31-37) GM/DL RDW Std Deviation 55.0 H (36.9-50.2) FL Plt Count 297 (130-400) T/MM3 MPV 8.7 L (9.4-12.4) UM3 Immature Gran % (Auto) 0.9 H (0.0-0.5) % Neut % (Auto) 69.2 H (33-66) % Lymph % (Auto) 18.8 L (23-45) % Chaves % (Auto) 9.5 H (0-9.0) % Eos % (Auto) 1.3 (0-4) % Baso % (Auto) 0.3 (0-2) % Neut # (Auto) 6.2 (1.8-7.7) T/MM3 Lymph # (Auto) 1.7 (1-4.8) T/MM3 Chaves # (Auto) 0.9 H (0-0.8) T/MM3 Eos # (Auto) 0.1 (0-0.5) T/MM3 Baso # (Auto) 0.0 (0-0.2) T/MM3 Abs Immat Gran (auto) 0.08 H (0.00-0.03) T/MM3 Turbidity < 20 (0-20) Sodium 135 (134-144) MEQ/L Potassium 4.4 (3.6-5) MEQ/L Chloride 100 (98-107) MEQ/L Carbon Dioxide 20 L (22-30) MEQ/L Anion Gap 15 (5-15) MEQ/L BUN 48.0 H (9-20) MG/DL Creatinine 3.2 H D (0.8-1.5) MG/DL GFR Calculation 19 BUN/Creatinine Ratio 15 (6-26) RATIO Glucose 116 H (75-110) MG/DL Calculated Osmolality 274 (261-280) MOSM/KG Calcium 10.0 (8.4-10.2) MG/DL Magnesium 1.6 D (1.6-2.3) MG/DL Total Bilirubin 0.70 (0.20-1.30) MG/DL Icterus Index < 2 (0-7) AST 30 (17-59) U/L ALT 31 (21-72) U/L Alkaline Phosphatase 121 (38-126) U/L Troponin I 0.051 (0-0.12) ng/ml Total Protein 8.4 H (6.3-8.2) G/DL Albumin 4.7 (3.5-5.0) G/DL Globulin 3.7 H (2.4-3.6) G/DL Albumin/Globulin Ratio 1.3 (1.1-2.2) RATIO Specimen Hemolysis < 15 (0-25) - Radiology Data CXR - No acute processes. CT head - No acute processes. - EKG Data EKG #1 EKG results narrative: Sinus rhythm. 98 bpm. No STEMI. Disposition Clinical Impression: Dehydration Syncope Qualifiers: Syncope type: unspecified Qualified Code(s): R55 - Syncope and collapse Disposition: 02 To [facility] Condition: Improved Time of Disposition: 03:45 (Admit. Dr. Hayden. ) - Seen By: physician
--- NOTE | 2017-04-20 05:51 | History & Physical Report ---
History of Present Illness Date: 04/20/17 Chief complaint: syncope HPI: 71 yo M with PMH of metastatic colon CA presented to the ED with reports of syncopal episode at home. Patient reports chronic diarrhea and has dehydration and hypomagnesemia because of this. He gets IVF as an outpatient 3 times a week , he reports he has been doing this for about 4 years. Patient reports that for the past 2 weeks his diarrhea has gotten worse. He says nothing makes it better and nothing makes it worse. He reports he usually doesn't black out and fall. He reports this evening he was getting up to use the restroom and he blacked out. He denies injury. He was found to be dehydrated with some kidney injury in the ED, he was admitted for IVF. Review of Systems All systems PM: 10-point ROS was reviewed, no additional remarkable complaints except Past Medical History Surgical History: 1992 ORIF right heel/ankle fracture in [place]. 1995 left /sigmoid colectomy for colon cancer in [place]. 2001 Lap Teagan in [place], [place]. 2002 placement or Port-A -Cath with removal in 2008. 06/2002 heart cath then 5 vessel CABG. 2002 right hemicolectomy for a separate colon cancer Dr. Regla Best. 10/2011 total colectomy with ileoractal anastomosis, diverting loop ileostomy for precancerous tumors unable to be resected endoscopically, Dr. Fadi Laguna [facility] in [place]. 11/2011 EGD found 2 duodenal ulcers, esophagitis, antral gastritis. Flexible proctoscoy/ileoscopy found anastomotic stricture with anastomotic ulcer at 12 cm from anal verge. 2011 Ileostomy reversal with segemental small bowel resection Dr. Laguna at [facility]. 10/27/12 delayed primary closure of postop midline wound infection , Dr. Laguna. 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 Paula. 04/01/13 Push endoscopy and endoscopic ultrasound for abd bloating, diarrhea and pancreatitis, no pathologic diagnosis, no pancreatitis, Dr. Garzon. 06/09/13 EGD with biospy showed focal intestinal metaplasia, small hiatal hernia, Dr. Garzon. 06/07/2014 placement of Port A Cath, Dr. Paula. 09/11/15 Echo shows EF of 55-60%; trace MR , PI, TR. 05/02/16 Flexible sigmoidoscopy with biopsies of rectal lesion . 01/07/17 [employer] and stent of right external and right common iliac stent, Dr. Villegas Family History Updates: non contributory - Social History Smoking status: Former smoker Does patient use chewing tobacco?: No Current residence: Apartment/Private Home Medications Home Medications Medication Instructions Recorded Confirmed Type Ondansetron [Ondansetron Odt] 8 mg SL PRN PRN #0 11/06/15 04/20/17 History Nitroglycerin [Nitrostat] 0.4 mg PO Q5MIN3 PRN #0 05/27/16 04/20/17 History Multivit-Min/FA/Lycopen/Lutein 1 tab PO DAILY #0 08/23/16 04/20/17 History [Centrum Silver Tablet] FentaNYL PATCH [Duragesic Patch] 1 patch TD Q72H PRN 12/25/16 04/20/17 History Pregabalin Cap [Lyrica] 100 mg PO DAILY 12/25/16 04/20/17 History Cholecalciferol (Vitamin D3) 3,000 unit PO DAILY 01/07/17 04/20/17 History [Vitamin D3] Ascorbate Calcium [Vitamin C] 500 mg PO WB 04/08/17 04/20/17 History Atenolol [Tenormin] 25 mg PO DAILY 04/08/17 04/20/17 History Cyanocobalamin (Vitamin B-12) 1,000 mcg PO DAILY 04/08/17 04/20/17 History [Vitamin B-12] Hydromorphone HCl 8 mg PO Q3H PRN 04/08/17 04/20/17 History Pantoprazole Tab [Protonix Tab] 40 mg PO DAILY 04/08/17 04/20/17 History Prochlorperazine Tab [Compazine] 10 mg PO PRN PRN 04/08/17 04/20/17 History Allergies Allergy/AdvReac Type Severity Reaction Status Date / Time atorvastatin AdvReac Unknown Restlessnes Verified 04/20/17 01:40 s codeine AdvReac Unknown NAUSEA Verified 04/20/17 01:40 Exam Vital Signs: Temperature 96.9 F 04/20/17 01:27 Pulse Rate 102 H 04/20/17 01:27 Respiratory Rate 18 04/20/17 01:27 Blood Pressure 96/61 04/20/17 01:27 Pulse Oximetry 100 04/20/17 01:27 - Constitutional Present: no acute distress, well developed, cachectic - Routine Respiratory Exam Present: CTA bilaterally. Absent: wheezes - Routine Cardiovascular Exam Present: RRR. Absent: murmur - Routine Abdominal Exam Present: soft, normoactive bowel sounds, non distended. Absent: tenderness - Routine Extremities Exam Present: normal capillary refill - Routine Skin Exam Present: dry, warm - Routine Neurological Exam Present: alert, oriented X3, CN II-XII intact - Routine Psychiatric Exam Present: normal affect Results - Labs CBC & Chem 7: 04/20/17 02:28 04/20/17 14:55 Assessment and Plan (1) Syncope Current visit: Yes Status: Acute (2) Acute kidney failure, unspecified Current visit: No Status: Acute (3) Colon cancer Current visit: No Status: Acute (4) Generalized muscle weakness Current visit: No Status: Acute Assessment and Plan: Patient admitted. Started on IVF replacement. will monitor vitals and recheck labs tomorrow AM. DVT Prophylaxis: SCD's Resuscitation Status: Full Code - Physician Narrative Physician: Freddy Trotter MD Narrative: Date: 04/20/17 Time: 1614 Serg[place] Have independently interviewed and examined pt. Chart reviewed. Reviewed above note and concur. CC: Dehydration, passed out HPI: 71 y/o male present to [facility] ED secondary to syncopal event. Has been having significant difficult maintaining hydration-increased output from ostomy. Will Receive IVF 3 times a week in infusion center-last infusion was on 04/18. In OBS status last week secondary to DIXIE and dehydration. Was discharged with Questran to try to slow stools, but found no help. Using Imodium with limited success. No nausea or ab pain. Oral drive fair. Got up this morning to go to bathroom. As was walking, legs started to feel more weak and crampy. [place] weak and dizzy; fell. Banged head with fall, but denies other injuries. Did not notice palpitations. No f/c. Breathing has been stable. See in ED. Creatinine back up to 3.2. Given IV and placed in OBS to continue with treatments. PHMx: Stage IV Colon Ca-on palative chemo, Stage III CKD, ASPVD, HTN, GERD Meds: see mar All: Lipitor, codeine Shx: , lives in [place]. Not smoking or using ETOH. Dr Mera PCP, Aruna for ONC, Bakari for cardiac care, Jaime Cottrell for renal care. FHX: Colon CA: Paternal grandfather and aunt. Father secondary to drowning. ROS: as in HPI. 10 point ROS discussed with patient and negative EXAM GEN: WDWN thin male, awake and alert HEENT: NC/AT PERRLA EOMI MMM Neck: supple, midline Lungs: clear bilaterally, no crackles/wheezes/distress CV: regular without murmur AB: soft nt/nd BS present EXT: thin and without edema Neuro: CN II-XII intact. No focal motor deficits Psych: awake alert appropriate. Thoughts linear. Converses well. Skin: warm and dry MS: decreased muscle mass to upper and lower ext Lab: Reviewed Assessment Syncope - likely secondary to intravascular depeletion Acute Kidney injury Stage III CKD Stage IV colon cancer Diarrhea - recent evaluation showing no GI pathogens Weakness secondary to above HTN - BP low at presentation Anemia of chronic disease Plan OBS for IV hydration. NS started at 150cc/hr - continue, monitor for signs of overload. Imodium prn loose stools. Continue home medications. Will need to monitor BMP to follow for any electrolyte abnormalities from IVF. Full code as his request Care to return to Dr Mera at time of discharge from [facility]. Hospital Course Summary Disclaimer: The visit summary below is not to be considered part of the above Progress Note. Hospital Course: 04/20/17 OBS admission OBS for IV hydration. NS started at 150cc/hr - continue, monitor for signs of overload. Imodium prn loose stools. Continue home medications. Will need to monitor BMP to follow for any electrolyte abnormalities from IVF. Full code as his request Care to return to Dr Mera at time of discharge from [facility].
[2017-04-20] MEDS ORDERED: NS 1,000 ML IV SCH (06:15)
[2017-04-20] MEDS ORDERED: ONDANSETRON 4 MG/2 ML INJECTION IVP PRN (07:17)
[2017-04-20 07:25] VITALS: BMI 17.8
[2017-04-20] MEDS: NS 1,000 ML IV SCH ×3 (07:35→21:49)
--- NOTE | 2017-04-20 08:50 | XRay Report ---
Indication: syncope PROCEDURE: XR chest 1V: Encounter: Initial Comparison: CT chest dated April 12, 2017 FINDINGS: The lungs are clear. There is no abnormal airspace opacity, pleural effusion or pneumothorax identified. The heart size, pulmonary vasculature and mediastinum are stable. Right IJ port catheter. Post-CABG. IMPRESSION: No acute cardiopulmonary abnormality. .
--- NOTE | 2017-04-20 08:52 | CT Scan Report ---
Indication: fall, chi PROCEDURE: CT head/brain wo con: Encounter: Initial Comparison: December 15, 2015 Technique: Axial CT images through the head were performed without contrast. Iterative Reconstruction dose reducing technique was utilized. FINDINGS: The ventricles are of normal size, shape, and configuration for the patient's age. 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 There is no evidence of acute intracranial hemorrhage, midline displacement, or mass effect. There are scattered areas of low attenuation in the white matter which most likely represent changes of chronic microvascular ischemia. The CT attenuation of the brain parenchyma is otherwise normal within the cerebellum, brain stem, and cerebral hemispheres. The tympanic cavities and mastoid air cells are free of appreciable disease. There are no definite fractures of the skull base, calvarium, or visualized portion of the midface. IMPRESSION: No CT evidence of acute traumatic intracranial injury. There is a preliminary report by [facility]. .
[2017-04-20] MEDS: HYDROMORPHONE 2 MG TABLET PO PRN ×2 (11:52→18:23)
[2017-04-20] MEDS: HYDROCODONE/APAP 10 MG/325 MG TABLET PO PRN ×2 (11:54→18:23)
[2017-04-20] MEDS ORDERED: CHOLESTYRAMINE LIGHT 4 G PACKET PO PRN (12:03)
[2017-04-20] MEDS ORDERED: TAMSULOSIN 0.4 MG CAPSULE PO SCH (21:00)
[2017-04-21] MEDS: HYDROCODONE/APAP 10 MG/325 MG TABLET PO PRN ×2 (01:34→16:47)
[2017-04-21] MEDS: HYDROMORPHONE 2 MG TABLET PO PRN ×2 (01:34→16:45)
[2017-04-21] MEDS: NS 1,000 ML IV SCH ×3 (04:27→17:25)
[2017-04-21] MEDS ORDERED: ASPIRIN *EC* 81 MG TABLET PO SCH (09:00)
[2017-04-21] MEDS ORDERED: PREGABALIN 100 MG CAPSULE PO SCH (09:00)
[2017-04-21] MEDS: MAGNESIUM SULFATE 1gm PREMIX 1 GM/100 ML BAG IV SCH ×2 (09:36→10:39)
[2017-04-21 16:56] VITALS: BP 109/63; PULSE 97; RESP 16; TEMP 97.5; O2SAT 95
--- NOTE | 2017-04-21 17:01 | Progress Note ---
- Date 04/21/17 Subjective: F/U: Syncope - likely secondary to intravascular depletion, acute kidney injury Doing well this afternoon. Feels much better-less weak and unsteady. Eating well. Stools slowing slightly. No nausea or ab pain. Breathing well-not feeling SOA or congested. No pain with breathing. Not unsteady when up. Objective Vital signs: Temperature 97.5 F 04/21/17 16:00 Pulse Rate 97 04/21/17 16:00 Respiratory Rate 16 04/21/17 16:00 Blood Pressure 109/63 04/21/17 16:00 Pulse Oximetry 95 04/21/17 16:00 Height/Weight/BMI: Height 1.83 m Weight 59.7 kg Body Mass Index 17.8 - Constitutional Present: no acute distress, well nourished, well developed, thin, cooperative - Routine HEENT Exam Head: Present: normocephalic, atraumatic Eye: Present: EOMI, PERRL ENT: Present: mucous membranes moist - Routine Respiratory Exam Present: CTA bilaterally. Absent: rales, respiratory distress, rhonchi, stridor , wheezes - Routine Cardiovascular Exam Present: RRR, no murmur - Routine Abdominal Exam Present: soft, normoactive bowel sounds, non distended, non tender. Absent: guarding - Routine Extremities Exam Present: no edema, pulses intact. Absent: cyanosis, clubbing - Routine Musculoskeletal Exam Musculoskeletal: Present: no clubbing or cyanosis, normal strength - Routine Skin Exam Present: dry, warm - Routine Neurological Exam Present: alert, oriented X3, CN II-XII intact, moving all extremities, vision grossly intact, hearing grossly intact, normal speech. Absent: motor deficit, altered mental status - Routine Psychiatric Exam Present: normal affect, normal thought process, cooperative, good insight, good judgment Results - Labs CBC & Chem 7: 04/21/17 04:22 04/21/17 14:13 Assessment and Plan (1) Syncope Current visit: Yes Status: Acute (2) Acute kidney failure, unspecified Current visit: No Status: Acute (3) Colon cancer Current visit: No Status: Acute (4) Generalized muscle weakness Current visit: No Status: Acute Assessment and Plan: Assessment Syncope - likely secondary to intravascular depeletion Acute Kidney injury Stage III CKD Stage IV colon cancer Diarrhea - recent evaluation showing no GI pathogens Weakness secondary to above HTN - BP low at presentation Anemia of chronic disease Plan Clinically much better. Not unsteady when up. Eating well. Breathing well. Magnesium checked this am and was decreased to 1.3. 2grams magnesium given IV and repeat showed improvement to 1.8. Sodium stable at 139. Potassium normal at 3.9. Creatinine decreased to 1.8. With interval improvement, will discharge to home. Continue with outpatient IV infusions as per Dr Mera. Will have pt f/u with Dr Mera as perviously scheduled. See orders for details. DVT Prophylaxis: SCD's Resuscitation Status: Full Code - Physician Narrative Physician: Freddy Trotter MD Narrative: Date: 04/21/17 Time: 8 Hospital Course Summary Disclaimer: The visit summary below is not to be considered part of the above Progress Note. Hospital Course: 04/20/17 OBS admission OBS for IV hydration. NS started at 150cc/hr - continue, monitor for signs of overload. Imodium prn loose stools. Continue home medications. Will need to monitor BMP to follow for any electrolyte abnormalities from IVF. Full code as his request Care to return to Dr Mera at time of discharge from [facility]. 04/21/17 Clinically much better. Not unsteady when up. Eating well. Breathing well. Magnesium checked this am and was decreased to 1.3. 2grams magnesium given IV and repeat showed improvement to 1.8. Sodium stable at 139. Potassium normal at 3.9. Creatinine decreased to 1.8. With interval improvement, will discharge to home. Continue with outpatient IV infusions as per Dr Mera. Will have pt f/u with Dr Mera as perviously scheduled. See orders for details.
--- NOTE | 2017-04-21 21:57 | Discharge Summary ---
Discharge Information Date of admission: 04/20/17 04:31 Anticipated date of discharge: 04/21/17 Attending Physician: Freddy Trotter MD Primary care physician: Jake Mera MD - Discharge Diagnosis (1) Syncope Status: Acute (2) Acute kidney failure, unspecified Status: Acute (3) Colon cancer Status: Acute (4) Generalized muscle weakness Status: Acute Discharge diagnosis Syncope - likely secondary to intravascular depletion Associated conditions and complications Acute Kidney injury Stage III CKD Stage IV colon cancer Diarrhea - recent evaluation showing no GI pathogens Weakness secondary to above HTN - BP low at presentation Anemia of chronic disease - Laboratory Labs: Admit Lab 04/20/17 02:28 WBC 9.0 Hgb 11.8 L Hct 35.3 L MCV 96.7 Plt Count 297 Neut % (Auto) 69.2 H Lymph % (Auto) 18.8 L [place] % (Auto) 9.5 H Eos % (Auto) 1.3 Admit Lab 04/20/17 02:28 Sodium 135 Potassium 4.4 Chloride 100 Carbon Dioxide 20 L Anion Gap 15 BUN 48.0 H Creatinine 3.2 H D GFR Calculation 19 BUN/Creatinine Ratio 15 Glucose 116 H Calculated Osmolality 274 Calcium 10.0 Magnesium 1.6 D Total Bilirubin 0.70 AST 30 ALT 31 Alkaline Phosphatase 121 Total Protein 8.4 H Albumin 4.7 Globulin 3.7 H Magnesium Levels 04/20/17 04/21/17 04/21/17 02:28 04:22 14:13 Magnesium 1.6 D 1.3 L D 1.8 D 04/21/17 04:22 04/21/17 14:13 - Radiology Radiology: Date of Exam: 04/20/17 PROCEDURE: XR chest 1V FINDINGS: The lungs are clear. There is no abnormal airspace opacity, pleural effusion or pneumothorax identified. The heart size, pulmonary vasculature and mediastinum are stable. Right IJ port catheter. Post-CABG. IMPRESSION: No acute cardiopulmonary abnormality. Date of Exam: 04/20/17 PROCEDURE: CT head/brain wo con FINDINGS: The ventricles are of normal size, shape, and configuration for the patient's age. 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 There is no evidence of acute intracranial hemorrhage, midline displacement, or mass effect. There are scattered areas of low attenuation in the white matter which most likely represent changes of chronic microvascular ischemia. The CT attenuation of the brain parenchyma is otherwise normal within the cerebellum, brain stem, and cerebral hemispheres. The tympanic cavities and mastoid air cells are free of appreciable disease. There are no definite fractures of the skull base, calvarium, or visualized portion of the midface. IMPRESSION: No CT evidence of acute traumatic intracranial injury. - Pathology None History of Present Illness HPI: 71 yo M with PMH of metastatic colon CA presented to the ED with reports of syncopal episode at home. Patient reports chronic diarrhea and has dehydration and hypomagnesemia because of this. He gets IVF as an outpatient 3 times a week , he reports he has been doing this for about 4 years. Patient reports that for the past 2 weeks his diarrhea has gotten worse. He says nothing makes it better and nothing makes it worse. He reports he usually doesn't black out and fall. He reports this evening he was getting up to use the restroom and he blacked out. He denies injury. He was found to be dehydrated with some kidney injury in the ED, he was admitted for IVF. For complete details of the H&P refer to that document. Objective Vital signs: Temperature 97.5 F 04/21/17 16:00 Pulse Rate 97 04/21/17 16:00 Respiratory Rate 16 04/21/17 16:00 Blood Pressure 109/63 04/21/17 16:00 Pulse Oximetry 95 04/21/17 16:00 Height/Weight/BMI: Height 1.83 m Weight 59.7 kg Body Mass Index 17.8 Hospital Course This is a general summary of the patient's hospital course. For more details refer to the complete medical record. Hospital course: 04/20/17 OBS admission OBS for IV hydration. NS started at 150cc/hr - continue, monitor for signs of overload. Imodium prn loose stools. Continue home medications. Will need to monitor BMP to follow for any electrolyte abnormalities from IVF. Full code as his request Care to return to Dr Mera at time of discharge from [facility]. 04/21/17 Clinically much better. Not unsteady when up. Eating well. Breathing well. Magnesium checked this am and was decreased to 1.3. 2grams magnesium given IV and repeat showed improvement to 1.8. Sodium stable at 139. Potassium normal at 3.9. Creatinine decreased to 1.6. With interval improvement, will discharge to home. Continue with outpatient IV infusions as per Dr Mera. Will have pt f/u with Dr Mera as perviously scheduled. See orders for details. Time spent with patient: discharge greater than 30 minutes DVT Prophylaxis: SCD's Discharge Plan - Discharge Disposition Discharge Date: 04/21/17 Disposition: Discharged Home, Self-Care *Condition: Improved Reason For Visit (Visit label in EMR): fall, dehrydrated - Discharge Medications *Discharge Medications: Continue Multivit-Min/FA/Lycopen/Lutein [Centrum Silver Tablet] 1 tab PO DAILY #0 Pregabalin Cap [Lyrica] 100 mg PO DAILY FentaNYL PATCH [Duragesic Patch] 1 patch TD Q72H PRN PRN Reason: Pain Cholecalciferol (Vitamin D3) [Vitamin D3] 3,000 unit PO DAILY Aspirin *EC* [Ecotrin] 81 mg PO DAILY #30 tab Hydromorphone HCl 8 mg PO Q3H PRN PRN Reason: Pain Cyanocobalamin (Vitamin B-12) [Vitamin B-12] 1,000 mcg PO DAILY Ascorbate Calcium [Vitamin C] 500 mg PO WB Atenolol [Tenormin] 25 mg PO DAILY Pantoprazole Tab [Protonix Tab] 40 mg PO DAILY Tamsulosin [Flomax] 0.4 mg PO HS #30 cap Ondansetron [Ondansetron Odt] 8 mg SL PRN PRN #0 PRN Reason: NAUSEA Nitroglycerin [Nitrostat] 0.4 mg PO Q5MIN3 PRN #0 PRN Reason: CHEST PAIN Prochlorperazine Tab [Compazine] 10 mg PO PRN PRN PRN Reason: Nausea Cholestyramine (with Sugar) [Questran Powder] 4 gm PO Q6HR PRN #1 bottle PRN Reason: Diarrhea - Discharge Packet/Instructions *Diet: regular *Activity: as tolerated *Pain Management/Treatment: Continue prior pain medications *Wound Care: N/A *Expected Signs/Symptoms: Improvement of strength *Notify Physician if: Temp >100.4. Increased nausea/weakness *During Business Hours Contact: Dr Mera *After Business Hours Contact: Call [facility] and have Dr Mera or his covering provider contacted. *Pending Lab/Results: No Pending Lab - Referrals/Follow Up *Referrals/Follow Up: Jake Mera MD [Family Provider] - (Follow up with Dr Mera as scheduled. ) - Patient Handouts Patient Handouts: Dehydration (DC) - Dismissal Complete Discharge Instructions are:: Complete Physician Narrative - Narrative Physician: Freddy Trotter MD Attestation Narrative: Date: 04/21/17 Time: 2153 I have independently interviewed and examined patient prior to discharge. See my progress note from today for details. Medically stable for discharge to home.
== END 2017-04-21 18:00 | disposition home or self-care (01) ==
LOC: MED 00:48 → ED 00:48 → SRG 06:15
PROVIDERS: ADMIT Internal Medicine; ATTEND Hospitalist

== ENCOUNTER 2017-04-28 07:16 | Inpatient (IN) ==
[2017-04-28] MEDS ORDERED: ONDANSETRON 4 MG/2 ML INJECTION IVP ONE ×2 (07:29→10:17)
[2017-04-28] MEDS ORDERED: NS 1,000 ML IV ONE ×2 (07:29→09:04)
--- NOTE | 2017-04-28 07:48 | Emergency Department Report ---
Nausea/Vomiting/Diarrhea HPI - General Chief complaint: Nausea/Vomiting/Diarrhea Stated complaint: vomiting Time Seen by Provider: 04/28/17 07:29 Source: patient, RN notes reviewed, old records reviewed Mode of arrival: ambulatory Limitations: no limitations - History of Present Illness HPI Narrative: 71yo man presents to the ER today for evaluation of N/V. Pt had abrupt onset of N/V yesterday around 1400. Pts sx are similar to his last admission for SBO. Has tried PO zofran, but vomits it up. Is able to drink, but vomits that too. Pt is concerned about another SBO. MD complaint: nausea, vomiting Onset (ago): hour(s) Description of Vomiting: watery, bilious Relieving factors: none Exacerbating factors: none Associated symptoms: denies other symptoms - Related Data Home Medications Medication Instructions Recorded Confirmed Ondansetron [Ondansetron Odt] 8 mg SL PRN PRN #0 11/06/15 04/28/17 Nitroglycerin [Nitrostat] 0.4 mg PO Q5MIN3 PRN #0 05/27/16 04/28/17 Multivit-Min/FA/Lycopen/Lutein 1 tab PO DAILY #0 08/23/16 04/28/17 [Centrum Silver Tablet] FentaNYL PATCH [Duragesic Patch] 1 patch TD Q72H PRN 12/25/16 04/28/17 Pregabalin Cap [Lyrica] 100 mg PO DAILY 12/25/16 04/28/17 Cholecalciferol (Vitamin D3) 3,000 unit PO DAILY 01/07/17 04/28/17 [Vitamin D3] Ascorbate Calcium [Vitamin C] 500 mg PO WB 04/08/17 04/28/17 Atenolol [Tenormin] 12.5 mg PO DAILY 04/08/17 04/28/17 Cyanocobalamin (Vitamin B-12) 1,000 mcg PO DAILY 04/08/17 04/28/17 [Vitamin B-12] Hydromorphone HCl 8 mg PO Q3H PRN 04/08/17 04/28/17 Pantoprazole Tab [Protonix Tab] 40 mg PO DAILY 04/08/17 04/28/17 Prochlorperazine Tab [Compazine] 10 mg PO PRN PRN 04/08/17 04/28/17 Previous Rx's Medication Instructions Recorded Aspirin *EC* [Ecotrin] 81 mg PO DAILY #30 tab 01/08/17 Tamsulosin [Flomax] 0.4 mg PO HS #30 cap 04/16/17 Allergies Allergy/AdvReac Type Severity Reaction Status Date / Time atorvastatin AdvReac Unknown Restlessnes Verified 04/28/17 07:51 s codeine AdvReac Unknown NAUSEA Verified 04/28/17 07:51 Review of Systems All systems: reviewed and negative except as stated Gastrointestinal: Reports: as per HPI, nausea, vomiting. Denies: abdominal pain , diarrhea, constipation, hematemesis, melena, hematochezia PFS Patient Stated Medical History Peripheral Neuropathy Yes Hearing Loss Yes Coronary Artery Disease Yes Heart Murmur Yes Hypertension Yes Myocardial Infarction Yes Pneumonia Yes: years ago Gastroesophageal Reflux Yes Disease Obstructive Bowel Yes Anemia Yes: HX Osteoarthritis Yes Other Musculoskeletal Yes Clostridium Difficile Yes: HX Blood Transfusions Yes: HX Chemotherapy Yes: LAST TX 03/2017 Surgical History: 1992 ORIF right heel/ankle fracture in [place]. 1995 left /sigmoid colectomy for colon cancer in [place]. 2001 Lap [facility] in [place], [place]. 2002 placement or Port-A -Cath with removal in 2008. 06/2002 heart cath then 5 vessel CABG. 2003 right hemicolectomy for a separate colon cancer Dr. Regla Best. 10/2011 total colectomy with ileoractal anastomosis, diverting loop ileostomy for precancerous tumors unable to be resected endoscopically, Dr. Fadi Laguna [facility] in [place]. 11/2011 EGD found 2 duodenal ulcers, esophagitis, antral gastritis. Flexible proctoscoy/ileoscopy found anastomotic stricture with anastomotic ulcer at 12 cm from anal verge. 2011 Ileostomy reversal with segemental small bowel resection Dr. Laguna at [facility]. 10/27/12 delayed primary closure of postop midline wound infection , Dr. Laguna. 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 Paula. 04/01/13 Push endoscopy and endoscopic ultrasound for abd bloating, diarrhea and pancreatitis, no pathologic diagnosis, no pancreatitis, Dr. Garzon. 06/09/13 EGD with biospy showed focal intestinal metaplasia, small hiatal hernia, Dr. Garzon. 06/07/2014 placement of Port A Cath, Dr. Paula. 09/11/15 Echo shows EF of 55-60%; trace MR , PI, TR. 05/02/16 Flexible sigmoidoscopy with biopsies of rectal lesion . 01/07/17 [employer] and stent of right external and right common iliac stent, Dr. Villegas - Social History Smoking status: Former smoker Physical Exam - Limitations Limitations: no limitations - General General appearance: alert, in no apparent distress, cachectic - Normal Exams: Head:: Normocephalic without trauma Eyes:: Pupils are PERRLA w/ EOMI, No scleral icterus, irritation, or foreign bodies noted ENMT:: No facial trauma, nasal exudates, pharyngeal erythema, or exudates are noted Neck:: Full range of motion, without adenopathy Chest/Respirations:: Clear all duron, with good airflow, and symmetry bilaterally Cardiovascular:: Regular rate and rhythm, without murmur or gallop, Pulses 2+ all extremities, capillary refill, <2 seconds all extremities Lymphatic:: No lymphadenopathy Musculoskeletal:: No tenderness, or deformity noted, good range of motion, all extremities Integumentary:: No rashes, hives, or bruising noted Neurological:: Patient is alert, and oriented, cranial nerves, motor/sensory/ cerebellar, exams w/o gross deficits Psychiatric:: Patient exhibits, appropriate attention - Abdominal Exam Abdominal exam: Present: soft, hyperactive bowel sounds, other (Ileostomy in place and draining stool). Absent: distention, tenderness, guarding, rebound, psoas sign, obturator sign, heel tap sign, Peraza's sign, Rovsing's sign, tenderness at McBur[place]'s Point, hernia Course - Consultations Consultation #1: Hospitalist: Will eval for admission for further eval/treatment. Time: 09:41 Vital Signs Temperature 97.6 F 04/28/17 07:20 Pulse Rate 126 H 04/28/17 07:20 Respiratory Rate 16 04/28/17 07:20 Blood Pressure 117/78 04/28/17 07:20 Pulse Oximetry 100 04/28/17 07:20 Temperature 97.6 F 04/28/17 07:20 Pulse Rate 126 H 04/28/17 07:20 Respiratory Rate 16 04/28/17 07:20 Blood Pressure 117/78 04/28/17 07:20 Pulse Oximetry 100 04/28/17 07:20 Nausea/Vomiting/Diarrhea - [facility] Narrative Medical decision making narrative: Pt with evidence of sepsis in the setting of chronic partial obstruction. Will contact hospitalist for admission for further eval/treatment. - Differential Diagnosis Likely: traveler's diarrhea, food poisoning, gastroenteritis, drug-induced nausea and vomiting, dehydration - Medical Records Attestation: I reviewed the patient's medical records. - Lab Data Attestation: I reviewed the patient's lab results. Result diagrams: 04/28/17 07:51 04/28/17 07:50 Lab Results 04/28/17 04/28/17 04/28/17 Range/Units 07:50 07:50 07:51 WBC 19.6 H (4.5-11.0) T/MM3 RBC 3.28 L (4.50-5.90) M/MM3 Hgb 10.4 L (13.5-17.5) GM/DL Hct 32.5 L (41-53) % MCV 99.1 (80-100) UM3 MCH 31.7 (26-34) UUG MCHC 32.0 (31-37) GM/DL RDW Std Deviation 56.0 H (36.9-50.2) FL Plt Count 364 D (130-400) T/MM3 MPV 9.0 L (9.4-12.4) UM3 Immature Gran % (Auto) Not performed Neut % (Auto) Not performed Lymph % (Auto) Not performed Ida % (Auto) Not performed Eos % (Auto) Not performed Baso % (Auto) Not performed Neut # (Auto) Not performed Lymph # (Auto) Not performed Ida # (Auto) Not performed Eos # (Auto) Not performed Baso # (Auto) Not performed Abs Immat Gran (auto) Not performed Neutrophils % (Manual) 86.0 H (33-66) % Band Neutrophils % 8.0 H (0-6) % Lymphocytes % (Manual) 4.0 L (23-45) % Monocytes % (Manual) 2.0 (0-9.0) % Neutrophils # (Manual) 16.9 H (1.8-7.7) T/MM3 Band Neutrophils # 1.6 T/MM3 Lymphocytes # (Manual) 0.8 L (1-4.8) T/MM3 Monocytes # (Manual) 0.4 (0-0.8) T/MM3 Anisocytosis 1+ RBC Morph Comment Abnormal Turbidity < 20 (0-20) Sodium 141 (134-144) MEQ/L Potassium 4.6 (3.6-5) MEQ/L Chloride 96 L (98-107) MEQ/L Carbon Dioxide 24 (22-30) MEQ/L Anion Gap 21 H (5-15) MEQ/L BUN 49.0 H (9-20) MG/DL Creatinine 3.4 H (0.8-1.5) MG/DL GFR Calculation 18 BUN/Creatinine Ratio 14 (6-26) RATIO Glucose 229 H (75-110) MG/DL Calculated Osmolality 291 H (261-280) MOSM/KG Calcium 10.1 (8.4-10.2) MG/DL Icterus Index < 2 (0-7) Troponin I 0.098 (0-0.12) ng/ml Lipase 135 (23-300) U/L Plasma Lactate (0.6-2.2) MMOL/L Specimen Hemolysis < 15 < 15 (0-25) 04/28/17 Range/Units 09:15 WBC (4.5-11.0) T/MM3 RBC (4.50-5.90) M/MM3 Hgb (13.5-17.5) GM/DL Hct (41-53) % MCV (80-100) UM3 MCH (26-34) UUG MCHC (31-37) GM/DL RDW Std Deviation (36.9-50.2) FL Plt Count (130-400) T/MM3 MPV (9.4-12.4) UM3 Immature Gran % (Auto) Neut % (Auto) Lymph % (Auto) Ida % (Auto) Eos % (Auto) Baso % (Auto) Neut # (Auto) Lymph # (Auto) Ida # (Auto) Eos # (Auto) Baso # (Auto) Abs Immat Gran (auto) Neutrophils % (Manual) (33-66) % Band Neutrophils % (0-6) % Lymphocytes % (Manual) (23-45) % Monocytes % (Manual) (0-9.0) % Neutrophils # (Manual) (1.8-7.7) T/MM3 Band Neutrophils # T/MM3 Lymphocytes # (Manual) (1-4.8) T/MM3 Monocytes # (Manual) (0-0.8) T/MM3 Anisocytosis RBC Morph Comment Turbidity (0-20) Sodium (134-144) MEQ/L Potassium (3.6-5) MEQ/L Chloride (98-107) MEQ/L Carbon Dioxide (22-30) MEQ/L Anion Gap (5-15) MEQ/L BUN (9-20) MG/DL Creatinine (0.8-1.5) MG/DL GFR Calculation BUN/Creatinine Ratio (6-26) RATIO Glucose (75-110) MG/DL Calculated Osmolality (261-280) MOSM/KG Calcium (8.4-10.2) MG/DL Icterus Index (0-7) Troponin I (0-0.12) ng/ml Lipase (23-300) U/L Plasma Lactate 3.3 H (0.6-2.2) MMOL/L Specimen Hemolysis (0-25) - Radiology Data Attestation: I reviewed the patient's radiology results. CT Abd/Pelv: Impression: 1. Patient still shows numerous fluid-filled loops of bowel possibly due to some low-level obstructive changes distally near the ostomy versus an ileus. In either case findings have remained similar to the previous examination from February 2017. 2. Patient shows soft tissue density involving the right side of the pelvis which has increased slightly in appears to be associated with some bony destruction to the right side of the lower sacrum coccyx region. Critical Care Time Critical Care Time: Yes Total Critical Care Time: 35 Attestation: 35 min of critical care time assigned to this case due to its urgency, complexity of decision making, need for continued patient re-evaluation, or resources devoted to stabilizing the patient. Pt arrived with HR > 120 BPM, required multiple fluid boluses, and had a lactate of 3.3. Disposition Clinical Impression: Sepsis Qualifiers: Sepsis type: sepsis due to unspecified organism Qualified Code(s): A41.9 - Sepsis, unspecified organism Disposition: 02 To [facility] Acute Care Print Language: [place] Condition: Stable Prescriptions: No Action Multivit-Min/FA/Lycopen/Lutein [Centrum Silver Tablet] 1 tab PO DAILY #0 Pregabalin Cap [Lyrica] 100 mg PO DAILY FentaNYL PATCH [Duragesic Patch] 1 patch TD Q72H PRN PRN Reason: Pain Cholecalciferol (Vitamin D3) [Vitamin D3] 3,000 unit PO DAILY Aspirin *EC* [Ecotrin] 81 mg PO DAILY #30 tab Hydromorphone HCl 8 mg PO Q3H PRN PRN Reason: Pain Cyanocobalamin (Vitamin B-12) [Vitamin B-12] 1,000 mcg PO DAILY Ascorbate Calcium [Vitamin C] 500 mg PO WB Atenolol [Tenormin] 12.5 mg PO DAILY Pantoprazole Tab [Protonix Tab] 40 mg PO DAILY Tamsulosin [Flomax] 0.4 mg PO HS #30 cap Ondansetron [Ondansetron Odt] 8 mg SL PRN PRN #0 PRN Reason: NAUSEA Nitroglycerin [Nitrostat] 0.4 mg PO Q5MIN3 PRN #0 PRN Reason: CHEST PAIN Prochlorperazine Tab [Compazine] 10 mg PO PRN PRN PRN Reason: Nausea Referrals: Jake Mera MD [Family Provider] - Time of Disposition: 09:54 - Seen By: physician
--- NOTE | 2017-04-28 08:29 | XRay Report ---
Indication: N/V XR acute abdomen series: Comparison: CT abdomen pelvis 02/27/2017 Technique: Single view chest and supine and erect films of the abdomen Findings: Chest Patient demonstrates previous coronary artery bypass grafting with no indication of cardiac decompensation. Patient shows a right-sided port in good position. Mild increased markings are present in the left lung base compared to the right side although bilateral mild chronic appearing changes are present. No pleural effusions or focal parenchymal pulmonary consolidations identified. Abdomen Patient shows significant gas in the bowel without a large volume of stool. This could represent a generalized ileus. Patient shows extensive intra-arterial stenting involving the right iliac artery. Clips are present in the gallbladder fossa. Moderate rotoscoliosis seen in the spine with compression deformity at L1. Impression: 1. Postop changes in the heart with probable mild chronic changes particularly in the left base. No significant consolidation or effusion seen. 2. Probable generalized ileus with dilated loops of both large and small bowel. Upright view showed no definitive free air. 3. Prior vascular stenting of the right iliac artery .
[2017-04-28] MEDS ORDERED: CEFEPIME 1 GM in NS 100 ML IV ONE (09:04)
[2017-04-28] MEDS: SALINE FLUSH 10ml SYRINGE IVF PRN ×2 (09:17→17:44)
--- NOTE | 2017-04-28 09:40 | CT Scan Report ---
Indication: ?ileus vs SBO CT abdomen pelvis wo con: Comparison: Acute abdominal series from today's date and the previous CT abdomen pelvis 02/27/2017 Technique: Patient scanned from above the diaphragm to below the pubic symphysis without contrast. Dose reduction imaging technology is used with reformatted sagittal and coronal image planes as well. Findings: Patient showed slightly more prominent patchy infiltrative changes in the left lung base when compared to the previous CT study. A hiatal hernia is appreciated. Heart size is stable. Imaging of the liver shows a stable appearance. As on the old study the stomach is prominent and filled with fluid. Spleen is unremarkable. Pancreas is similar to the previous study. Adrenal glands are unchanged and unremarkable. Kidneys demonstrate a calcification in the central left kidney which is possibly vascular and unchanged since previous study. Patient still showed several fluid-filled loops of bowel which in retrospect are fairly similar to the previous examination. Patient shows an ostomy site in the left lower quadrant. Soft tissue prominence some persists in the right side of the pelvis with even potential bony destruction. The soft tissue density is measuring 6.1 x 6.8 cm. This potentially increased minimally since the previous study. Reformatted imaging showed compression deformities of T12 and L1 which are unchanged. Impression: 1. Patient still shows numerous fluid-filled loops of bowel possibly due to some low-level obstructive changes distally near the ostomy versus an ileus. In either case findings have remained similar to the previous examination from February 2017. 2. Patient shows soft tissue density involving the right side of the pelvis which has increased slightly in appears to be associated with some bony destruction to the right side of the lower sacrum coccyx region. .
--- NOTE | 2017-04-28 10:31 | History & Physical Report ---
History of Present Illness Date: 04/28/17 Chief complaint: vomiting HPI: Mr. Johnson is a 71-year-old male well-known to the hospitalist service from previous admissions. Patient has metastatic colon cancer and has had small bowel bowel obstruction in the past. He feels the symptoms are similar. He started vomiting at 2 PM yesterday. Has not been able to keep anything down. Last vomited at 7:30 this morning. Since arriving in the ER, he has had some Zofran, and this has helped his symptoms. Currently he is having some recurrence of the nausea. CT scan abdomen in the ER showed probable generalized ileus with dilated loops of both large and small bowel. Lactate is elevated. WBC 19.6. Creatinine 3.4. He was given a dose of cefepime in the ER. Bolused 2 L of normal saline. Review of Systems All systems PM: 10-point ROS was reviewed, no additional remarkable complaints except (nausea, vomiting, daily nosebleeds, headaches.) Past Medical History Medical history Stage III chronic kidney disease Stage IV colon cancer Hypertension Anemia of chronic disease GERD Coronary artery disease Surgical History: 1992 ORIF right heel/ankle fracture in [place]. 1995 left /sigmoid colectomy for colon cancer in [place]. 2001 Lap [facility]agan in [place], [place]. 2002 placement or Port-A -Cath with removal in 2008. 06/2002 heart cath then 5 vessel CABG. 2002 right hemicolectomy for a separate colon cancer Dr. Regla Best. 10/2011 total colectomy with ileoractal anastomosis, diverting loop ileostomy for precancerous tumors unable to be resected endoscopically, [place] Fadi Laguna [facility] [place] 11/2011 EGD found 2 duodenal ulcers, esophagitis, antral gastritis. Flexible proctoscoy/ileoscopy found anastomotic stricture with anastomotic ulcer at 12 cm from anal verge. 2011 Ileostomy reversal with segemental small bowel resection Dr. Laguna at [facility]. 10/27/12 delayed primary closure of postop midline wound infection , Dr. Laguna. 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 Paula. 04/01/13 Push endoscopy and endoscopic ultrasound for abd bloating, diarrhea and pancreatitis, no pathologic diagnosis, no pancreatitis, Dr. Garzon. 06/09/13 EGD with biospy showed focal intestinal metaplasia, small hiatal hernia, Dr. Garzon. 06/07/2014 placement of Port A Cath, Dr. Paula. 09/11/15 Echo shows EF of 55-60%; trace MR , PI, TR. 05/02/16 Flexible sigmoidoscopy with biopsies of rectal lesion . 01/07/17 [employer]ESTER and stent of right external and right common iliac stent, Dr. Villegas Family History: Father- of a drowning accident Mother-still living, dementia Brother and sister both alive and well. Family History Updates: Updated - Social History Smoking status: Former smoker (quit 22 years ago) Substance use type: does not use Alcohol intake frequency: other (2 beers a year) Housing: house Household members: spouse Current occupational status: retired Does patient use chewing tobacco?: No Social history: PCP-Dr. Jake Mera Cardio - Dr. Villegas. Nephro - Dr. Junior Cottrell. Onc - Dr. Valdovinos. Medications Home Medications Medication Instructions Recorded Confirmed Type Ondansetron [Ondansetron Odt] 8 mg SL PRN PRN #0 11/06/15 04/28/17 History Nitroglycerin [Nitrostat] 0.4 mg PO Q5MIN3 PRN #0 05/27/16 04/28/17 History Multivit-Min/FA/Lycopen/Lutein 1 tab PO DAILY #0 08/23/16 04/28/17 History [Centrum Silver Tablet] FentaNYL PATCH [Duragesic Patch] 1 patch TD Q72H PRN 12/25/16 04/28/17 History Pregabalin Cap [Lyrica] 100 mg PO DAILY 12/25/16 04/28/17 History Cholecalciferol (Vitamin D3) 3,000 unit PO DAILY 01/07/17 04/28/17 History [Vitamin D3] Ascorbate Calcium [Vitamin C] 500 mg PO WB 04/08/17 04/28/17 History Atenolol [Tenormin] 12.5 mg PO DAILY 04/08/17 04/28/17 History Cyanocobalamin (Vitamin B-12) 1,000 mcg PO DAILY 04/08/17 04/28/17 History [Vitamin B-12] Hydromorphone HCl 8 mg PO Q3H PRN 04/08/17 04/28/17 History Pantoprazole Tab [Protonix Tab] 40 mg PO DAILY 04/08/17 04/28/17 History Prochlorperazine Tab [Compazine] 10 mg PO PRN PRN 04/08/17 04/28/17 History Allergies Allergy/AdvReac Type Severity Reaction Status Date / Time atorvastatin AdvReac Unknown Restlessnes Verified 04/28/17 07:51 s codeine AdvReac Unknown NAUSEA Verified 04/28/17 07:51 Exam Vital Signs: Temperature 97.6 F 04/28/17 07:20 Pulse Rate 126 H 04/28/17 07:20 Respiratory Rate 16 04/28/17 07:20 Blood Pressure 117/78 04/28/17 07:20 Pulse Oximetry 100 04/28/17 07:20 - Constitutional Present: no acute distress, well developed, thin - Routine HEENT Exam Head: Present: normocephalic, atraumatic Eye: Present: EOMI, PERRL ENT: Present: mucous membranes moist, oropharynx clear - Routine Neck Exam Present: supple. Absent: lymphadenopathy, thyromegaly - Routine Respiratory Exam Present: CTA bilaterally, crackles (left lower lobe). Absent: wheezes - Routine Cardiovascular Exam Present: RRR. Absent: murmur - Routine Abdominal Exam Present: soft, non distended. Absent: normoactive bowel sounds (hyperactive), tenderness - Routine Extremities Exam Present: no edema, normal capillary refill - Routine Skin Exam Present: dry, warm - Routine Neurological Exam Present: alert, oriented X3, normal speech Cranial nerves III through XII intact - Routine Psychiatric Exam Present: normal affect, cooperative Results - Labs CBC & Chem 7: 04/28/17 07:51 04/28/17 18:04 - Imaging and Cardiology CT scan - abdomen Additional comments: Date of Exam: 04/28/17 Indication: ?ileus vs SBO CT abdomen pelvis wo con: Findings: Patient showed slightly more prominent patchy infiltrative changes in the left lung base when compared to the previous CT study. A hiatal hernia is appreciated. Heart size is stable. Imaging of the liver shows a stable appearance. As on the old study the stomach is prominent and filled with fluid. Spleen is unremarkable. Pancreas is similar to the previous study. Adrenal glands are unchanged and unremarkable. Kidneys demonstrate a calcification in the central left kidney which is possibly vascular and unchanged since previous study. Patient still showed several fluid-filled loops of bowel which in retrospect are fairly similar to the previous examination. Patient shows an ostomy site in the left lower quadrant. Soft tissue prominence some persists in the right side of the pelvis with even potential bony destruction. The soft tissue density is measuring 6.1 x 6.8 cm. This potentially increased minimally since the previous study. Reformatted imaging showed compression deformities of T12 and L1 which are unchanged. Impression: 1. Patient still shows numerous fluid-filled loops of bowel possibly due to some low-level obstructive changes distally near the ostomy versus an ileus. In either case findings have remained similar to the previous examination from February 2017. 2. Patient shows soft tissue density involving the right side of the pelvis which has increased slightly in appears to be associated with some bony destruction to the right side of the lower sacrum coccyx region. Abdominal x-ray/CXR Additional comments: Date of Exam: 04/28/17 Indication: N/V XR acute abdomen series: Chest Patient demonstrates previous coronary artery bypass grafting with no indication of cardiac decompensation. Patient shows a right-sided port in good position. Mild increased markings are present in the left lung base compared to the right side although bilateral mild chronic appearing changes are present. No pleural effusions or focal parenchymal pulmonary consolidations identified. Abdomen Patient shows significant gas in the bowel without a large volume of stool. This could represent a generalized ileus. Patient shows extensive intra-arterial stenting involving the right iliac artery. Clips are present in the gallbladder fossa. Moderate rotoscoliosis seen in the spine with compression deformity at L1. Impression: 1. Postop changes in the heart with probable mild chronic changes particularly in the left base. No significant consolidation or effusion seen. 2. Probable generalized ileus with dilated loops of both large and small bowel. Upright view showed no definitive free air. 3. Prior vascular stenting of the right iliac artery Assessment and Plan (1) Small bowel obstruction Current visit: No Status: Acute (2) Colon cancer Current visit: No Status: Acute Assessment and Plan: Assessment Vomiting secondary to ileus versus small bowel obstruction Dehydration Acute kidney injury (creatinine 3.4) Severe sepsis- SIRS: Leukocytosis (19.6), tachycardia (126), possible pulmonary source versus GI source. Lactate 3.3. Stage IV colon cancer Stage III chronic kidney disease (baseline creatinine approximately 1.3) Hypertension Anemia of chronic disease (hemoglobin 10.4) GERD Coronary artery disease Plan Admit, inpatient status, to the hospitalist service. Dr. Vazquez attending. Stay is expected to exceed 2 overnights given suspicion for bowel obstruction, elevated lactic acid of 3.3 and multiple comorbidities. NPO. Zofran prn nausea. If he isn't continuing to vomit, will hold off on NG tube. He has had 2 L of normal saline. Will continue fluids at 150 cc per hour. Protonix 40 mg IV daily in place of home p.o. Protonix. IV Morphine prn pain. PRN IV metoprolol for elevated blood pressure given he will not be taking his p.o. atenolol. Patient wishes to be a full code. Care to be returned to Dr. Mera upon discharge DVT Prophylaxis: SCD's Resuscitation Status: Full Code - Physician Narrative Physician: Ladonna Vazquez MD Narrative: Date: 04/28/17 Time: 1999 I have independently evaluated and examined this patient. I reviewed the chart, the patient's history, and the VENDOR MANAGEMENT CONSULTANT/PA's documented findings as above. We discussed and formulated the assessment and plan as above with additions as below: Mr. Zamarripa was seen much earlier today and reported nausea, vomiting, and diarrhea (which has been chronic since GI surgery in the past). He typically gets IV fluids at the infusion center 3 days a week due to chronic fluid loss. He denies having bloody stools or fever and is not aware of any dysuria, cough, or difficulty breathing. Lactic acid was elevated in the emergency room but normalized after IV fluids. He reported feeling significantly improved when I saw him after about 3 L of IV fluids had been completed The patient was alert, appeared comfortable, and speech was fluent Respirations were nonlabored and breath sounds clear Abdomen was benign although bowel sounds were diminished. CT of the abdomen/pelvis reviewed by myself-bowel loops are dilated and there are multiple air-fluid levels; soft tissue mass present in radiology suggests possible slight increase in size. Chest x-ray reviewed by myself-unremarkable, KUBs with multiple dilated loops. Although initial lactic acid was 3.3 I don't believe the patient is septic- lactic acidosis due to hypoperfusion from dehydration. Do not believe antibiotics indicated. Continue hydration, anticipate adequate replacement and reassessment of bowel loops will require more than 2 days hospitalization for stabilization. Renal function is significantly worse than baseline. Repeat creatinine early this evening shows improvement although BUN is slightly higher. Repeat labs with magnesium of 1.8-replace IV, phosphorus 2.4-replace orally. Discussed with Dr. Cantrell. In addition to above diagnoses please add: #1 hypomagnesemia #2 hypophosphatemia Hospital Course Summary Disclaimer: The visit summary below is not to be considered part of the above Progress Note. Hospital Course: Assessment Vomiting secondary to ileus versus small bowel obstruction Dehydration Acute kidney injury (creatinine 3.4) Severe sepsis- SIRS: Leukocytosis (19.6), tachycardia (126), possible pulmonary source versus GI source. Lactate 3.3. Stage IV colon cancer Stage III chronic kidney disease (baseline creatinine approximately 1.3) Hypertension Anemia of chronic disease (hemoglobin 10.4) GERD Coronary artery disease 04/28/17 - Hospital inpatient admission Admit for IV fluids due to probable small bowel obstruction and nausea. NPO. Zofran prn nausea. If he isn't continuing to vomit, will hold off on NG tube. He has had 2 L of normal saline. Will continue fluids at 150 cc per hour. Protonix 40 mg IV daily in place of home p.o. Protonix. IV Morphine prn pain. PRN IV metoprolol for elevated blood pressure given he will not be taking his p.o. atenolol. Patient wishes to be a full code. Care to be returned to Dr. Mera upon discharge
[2017-04-28 10:41] VITALS: BMI 18.6
[2017-04-28] MEDS: NS 1,000 ML IV SCH ×2 (11:04→17:52)
[2017-04-28] MEDS ORDERED: METOPROLOL 5mg/5ml INJECTION IVP PRN (11:18)
[2017-04-28] MEDS: MORPHINE SULFATE 2mg INJECTION IVP PRN ×2 (11:30→17:43)
[2017-04-28] MEDS: PANTOPRAZOLE 40 MG INJECTION IVP SCH (11:37)
[2017-04-28] MEDS: SALINE NASAL GEL 14.1gm TOP SCH ×2 (11:51→20:58)
[2017-04-28] MEDS: HYDROMORPHONE 2 MG TABLET PO PRN ×2 (14:40→17:42)
[2017-04-28] MEDS: ONDANSETRON 4 MG/2 ML INJECTION IVP PRN (16:19)
[2017-04-28] MEDS: POTASSIUM ACID PHOSPHATE 500 MG TABLET PO SCH (21:46)
[2017-04-28] MEDS: MAGNESIUM SULFATE 1gm PREMIX 1 GM/100 ML BAG IV SCH ×2 (21:47→22:49)
[2017-04-29] MEDS: NS 1,000 ML IV SCH ×5 (00:27→17:00)
[2017-04-29] MEDS: MORPHINE SULFATE 2mg INJECTION IVP PRN ×5 (05:19→20:53)
[2017-04-29] MEDS: HYDROMORPHONE 2 MG TABLET PO PRN ×5 (05:20→20:55)
[2017-04-29] MEDS: ONDANSETRON 4 MG/2 ML INJECTION IVP PRN (06:43)
[2017-04-29] MEDS: POTASSIUM ACID PHOSPHATE 500 MG TABLET PO SCH ×2 (09:19→20:55)
[2017-04-29] MEDS: PANTOPRAZOLE 40 MG INJECTION IVP SCH (09:19)
[2017-04-29] MEDS: PREGABALIN 100 MG CAPSULE PO SCH (09:19)
[2017-04-29] MEDS: ENOXAPARIN 40 MG/0.4 ML INJECTION SQ SCH (09:19)
[2017-04-29] MEDS: SALINE NASAL GEL 14.1gm TOP SCH ×2 (09:20→20:56)
--- NOTE | 2017-04-29 09:31 | XRay Report ---
Indication: nausea/vomiting; ileus versus SBO PROCEDURE: XR abdomen 2V: Encounter: Initial Comparison: 04/28/2017 Findings: There is persistent gaseous distention with fluid levels in the abdomen with perhaps slight decrease in the amount of gas over prior study. There does appear to be both large and small bowel which suggests ileus. No soft tissue mass. There are extensive vascular calcifications and vascular stents in the proximal iliac vessels on the right. Impression: Persistent to perhaps slightly improved gaseous distention suggesting ileus. .
[2017-04-29] MEDS ORDERED: FALL RISK - PHARMACY CONSULT XX ONE (11:05)
--- NOTE | 2017-04-29 16:00 | Progress Note ---
- Date 04/29/17 Subjective: Patient is seen this morning lying in bed. He reports that he's had no vomiting since admission. He had some nausea after having some coffee this morning, but it is better now since having his antiemetic. He's having no significant pain. He reports he's been emptying his colostomy bag approximately every hour. He states it's been "dark" but not bloody. He states this is typically how it is when he has these symptoms. No chest pain or shortness of breath. He asks if he can have the telemetry discontinued as it is very bothersome to him. He states it almost dropped into the toilet this morning. Objective Vital signs: Temperature 96.1 F L 04/29/17 07:00 Pulse Rate 90 04/29/17 13:38 Respiratory Rate 12 04/29/17 13:38 Blood Pressure 108/64 04/29/17 07:00 Pulse Oximetry 99 04/29/17 13:38 Height/Weight/BMI: Height 1.83 m Weight 66 kg Body Mass Index 18.6 - Constitutional Present: no acute distress, well nourished, well developed - Routine HEENT Exam Head: Present: normocephalic, atraumatic - Routine Respiratory Exam Present: CTA bilaterally. Absent: wheezes - Routine Cardiovascular Exam Present: RRR, no murmur - Routine Abdominal Exam Present: soft, non distended, non tender - Routine Extremities Exam Present: no edema, normal capillary refill - Routine Skin Exam Present: dry, warm - Routine Neurological Exam Present: alert, oriented X3 - Routine Lymphatic Exam Lymphatic: Absent: adenopathy - Routine Psychiatric Exam Present: normal affect, cooperative Results - Labs CBC & Chem 7: 04/29/17 16:58 04/29/17 03:54 Assessment and Plan (1) Small bowel obstruction Current visit: No Status: Acute (2) Colon cancer Current visit: No Status: Acute Assessment and Plan: Assessment Vomiting secondary to ileus versus small bowel obstruction Dehydration Acute kidney injury (creatinine 3.4) Hypomagnesemia-present on admission Hypophosphatemia-present on admission Severe sepsis- SIRS: Leukocytosis (19.6), tachycardia (126), possible pulmonary source versus GI source. Lactate 3.3. Stage IV colon cancer Stage III chronic kidney disease (baseline creatinine approximately 1.3) Hypertension Anemia of chronic disease (hemoglobin 10.4) GERD Coronary artery disease Plan --Creatinine improved with fluids from 2.4-->1.8. He continues on normal saline at 150 cc per hour. He is taking very little in p.o. Currently on clear liquids. --Hemoglobin dropped from 10.4-->6.6. Repeat hemoglobin was 7.7. His average hemoglobin in looking over the past few months averages 10. He reports in the past she has not needed blood transfusions with a hemoglobin above 7. He prefers not to have one at this time. Will repeat hemoglobin this afternoon. --Repeat abdominal x-ray today shows "perhaps slightly improved gaseous distention suggesting ileus." --Magnesium and phosphorus replaced. Repeat magnesium and phosphorus in the a.m. --Continue IV fluids and clear liquids at this time. Continue to monitor. --Telemetry reviewed. Normal sinus rhythm. Okay to DC telemetry. Resuscitation Status: Full Code - Physician Narrative Physician: Ladonna Vazquez MD Narrative: Date: 04/29/17 Time: 1824 I have independently evaluated and examined this patient. I reviewed the chart, the patient's history, and the HEALTH SCREENER/PA's documented findings as above. We discussed and formulated the assessment and plan as above with additions as below: Mr. Johnson reported he was "starving" when I saw him late in the afternoon. He denied abdominal pain reported output per the ostomy has been good through the day. He's had no nausea or vomiting with resumption of liquids and hopes to advance his diet today. alert, appears completely comfortable Respirations nonlabored, good airflow, breath sounds clear Abdomen moderately distended but soft/nontender KUBs reviewed this morning demonstrating persistent dilatation of bowel loops although slightly improved from yesterday, air-fluid levels present-consistent with ileus; chest views unremarkable Repeat hemoglobin this evening 7.4. Creatinine remains slightly above baseline of about 1.4, BUN also above baseline when well hydrated Advance diet, continue fluids but rate decreased to 75 mL per hour; reassess in a.m. Magnesium/phosphorus improved following supplementation. Do not believe patient will need phosphorus supplementation at discharge. Laboratory reviewed by myself-sinus rhythm; discontinued earlier today. Hospital Course Summary Disclaimer: The visit summary below is not to be considered part of the above Progress Note. Hospital Course: Assessment Vomiting secondary to ileus versus small bowel obstruction Dehydration Acute kidney injury (creatinine 3.4) Hypomagnesemia-present on admission Hypophosphatemia-present on admission Severe sepsis- SIRS: Leukocytosis (19.6), tachycardia (126), possible pulmonary source versus GI source. Lactate 3.3. Stage IV colon cancer Stage III chronic kidney disease (baseline creatinine approximately 1.3) Hypertension Anemia of chronic disease (hemoglobin 10.4) GERD Coronary artery disease 04/28/17 - Hospital inpatient admission Admit for IV fluids due to probable small bowel obstruction and nausea. NPO. Zofran prn nausea. If he isn't continuing to vomit, will hold off on NG tube. He has had 2 L of normal saline. Will continue fluids at 150 cc per hour. Protonix 40 [address] IV daily in [address] of home p.o. Protonix. IV Morphine prn pain. PRN IV metoprolol for elevated blood pressure given he will not be taking his p.o. atenolol. Magnesium and phosphorus replacements initiated due to hypomagnesemia and hypophosphatemia Patient wishes to be a full code. Care to be returned to Dr. Mera upon discharge 04/29/17 Creatinine improved with fluids from 2.4-->1.8. He continues on normal saline at 150 cc per hour. Hemoglobin dropped from 10.4-->6.6. Repeat hemoglobin was 7.7. Will repeat hemoglobin this afternoon. Repeat abdominal x-ray today shows "perhaps slightly improved gaseous distention suggesting ileus."
[2017-04-29] MEDS: SALINE FLUSH 10ml SYRINGE IVF PRN (17:02)
[2017-04-30] MEDS: MORPHINE SULFATE 2mg INJECTION IVP PRN ×3 (02:16→11:57)
[2017-04-30] MEDS: HYDROMORPHONE 2 MG TABLET PO PRN ×4 (02:16→16:28)
[2017-04-30] MEDS: NS 1,000 ML IV SCH ×2 (04:01→04:26)
[2017-04-30] MEDS ORDERED: NS FLUSH BAG 500ml IV PRN (05:28)
[2017-04-30] MEDS ORDERED: FUROSEMIDE 20 MG/2 ML INJECTION IVP ONE (05:35)
[2017-04-30] MEDS ORDERED: PANTOPRAZOLE 40 MG TABLET PO SCH (09:00)
[2017-04-30] MEDS ORDERED: CYANOCOBALAMIN (B-12) 500mcg TABLET PO SCH (09:00)
[2017-04-30] MEDS: POTASSIUM ACID PHOSPHATE 500 MG TABLET PO SCH (09:08)
[2017-04-30] MEDS: PREGABALIN 100 MG CAPSULE PO SCH (09:08)
[2017-04-30] MEDS: ENOXAPARIN 40 MG/0.4 ML INJECTION SQ SCH (09:09)
[2017-04-30] MEDS: SALINE NASAL GEL 14.1gm TOP SCH (11:08)
--- NOTE | 2017-04-30 11:17 | Discharge Summary ---
Discharge Information Date of admission: 04/28/17 09:56 Anticipated date of discharge: 04/30/17 Attending Physician: Ladonna Vazquez MD Primary care physician: Jake Mera MD - Discharge Diagnosis (1) Ileus Status: Acute (2) Colon cancer Status: Acute Vomiting secondary to ileus-resolved Dehydration-resolved Acute kidney injury (creatinine 3.4) -resolved Hypomagnesemia-present on admission-resolved Hypophosphatemia-present on admission-resolved Severe sepsis- SIRS: Leukocytosis (19.6), tachycardia (126), possible pulmonary source versus GI source. Lactate 3.3. Stage IV colon cancer Stage III chronic kidney disease (baseline creatinine approximately 1.3) Hypertension Anemia of chronic disease (hemoglobin 10.4) GERD Coronary artery disease - Laboratory Labs: 04/30/17 04:20 04/30/17 04:20 Creatinine 04/28/17 04/29/17 04/30/17 07:50 03:54 04:20 Creatinine 3.4 H 1.8 H D 1.4 D Phosphorus 04/28/17 04/30/17 18:04 04:20 Phosphorus 2.4 L 3.2 Magnesium 04/28/17 04/30/17 18:04 04:20 Magnesium 1.3 L 1.6 White blood cell 04/28/17 04/29/17 04/30/17 07:51 03:54 04:20 WBC 19.6 H 9.1 D 6.8 Hemoglobin 04/28/17 04/29/17 04/29/17 07:51 03:54 16:58 Hgb 10.4 L 6.6 L D 7.4 L 04/30/17 04:20 Hgb 6.9 L - Radiology Radiology: Date of Exam: 04/28/17 Indication: N/V XR acute abdomen series: Chest Patient demonstrates previous coronary artery bypass grafting with no indication of cardiac decompensation. Patient shows a right-sided port in good position. Mild increased markings are present in the left lung base compared to the right side although bilateral mild chronic appearing changes are present. No pleural effusions or focal parenchymal pulmonary consolidations identified. Abdomen Patient shows significant gas in the bowel without a large volume of stool. This could represent a generalized ileus. Patient shows extensive intra-arterial stenting involving the right iliac artery. Clips are present in the gallbladder fossa. Moderate rotoscoliosis seen in the spine with compression deformity at L1. Impression: 1. Postop changes in the heart with probable mild chronic changes particularly in the left base. No significant consolidation or effusion seen. 2. Probable generalized ileus with dilated loops of both large and small bowel. Upright view showed no definitive free air. 3. Prior vascular stenting of the right iliac artery Date of Exam: 04/29/17 Indication: nausea/vomiting; ileus versus SBO PROCEDURE: XR abdomen 2V: Findings: There is persistent gaseous distention with fluid levels in the abdomen with perhaps slight decrease in the amount of gas over prior study. There does appear to be both large and small bowel which suggests ileus. No soft tissue mass. There are extensive vascular calcifications and vascular stents in the proximal iliac vessels on the right. Impression: Persistent to perhaps slightly improved gaseous distention suggesting ileus. History of Present Illness HPI: Mr. Johnson is a 71-year-old male well-known to the hospitalist service from previous admissions. Patient has metastatic colon cancer and has had small bowel bowel obstruction in the past. He feels the symptoms are similar. He started vomiting at 2 PM yesterday. Has not been able to keep anything down. Last vomited at 7:30 this morning. Since arriving in the ER, he has had some Zofran, and this has helped his symptoms. Currently he is having some recurrence of the nausea. CT scan abdomen in the ER showed probable generalized ileus with dilated loops of both large and small bowel. Lactate is elevated. WBC 19.6. Creatinine 3.4. He was given a dose of cefepime in the ER. Bolused 2 L of normal saline. Objective Vital signs: Temperature 97.5 F 04/30/17 07:27 Pulse Rate 86 04/30/17 07:27 Respiratory Rate 18 04/30/17 07:27 Blood Pressure 97/52 04/30/17 07:27 Pulse Oximetry 100 04/30/17 07:27 Height/Weight/BMI: Height 1.83 m Weight 66.4 kg Body Mass Index 18.6 - Constitutional Present: no acute distress, well nourished, well developed - Routine HEENT Exam Head: Present: normocephalic, atraumatic - Routine Respiratory Exam Present: CTA bilaterally. Absent: wheezes - Routine Cardiovascular Exam Present: RRR, no murmur - Routine Abdominal Exam Present: soft, normoactive bowel sounds, non distended, non tender Comments: Ostomy left lower quadrant - Routine Extremities Exam Present: no edema, normal capillary refill - Routine Skin Exam Present: dry, warm - Routine Neurological Exam Present: alert, oriented X3 - Routine Lymphatic Exam Lymphatic: Absent: adenopathy - Routine Psychiatric Exam Present: normal affect, cooperative Hospital Course This is a general summary of the patient's hospital course. For more details refer to the complete medical record. Hospital course: 04/28/17 - Hospital inpatient admission Admit for IV fluids due to probable small bowel obstruction and nausea. NPO. Zofran prn nausea. If he isn't continuing to vomit, will hold off on NG tube. He has had 2 L of normal saline. Will continue fluids at 150 cc per hour. Protonix 40 [address] IV daily in place of home p.o. Protonix. IV Morphine prn pain. PRN IV metoprolol for elevated blood pressure given he will not be taking his p.o. atenolol. Magnesium and phosphorus replacements initiated due to hypomagnesemia and hypophosphatemia Patient wishes to be a full code. Care to be returned to Dr. Mera upon discharge 04/29/17 Creatinine improved with fluids from 2.4-->1.8. He continues on normal saline at 150 cc per hour. Hemoglobin dropped from 10.4-->6.6. Repeat hemoglobin was 7.7. Will repeat hemoglobin this afternoon. Repeat abdominal x-ray today shows "perhaps slightly improved gaseous distention suggesting ileus." Diagnosis clear liquids. Patient doing well 04/30/17 Hemoglobin dropped to 6.9 this morning. 1 unit of blood transfused. Post transfusion 7.4. Creatinine has returned to normal at 1.4 Patient is doing well on regular foods. Will discharge later today after blood transfusion is completed See Dr. Mera in a week. Repeat CBC May 02. Time spent with patient: discharge greater than 30 minutes Resuscitation Status: Full Code Discharge Plan - Discharge Disposition Discharge Date: 04/30/17 Disposition: Discharged Home, Self-Care *Condition: Stable Reason For Visit (Visit label in EMR): sepsis,acute renal failure - Discharge Medications *Discharge Medications: New Sodium Chloride Nasal Gel [[place] Nasal Gel] 1 applicatio TOP BID tube Continue Multivit-Min/FA/Lycopen/Lutein [Centrum Silver Tablet] 1 tab PO DAILY #0 Pregabalin Cap [Lyrica] 100 mg PO DAILY FentaNYL PATCH [Duragesic Patch] 1 patch TD Q72H PRN PRN Reason: Pain Cholecalciferol (Vitamin D3) [Vitamin D3] 3,000 unit PO DAILY Aspirin *EC* [Ecotrin] 81 mg PO DAILY #30 tab Hydromorphone HCl 8 mg PO Q3H PRN PRN Reason: Pain Cyanocobalamin (Vitamin B-12) [Vitamin B-12] 1,000 mcg PO DAILY Ascorbate Calcium [Vitamin C] 500 mg PO WB Atenolol [Tenormin] 12.5 mg PO DAILY Pantoprazole Tab [Protonix Tab] 40 mg PO DAILY Tamsulosin [Flomax] 0.4 mg PO HS #30 cap Ondansetron [Ondansetron Odt] 8 mg SL PRN PRN #0 PRN Reason: NAUSEA Nitroglycerin [Nitrostat] 0.4 mg PO Q5MIN3 PRN #0 PRN Reason: CHEST PAIN Prochlorperazine Tab [Compazine] 10 mg PO PRN PRN PRN Reason: Nausea - Discharge Packet/Instructions *Diet: Soft diet as tolerated *Activity: As tolerated *Pain Management/Treatment: Per Dr. Mera *Wound Care: N/a Additional Instructions: You need a CBC blood test drawn on May 02 to follow your hemoglobin. *Expected Signs/Symptoms: Continued improvement *Notify Physician if: You develop fever, intractable nausea, vomiting or pain *During Business Hours Contact: Dr. Mera's office *After Business Hours Contact: Dr. Mera's office and follow after-hours instructions *Pending Lab/Results: No Pending Lab - Referrals/Follow Up *Referrals/Follow Up: Jake Mera MD [Family Provider] - 1 Week (Please arrange for patient to have a CBC drawn this Friday with results to go to Dr. Holdeman) - Patient Handouts Patient Handouts: Bowel Obstruction (DC), Blood Transfusion (GEN) - Dismissal Complete Discharge Instructions are:: Incomplete Physician Narrative - Narrative Physician: Ladonna Vazquez MD Attestation Narrative: Date: 04/30/17 Time: 1113 I have independently evaluated and examined this patient. I reviewed the chart, the patient's history, and the INFORMATICS PHARMACIST/PA's documented findings as above. We discussed and formulated the assessment and plan as above with additions as below: Mr. Johnson reports good tolerance of food, no dyspnea, lightheadedness, or nausea/vomiting. Continues to have liquid stools but they have normalized compared to admission. He would typically received 1 L of normal saline and 2 g magnesium sulfate infusion center on Wednesdays and asked about getting his usual fluids before discharge. One unit of packed cells was infusing at the time my evaluation. NAD, alert, respirations nonlabored with clear breath sounds; benign abdomen with active bowel sounds Patient is stable for discharge after blood transfusion is completed. He received about half a liter of saline overnight and will receive an additional 500 mL fluid bolus and 2 g magnesium sulfate prior to discharge.
[2017-04-30] MEDS: MAGNESIUM SULFATE 1gm PREMIX 1 GM/100 ML BAG IV SCH ×2 (11:41→12:55)
[2017-04-30] MEDS ORDERED: NS 1,000 ML IV SCH (14:15)
[2017-04-30 15:56] VITALS: BP 93/52; PULSE 88; RESP 16; TEMP 98.1; O2SAT 99
--- NOTE | 2017-05-01 14:37 | Right on Track Program ---
Right on Track Program Date of Discharge: 04/30/17 Home Medications: Home Medications Medication Instructions Recorded Confirmed Ondansetron [Ondansetron Odt] 8 mg SL PRN PRN #0 11/06/15 04/28/17 Nitroglycerin [Nitrostat] 0.4 mg PO Q5MIN3 PRN #0 05/27/16 04/28/17 Multivit-Min/FA/Lycopen/Lutein 1 tab PO DAILY #0 08/23/16 04/28/17 [Centrum Silver Tablet] FentaNYL PATCH [Duragesic Patch] 1 patch TD Q72H PRN 12/25/16 04/28/17 Pregabalin Cap [Lyrica] 100 mg PO DAILY 12/25/16 04/28/17 Cholecalciferol (Vitamin D3) 3,000 unit PO DAILY 01/07/17 04/28/17 [Vitamin D3] Ascorbate Calcium [Vitamin C] 500 mg PO WB 04/08/17 04/28/17 Atenolol [Tenormin] 12.5 mg PO DAILY 04/08/17 04/28/17 Cyanocobalamin (Vitamin B-12) 1,000 mcg PO DAILY 04/08/17 04/28/17 [Vitamin B-12] Hydromorphone HCl 8 mg PO Q3H PRN 04/08/17 04/28/17 Pantoprazole Tab [Protonix Tab] 40 mg PO DAILY 04/08/17 04/28/17 Prochlorperazine Tab [Compazine] 10 mg PO PRN PRN 04/08/17 04/28/17 Previous Rx's Medication Instructions Recorded Aspirin *EC* [Ecotrin] 81 mg PO DAILY #30 tab 01/08/17 Tamsulosin [Flomax] 0.4 mg PO HS #30 cap 04/16/17 Sodium Chloride Nasal Gel [[place] 1 applicatio TOP BID tube 04/30/17 Nasal Gel] - Right on Track Program 24-hour phone call Date: 05/01/17 Right on Track Program: 24 Hour Follow-Up Discharge Summary Received: Yes Care Plan Received: Yes Follow Up: Follow Up Appointment Scheduled Education: Diagnosis Education Reviewed Community Paramedicine Fall Intervention: No Referral: Primary Care Physician Comments: Mr. Johnson reports feeling well - no abdominal pain, nausea or vomiting. He denies feeling weak or dizzy and feels stable on his feet. We reviewed dc instructions which include lab testing later this week -- he's planning on it. He will be in the infusion center this week as well. He will call Dr. Mera to make an appointment for f/u. He had no questions about his discharge instructions. Face to face visit was offered but he declined. Discussed With Patient and Caregiver: Yes Recommendations For Follow-up: Impression Vomiting, dehydration, DIXIE secondary ileus - resolved Stage IV colon cancer Stage III CKD Plan Monitor blood counts/transfusions as needed Make f/u appt with Dr. Mera Agreeable to weekly f/u phone calls but declined face to face visit
== END 2017-04-30 16:37 | disposition home or self-care (01) | DRG 683 ==
LOC: ED 07:16 → SRG 09:56
PROVIDERS: ADMIT Internal Medicine; ATTEND Internal Medicine

== ENCOUNTER 2017-05-05 07:38 | Observation (INO) ==
--- NOTE | 2017-05-05 07:51 | Emergency Department Report ---
Nausea/Vomiting/Diarrhea HPI - General Stated complaint: vomitting Time Seen by Provider: 05/05/17 07:50 - Related Data Home Medications Medication Instructions Recorded Confirmed Ondansetron [Ondansetron Odt] 8 mg SL PRN PRN #0 11/06/15 04/28/17 Nitroglycerin [Nitrostat] 0.4 mg PO Q5MIN3 PRN #0 05/27/16 04/28/17 Multivit-Min/FA/Lycopen/Lutein 1 tab PO DAILY #0 08/23/16 04/28/17 [Centrum Silver Tablet] FentaNYL PATCH [Duragesic Patch] 1 patch TD Q72H PRN 12/25/16 04/28/17 Pregabalin Cap [Lyrica] 100 mg PO DAILY 12/25/16 04/28/17 Cholecalciferol (Vitamin D3) 3,000 unit PO DAILY 01/07/17 04/28/17 [Vitamin D3] Ascorbate Calcium [Vitamin C] 500 mg PO WB 04/08/17 04/28/17 Atenolol [Tenormin] 12.5 mg PO DAILY 04/08/17 04/28/17 Cyanocobalamin (Vitamin B-12) 1,000 mcg PO DAILY 04/08/17 04/28/17 [Vitamin B-12] Hydromorphone HCl 8 mg PO Q3H PRN 04/08/17 04/28/17 Pantoprazole Tab [Protonix Tab] 40 mg PO DAILY 04/08/17 04/28/17 Prochlorperazine Tab [Compazine] 10 mg PO PRN PRN 04/08/17 04/28/17 Previous Rx's Medication Instructions Recorded Aspirin *EC* [Ecotrin] 81 mg PO DAILY #30 tab 01/08/17 Tamsulosin [Flomax] 0.4 mg PO HS #30 cap 04/16/17 Sodium Chloride Nasal Gel [[place] 1 applicatio TOP BID tube 04/30/17 Nasal Gel] Allergies Allergy/AdvReac Type Severity Reaction Status Date / Time atorvastatin AdvReac Unknown Restlessnes Verified 04/28/17 07:51 s codeine AdvReac Unknown NAUSEA Verified 04/28/17 07:51 PFSH Patient Stated Medical History Peripheral Neuropathy Yes Hearing Loss Yes Coronary Artery Disease Yes Heart Murmur Yes Hypertension Yes Myocardial Infarction Yes Pneumonia Yes: years ago Gastroesophageal Reflux Yes Disease Obstructive Bowel Yes Other Yes: URINARY RETENTION Anemia Yes: HX Osteoarthritis Yes Other Musculoskeletal Yes Clostridium Difficile Yes: HX Sepsis Yes: CURRENT Blood Transfusions Yes: HX Chemotherapy Yes: LAST TX 03/2017 Surgical History: 1992 ORIF right heel/ankle fracture in [place]. 1995 left /sigmoid colectomy for colon cancer in [place]. 2001 Lap [facility]agan in [place], [place]. 2002 placement or Port-A -Cath with removal in 2008. 06/2002 heart cath then 5 vessel CABG. 2002 right hemicolectomy for a separate colon cancer Dr. Regla Best. 10/2011 total colectomy with ileoractal anastomosis, diverting loop ileostomy for precancerous tumors unable to be resected endoscopically, Dr. Fadi Laguna [facility] in [place]. 11/2011 EGD found 2 duodenal ulcers, esophagitis, antral gastritis. Flexible proctoscoy/ileoscopy found anastomotic stricture with anastomotic ulcer at 12 cm from anal verge. 2011 Ileostomy reversal with segemental small bowel resection Dr. Laguna at [facility]. 10/27/12 delayed primary closure of postop midline wound infection , Dr. Laguna. 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 Paula. 04/01/13 Push endoscopy and endoscopic ultrasound for abd bloating, diarrhea and pancreatitis, no pathologic diagnosis, no pancreatitis, Dr. Garzon. 06/09/13 EGD with biospy showed focal intestinal metaplasia, small hiatal hernia, Dr. Garzon. 06/07/2014 placement of Port A Cath, Dr. Paula. 09/11/15 Echo shows EF of 55-60%; trace MR , PI, TR. 05/02/16 Flexible sigmoidoscopy with biopsies of rectal lesion . 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 Villegas - Social History Smoking status: Former smoker (quit 22 years ago) Does patient use chewing tobacco?: No Disposition Prescriptions: No Action Multivit-Min/FA/Lycopen/Lutein [Centrum Silver Tablet] 1 tab PO DAILY #0 Pregabalin Cap [Lyrica] 100 mg PO DAILY FentaNYL PATCH [Duragesic Patch] 1 patch TD Q72H PRN PRN Reason: Pain Cholecalciferol (Vitamin D3) [Vitamin D3] 3,000 unit PO DAILY Aspirin *EC* [Ecotrin] 81 mg PO DAILY #30 tab Hydromorphone HCl 8 mg PO Q3H PRN PRN Reason: Pain Cyanocobalamin (Vitamin B-12) [Vitamin B-12] 1,000 mcg PO DAILY Ascorbate Calcium [Vitamin C] 500 mg PO WB Atenolol [Tenormin] 12.5 mg PO DAILY Pantoprazole Tab [Protonix Tab] 40 mg PO DAILY Tamsulosin [Flomax] 0.4 mg PO HS #30 cap Ondansetron [Ondansetron Odt] 8 mg SL PRN PRN #0 PRN Reason: NAUSEA Nitroglycerin [Nitrostat] 0.4 mg PO Q5MIN3 PRN #0 PRN Reason: CHEST PAIN Prochlorperazine Tab [Compazine] 10 mg PO PRN PRN PRN Reason: Nausea Sodium Chloride Nasal Gel [[place] Nasal Gel] 1 applicatio TOP BID tube Referrals: Jake Mera MD [Family Provider] -
[2017-05-05] MEDS ORDERED: PROCHLORPERAZINE 10 MG/2 ML INJECTION IVP ONE (07:55)
[2017-05-05] MEDS ORDERED: NS 1,000 ML IV ONE ×2 (08:08→09:26)
[2017-05-05] MEDS: SALINE FLUSH 10ml SYRINGE IVF PRN ×2 (08:20→13:39)
--- NOTE | 2017-05-05 09:21 | XRay Report ---
EXAM: XR abdomen 2V HISTORY: history of partial SBO, increasing nausea COMPARISON: Prior examination dated 04/29/2017 FINDINGS: There is been interval improvement in the caliber and number of dilated bowel loops seen throughout the abdomen. Gas is seen within the colon. A few scattered nondifferential air-fluid levels are seen on the upright view. No free intra-abdominal gas or fluid is identified. The flank and psoas muscle margins are clearly visualized. There is no organomegaly. Postsurgical changes are again seen over the right upper quadrant and left lower quadrant of the abdomen. A colostomy over the left lower quadrant. Also again visualized is artifact from endovascular stent over the right hemipelvis. IMPRESSION: 1. Improving bowel gas pattern suggesting resolving ileus. Continued close follow-up is recommended to complete resolution. 2. No free air or free fluid is identified. .
[2017-05-05] MEDS ORDERED: NS FLUSH BAG 500ml IV PRN (10:15)
[2017-05-05] MEDS: MAGNESIUM SULFATE 1gm PREMIX 1 GM/100 ML BAG IV SCH ×2 (10:25→11:28)
[2017-05-05 11:45] VITALS: BMI 18.2
[2017-05-05] MEDS: NS 1,000 ML IV SCH ×3 (12:08→18:48)
[2017-05-05] MEDS ORDERED: ONDANSETRON 4 MG/2 ML INJECTION IVP PRN (13:35)
--- NOTE | 2017-05-05 15:53 | History & Physical Report ---
History of Present Illness Date: 05/06/17 Chief complaint: vomiting HPI: Mr. Johnson's note unfortunate 8-year-old man with metastatic colon cancer to the bone. He presents to the emergency room with a day and a half of vomiting and increased stool output through his ileostomy. He does have standing orders for fluids on an outpatient basis but feels that his output is still exceeding his outpatient orders. He has been unable to keep down any food contents fluids for the last day and is feeling all the systemic effects that would anticipate with some gastroenteritis: vomiting weakness malaise dizziness and equivalent diarrhea. He is had multiple recent screens for Clostridium difficile which are been negative. His had some sacral pelvic pain recently and recent CT's have shown bony erosion to the lower pelvis and coccyx Review of Systems All systems PM: 10-point ROS was reviewed, no additional remarkable complaints except - Constitutional Constitutional: Present: as per HPI Past Medical History Stage III chronic kidney disease Stage IV colon cancer with metastasis into the pelvis and coccyx Hypertension Anemia of chronic disease GERD Coronary artery disease Surgical History: 1992 ORIF right heel/ankle fracture in [place]. 1995 left /sigmoid colectomy for colon cancer in [place]. 2001 Lap Teagan in [place], [place]. 2002 placement or Port-A -Cath with removal in 2008. 06/2002 heart cath then 5 vessel CABG. 2002 right hemicolectomy for a separate colon cancer Dr. Regla Best. 10/2011 total colectomy with ileoractal anastomosis, diverting loop ileostomy for precancerous tumors unable to be resected endoscopically, Dr. Fadi Laguna [facility] in [place]. 11/2011 EGD found 2 duodenal ulcers, esophagitis, antral gastritis. Flexible proctoscoy/ileoscopy found anastomotic stricture with anastomotic ulcer at 12 cm from anal verge. 2011 Ileostomy reversal with segemental small bowel resection Dr. Laguna at [facility]. 10/27/12 delayed primary closure of postop midline wound infection , Dr. Laguna. 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 Paula. 04/01/13 Push endoscopy and endoscopic ultrasound for abd bloating, diarrhea and pancreatitis, no pathologic diagnosis, no pancreatitis, Dr. Garzon. 06/09/13 EGD with biospy showed focal intestinal metaplasia, small hiatal hernia, Dr. Garzon. 06/07/2014 placement of Port A Cath, Dr. Paula. 09/11/15 Echo shows EF of 55-60%; trace MR , PI, TR. 05/02/16 Flexible sigmoidoscopy with biopsies of rectal lesion . 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 Villegas Family History Updates: Reviewed and noncontributory - Social History Smoking status: Former smoker Substance use type: does not use Alcohol intake frequency: does not drink Medications Home Medications Medication Instructions Recorded Confirmed Type Ondansetron [Ondansetron Odt] 8 mg SL TID PRN #0 11/06/15 05/05/17 History Nitroglycerin [Nitrostat] 0.4 mg PO Q5MIN3 PRN #0 05/27/16 05/05/17 History Multivit-Min/FA/Lycopen/Lutein 1 tab PO DAILY #0 08/23/16 05/05/17 History [Centrum Silver Tablet] Pregabalin Cap [Lyrica] 100 mg PO HS 12/25/16 05/05/17 History Cholecalciferol (Vitamin D3) 3,000 unit PO DAILY 01/07/17 05/05/17 History [Vitamin D3] Cyanocobalamin (Vitamin B-12) 1,000 mcg PO DAILY 04/08/17 05/05/17 History [Vitamin B-12] Hydromorphone HCl 8 mg PO Q3H PRN 04/08/17 05/05/17 History Pantoprazole Tab [Protonix Tab] 40 mg PO DAILY 04/08/17 05/05/17 History Prochlorperazine Tab [Compazine] 10 mg PO QID PRN 04/08/17 05/05/17 History Allergies Allergy/AdvReac Type Severity Reaction Status Date / Time atorvastatin AdvReac Unknown Restlessnes Verified 05/05/17 09:07 s codeine AdvReac Unknown NAUSEA Verified 05/05/17 09:07 Exam Vital Signs: Temperature 96.0 F L 05/05/17 15:29 Pulse Rate 111 H 05/05/17 15:29 Respiratory Rate 18 05/05/17 15:29 Blood Pressure 141/71 H 05/05/17 15:29 Pulse Oximetry 99 05/05/17 15:29 Height/Weight/BMI: Height 6 ft Weight 61 kg Body Mass Index 18.2 - Constitutional Present: mild distress, thin, cooperative - Routine HEENT Exam Head: Present: normocephalic, atraumatic Eye: Present: EOMI, PERRL ENT: Present: mucous membranes dry, dentition normal - Routine Respiratory Exam Present: CTA bilaterally. Absent: wheezes - Routine Cardiovascular Exam Present: RRR, S1, S2. Absent: murmur - Routine Abdominal Exam Present: soft, non distended, ostomy. Absent: tenderness - Routine Extremities Exam Present: normal capillary refill - Routine Skin Exam Present: dry, warm - Routine Neurological Exam Present: alert, oriented X3, CN II-XII intact - Routine Psychiatric Exam Present: normal affect Results - Labs CBC & Chem 7: 05/06/17 08:39 05/06/17 08:39 Assessment and Plan (1) Dehydration Current visit: No Status: Acute (2) Acute kidney failure, unspecified Current visit: No Status: Acute (3) Colon cancer Current visit: No Status: Acute (4) Gastroenteritis Current visit: Yes Status: Suspected Assessment and Plan: At this point, Mr. Johnson is just not maintaining his fluid balance. His stoma is have increased output, he is unable to keep things down. He is also vomiting. His outpatient orders for routine fluids have not been adequate for him so he is being brought in for observation and fluid resuscitation today. Will monitor his output by his clinical improvement and his renal function. He does have metastatic cancer into the lower portion of the spine and has significant pain issues with this. We will continue his home medications for this as well as other things and I will write for some morphine PRN. This patient appears to be hospice eligible but has not been referred over, I am uncertain of why, perhaps because of Marleni's unwillingness to you lies how gravely ill he is. DISPOSITION: observation status with attempt to rehydrate and discharge in 24 hours - Physician Narrative Narrative: Date: 05/05/17 Time: 1552 Hospital Course Summary Disclaimer: The visit summary below is not to be considered part of the above Progress Note.
[2017-05-05] MEDS ORDERED: ONDANSETRON 8 MG TABLET PO PRN (15:56)
[2017-05-05] MEDS ORDERED: PROCHLORPERAZINE 10 MG TABLET PO PRN (15:56)
[2017-05-05] MEDS ORDERED: NITROGLYCERIN 0.4 MG SUBLINGUAL TABLET SL PRN (15:56)
[2017-05-05] MEDS: HYDROMORPHONE 2 MG TABLET PO PRN ×2 (16:02→20:58)
[2017-05-05] MEDS: PREGABALIN 100 MG CAPSULE PO SCH (20:57)
[2017-05-05] MEDS: POM TAMSULOSIN 0.4 MG CAPSULE PO SCH (20:57)
[2017-05-05] MEDS: MORPHINE SULFATE 4mg INJECTION IVP PRN (20:57)
[2017-05-06] MEDS: HYDROMORPHONE 2 MG TABLET PO PRN ×2 (00:05→09:31)
[2017-05-06] MEDS: NS 1,000 ML IV SCH ×6 (00:09→22:06)
[2017-05-06] MEDS: MORPHINE SULFATE 4mg INJECTION IVP PRN ×4 (01:06→21:37)
[2017-05-06] MEDS: ENOXAPARIN 40 MG/0.4 ML INJECTION SQ SCH (08:44)
[2017-05-06] MEDS: PANTOPRAZOLE 40 MG TABLET PO SCH (08:44)
[2017-05-06] MEDS ORDERED: FALL RISK - PHARMACY CONSULT XX ONE (12:01)
--- NOTE | 2017-05-06 12:31 | Progress Note ---
- Date 05/06/17 Subjective: Mr. Johnson feels much better today. He is weak, but is no longer having abdominal pain and his nausea has resolved. He kept down his breakfast of [place] ice and jello. He has chronic pain to his right pelvis area and knows he has a tumor there. He denies feeling SOA. He states that Dr. Valdovinos gave him a prognosis of about 12 months if he continued with chemo (though he would switch to a different chemo) or about 6 months without chemo. Objective Vital signs: Temperature 98.0 F 05/06/17 07:46 Pulse Rate 104 H 05/06/17 07:46 Respiratory Rate 16 05/06/17 07:46 Blood Pressure 114/72 05/06/17 07:46 Pulse Oximetry 92 05/06/17 07:46 Height/Weight/BMI: Height 1.83 m Weight 61 kg Body Mass Index 18.2 - Constitutional Present: no acute distress, well nourished, well developed - Routine HEENT Exam Head: Present: normocephalic Eye: Present: PERRL. Absent: conjunctival icterus, scleral injection ENT: Present: mucous membranes moist - Routine Respiratory Exam Present: CTA bilaterally - Routine Cardiovascular Exam Present: RRR, S1, S2 - Routine Abdominal Exam Present: soft, non distended, non tender, ostomy (LLQ with + output). Absent: normoactive bowel sounds (hyperactive) - Routine Extremities Exam Present: no edema, pulses intact - Routine Musculoskeletal Exam Musculoskeletal: Present: moving extremities well - Routine Skin Exam Present: intact, dry, warm - Routine Neurological Exam Present: alert, oriented X3, normal speech - Routine Psychiatric Exam Present: normal affect, normal thought process, cooperative Results - Labs CBC & Chem 7: 05/06/17 08:39 05/06/17 16:06 Assessment and Plan (1) Colon cancer Current visit: No Status: Acute (2) Acute kidney failure, unspecified Current visit: No Status: Acute (3) Dehydration Current visit: No Status: Acute (4) Gastroenteritis Current visit: Yes Status: Suspected Assessment and Plan: IMPRESSION 1. Ileus, with associated hypomagnesemia - improving 2. History of Stage IV colon cancer, multiple abdominal surgeries, pelvic mass with adhesions to remaining bowel, and ileostomy. He requires regular infusions of saline and magnesium (about 3x/week) and regular blood transfusions. He has required frequent hospital admissions (this is his 4th in April) for dehydration and bowel obstruction/ileus. 3. Anemia of chronic disease/malignancy 4. DIXIE superimposed on CKD stage III 5. CAD with hx of CABG x5 6. HTN 7. GERD PLAN Labs: creatinine decreased from 2.5 to 2.3. Hgb down to 8.7. K low-normal; Mg up to 1.9. Recheck BMP this afternoon. He has been tolerating clear liquid and his abdominal pain is improving -- advance diet to full liquids. We discussed his prognosis and end of life goals. He understands his condition is terminal. He wants to be able to spend as much time with his family as possible, and is probably willing to endure side effects of the new chemo if it will give him more time with his loved ones. He doesn't seem to mind at this time to come in regularly for infusions and transfusions. We reviewed his admission history and latest CT scan, which showed a pelvic mass with adhesions to bowel and likely coccyx destruction. We discussed his current state of health and pondered whether surgery would be advised, if he would survive a surgery, and what recovery might look like. He and his would like to discuss his radiologic findings with Dr. Pinto to get his professional opinion. We also talked about some end-of-life care -- he wants one attempt at resuscitation with chest compressions, IV meds, and defibrillation but does not want intubation or mechanical ventilation. I gave him a Caring Conversations booklet to help guide him through end-of-life care/decisions with his family. We discussed the option of hospice, and the focus on quality of life; he did not argue though did not commit one way or the other. Dr. Pinto consulted for surgical opinion. Discussed with Dr. Vazquez. DVT Prophylaxis: SCD's Resuscitation Status: Do Not Intubate - Time spent with patient Time with patient PN: 30 minutes Coordination of Care: >50% of visit spent providing counseling/coordination of care - Physician Narrative Physician: Ladonna Vazquez MD Narrative: Date: 05/06/17 Time: 1730 I have independently evaluated and examined this patient. I reviewed the chart, the patient's history, and the SHEAR OPERATOR HELPER/PA's documented findings as above. We discussed and formulated the assessment and plan as above with additions as below: Mr. Zamarripa was seen with his daughter at the bedside. He tolerated clear liquids this morning and full liquids at lunch. He is ambulating in the halls without lightheadedness and reports ongoing liquid/soft stool through his stoma although color has normalized compared to admission. He questioned whether [place] might control his chronic pain more effectively than Dilaudid orally and indicated that fentanyl patch had been tried in the past and he didn't like it. NAD, alert, respirations nonlabored and breath sounds clear Abdomen soft, nontender, diminished bowel sounds; pelvic mass present. Renal function has improved progressively with most recent creatinine 2.0 and potassium 3.5. Patient will try a regular diet at supper with fluids continued at increased rate of 500 mL per hour in anticipation of discharge if he tolerates solid food. Supplemental oral potassium to be given with supper. [place] 10 one tablet every 4 hours when necessary was added to his regimen earlier today on a trial basis as an alternative oral mouth Dilaudid. Hospital Course Summary Disclaimer: The visit summary below is not to be considered part of the above Progress Note. Hospital Course: 05/05/17 Admitted to observation status, IVF started. Creatinine 2.5 on admission, Mg 1.5 and IV bolus was ordered. Clear liquid diet. 05/06/17 Labs: creatinine decreased from 2.5 to 2.3. Hgb down to 8.7. K low-normal; Mg up to 1.9. Recheck BMP this afternoon. He has been tolerating clear liquid and his abdominal pain is improving -- advance diet to full liquids. We discussed his prognosis and end of life goals. He understands his condition is terminal. He wants to be able to spend as much time with his family as possible, and is probably willing to endure side effects of the new chemo if it will give him more time with his loved ones. He doesn't seem to mind at this time to come in regularly for infusions and transfusions. We reviewed his admission history and latest CT scan, which showed a pelvic mass with adhesions to bowel and likely coccyx destruction. We discussed his current state of health and pondered whether surgery would be advised, if he would survive a surgery, and what recovery might look like. He and his would like to discuss his radiologic findings with Dr. Pinto to get his professional opinion. We also talked about some end-of-life care -- he wants one attempt at resuscitation with chest compressions, IV meds, and defibrillation but does not want intubation or mechanical ventilation. I gave him a Caring Conversations booklet to help guide him through end-of-life care/decisions with his family. We discussed the option of hospice, and the focus on quality of life; he did not argue though did not commit one way or the other. Dr. Pinto consulted for surgical opinion.
--- NOTE | 2017-05-06 13:16 | General Surgery Consult Note ---
Consult date: 05/06/17 Attending Physician: Ladonna Vazquez MD Reason for consult: abdominal pain PFSH Patient Stated Medical History Peripheral Neuropathy Yes Hearing Loss Yes Coronary Artery Disease Yes Heart Murmur Yes Hypertension Yes Myocardial Infarction Yes Pneumonia Yes: years ago Gastroesophageal Reflux Yes Disease Obstructive Bowel Yes Other Yes: URINARY RETENTION Anemia Yes: HX Osteoarthritis Yes Other Musculoskeletal Yes Clostridium Difficile Yes: HX Sepsis Yes: CURRENT Blood Transfusions Yes: HX Chemotherapy Yes: LAST TX 03/2017 Surgical History: -1992 ORIF right heel/ankle fracture in [place]. -1995 left/sigmoid colectomy for colon cancer in [place]. -2001 Lap [facility] in [place], [place]. -2002 placement or Port-A -Cath with removal in 2008. -06/2002 heart cath then 5 vessel CABG. -2002 right hemicolectomy for a separate colon cancer Dr. Regla Best. -10/2011 total colectomy with ileoractal anastomosis, diverting loop ileostomy for precancerous tumors unable to be resected endoscopically, [place] F[place] Lag[place] [facility] [place]11/2011 EGD found 2 duodenal ulcers, esophagitis, antral gastritis. Flexible proctoscoy/ileoscopy found anastomotic stricture with anastomotic ulcer at 12 cm from anal verge. -2011 Ileostomy reversal with segemental small bowel resection Dr. Laguna at [facility]. -10/27/12 delayed primary closure of postop midline wound infection , Dr. Laguna. 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 Paula. -04/01/13 Push endoscopy and endoscopic ultrasound for abd bloating, diarrhea and pancreatitis, no pathologic diagnosis, no pancreatitis, Dr. Garzon. -06/09/13 EGD with biospy showed focal intestinal metaplasia, small hiatal hernia, Dr. Garzon. -2014 placement of Port A Cath, Dr. Paula. -09/11/15 Echo shows EF of 55-60%; trace MR, PI, TR. -05/02/16 Flexible sigmoidoscopy with biopsies of rectal lesion 05/02/16. 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 Villegas Family History: Paternal GF and Aunt with colon cancer Father Drowned - Social History Smoking status: Former smoker Medications Home Medications Medication Instructions Recorded Confirmed Type Ondansetron [Ondansetron Odt] 8 mg SL TID PRN #0 11/06/15 05/05/17 History Nitroglycerin [Nitrostat] 0.4 mg PO Q5MIN3 PRN #0 05/27/16 05/05/17 History Multivit-Min/FA/Lycopen/Lutein 1 tab PO DAILY #0 08/23/16 05/05/17 History [Centrum Silver Tablet] Pregabalin Cap [Lyrica] 100 mg PO HS 12/25/16 05/05/17 History Cholecalciferol (Vitamin D3) 3,000 unit PO DAILY 01/07/17 05/05/17 History [Vitamin D3] Cyanocobalamin (Vitamin B-12) 1,000 mcg PO DAILY 04/08/17 05/05/17 History [Vitamin B-12] Hydromorphone HCl 8 mg PO Q3H PRN 04/08/17 05/05/17 History Pantoprazole Tab [Protonix Tab] 40 mg PO DAILY 04/08/17 05/05/17 History Prochlorperazine Tab [Compazine] 10 mg PO QID PRN 04/08/17 05/05/17 History Allergies Allergy/AdvReac Type Severity Reaction Status Date / Time atorvastatin AdvReac Unknown Restlessnes Verified 05/05/17 09:07 s codeine AdvReac Unknown NAUSEA Verified 05/05/17 09:07 Review of Systems 10-point ROS: negative except for HPI and the following: - General General: Present: other (fatigue, weakness) - Gastrointestinal Gastrointestinal: Present: nausea, vomiting - Musculoskeletal Musculoskeletal: Present: back pain, joint pain - Neurological Neurological: Present: muscle weakness - Endocrine Endocrine: Present: cold intolerance - Hematologic/Lymphatic Hematologic/Lymphatic: Present: easy bruising - Vital Signs Last Vital Signs Temp 98.0 F 05/06/17 07:46 Pulse 104 H 05/06/17 07:46 Resp 16 05/06/17 07:46 BP 114/72 05/06/17 07:46 Pulse Ox 92 05/06/17 07:46 - Laboratory Result Diagrams: 05/06/17 08:39 05/06/17 08:39 General Surgery Results - Results Labs: 05/06/17 08:39 05/06/17 08:39 Hospital Course Summary Disclaimer: The visit summary below is not to be considered part of the above Progress Note. Hospital Course: 05/05/17 Admitted to observation status, IVF started. Creatinine 2.5 on admission, Mg 1.5 and IV bolus was ordered. Clear liquid diet. 05/06/17 Labs: creatinine decreased from 2.5 to 2.3. Hgb down to 8.7. K low-normal; Mg up to 1.9. Recheck BMP this afternoon. He has been tolerating clear liquid and his abdominal pain is improving -- advance diet to full liquids. We discussed his prognosis and end of life goals. He understands his condition is terminal. He wants to be able to spend as much time with his family as possible, and is probably willing to endure side effects of the new chemo if it will give him more time with his loved ones. He doesn't seem to mind at this time to come in regularly for infusions and transfusions. We reviewed his admission history and latest CT scan, which showed a pelvic mass with adhesions to bowel and likely coccyx destruction. We discussed his current state of health and pondered whether surgery would be advised, if he would survive a surgery, and what recovery might look like. He and his would like to discuss his radiologic findings with Dr. Pinto to get his professional opinion. We also talked about some end-of-life care -- he wants one attempt at resuscitation with chest compressions, IV meds, and defibrillation but does not want intubation or mechanical ventilation. I gave him a Caring Conversations booklet to help guide him through end-of-life care/decisions with his family. We discussed the option of hospice, and the focus on quality of life; he did not argue though did not commit one way or the other. Dr. Pinto consulted for surgical opinion.
[2017-05-06] MEDS: HYDROCODONE/APAP 10 MG/325 MG TABLET PO PRN (13:33)
[2017-05-06] MEDS ORDERED: NS 1,000 ML IV SCH (17:45)
--- NOTE | 2017-05-06 18:31 | Consultation ---
DATE OF CONSULTATION 05/06/2017 FINDINGS Mr. Johnson is a very pleasant 71-year-old gentleman who is well known to my surgical practice. Mr. Johnson has had the misfortune of developing recurrent metastatic colon cancer. The patient's overall status has significantly improved from the time that I met him following perforation of his colon as a result of his recurrent malignancy. He underwent surgical intervention at that time followed by creation of an ileostomy. Patient informs me, however, that over the last month or so he has not been doing as well. He states that he has had a few admissions to the hospital as a result of nausea, vomiting and electrolyte abnormalities. The patient states that a few days ago he felt as if he was getting the flu. He states that he had a "bad taste in your mouth that you typically get with the flu." He states that he then began to notice that he was having diarrhea through his ileostomy. Patient states he had to "empty his ileostomy every hour." He also states that he was "throwing up a fair amount of bile stuff." Patient states that this "throw up was different than when he had his prior obstruction." Patient states that previously "the stuff he was throwing up was black and smells bad." Patient states that this time it was more "flu-like vomit." Patient was in good spirits today. He states that he has been contemplating stopping chemotherapy secondary to the side effects from the chemotherapy. He states he has developed severe neuropathy involving his feet and hands. Patient states that he is to see his oncologist in the near future to discuss "going on a pill form of chemo." Patient states that he has been ill enough for the last several weeks that he has not been able to see his oncologist. PAST MEDICAL HISTORY, PAST SURGICAL HISTORY, MEDICATIONS, ALLERGIES, SOCIAL HISTORY, FAMILY HISTORY, REVIEW OF SYSTEMS Performed by my nurse practitioner, Kaiser Fountain APRN. PHYSICAL EXAMINATION GENERAL: Mr. Johnson is a 71-year-old gentleman who, as stated above, was in good spirits and did not appear to be in acute distress today. VITAL SIGNS: Temperature 97.5, pulse 86, respirations 18, blood pressure 141/69 , SAO2 100% on room air. HEENT: Normocephalic. Pupils are equally round and react to light and accommodation. CHEST: Clear to auscultation bilaterally. HEART: Regular rate and rhythm. Normal S1 and S2 without gallops, murmurs or clicks. ABDOMEN: Ostomy is present within the left lower abdomen. Palpation of the abdomen reveals it to be soft and completely nontender today. There was no evidence for guarding or rebound. EXTREMITIES: Without clubbing, cyanosis, or edema. NEURO: Cranial nerves II-XII grossly intact. Patient is without focal motor or sensory deficits. LABORATORY/RADIOGRAPHIC EVALUATION The patient had a CBC today and his white count was 8.6. Hemoglobin has drifted down slightly at 8.7. BMP was obtained and his creatinine was elevated at 2.0 and BUN was elevated at 35.0. This, however, is improved from admission. I did go back and review his prior radiographic evaluation not just from this admission. It appears that on April [address] scan of his abdomen and pelvis as well as some plain films. At that time he was found to have markedly dilated loops of small bowel and several air-fluid levels. CT scan revealed a mass within the right pelvis consistent with recurrent metastatic cancer. This mass was increased in size and there was a component of some lytic activity with the adjacent bone. Patient states he has been having a fair amount of pain within his right pelvic region. Repeat KUB and upright was obtained yesterday. I did review his films from yesterday and they do appear markedly improved in comparison to a week earlier on April 28. One can see some minimal dilation of the small bowel as well as some air-fluid levels obtained from this film yesterday. I do not feel that this is consistent with that of an obstructive pattern. ASSESSMENT 71-year-old pleasant gentleman with the misfortune of developing progressive metastatic colon cancer. Patient without an acute surgical abdomen at this time. Patient appears to be without recurrent obstruction at this time. PLAN The patient was informed that from a surgical standpoint at this time it does not appear that there is any need for surgical intervention. I do not feel that we are dealing with that of a complete bowel obstruction. There has been a significant amount of viral gastroenteritis within our community and it is my intuition that his increased output through his ileostomy and his vomiting very well may be of a viral etiology and not that of an obstructive etiology from adhesions or recurrent tumor. I informed the patient that he was found to have extensive adhesions at the time of his prior surgery and I am not surprised that he has chronic issues with nausea, vomiting and small bowel dilatation. I informed the patient that hopefully we will not get to the point that he develops a complete small bowel obstruction. I informed the patient that I would not recommend any "prophylactic surgery" such as diagnostic laparoscopy and lysis of adhesions. I informed the patient that if he would develop a complete small bowel obstruction in the future that we would have a very difficult decision at that time whether or not we would intervene from a surgical standpoint or focus our attention on more of a palliative type of approach. The patient has always been very optimistic and has always wished for more for an aggressive approach than that of a palliative approach. It is my intuition that if in the future he would develop a complete small bowel obstruction that he would likely wish to proceed with surgery. Hopefully we will not have to "cross this road" in the future. At this time I would recommend continuing with current management for the patient. CHARLEY
[2017-05-06] MEDS: POM TAMSULOSIN 0.4 MG CAPSULE PO SCH (21:37)
[2017-05-06] MEDS: PREGABALIN 100 MG CAPSULE PO SCH (21:37)
[2017-05-07] MEDS: HYDROCODONE/APAP 10 MG/325 MG TABLET PO PRN ×3 (00:48→16:38)
[2017-05-07] MEDS: MORPHINE SULFATE 4mg INJECTION IVP PRN ×2 (02:36→09:01)
[2017-05-07] MEDS: NS 1,000 ML IV SCH ×3 (04:39→17:52)
[2017-05-07] MEDS ORDERED: NS FLUSH BAG 500ml IV PRN (08:18)
[2017-05-07] MEDS ORDERED: CYANOCOBALAMIN (B-12) 500mcg TABLET PO SCH (09:00)
[2017-05-07] MEDS: HYDROMORPHONE 2 MG TABLET PO PRN (09:00)
[2017-05-07] MEDS: ENOXAPARIN 40 MG/0.4 ML INJECTION SQ SCH (09:05)
[2017-05-07] MEDS: PANTOPRAZOLE 40 MG TABLET PO SCH (09:08)
[2017-05-07] MEDS: MAGNESIUM SULFATE 1gm PREMIX 1 GM/100 ML BAG IV SCH ×2 (10:45→11:52)
--- NOTE | 2017-05-07 10:50 | Progress Note ---
- Date 05/07/17 Subjective: Kamari was resting in bed, but woke up easily. He states that his abdominal pain has resolved and he went all night without nausea or vomiting. However, he's received 4 doses of IV morphine since midnight due to pain in his right pelvis area. He states this area becomes very painful. He denies feeling short of breath but does feel weaker today. Objective Vital signs: Temperature 97.9 F 05/07/17 09:58 Pulse Rate 88 05/07/17 09:58 Respiratory Rate 14 05/07/17 09:58 Blood Pressure 97/54 05/07/17 09:58 Pulse Oximetry 99 05/07/17 09:58 Height/Weight/BMI: Height 1.83 m Weight 65.2 kg Body Mass Index 18.2 - Constitutional Present: no acute distress, well nourished, well developed - Routine HEENT Exam Head: Present: normocephalic Eye: Absent: conjunctival icterus, scleral injection ENT: Present: mucous membranes moist, oropharynx clear - Routine Respiratory Exam Present: CTA bilaterally - Routine Cardiovascular Exam Present: RRR, S1, S2 - Routine Abdominal Exam Present: soft, normoactive bowel sounds, non distended, non tender, ostomy (LLQ with good output) - Routine Extremities Exam Present: no edema, pulses intact - Routine Musculoskeletal Exam Musculoskeletal: Present: moving extremities well - Routine Skin Exam Present: intact, dry, warm - Routine Neurological Exam Present: alert, oriented X3 - Routine Psychiatric Exam Present: normal affect, normal thought process, cooperative Results - Labs CBC & Chem 7: 05/07/17 18:08 05/07/17 04:09 Assessment and Plan (1) Colon cancer Status: Acute (2) Acute kidney failure, unspecified Status: Acute (3) Dehydration Status: Acute (4) Gastroenteritis Status: Suspected Assessment and Plan: IMPRESSION 1. N/V, gastroenteritis, with associated hypomagnesemia - improving 2. History of Stage IV colon cancer, multiple abdominal surgeries, pelvic mass with adhesions to remaining bowel, and ileostomy. He requires regular infusions of saline and magnesium (about 3x/week) and regular blood transfusions. He has required frequent hospital admissions (this is his 4th in April) for dehydration and bowel obstruction/ileus. 3. Anemia of chronic disease/malignancy 4. DIXIE superimposed on CKD stage III 5. CAD with hx of CABG x5 6. HTN 7. GERD PLAN Labs: creatinine decreased from 2.5 on admission to 1.6. Hgb started at 11 and is now 6.8. Will give 1 unit PRBC for symptomatic anemia. Give routine infusion (MWF basis): 1L NS, 2 gm MgSO4. Will give KDur 20 mEq x1 since K is low-normal. Possible dc after blood transfusion if he's able to tolerate food today and his pain is kept under control with oral medications. DVT Prophylaxis: Lovenox GI Prophylaxis: Protonix Resuscitation Status: Do Not Intubate - Physician Narrative Physician: Ladonna Vazquez MD Narrative: Date: 05/07/17 Time: 1800 I have independently evaluated and examined this patient. I reviewed the chart, the patient's history, and the SKIFF OPERATOR/PA's documented findings as above. We discussed and formulated the assessment and plan as above with additions as below: Mr. Johnson has been seen several times throughout the day in anticipation of discharge. He described feeling weak this morning with increased hip pain overnight. Hemoglobin was low this morning and one unit of blood has been ordered, transfusion is just completing at this time. Options for pain management and been reviewed with the patient on several occasions and ultimately we have elected to add low-dose extended release morphine to oral hydromorphone on a trial basis to improve pain control. I suspect the morphine dose will need to be increased in 7-10 days. Patient is continued to tolerate oral intake and is having what he characterizes as normal stools. He thinks he has an appointment with Dr. Valdovinos tomorrow. Patient is alert and appears comfortable Respirations are nonlabored with good airflow and clear breath sounds Abdomen is soft with active bowel sounds Stable for discharge with medication adjustments as noted above provided post transfusion hemoglobin demonstrates improvement. Hospital Course Summary Disclaimer: The visit summary below is not to be considered part of the above Progress Note. Hospital Course: 05/05/17 Admitted to observation status, IVF started. Creatinine 2.5 on admission, Mg 1.5 and IV bolus was ordered. Clear liquid diet. 05/06/17 Labs: creatinine decreased from 2.5 to 2.3. Hgb down to 8.7. K low-normal; Mg up to 1.9. Recheck BMP this afternoon. He has been tolerating clear liquid and his abdominal pain is improving -- advance diet to full liquids. We discussed his prognosis and end of life goals. He understands his condition is terminal. He wants to be able to spend as much time with his family as possible, and is probably willing to endure side effects of the new chemo if it will give him more time with his loved ones. He doesn't seem to mind at this time to come in regularly for infusions and transfusions. We reviewed his admission history and latest CT scan, which showed a pelvic mass with adhesions to bowel and likely coccyx destruction. We discussed his current state of health and pondered whether surgery would be advised, if he would survive a surgery, and what recovery might look like. He and his would like to discuss his radiologic findings with Dr. Pinto to get his professional opinion. We also talked about some end-of-life care -- he wants one attempt at resuscitation with chest compressions, IV meds, and defibrillation but does not want intubation or mechanical ventilation. I gave him a Caring Conversations booklet to help guide him through end-of-life care/decisions with his family. We discussed the option of hospice, and the focus on quality of life; he did not argue though did not commit one way or the other. Dr. Pinto consulted for surgical opinion. 05/07/17 Labs: creatinine decreased from 2.5 on admission to 1.6. Hgb started at 11 and is now 6.8. Will give 1 unit PRBC for symptomatic anemia. Give routine infusion (MWF basis): 1L NS, 2 gm MgSO4. Will give KDur 20 mEq x1 since K is low-normal. Possible dc after blood transfusion if he's able to tolerate food today and his pain is kept under control with oral medications.
[2017-05-07 16:32] VITALS: BP 136/67; PULSE 76; RESP 20; TEMP 96; O2SAT 100
--- NOTE | 2017-05-07 20:36 | Progress Note ---
DATE 05/07/2017 FINDINGS Mr. Johnson was seen earlier today on rounds. He informs me that he had not been throwing up. He informs me that his ostomy output had improved. He states that it is beginning to "firm out." He is no longer having "diarrhea through his ileostomy." Patient informs me that he did have a fair amount of pain within the right hip/sacral region where he has a known recurrent malignancy present with a lytic component noted on prior CT scan. Patient states that the pain medications last night did "help his pain." He informs me that he was to get a "blood transfusion today." EXAM VITAL SIGNS: Afebrile, normotensive. Last recorded vitals include temperature 96.0, pulse 76, respirations 20, blood pressure 136/72, SAO2 100% on room air. HEENT: Normocephalic. Pupils are equally round and react to light and accommodation. CHEST: Clear to auscultation bilaterally. HEART: Regular rate and rhythm. Normal S1 and S2 without gallops, murmurs or clicks. ABDOMEN: Abdomen is soft, nontender on rounds. LABORATORY The patient had a CBC today and his white count was 5.2. Hemoglobin earlier today was 6.8. After transfusion his hemoglobin has improved to 8.8. ASSESSMENT 71-year-old gentleman with misfortune of developing recurrent metastatic colon cancer. Patient doing well from surgical standpoint at this time with no evidence for bowel obstruction. PLAN At this time will go ahead and sign off the patient's care. I do not feel that we are dealing with a partial small-bowel obstruction or obstructive pattern at this time. I did contact his oncologist, who stated he would see the patient tomorrow is a "courtesy consult". Mr. Johnson was asking about Dr. Valdovinos earlier today. CHARLEY
--- NOTE | 2017-05-07 20:55 | Discharge Summary ---
Discharge Information Date of admission: 05/05/17 11:10 Anticipated date of discharge: 05/07/17 Attending Physician: Ladonna Vazquez MD Primary care physician: Jake Mera MD Consults: Consulting Provider: Huber Pinto Reason For Exam: recurrent partial SBO - Discharge Diagnosis (1) Ileus Status: Acute (2) Acute kidney failure, unspecified Status: Acute (3) Dehydration Status: Acute Ileus-acute/recurrent Dehydration DIXIE superimposed on CKD stage III Gastroenteritis, probable Anemia of chronic disease/malignancy Stage IV colon cancer with chronic pelvic/hip pain CAD with hx of CABG x5 HTN GERD Hypomagnesemia - Laboratory Labs: On admission 05/05/17 white count 9.9, hemoglobin 11.0, and platelet count 466K. BUN 33, magnesium 1.5, creatinine 2.5, and alkaline phosphatase 144 Following hydration on the morning of 05/07/17 hemoglobin was 6.8 05/07/17 18:08 05/07/17 04:09 - Microbiology GI panel was negative for enteric pathogens including C. difficile - Radiology Radiology: 2 view abdominal series on admission demonstrated: There is been interval improvement in the caliber and number of dilated bowel loops seen throughout the abdomen. Gas is seen within the colon. A few scattered nondifferential air-fluid levels are seen on the upright view. No free intra-abdominal gas or fluid is identified. The flank and psoas muscle margins are clearly visualized. There is no organomegaly. Postsurgical changes are again seen over the right upper quadrant and left lower quadrant of the abdomen. A colostomy over the left lower quadrant. Also again visualized is artifact from endovascular stent over the right hemipelvis. IMPRESSION: 1. Improving bowel gas pattern suggesting resolving ileus. Continued close follow-up is recommended to complete resolution. 2. No free air or free fluid is identified. History of Present Illness HPI: Mr. Johnson's note unfortunate 71-year-old man with metastatic colon cancer to the bone. He presents to the emergency room with a day and a half of vomiting and increased stool output through his ileostomy. He does have standing orders for fluids on an outpatient basis but feels that his output is still exceeding his outpatient orders. He has been unable to keep down any food contents fluids for the last day and is feeling all the systemic effects that would anticipate with some gastroenteritis: vomiting weakness malaise dizziness and equivalent diarrhea. He is had multiple recent screens for Clostridium difficile which are been negative. His had some sacral pelvic pain recently and recent CT's have shown bony erosion to the lower pelvis and coccyx Objective Vital signs: Temperature 96.0 F L 05/07/17 16:31 Pulse Rate 76 05/07/17 16:31 Respiratory Rate 20 05/07/17 16:31 Blood Pressure 136/67 05/07/17 16:31 Pulse Oximetry 100 05/07/17 16:31 Height/Weight/BMI: Height 1.83 m Weight 65.2 kg Body Mass Index 18.2 Hospital Course This is a general summary of the patient's hospital course. For more details refer to the complete medical record. Hospital course: 05/05/17 Admitted to observation status, IVF started. Creatinine 2.5 on admission, Mg 1.5 and IV bolus was ordered. Clear liquid diet. KUBs with improvement from films last week although some nonspecific air-fluid levels persist. 05/06/17 Labs: creatinine decreased from 2.5 to 2.3. Hgb down to 8.7. K low-normal; Mg up to 1.9. Recheck BMP this afternoon. He has been tolerating clear liquid and his abdominal pain is improving -- advance diet to full liquids. We discussed his prognosis and end of life goals. He understands his condition is terminal. He wants to be able to spend as much time with his family as possible, and is probably willing initiate new chemo if it will give him more time with his loved ones. He doesn't seem to mind at this time to come in regularly for infusions and transfusions. We reviewed his admission history and latest CT scan, which showed a pelvic mass with adhesions to bowel and likely coccyx destruction. We discussed his current state of health and pondered whether surgery would be advised, if he would survive a surgery, and what recovery might look like. He and his would like to discuss his radiologic findings with Dr. Pinto to get his professional opinion. We also talked about some end-of-life care -- he wants one attempt at resuscitation with chest compressions, IV meds, and defibrillation but does not want intubation or mechanical ventilation. He received a Caring Conversations booklet to help guide him through end-of-life care/decisions with his family. Dr. Pinto consulted for surgical opinion and advised conservative management given some atypical features with current presentation suggesting possible viral gastroenteritis superimposed on chronic GI symptoms. 05/07/17 Labs: creatinine decreased from 2.5 on admission to 1.6. Hgb started at 11 and is now 6.8. One unit PRBC transfused for symptomatic anemia with posttransfusion hemoglobin 8.8. Give routine infusion (MWF basis): 1L NS, 2 gm MgSO4. Supplemental oral potassium also given during the day. Patient is continued to maintain oral intake without difficulty and stools have improved progressively. Ambulating without difficulty or lightheadedness after transfusion. Stable to discharge home; to continue infusion therapy on Mondays, Friday, and Friday. To follow up with Dr. Valdovinos as soon as possible and Dr. Mera in one week. Patient described increasing discomfort in his hips/pelvis progressively over time and poor response to fentanyl patch tried previously. Extended release morphine initiated at a dose of 10 mg twice a day with continued use oral hydromorphone. Patient advised that the morphine dose will need to be adjusted/increased in 7- 10 days to further improve pain control. Time spent with patient: discharge greater than 30 minutes Discharge Plan - Discharge Disposition Discharge Date: 05/07/17 Disposition: Discharged Home, Self-Care *Condition: Stable Reason For Visit (Visit label in EMR): vomiting,dehydration - Discharge Medications *Discharge Medications: New Morphine Sulfate [Morphine Sulfate ER] 10 mg PO Q12HR #60 cap.er.pel Continue Multivit-Min/FA/Lycopen/Lutein [Centrum Silver Tablet] 1 tab PO DAILY #0 Pregabalin Cap [Lyrica] 100 mg PO HS Cholecalciferol (Vitamin D3) [Vitamin D3] 3,000 unit PO DAILY Aspirin *EC* [Ecotrin] 81 mg PO DAILY #30 tab Hydromorphone HCl 8 mg PO Q3H PRN PRN Reason: Pain Cyanocobalamin (Vitamin B-12) [Vitamin B-12] 1,000 mcg PO DAILY Pantoprazole Tab [Protonix Tab] 40 mg PO DAILY Tamsulosin [Flomax] 0.4 mg PO HS #30 cap Ondansetron [Ondansetron Odt] 8 mg SL TID PRN #0 PRN Reason: NAUSEA Nitroglycerin [Nitrostat] 0.4 mg PO Q5MIN3 PRN #0 PRN Reason: CHEST PAIN Prochlorperazine Tab [Compazine] 10 mg PO QID PRN PRN Reason: Nausea - Discharge Packet/Instructions *Diet: as tolerates *Activity: as tolerates *Pain Management/Treatment: Start ER Morphine 10 mg twice a day-take about 12 hours apart. Dose may need to be increased in 7-10 days. Continue hydromorphone 8 mg 1-2 tablets every 3 hours as needed. *Wound Care: Not applicable Additional Instructions: Continue using nausea medications as needed; continue IV fluids and IV morphine at infusion center every Friday, Friday, and Friday. See Dr. Valdovinos in the near future to discuss chemotherapy options. *Expected Signs/Symptoms: Hip/pelvic pain. *Notify Physician if: Nausea and vomiting started again or no output in your ostomy. *During Business Hours Contact: Dr. Mera or Dr. Valdovinos at their offices *After Business Hours Contact: Call [facility] at [phone] and ask that the on-call physician be paged for Dr. Mera *Pending Lab/Results: No Pending Lab - Referrals/Follow Up *Referrals/Follow Up: Dallas Valdovinos MD [Physician] - (Schedule appointment to be seen soon if you do not have an appointment tomorrow.) aJke Mera MD [Family Provider] - 1 Week - Patient Handouts Patient Handouts: Dehydration (ED), Blood Transfusion (GEN) - Dismissal Complete Discharge Instructions are:: Complete Physician Narrative - Narrative Attestation Narrative: Date: 05/07/17 Time: 2050
== END 2017-05-07 19:11 | disposition home or self-care (01) ==
LOC: SRG 07:38 → ED 07:38 → SUATTDRO 11:10 → SRG 11:45
PROVIDERS: ADMIT Family Medicine; ATTEND Internal Medicine